=== PATIENT | female | born 1965 | race Caucasian/White ===

== ENCOUNTER 2018-11-10 15:33 | Observation (INO) ==
[2018-11-10] MEDS ORDERED: SODIUM CHLORIDE 0.9% 1000ML 2,000 ML IV SCH (16:15)
--- NOTE | 2018-11-10 16:34 | XRay Report ---
XR chest 1V portable CLINICAL HISTORY: dizziness COMPARISON STUDY: Chest radiograph April 23, 2015. FINDINGS: Lung volumes are normal. There is no pneumothorax or pleural effusion. No consolidation or evidence for pulmonary edema. Cardiac size is normal. Mediastinal contours are stable. Appearance of the chest is unchanged. IMPRESSION: No acute cardiopulmonary findings. Electronically signed by: Oneil Farrell M.D. 11/10/2018 4:33 PM
[2018-11-10] MEDS ORDERED: DEXAMETHASONE SOD PHOSPHATE 10 MG in SYRINGE 0 ML IV STA (16:52)
[2018-11-10] MEDS ORDERED: PROCHLORPERAZINE 5 MG/ML 2 ML VIAL IV STA (16:52)
[2018-11-10] MEDS ORDERED: DiphenhydrAMINE HCL 50 MG/ML VIAL IV STA (16:52)
[2018-11-10] MEDS ORDERED: PROCHLORPERAZINE 10 MG in SYRINGE 8 ML IV SCH (17:00)
[2018-11-10] MEDS ORDERED: DEXAMETHASONE **PF** INJ 10 MG/ML VIAL ONE (17:03)
[2018-11-10 17:04] LABS: Basophils # (auto) 0.02 K/uL (0-0.2); Basophils % (auto) 0.3 %; Eosinophils # (auto) 0.06 K/uL (0-0.5); Eosinophils % (auto) 0.8 %; Hematocrit (blood only) 43.5 % (37-47); Hemoglobin 15.4 g/dL (12.0-16.0); Immature Granulocytes # (auto) 0.02 K/uL (0.00-0.02); Immature Granulocytes % (auto) 0.3 %; Lymphocytes # (auto) 1.54 K/uL (1.2-3.4); Lymphocytes % (auto) 20.3 %; Mean Corpuscular Hgb Conc 35.4 g/dL (32-36); Mean Corpuscular Volume 94.6 fL (80-100); Mean Platelet Volume 9.1 fL (7.4-10.4); Monocytes # (auto) 0.41 K/uL (0.11-0.59); Monocytes % (auto) 5.4 %; Neutrophils # (auto) 5.54 K/uL (1.4-6.5); Neutrophils % (auto) 72.9 %; Platelet Count 315 K/uL (130-400); RDW Coefficient of Variation 12.7 % (11.5-14.5); RDW Standard Deviation 43.7 fL (36.4-46.3); White Blood Count 7.59 K/uL (4.8-10.8)
[2018-11-10 17:17] LABS: Appearance Urine Cloudy (Clear); Bacteria Urine Automated 1+ (Negative); Bilirubin Urine Negative (Negative); Color Urine Yellow; Epithelial Cell Urine Auto >30 /lpf (0-5); Glucose Urine UA Negative (Negative); Ketones Urine Negative (Negative); Leukocyte Esterase Urine 2+ (Negative); Nitrite Urine Negative (Negative); Protein Urine Negative (Negative); Specific Gravity Urine 1.016 (1.000-1.030); Urobilinogen Urine Negative (Negative)
[2018-11-10 17:19] LABS: Alanine Aminotransferase 77 U/L (12-78); Albumin Level 3.7 gm/dl (3.4-5.0); Aspartate Aminotransferase 99 U/L (15-37); BUN Creatinine Ratio 9.4 (10-20); Blood Urea Nitrogen 8 mg/dl (7-18); Calcium 10.1 mg/dl (8.5-10.1); Carbon Dioxide 27 mmol/L (21-32); Chloride 90 mmol/L (98-107); Creatinine Clr Calc Pharmacy 94.1 ml/min; Est GFR (African American) 86.4; Est GFR (Non-African American) 74.5; Glucose 156 mg/dl (70-99); Magnesium 1.2 mg/dl (1.8-2.4); Potassium 4.5 mmol/L (3.5-5.1); Sodium 127 mmol/L (136-145)
[2018-11-10 17:30] LABS: Albumin Globulin Ratio 0.8 (0.9-2); Alkaline Phosphatase 98 U/L (45-117); Bilirubin,Total 0.7 mg/dl (0.1-1); Globulin 4.5 gm/dl (2.5-4.0); Phosphorus 3.7 mg/dl (2.5-4.9); Total Protein 8.2 gm/dl (6.4-8.2); Troponin I < 0.015 ng/ml (0-0.045)
[2018-11-10 17:44] LABS: Pregnancy Test, Serum Negative (Negative)
--- NOTE | 2018-11-10 17:50 | Emergency Department Note ---
Entered by Osvaldo Mane acting as a scribe for History of Present Illness General Chief complaint: Neuro Symptoms/Deficit Stated complaint: BALANCE ISSUES, JIGGLY VISION Time Seen by Provider: 11/10/18 15:49 Source: patient Limitations: no limitations History of Present Illness Onset (ago): month(s) 3 Location: head Pain Consistency: + other (worsening) Quality: + constant Associated symptoms: + denies other symptoms (pain with extraocular movements); no headaches The patient is a 53 year old female who presents to the Emergency Room with complaints of dizziness occurring for the past 3 months. The patient states she has had dizziness for the past 8 months, however the symptoms started to worsen 3 months ago. The patient notes before August her dizziness was intermittent and usually worsened throughout the day. She states after August the dizziness is constant and has been progressively getting worse. She notes her vision has been going back and forth for the past 3 months. The patient denies headaches and pain with extraocular movements. The patient states she recently had an episode of sweating, nausea, and dizziness, but she notes she did not pass out. The patient denies any other weaknesses. She notes she does not know what tests she has undergone but has recently done an MRI. The patient states she has seen multiple doctors regarding her problem but has not found any answers. Patient has been evaluated by neurology, Dr. Raymond/Nelsy Silverman PAC and opthalmology, Dr. Gibbs, for her symptoms. Home Medications Home Medications Medication Instructions Recorded Confirmed Type albuterol sulfate [ProAir HFA] 2 puff INHALATION QID PRN 11/10/18 11/10/18 History bupropion HCl 150 mg PO BID 11/10/18 11/10/18 History cholecalciferol (vitamin D3) 0 unit PO DAILY 11/10/18 11/10/18 History [Vitamin D3] diazepam 5 mg PO Q8 PRN 11/10/18 11/10/18 History fluticasone [Flonase Allergy 1 spray INTRANASAL DAILY PRN 11/10/18 11/10/18 History Relief] lisinopril-hydrochlorothiazide 1 tab PO DAILY 11/10/18 11/10/18 History meclizine 25 mg PO TID PRN 11/10/18 11/10/18 History metoprolol tartrate 100 mg PO BID 11/10/18 11/10/18 History milk thistle seed extract 0 mg PO DAILY 11/10/18 11/10/18 History omeprazole 20 mg PO DAILY 11/10/18 11/10/18 History risperidone 1 mg PO DAILY 11/10/18 11/10/18 History turmeric 2 cap PO DAILY 11/10/18 11/10/18 History Allergies Allergy/AdvReac Type Severity Reaction Status Date / Time ampicillin Allergy Intermediate hives Verified 11/10/18 16:13 cephalexin Allergy Intermediate HIVES/ITCHI Verified 11/10/18 16:13 NG Penicillins Allergy Intermediate HIVES Verified 11/10/18 16:13 metronidazole Allergy Mild blisters Verified 11/10/18 16:13 adhesive AdvReac Mild SKIN Verified 11/10/18 16:13 TEARING AND IRRITATION Past Med/Surg History Medical History Acute anxiety (Acute) Depression (Acute) Suicidal ideation (Acute) UTI (urinary tract infection) (Acute) Family History Other No pertinent family history Social History Current Living Situation: Spouse Other Information That Helps Us Care for You: No Feels Safe at Home: Yes Safety Concerns: Feels Safe At This Time Smoking Status: Never smoker Hx Alcohol Use: Yes Alcohol type: wine and hard liquor Alcohol Intake Frequency : a few times a week Hx Substance Use: No Beliefs That Will Affect Care: None Preferred Language: Turkish Communication Ability: Effective Tubing Supervisor Required: No Review of Systems See HPI for pertinent positives & negatives. and A total of 10 systems reviewed and were otherwise negative Physical Exam Vital Signs Vital Signs - 24 hr 11/10/18 15:37 11/10/18 17:20 11/10/18 18:46 Temperature 36.8 C Temperature Source Oral Sepsis Recent Fever Within 48 Hours No Sepsis Action Taken by Nursing No Action Required Pulse Rate 82 Pulse Rate [Apical] 71 74 Respiratory Rate 20 18 18 Respiratory Effort / Characteristics Respiratory Depth Respiratory Pattern Blood Pressure 146/96 H Blood Pressure [Left Arm] 139/97 150/91 H Blood Pressure [Right Arm] Blood Pressure Mean 112 Blood Pressure Mean [Left Arm] 111 110 Blood Pressure Mean [Right Arm] Blood Pressure Position [Left Arm] Pulse Oximetry 97 97 97 Pulse Oximetry [Left Index Finger] Oxygen Delivery Method Room Air Room Air Room Air Oxygen Delivery Method [Left Index Finger] 11/10/18 19:43 11/10/18 19:48 11/10/18 23:19 Temperature 36.8 C 36.8 C 36.6 C Temperature Source Oral Oral Oral Sepsis Recent Fever Within 48 Hours Sepsis Action Taken by Nursing Pulse Rate Pulse Rate [Apical] 67 74 85 Respiratory Rate 20 20 22 Respiratory Effort / Characteristics Non-Labored Respiratory Depth Normal Respiratory Pattern Regular Blood Pressure Blood Pressure [Left Arm] 172/110 H 155/87 H Blood Pressure [Right Arm] 166/78 H Blood Pressure Mean Blood Pressure Mean [Left Arm] 130 109 Blood Pressure Mean [Right Arm] 107 Blood Pressure Position [Left Arm] Lying Pulse Oximetry 98 96 96 Pulse Oximetry [Left Index Finger] 98 Oxygen Delivery Method Room Air Room Air Room Air Oxygen Delivery Method [Left Index Finger] Room Air GENERAL: Awake, alert, uncomfortable-appearing, in no distress HENT: Normocephalic, atraumatic. Oropharynx with dry mucous membranes and otherwise unremarkable. Normal thyroid. EYES: Normal conjunctiva. Sclera non-icteric. Right pupil 4mm, left pupil 3.5mm. Pupils reactive without APD. Rotary Nystagmus bilaterally. EOMI. NECK: Supple. No nuchal rigidity. FROM. No JVD. RESPIRATORY: Clear to auscultation. CARDIAC: Regular rate, normal rhythm. Extremities warm and well perfused. Pulses equal. ABDOMEN: Soft, non-distended. No tenderness to palpation. No rebound or guarding. No masses. RECTAL: Deferred. MUSCULOSKELETAL: Chest examination reveals no tenderness. The back is symmetrical on inspection without obvious abnormality. There is no CVA tenderness to palpation. No joint edema. LOWER EXTREMITIES: Calves are equal size bilaterally and non-tender. No edema. No discoloration. NEURO: Normal sensorium. No sensory or motor deficits noted. 5/5 strenght and SILT x 4 ext. Cerebellar function intact including [id number], alternating palms, [id number]. DTRs wnl. No LE clonus. Negative Chvostek sign. SKIN: No rash or jaundice noted. Course 155: Past medical records reviewed. The patient was evaluated in room B5, and a complete history and physical examination were performed with Eugenio Marroquin MS4. 1800: I spoke with the patient regarding her admission. She agreed she should be admitted. Administered Medications Bupropion HCl (Wellbutrin-Xl) 150 mg PO BID LONNY Stop: 12/10/18 20:59 Last Admin: 11/10/18 20:31 Dose: 150 mg Heparin Sodium (Porcine) (Heparin Sodium (Porcine)) 5,000 units SQ Q8 LONNY Stop: 12/10/18 21:59 Last Admin: 11/10/18 21:49 Dose: 5,000 units Doxycycline Hyclate 100 mg/ (Dextrose) 110 mls @ 50 mls/hr IV BID LONNY Stop: 11/15/18 20:59 Last Admin: 11/10/18 22:44 Dose: 50 mls/hr Sodium Chloride (Nss) 500 mls @ 125 mls/hr IV .Q4H LONNY Stop: 11/11/18 11:46 Last Admin: 11/10/18 20:26 Dose: 125 mls/hr Metoprolol Tartrate (Lopressor) 100 mg PO BID LONNY Stop: 12/10/18 20:59 Last Admin: 11/10/18 20:31 Dose: 100 mg Risperidone (Risperdal) 1 mg PO HS LONNY Stop: 12/10/18 20:59 Last Admin: 11/10/18 21:48 Dose: 1 mg Discontinued Medications Dexamethasone Sodium Phosphate (Decadron Pf) Confirm Administered Dose 10 mg .ROUTE .STK-MED ONE Stop: 11/10/18 17:04 Last Admin: 11/10/18 17:12 Dose: Not Given Diphenhydramine HCl (Benadryl) 25 mg IV NOW STA Stop: 11/10/18 16:53 Last Admin: 11/10/18 17:12 Dose: 25 mg Sodium Chloride (Nss 1000ml) 2,000 mls @ 999 mls/hr IV .Q2H1M LONNY Stop: 11/10/18 18:15 Last Infusion: 11/10/18 18:57 Dose: 0 mls/hr Admin: 11/10/18 16:56 Dose: 999 mls/hr Dexamethasone Sodium Phosphate (10 mg/ Syringe) 2.5 mls @ 1 mls/min IV NOW STA Stop: 11/10/18 16:54 Last Admin: 11/10/18 17:12 Dose: 1 mls/min Prochlorperazine 10 mg/ (Syringe) 10 mls @ 5 mls/min IV TODAY@1700 LONNY Stop: 11/10/18 18:00 Last Admin: 11/10/18 17:12 Dose: Not Given Magnesium Sulfate/Dextrose (Magnesium Sulfate / D5w) 1 gm in 100 mls @ 100 mls/ hr IV Q1H LONNY Stop: 11/10/18 19:29 Last Infusion: 11/10/18 19:40 Dose: 100 mls/hr Admin: 11/10/18 19:06 Dose: 100 mls/hr Infusion: 11/10/18 19:03 Dose: 0 mls/hr Admin: 11/10/18 17:55 Dose: 100 mls/hr Magnesium Sulfate/Dextrose (Magnesium Sulfate / D5w) 1 gm in 100 mls @ 100 mls/ hr IV Q1H LONNY Stop: 11/10/18 21:59 Last Infusion: 11/10/18 22:44 Dose: 0 mls/hr Admin: 11/10/18 21:48 Dose: 100 mls/hr Infusion: 11/10/18 21:20 Dose: 100 mls/hr Admin: 11/10/18 20:20 Dose: 100 mls/hr Prochlorperazine (Compazine) 10 mg IV NOW [facility] Stop: 11/10/18 16:53 Last Admin: 11/10/18 17:12 Dose: 10 mg Medical Decision Making Differential Diagnosis Differential diagnosis: Etiologies such as benign positional vertigo, labrynthitis, dehydration, hypovolemia, anemia, tumor, infection, hypoglycemia, electrolyte abnormalities, cardiac sources, toxicological sources, central neurologic process, as well as others were entertained. Medical Records Attestation: I reviewed the patient's medical records. Home Medications Current Medication List: was personally reviewed by me Laboratory Data Attestation: I reviewed the patient's lab results. Result diagrams: 11/10/18 16:47 11/10/18 16:47 Lab Results 11/10/18 11/10/18 11/10/18 Range/Units 16:47 16:47 16:47 WBC 7.59 (4.8-10.8) K/uL RBC 4.60 (4.2-5.4) M/uL Hgb 15.4 (12.0-16.0) g/dL Hct 43.5 (37-47) % MCV 94.6 (80-100) fL MCH 33.5 (25-34) pg MCHC 35.4 (32-36) g/dL RDW Std Deviation 43.7 (36.4-46.3) fL RDW Coeff of Raffy 12.7 (11.5-14.5) % Plt Count 315 (130-400) K/uL MPV 9.1 (7.4-10.4) fL Immature Gran % (Auto) 0.3 % Neut % (Auto) 72.9 % Lymph % (Auto) 20.3 % [place] % (Auto) 5.4 % Eos % (Auto) 0.8 % Baso % (Auto) 0.3 % Immature Gran # (Auto) 0.02 (0.00-0.02) K/uL Neut # (Auto) 5.54 (1.4-6.5) K/uL Lymph # (Auto) 1.54 (1.2-3.4) K/uL [place] # (Auto) 0.41 (0.11-0.59) K/uL Eos # (Auto) 0.06 (0-0.5) K/uL Baso # (Auto) 0.02 (0-0.2) K/uL PT (9.0-12.0) Seconds INR (0.9-1.1) Sodium 127 L (136-145) mmol/L Potassium 4.5 (3.5-5.1) mmol/L Chloride 90 L (98-107) mmol/L Carbon Dioxide 27 (21-32) mmol/L Anion Gap 11.0 (3-11) BUN 8 (7-18) mg/dl Creatinine 0.89 (0.6-1.2) mg/dl Est Cr Clr Drug Dosing 94.1 ml/min Est GFR ( Amer) 86.4 Est GFR (Non-Af Amer) 74.5 BUN/Creatinine Ratio 9.4 L (10-20) Glucose 156 H (70-99) mg/dl Calcium 10.1 (8.5-10.1) mg/dl Phosphorus 3.7 (2.5-4.9) mg/dl Magnesium 1.2 L (1.8-2.4) mg/dl Total Bilirubin 0.7 (0.1-1) mg/dl AST 99 H (15-37) U/L ALT 77 (12-78) U/L Alkaline Phosphatase 98 (45-117) U/L Troponin I < 0.015 (0-0.045) ng/ml Total Protein 8.2 (6.4-8.2) gm/dl Albumin 3.7 (3.4-5.0) gm/dl Globulin 4.5 H (2.5-4.0) gm/dl Albumin/Globulin Ratio 0.8 L (0.9-2) Folate (>5.38) ng/ml TSH 2.630 (0.300-4.500) uIu/ml HCG, Qual Negative (Negative) Urine Color Urine Appearance (Clear) Urine pH (4.5-7.5) Ur Specific [place] (1.000-1.030) Urine Protein (Negative) Urine Glucose (UA) (Negative) Urine Ketones (Negative) Urine Blood (Negative) Urine Nitrite (Negative) Urine Bilirubin (Negative) Urine Urobilinogen (Negative) Ur Leukocyte Esterase (Negative) Urine WBC (Auto) (0-5) /hpf Urine RBC (Auto) (0-4) /hpf U Hyaline Cast (Auto) (0-5) /lpf U Epithel Cells (Auto) (0-5) /lpf Urine Bacteria (Auto) (Negative) Ethyl Alcohol mg/dL (0-3) mg/dl 11/10/18 11/10/18 11/10/18 Range/Units 16:58 18:14 19:58 WBC (4.8-10.8) K/uL RBC (4.2-5.4) M/uL Hgb (12.0-16.0) g/dL Hct (37-47) % MCV (80-100) fL MCH (25-34) pg MCHC (32-36) g/dL RDW Std Deviation (36.4-46.3) fL RDW Coeff of Raffy (11.5-14.5) % Plt Count (130-400) K/uL MPV (7.4-10.4) fL Immature Gran % (Auto) % Neut % (Auto) % Lymph % (Auto) % [place] % (Auto) % Eos % (Auto) % Baso % (Auto) % Immature Gran # (Auto) (0.00-0.02) K/uL Neut # (Auto) (1.4-6.5) K/uL Lymph # (Auto) (1.2-3.4) K/uL [place] # (Auto) (0.11-0.59) K/uL Eos # (Auto) (0-0.5) K/uL Baso # (Auto) (0-0.2) K/uL PT (9.0-12.0) Seconds INR (0.9-1.1) Sodium (136-145) mmol/L Potassium (3.5-5.1) mmol/L Chloride (98-107) mmol/L Carbon Dioxide (21-32) mmol/L Anion Gap (3-11) BUN (7-18) mg/dl Creatinine (0.6-1.2) mg/dl Est Cr Clr Drug Dosing ml/min Est GFR ( Amer) Est GFR (Non-Af Amer) BUN/Creatinine Ratio (10-20) Glucose (70-99) mg/dl Calcium (8.5-10.1) mg/dl Phosphorus (2.5-4.9) mg/dl Magnesium (1.8-2.4) mg/dl Total Bilirubin (0.1-1) mg/dl AST (15-37) U/L ALT (12-78) U/L Alkaline Phosphatase (45-117) U/L Troponin I (0-0.045) ng/ml Total Protein (6.4-8.2) gm/dl Albumin (3.4-5.0) gm/dl Globulin (2.5-4.0) gm/dl Albumin/Globulin Ratio (0.9-2) Folate 6.89 (>5.38) ng/ml TSH (0.300-4.500) uIu/ml HCG, Qual (Negative) Urine Color Yellow Urine Appearance Cloudy H (Clear) Urine pH 7.0 (4.5-7.5) Ur Specific [place] 1.016 (1.000-1.030) Urine Protein Negative (Negative) Urine Glucose (UA) Negative (Negative) Urine Ketones Negative (Negative) Urine Blood Negative (Negative) Urine Nitrite Negative (Negative) Urine Bilirubin Negative (Negative) Urine Urobilinogen Negative (Negative) Ur Leukocyte Esterase 2+ H (Negative) Urine WBC (Auto) 10-30 H (0-5) /hpf Urine RBC (Auto) 5-10 H (0-4) /hpf U Hyaline Cast (Auto) 5-10 H (0-5) /lpf U Epithel Cells (Auto) >30 H (0-5) /lpf Urine Bacteria (Auto) 1+ H (Negative) Ethyl Alcohol mg/dL < 3.0 (0-3) mg/dl 11/10/18 Range/Units 19:58 WBC (4.8-10.8) K/uL RBC (4.2-5.4) M/uL Hgb (12.0-16.0) g/dL Hct (37-47) % MCV (80-100) fL MCH (25-34) pg MCHC (32-36) g/dL RDW Std Deviation (36.4-46.3) fL RDW Coeff of Raffy (11.5-14.5) % Plt Count (130-400) K/uL MPV (7.4-10.4) fL Immature Gran % (Auto) % Neut % (Auto) % Lymph % (Auto) % [place] % (Auto) % Eos % (Auto) % Baso % (Auto) % Immature Gran # (Auto) (0.00-0.02) K/uL Neut # (Auto) (1.4-6.5) K/uL Lymph # (Auto) (1.2-3.4) K/uL [place] # (Auto) (0.11-0.59) K/uL Eos # (Auto) (0-0.5) K/uL Baso # (Auto) (0-0.2) K/uL PT 10.7 (9.0-12.0) Seconds INR 1.1 (0.9-1.1) Sodium (136-145) mmol/L Potassium (3.5-5.1) mmol/L Chloride (98-107) mmol/L Carbon Dioxide (21-32) mmol/L Anion Gap (3-11) BUN (7-18) mg/dl Creatinine (0.6-1.2) mg/dl Est Cr Clr Drug Dosing ml/min Est GFR ( Amer) Est GFR (Non-Af Amer) BUN/Creatinine Ratio (10-20) Glucose (70-99) mg/dl Calcium (8.5-10.1) mg/dl Phosphorus (2.5-4.9) mg/dl Magnesium (1.8-2.4) mg/dl Total Bilirubin (0.1-1) mg/dl AST (15-37) U/L ALT (12-78) U/L Alkaline Phosphatase (45-117) U/L Troponin I (0-0.045) ng/ml Total Protein (6.4-8.2) gm/dl Albumin (3.4-5.0) gm/dl Globulin (2.5-4.0) gm/dl Albumin/Globulin Ratio (0.9-2) Folate (>5.38) ng/ml TSH (0.300-4.500) uIu/ml HCG, Qual (Negative) Urine Color Urine Appearance (Clear) Urine pH (4.5-7.5) Ur Specific [place] (1.000-1.030) Urine Protein (Negative) Urine Glucose (UA) (Negative) Urine Ketones (Negative) Urine Blood (Negative) Urine Nitrite (Negative) Urine Bilirubin (Negative) Urine Urobilinogen (Negative) Ur Leukocyte Esterase (Negative) Urine WBC (Auto) (0-5) /hpf Urine RBC (Auto) (0-4) /hpf U Hyaline Cast (Auto) (0-5) /lpf U Epithel Cells (Auto) (0-5) /lpf Urine Bacteria (Auto) (Negative) Ethyl Alcohol mg/dL (0-3) mg/dl Imaging Data Radiologist's Impression: Radiology results as stated below per my review and the radiologist's interpretation: XR chest 1V portable CLINICAL HISTORY: dizziness COMPARISON STUDY: Chest radiograph April 23, 2015. FINDINGS: Lung volumes are normal. There is no pneumothorax or pleural effusion. No consolidation or evidence for pulmonary edema. Cardiac size is normal. Mediastinal contours are stable. Appearance of the chest is unchanged. IMPRESSION: No acute cardiopulmonary findings. Electronically signed by: Oneil Farrell M.D. 11/10/2018 4:33 PM ECG Data Attestation: I personally reviewed and interpreted this ECG as follows: Indication: nausea and weakness Rate (beats per minute): 74 Rhythm: sinus rhythm Findings: + other (normal axis); no acute ischemic change Blood Pressure Blood Pressure Findings: Elevated blood pressure Blood Pressure Disposition: elevated BP felt to be situational MDM Narrative The patient is a pleasant 53-year-old woman with a past medical history of anxiety and depression who presents emergency department with worsening of chronic rotary nystagmus, vertigo/dizziness over the past 8 months with multiple evaluations including memory negative MRI per hpi. Of note, the patient did have a positive Stefan-Abel viral panel on September 19, 2018. Otherwise she had a negative Lyme screen as well as negative antibodies for West Nile, AC HR, and HIV. On arrival the patient is fatigued and uncomfortable but no acute distress, afebrile stable vital signs. On exam the patient has overt rotary nystagmus/ocular clonus bilaterally. Additionally right pupil slightly larger than left however similar to recent ophthalmology note in [employer]. Otherwise there is no gross afferent pupillary defect. Otherwise patient is neurologically intact with intact finger to nose, alternating palms, heel to centeno. There is no lower extremity clonus. EKG without evidence of acute ischemia. Chest x-ray negative. WBC, H/H, platelets within normal limits. Sodium is 127 which is new for the patient. Additionally magnesium 1.2 without any recent values for comparison. UA with possibe infection albeit with epithelial cells>30. Patient denies urinary sx and so will defer abx at this time. Patient was treated with IV fluids, Compazine for possible migrainous component, Benadryl and dexamethasone for possible labyrinthitis however patient with no improvement in symptoms. Ordered for magnesium repletion which given her low value may be contributing to her worsening symptoms. No recent magnesium levels were found in all scripts or elsewhere, therefore unclear if patient's hypomagnesemia is the cause of her 8 months of symptoms or merely a component of her recent worsening. Additionally, unclear etiology to the patient's hyponatremia and hypomagnesemia as patient denies any recent nausea vomiting or diarrhea, Additionally the patient reports she only infrequently will drink wine and denies any daily alcohol use/abuse. Considering the patient's neurologic symptoms with her hypomagnesemia it is reasonable to admit the patient for optimization of her electrolytes. Case d/w Dr. Solis, [facility] hospitalist, who will evaluate the patient for admission. Impression & Plan Hypomagnesemia, Vertigo, Hyponatremia Discharge Plan Visit Data *Final* Discharge Date/Time: 11/10/18 19:27 Chief Complaint: Neuro Symptoms/Deficit Stated Complaint: BALANCE ISSUES, JIGGLY VISION ED Provider: Crescencio Wolf Discharge Problem: Hypomagnesemia, Vertigo, Hyponatremia Patient Disposition: Admitted As Inpatient Discharge Instructions Interventions: ED Discharge Assessment Last Done: 11/10/18 19:27 The scribe's documentation has been prepared under my direction and personally reviewed by me in its entirety. I confirm that the note above accurately reflects all work, treatment, procedures, and medical decision making performed by me.
[2018-11-10] MEDS: MAGNESIUM SULFATE / D5W 1 GM/100 ML BAG IV SCH ×4 (17:55→21:48)
--- NOTE | 2018-11-10 19:31 | History & Physical Report ---
Date of Service November 10, 2018 Assessment & Plan (1) Hypomagnesemia: 53 y/o F Hx HTN, depression, obesity, hyponatremia, GERD. The pt has had intermittent vertigo symptoms for 2 years. Her symptoms recurred in August and have been present since then. She describes an inability to ficus, dizziness, an impaired gait, nausea and occasional vomiting. She was provided with a Scopolamine patch one week ago which has had a marginal effect. She presented primarily due to an inability to keep her balance. She denies CP, SOB , headache or fevers. The pt's outpatient workup thus far has included an MRI 09/05, extensive labs. No etiology has been elucidated at present and she reports that she is due for a paraneoplastic workup going forward. Initial labs are notable for hypomagnesemia, hyponatremia and a (+) UA. She denies urinary symptoms. An EKG does not display QT prolongation despite her low mag. 1) Hypomagnesemia, hyponatremia - NS and mag provided - will repeat labs AM. 2) Nystagmus, impaired gait, nausea - progressive symptoms - extensive workup is in process. Nystagmus can be caused my hypomagnesemia so we can assess for improvement following repletion. Aside from this, it may be prudent to contact her MD AM to avoid redundancies in her workup - an MRI with geraldine would be idicated to r/o MS for example. She was wearing a Scopolamine patch which we have removed as this can cause QT prolongation. We will try to avoid antiemetics pending correction. Reglan and Ativan will be ordered PRN after mag is administered. A recent TSH was WNL - thiamine and folate levels are pending. 3) HTN - we will continue Lisinopril. Considering her hyponatremia, we will hold HCTZ and may wish to substitute this medication going forward. 4) Depression - cont Risperdone, Wellbutrin. There is no mention of nystagmus in the side effect profile. 5) (+) UA - does not describe symptoms - we will treat as she is hospitalized and we cannot be sure this isn't exacerbating her symptoms. Full code - Heparin prophylaxis Total time for this admit including review of labs, meds, imaging, records - discussion with pt and ER attending - 40 min History of Present Illness Chief Complaint: 53 y/o F Hx HTN, depression, obesity, hyponatremia, GERD. The pt has had intermittent vertigo symptoms for 2 years. Her symptoms recurred in August and have been present since then. She describes an inability to ficus, dizziness, an impaired gait, nausea and occasional vomiting. She was provided with a Scopolamine patch one week ago which has had a marginal effect. She presented primarily due to an inability to keep her balance. She denies CP, SOB , headache or fevers. The pt's outpatient workup thus far has included an MRI 09/05, extensive labs. No etiology has been elucidated at present and she reports that she is due for a paraneoplastic workup going forward. Initial labs are notable for hypomagnesemia, hyponatremia and a (+) UA. She denies urinary symptoms. An EKG does not display QT prolongation despite her low mag. PMH: 1) HTN 2) Depression 3) Obese 4) Persitent vertigo and impaired gait Surgical: 1) Sigmoid resection 2) Multiple lipoma resections Social: Does not smoke Drinks 2 x wk - when she drinks it can be 4-5 glasses of wine or liquor Family: Both parents owing to complications of COPD Primary Care Provider: LATIA Johnson Allergies Allergy/AdvReac Type Severity Reaction Status Date / Time ampicillin Allergy Intermediate hives Verified 11/10/18 16:13 cephalexin Allergy Intermediate HIVES/ITCHI Verified 11/10/18 16:13 NG Penicillins Allergy Intermediate HIVES Verified 11/10/18 16:13 metronidazole Allergy Mild blisters Verified 11/10/18 16:13 adhesive AdvReac Mild SKIN Verified 11/10/18 16:13 TEARING AND IRRITATION Home Medications Home Medications Medication Instructions Recorded Confirmed Type albuterol sulfate [ProAir HFA] 2 puff INHALATION QID PRN 11/10/18 11/10/18 History bupropion HCl 150 mg PO BID 11/10/18 11/10/18 History cholecalciferol (vitamin D3) 0 unit PO DAILY 11/10/18 11/10/18 History [Vitamin D3] diazepam 5 mg PO Q8 PRN 11/10/18 11/10/18 History fluticasone [Flonase Allergy 1 spray INTRANASAL DAILY PRN 11/10/18 11/10/18 History Relief] lisinopril-hydrochlorothiazide 1 tab PO DAILY 11/10/18 11/10/18 History meclizine 25 mg PO TID PRN 11/10/18 11/10/18 History metoprolol tartrate 100 mg PO BID 11/10/18 11/10/18 History milk thistle seed extract 0 mg PO DAILY 11/10/18 11/10/18 History omeprazole 20 mg PO DAILY 11/10/18 11/10/18 History risperidone 1 mg PO DAILY 11/10/18 11/10/18 History turmeric 2 cap PO DAILY 11/10/18 11/10/18 History Past Med/Surg History Medical History Acute anxiety (Acute) Depression (Acute) Suicidal ideation (Acute) UTI (urinary tract infection) (Acute) Family History Other No pertinent family history Social History Feels Safe at Home: Yes Smoking Status: Never smoker Review of Systems General: Denies fevers, night sweats, weight loss, weight gain ENT: Denies throat pain, nasal congestion Eyes: Denies acute visual impairment, eye pain Cardiovascular: Denies CP, palpitations, PND, orthopnea Respiratory: Denies SOB, productive cough, wheezing GI: Persistent nausea as above : Denies dysuria, hesitancy, frequency, hematuria Neuro: Impaired vision, impaired gait Endocrine: Denies polydypsia, polyuria Heme: Denies unexplained bruising Skin: Denies acute rash or ulcers Physical Exam 2 Vital Signs (Past 24 Hours): Last Vital Signs Temp 36.8 C 11/10/18 15:37 Pulse 74 11/10/18 18:46 Resp 18 11/10/18 18:46 BP 150/91 H 11/10/18 18:46 Pulse Ox 97 11/10/18 18:46 Physical Exam: General: PLeasant, overweight, middle-aged F - AAO x 3, no distress ENT: No erythema or exudates, no thrush Eyes: ROMAIN, EOMI Head and neck: Normocephalic, atraumatic, No JVD, neck is supple. Chest/heart: Nontender, S1,2, RRR, no murmurs, no gallops Lungs: CTAB, no wheezing or crackles Abdomen: Nontender, nondistended, BS+ Neuro: AAO x 3, speech is clear, no unilateral weakness or loss of sensation - rotary nystagmus is present laterally and less so downward - coordination is mildly impaired - strength/sensation are intact. There is mild twitching n the extremities which she does not appear to notice. A fine tremor is present. Musculoskeletal: No joint inflammation, muscle tenderness, FROM Skin: No acute rashes or ulcers Extremities: No clubbing, cyanosis, edema Results & Data Diagnostic Findings EKG: NSR
[2018-11-10] MEDS ORDERED: ZOLPIDEM TARTRATE 5 MG TAB PO PRN (19:43)
[2018-11-10] MEDS ORDERED: MAGNESIUM HYDROXIDE SUSP 30 ML UDC PO PRN (19:43)
[2018-11-10] MEDS ORDERED: ACETAMINOPHEN 325 MG TAB PO PRN (19:43)
[2018-11-10] MEDS ORDERED: POLYETHYLENE (MIRALAX) 17 GM PACK PO PRN (19:43)
[2018-11-10] MEDS ORDERED: diazePAM 5 MG TABLET PO PRN (19:43)
[2018-11-10] MEDS ORDERED: ONDANSETRON INJ 2 MG/ML 2 ML VIAL IV PRN (19:43)
[2018-11-10] MEDS ORDERED: ALUMINUM/MAGNESIUM SUSP 30 ML UDC PO PRN (19:43)
[2018-11-10] MEDS ORDERED: ALBUTEROL HFA 8 GM INHALER INH PRN (20:00)
[2018-11-10] MEDS: SODIUM CHLORIDE 0.9% 500 ML IV SCH (20:26)
[2018-11-10 20:28] LABS: INR 1.1 (0.9-1.1); Prothrombin Time 10.7 Seconds (9.0-12.0)
[2018-11-10] MEDS: METOPROLOL TARTRATE 100 MG TAB PO SCH (20:31)
[2018-11-10] MEDS: BuPROPion XL 150 MG TABCR PO SCH (20:31)
[2018-11-10] MEDS ORDERED: risperiDONE 1 MG TABLET PO SCH (21:00)
[2018-11-10] MEDS: HEPARIN SOD 5,000 UNIT/0.5 ML VIAL SQ SCH (21:49)
[2018-11-10] MEDS ORDERED: METOCLOPRAMIDE HCL INJ 5 MG/ML 2 ML VIAL IV PRN (22:00)
[2018-11-10] MEDS: DOXYCYCLINE HYCLATE 100 MG in DEXTROSE 5% 100 ML IV SCH (22:44)
[2018-11-11] MEDS: SODIUM CHLORIDE 0.9% 500 ML IV SCH ×3 (00:27→08:47)
[2018-11-11] MEDS: HEPARIN SOD 5,000 UNIT/0.5 ML VIAL SQ SCH (06:24)
[2018-11-11 06:33] LABS: BUN Creatinine Ratio 10.6 (10-20); Calcium 8.6 mg/dl (8.5-10.1); Creatinine Clr Calc Pharmacy 123.1 ml/min; Est GFR (Non-African American) 100.1; Magnesium 1.9 mg/dl (1.8-2.4); Potassium 4.1 mmol/L (3.5-5.1)
[2018-11-11] MEDS ORDERED: LORazepam 0.5 MG TAB PO ONE (08:18)
[2018-11-11] MEDS: METOPROLOL TARTRATE 100 MG TAB PO SCH (08:32)
[2018-11-11] MEDS: DOXYCYCLINE HYCLATE 100 MG in DEXTROSE 5% 100 ML IV SCH (08:32)
[2018-11-11] MEDS: BuPROPion XL 150 MG TABCR PO SCH (08:33)
[2018-11-11] MEDS ORDERED: PANTOprazole 40 MG TAB PO SCH (09:00)
[2018-11-11] MEDS ORDERED: risperiDONE 1 MG TABLET PO SCH (09:00)
--- NOTE | 2018-11-11 10:52 | Discharge Summary ---
Date of Service November 11, 2018 Admission HPI Per Admitting Provider Chief Complaint: 53 y/o F Hx HTN, depression, obesity, hyponatremia, GERD. The pt has had intermittent vertigo symptoms for 2 years. Her symptoms recurred in August and have been present since then. She describes an inability to ficus, dizziness, an impaired gait, nausea and occasional vomiting. She was provided with a Scopolamine patch one week ago which has had a marginal effect. She presented primarily due to an inability to keep her balance. She denies CP, SOB , headache or fevers. The pt's outpatient workup thus far has included an MRI 09/05, extensive labs. No etiology has been elucidated at present and she reports that she is due for a paraneoplastic workup going forward. Initial labs are notable for hypomagnesemia, hyponatremia and a (+) UA. She denies urinary symptoms. An EKG does not display QT prolongation despite her low mag. PMH: 1) HTN 2) Depression 3) Obese 4) Persitent vertigo and impaired gait Surgical: 1) Sigmoid resection 2) Multiple lipoma resections Social: Does not smoke Drinks 2 x wk - when she drinks it can be 4-5 glasses of wine or liquor Family: Both parents owing to complications of COPD Primary Care Provider: LATIA Johnson Principal Diagnosis Vertigo, hypoMg, hypoNa Discharge Exam Constitutional WD/WN, vitals as above Eyes normal visual de leon by confrontation and + anicteric sclerae Neck normal visual inspection and trachea midline Respiratory normal respiratory effort, lungs clear to auscultation Cardiovascular Rate/Rhythm: regular rate and regular rhythm Gastrointestinal (Abdomen) Inspection/Auscultation: abdomen not distended Percussion/Palpation: abdomen soft; abdomen nontender Musculoskeletal Head/Neck/Chest: normocephalic and head atraumatic Skin no rashes, warm and dry Neurologic awake; not confused Speech / Cognition: normal speech Psychiatric A+Ox3, euthymic affect Discharge Data Allergies Allergy/AdvReac Type Severity Reaction Status Date / Time ampicillin Allergy Intermediate hives Verified 11/10/18 16:13 cephalexin Allergy Intermediate HIVES/ITCHI Verified 11/10/18 16:13 NG Penicillins Allergy Intermediate HIVES Verified 11/10/18 16:13 metronidazole Allergy Mild blisters Verified 11/10/18 16:13 adhesive AdvReac Mild SKIN Verified 11/10/18 16:13 TEARING AND IRRITATION Consultations 11/10/18 18:12 ED Decision to Admit Stat Hospital Course (1) Hypomagnesemia: 53 y/o F Hx HTN, depression, obesity, hyponatremia, GERD. The pt has had intermittent vertigo symptoms for 2 years. Her symptoms recurred in August and have been present since then. She describes an inability to ficus, dizziness, an impaired gait, nausea and occasional vomiting. She was provided with a Scopolamine patch one week ago which has had a marginal effect. She presented primarily due to an inability to keep her balance. She denies CP, SOB , headache or fevers. The pt's outpatient workup thus far has included an MRI 09/05, extensive labs. No etiology has been elucidated at present and she reports that she is due for a paraneoplastic workup going forward. Initial labs are notable for hypomagnesemia, hyponatremia and a (+) UA. She denies urinary symptoms. An EKG does not display QT prolongation despite her low mag. 1) Hypomagnesemia, hyponatremia - NS and mag provided Most of pts sx have resolved with Mg supplementation. Her vision is still an issue, but it is better Will d/c with Mg supplement Levels to be rechecked with other labs from her neuro appt on 11/20--pt will need a script for this for correct timing 2) Nystagmus, impaired gait, nausea - progressive symptoms - extensive workup is in process. Nystagmus can be caused my hypomagnesemia so we can assess for improvement following repletion. Aside from this, it may be prudent to contact her MD AM to avoid redundancies in her workup - an MRI with geraldine would be indicated to r/o MS for example. She was wearing a Scopolamine patch which we have removed as this can cause QT prolongation. We will try to avoid antiemetics pending correction. Reglan and Ativan will be ordered PRN after mag is administered. TSH was WNL - thiamine levels are pending Folate is WNL 3) HTN - we will continue Lisinopril. Considering her hyponatremia, we will hold HCTZ and may wish to substitute this medication going forward. 4) Depression - cont Risperdone, Wellbutrin. There is no mention of nystagmus in the side effect profile. 5) (+) UA - asx with this + leuk est, neg nitrite Cx is pending Possibly adding to pt's sx?? Will d/c with doxy course (bactrim would be ideal given shorter course of tx however has interaction issues with other meds) If cx is neg, will call pt to d/c abx use Pt has many sx c/w GI dysfunction. She has had several abd surgeries including a resection. She had several major infections associated with her surgeries, including cdiff and sepsis. All of this happened after a fall lead to surgical intervention with hardware to her ankle. 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 There was some sort of payroll issue that caused her social security disability to become void and she and her lost their house. It was shortly after this that pt had to have multiple abd surgeries as noted above. Advised her to start a multi-strain probiotic such as Jarrow EPS. While full work-up should be pursued to rule out other issues as the cause of pt's current health status, if neg, pt should continue to work with her PCP on her gut health. She may also benefit from acupuncture. She [place] [facility] to do so as her insurance does not cover. Total Time Total Time Spent Total Time Spent (In Minutes): >30 Total Time Includes: Examination of the Patient, Discharge Planning and Medication Reconciliation Discharge Plan Discharge Items Patient Disposition: Home - Self-Care Reason For Visit: HYPOMAGNESEMIA, HYPONATREMIA, NYSTAGMUS Discharge Diagnosis: Hypomagnesemia, hyponatremia, vertigo Condition: Good Discharge Goals: Decrease discomfort, Improve disease control and Improve function Activity: Resume your previous activity Non-emergency contact: Primary Care Provider and Neurologist Call non-emergency contact if: you have any medication questions and your symptoms worsen Diet: Regular Addtl Provider Instructions: You should keep your appointment with Dr. Lockhart on 11/20 Please have Magnesium levels checked with the labs she orders at that visit. Your urine culture is pending. I will call you tomorrow if it is negative and give further instructions at that time. Prescriptions: New magnesium 200 mg tablet 200 mg PO BID Qty: 60 RF: 0 doxycycline hyclate 100 mg capsule 100 mg PO BID 7 Days Qty: 14 RF: 0 Continue lisinopril-hydrochlorothiazide 20-12.5 mg Tablet 1 tab PO DAILY RF: 0 metoprolol tartrate 100 mg Tablet 100 mg PO BID RF: 0 meclizine 25 mg Tablet 25 mg PO TID PRN (Reason: Dizziness Or Vertigo) RF: 0 albuterol sulfate [ProAir HFA] 90 mcg/actuation Hfa Aerosol Inhaler 2 puff INHALATION QID PRN (Reason: Shortness Of Breath Or Wheezing) RF: 0 fluticasone [Flonase Allergy Relief] 50 mcg/actuation Atkinson,Suspension 1 spray INTRANASAL DAILY PRN (Reason: Congestion) RF: 0 risperidone 1 mg Tablet 1 mg PO DAILY RF: 0 diazepam 5 mg Tablet 5 mg PO Q8 PRN (Reason: Vertigo) RF: 0 cholecalciferol (vitamin D3) [Vitamin D3] 1,000 unit Capsule PO DAILY RF: 0 bupropion HCl 150 mg Tablet Extended Release 24 Hr 150 mg PO BID RF: 0 omeprazole 20 mg Tablet,Delayed Release (Dr/Ec) 20 mg PO DAILY RF: 0 milk thistle seed extract 175 mg Capsule PO DAILY RF: 0 turmeric 400 mg Capsule 2 cap PO DAILY RF: 0 Stand-Alone Forms: [facility] Discharge Orders: Discharge Order (Routine); Ordered 11/11/18 Ordered By: Jacqueline Joseph Admission Data Admit Date/Time: 11/10/18 18:56 Attending Provider: Jacqueline Joseph Admit Provider: Jose Carlos Solis Primary Care Provider: Emily Casanova Other Providers: Jose Carlos Solis Service: Telemetry Other Interventions: Discharge Summary Assessment (RN) Last Done: 11/11/18 11:31 Pending Studies at Discharge: Yes Studies:: B1 level Urine culture DC Date/Time DO NOT enter until pt leaves facility: 11/11/18 12:18 Supervising Physician Co-Signing Physician Notes Pt is feeling much better. She has been OOB and feels stable on her feet. 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 She states her n/v have fully resolved. She was able to eat breakfast today without issue, which is substantial in that prior to this morning she has not been able to eat much. She has lost 23 lbs in the last 6 months due to these issues. She still feels that her vision is not quite right, but does think it is better. Pt was taking a probiotic prior (several strains, all lactobacillus), however she stopped that in the last 6 months due to using kombucha. Pt states that her diet has not been as healthy in the last 3 months due to inability to prepare food as she was prior. 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 This was just prior to her surgical issues started. Pt states she has not felt confident in her ability to use a knife due to her vision issues (she is highly trained in knife use as part of her industrial designer training). Her works and does not feel like making major preparations upon return to home after working all day. Pt has been very exhausted as well and given her n/v, she has not had much motivation to cook as healthy as she had been prior. Pt denies fever, SOB, chest pain, abd pain, n/v/c/d, LE pain or swelling. Pertinent positives and negatives reviewed in HPI--all others negative
== END 2018-11-11 12:18 | disposition home or self-care (01) ==
LOC: ED 15:33 → 2S 15:33 → SUATTDRO 18:56 → 2S 19:27

== ENCOUNTER 2019-10-01 16:32 | Inpatient (IN) ==
[2019-10-01] MEDS ORDERED: SODIUM CHLORIDE 0.9% 1000ML 1,000 ML IV SCH (17:00)
--- NOTE | 2019-10-01 17:08 | XRay Report ---
XR chest 1V portable CLINICAL HISTORY: 53 years-old Female presenting with generalized pain. TECHNIQUE: Portable upright AP view of the chest was obtained. COMPARISON: 11/10/2018. FINDINGS: Cardiac silhouette remains borderline enlarged. No focal opacity. No large effusion or pneumothorax. Osseous structures normal. Upper abdomen normal. IMPRESSION: 1. Borderline cardiomegaly. No other convincing evidence of acute cardiopulmonary disease. Electronically signed by: Bacilio Fu M.D. 10/01/2019 5:07 PM
[2019-10-01 17:12] LABS: Basophils # (auto) 0.02 K/uL (0-0.2); Basophils % (auto) 0.3 %; Eosinophils # (auto) 0.05 K/uL (0-0.5); Eosinophils % (auto) 0.7 %; Hematocrit (blood only) 45.1 % (37-47); Hemoglobin 16.3 g/dL (12.0-16.0); Immature Granulocytes # (auto) 0.01 K/uL (0.00-0.02); Immature Granulocytes % (auto) 0.1 %; Lymphocytes # (auto) 1.05 K/uL (1.2-3.4); Lymphocytes % (auto) 14.9 %; Mean Corpuscular Hemoglobin 35.1 pg (25-34); Mean Corpuscular Hgb Conc 36.1 g/dL (32-36); Mean Corpuscular Volume 97.2 fL (80-100); Mean Platelet Volume 8.7 fL (7.4-10.4); Monocytes # (auto) 0.32 K/uL (0.11-0.59); Monocytes % (auto) 4.5 %; Neutrophils # (auto) 5.62 K/uL (1.4-6.5); Neutrophils % (auto) 79.5 %; Platelet Count 258 K/uL (130-400); RDW Coefficient of Variation 13.3 % (11.5-14.5); RDW Standard Deviation 46.8 fL (36.4-46.3); Red Blood Count 4.64 M/uL (4.2-5.4); White Blood Count 7.07 K/uL (4.8-10.8)
[2019-10-01 17:18] LABS: iSTAT Creatinine 1.1 mg/dl (0.6-1.3); iSTAT Ionized Calcium 1.1 mmol/l (1.12-1.32); iSTAT Potassium 4.3 mEq/L (3.3-5.0)
[2019-10-01 17:26] LABS: Partial Thromboplastin Ratio 0.9; Prothrombin Time 10.3 Seconds (9.0-12.0)
[2019-10-01 17:28] LABS: Alanine Aminotransferase 104 U/L (12-78); Albumin Level 3.7 gm/dl (3.4-5.0); Aspartate Aminotransferase 96 U/L (15-37); BUN Creatinine Ratio 8.7 (10-20); Blood Urea Nitrogen 8 mg/dl (7-18); Calcium 9.9 mg/dl (8.5-10.1); Carbon Dioxide 25 mmol/L (21-32); Chloride 89 mmol/L (98-107); Creatinine Clr Calc Pharmacy 85.9 ml/min; Est GFR (African American) 79.8; Est GFR (Non-African American) 68.9; Glucose 132 mg/dl (70-99); Potassium 4.2 mmol/L (3.5-5.1); Sodium 128 mmol/L (136-145)
[2019-10-01 17:33] LABS: Alkaline Phosphatase 78 U/L (45-117); Bilirubin,Total 0.8 mg/dl (0.2-1); Globulin 3.9 gm/dl (2.5-4.0); Lipase 13469 U/L (73-393); Total Protein 7.6 gm/dl (6.4-8.2); Troponin I < 0.015 ng/ml (0-0.045)
[2019-10-01] MEDS ORDERED: ONDANSETRON INJ 2 MG/ML 2 ML VIAL IV STA (17:33)
[2019-10-01] MEDS ORDERED: MoRPHine SULFATE 4 MG/ML 1 ML CARP\\VIAL IV PRN (17:33)
--- NOTE | 2019-10-01 17:34 | Emergency Department Note ---
Entered by Brittani Guerrero acting as a scribe for Chinmay Magana DO History of Present Illness General Chief complaint: Abdominal Pain Stated complaint: SEVERE STOMACH PAIN Time Seen by Provider: 10/01/19 16:41 Source: patient History of Present Illness Onset (ago): hour(s) (this morning) Location: abdomen (upper epigastric ) Radiation: non-radiation Severity: severe (as per patient) and similar to prior episodes (2 episodes in the past with most recent a few months ago) Pain Consistency: + constant Maximum Pain Intensity: 8 Associated symptoms: + denies other symptoms (back pain, vomiting) and + other (nausea) The patient is a 53 year old female with a PMHx pertinent for hernia, abdominal abscess, 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 The pa soledad explains that she began to experience "severe" upper epigastric abdominal pain this morning which has worsened throughout the afternoon. She states that she has experienced 2 similar episodes of these symptoms in the past but has not been seen by a doctor for this pain. Her most recent episode occurred a few months ago. She also complains of nausea. The patient reports that she did not take any pain medication [employer] and did not try PO intake today. She denies vomiting, radiation of pain, back pain, and use of blood thinners. Additionally she notes that she does not have any history of bowel obstruction and states that she is allergic to many common antibiotics including Flagyl. The patient offers no additional concerns at this time. Home Medications Home Medications Medication Instructions Recorded Confirmed Type albuterol sulfate [ProAir HFA] 2 puff INHALATION QID PRN 11/10/18 10/01/19 History bupropion HCl 150 mg PO BID 11/10/18 10/01/19 History cholecalciferol (vitamin D3) 1,000 unit PO DAILY 11/10/18 10/01/19 History [Vitamin D3] fluticasone propionate [Flonase 1 spray INTRANASAL DAILY PRN 11/10/18 10/01/19 History Allergy Relief] lisinopril-hydrochlorothiazide 1 tab PO DAILY 11/10/18 10/01/19 History meclizine 25 mg PO TID PRN 11/10/18 10/01/19 History metoprolol tartrate 100 mg PO BID 11/10/18 10/01/19 History milk thistle seed extract 175 mg PO DAILY 11/10/18 10/01/19 History omeprazole 20 mg PO DAILY PRN 11/10/18 10/01/19 History risperidone 1 mg PO QPM 11/10/18 10/01/19 History turmeric 800 mg PO DAILY 11/10/18 10/01/19 History magnesium 200 mg PO BID #60 tab 11/11/18 10/01/19 Rx clonazepam [Klonopin] 1 mg PO BID PRN 11/18/18 10/01/19 History memantine [Namenda] 10 mg PO BID 10/01/19 10/01/19 History propranolol [Inderal LA] 120 mg PO DAILY 10/01/19 10/01/19 History Allergies Allergy/AdvReac Type Severity Reaction Status Date / Time ampicillin Allergy Intermediate hives Verified 10/01/19 17:35 cephalexin Allergy Intermediate HIVES/ITCHI Verified 10/01/19 17:35 NG Penicillins Allergy Intermediate HIVES Verified 10/01/19 17:35 metronidazole Allergy Mild blisters Verified 10/01/19 17:35 adhesive AdvReac Mild SKIN Verified 10/01/19 17:35 TEARING AND IRRITATION Past Med/Surg History Medical History Acute anxiety (Acute) Ankle fracture (Acute) right Depression (Acute) Fracture of left tibia and fibula (Acute) plate, screws Nystagmus (Acute) Suicidal ideation (Acute) UTI (urinary tract infection) (Acute) Surgical History H/O meniscectomy of right knee (Acute) H/O oophorectomy (Acute) left History of appendectomy (Acute) History of colon resection (Acute) Hx of tonsillectomy (Acute) Family History Other No pertinent family history Social History Preferred Language: German Communication Ability: Effective [employer] Required: No Beliefs That Will Affect Care: None Current Living Situation: Spouse Feels Safe at Home: Yes Smoking Status: Never smoker Do You Dip or Chew Tobacco: No ; Hx Alcohol Use: Yes Alcohol type: hard liquor Hx Substance Use: No Review of Systems See HPI for pertinent positives & negatives. and A total of 10 systems reviewed and were otherwise negative Physical Exam Vital Signs Vital Signs - 24 hr 10/01/19 17:43 10/01/19 19:43 Pulse Rate [Apical] 73 71 Pulse Rhythm [Apical] Regular Regular Pulse Strength [Apical] Normal Normal Respiratory Rate 18 18 Respiratory Effort / Characteristics Non-Labored Spontaneous Non-Labored Spontaneous Respiratory Depth Normal Normal Respiratory Pattern Regular Regular Blood Pressure [Left Arm] 132/85 135/88 Blood Pressure Mean [Left Arm] 100 103 Blood Pressure Position [Left Arm] Lying Lying Pulse Oximetry 96 95 Oxygen Delivery Method Room Air Room Air GENERAL: Patient is awake alert in no acute distress patient is resting comfort ably and showing no signs of anxiety EYES: The conjunctivae are clear. The pupils are round and reactive. EARS, NOSE, MOUTH AND THROAT: The nose is without any evidence of any deformity. Mucous membranes are moist tongue is midline NECK: The neck is nontender and supple. RESPIRATORY: Normal respiratory effort is noted there is no evidence of wheezing rhonchi or rales CARDIOVASCULAR: Regular rate and rhythm noted there no murmurs rubs or gallops normal S1 normal S2 GASTROINTESTINAL: The abdomen is mildly distended but soft. There is epigastric tenderness to palpation but no guarding or rigidity. MUSCULOSKELETAL/EXTREMITIES: There is no evidence of gross deformity full range of motion is noted in the hips and shoulders SKIN: There is no obvious evidence of any rash. There are no petechiae, pallor or cyanosis noted. NEUROLOGIC: Patient is awake alert and oriented x3. Course Course 1645: Past medical records reviewed. The patient was evaluated in room B04B. A complete history and physical exam was performed. 2018: [facility]. The patient verbally expressed understanding and agreement of the treatment plan. The patient will be evaluated for further treatment. Administered Medications Bupropion HCl (Wellbutrin-Xl) 150 mg PO BID LONNY Stop: 10/31/19 21:45 Last Admin: 10/02/19 07:31 Dose: 150 mg Documented by: [id number] Admin: 10/01/19 22:51 Dose: 150 mg Documented by: [id number] Clonazepam (Klonopin) 1 mg PO BID PRN PRN Reason: Anxiety Stop: 10/31/19 21:45 Last Admin: 10/01/19 22:48 Dose: 1 mg Documented by: [id number] Lisinopril/HCTZ (Prinzide 20/12.5mg) 1 tab PO DAILY LONNY Stop: 11/01/19 08:59 Last Admin: 10/02/19 07:30 Dose: 1 tab Documented by: [id number] Hydromorphone HCl (Dilaudid) 0.5 mg IV Q3H PRN PRN Reason: Pain Stop: 10/15/19 21:45 Last Admin: 10/02/19 13:44 Dose: 0.5 mg Documented by: [id number] Admin: 10/02/19 10:03 Dose: 0.5 mg Documented by: [id number] Admin: 10/02/19 04:59 Dose: 0.5 mg Documented by: [id number] Admin: 10/02/19 01:00 Dose: 0.5 mg Documented by: [id number] Lactated Ringer's (Lr) 1,000 mls @ 200 mls/hr IV .Q5H LONNY Stop: 10/31/19 21:59 Last Infusion: 10/02/19 16:42 Dose: 200 mls/hr Documented by: [id number] Admin: 10/02/19 13:44 Dose: 250 mls/hr Documented by: [id number] Infusion: 10/02/19 13:44 Dose: 250 mls/hr Documented by: [id number] Admin: 10/02/19 10:03 Dose: 250 mls/hr Documented by: [id number] Infusion: 10/02/19 09:30 Dose: 250 mls/hr Documented by: [id number] Admin: 10/02/19 05:30 Dose: 250 mls/hr Documented by: [id number] Infusion: 10/02/19 05:30 Dose: 250 mls/hr Documented by: [id number] Admin: 10/02/19 02:29 Dose: 250 mls/hr Documented by: [id number] Infusion: 10/02/19 02:29 Dose: 250 mls/hr Documented by: [id number] Infusion: 10/02/19 01:09 Dose: 250 mls/hr Documented by: [id number] Infusion: 10/02/19 00:54 Dose: 0 mls/hr Documented by: [id number] Admin: 10/01/19 22:13 Dose: 250 mls/hr Documented by: [id number] Promethazine HCl 6.25 mg/ (Sodium Chloride) 50.25 mls @ 201 mls/hr IV Q6H PRN PRN Reason: Nausea And Vomiting Stop: 11/01/19 00:32 Last Infusion: 10/02/19 01:09 Dose: 0 mls/hr Documented by: [id number] Admin: 10/02/19 00:54 Dose: 201 mls/hr Documented by: [id number] Ioversol (Optiray 320 100ml) 92 ml IV ONCE PRN PRN Reason: Interaction Checking Stop: 10/05/19 19:29 Last Admin: 10/01/19 19:30 Dose: 92 ml Documented by: [id number] Ketorolac Tromethamine (Toradol) 15 mg IV Q6H PRN PRN Reason: Pain Stop: 10/06/19 21:45 Last Admin: 10/02/19 07:42 Dose: 15 mg Documented by: [id number] Admin: 10/01/19 22:34 Dose: 15 mg Documented by: [id number] Magnesium Hydroxide (Milk Of Magnesia) 30 ml PO Q6H PRN PRN Reason: Constipation Stop: 10/31/19 21:45 Last Admin: 10/02/19 00:27 Dose: 30 ml Documented by: [id number] Magnesium Oxide (Mag-Ox) 400 mg PO BID ON LICENSE OF [facility] Stop: 11/01/19 08:59 Last Admin: 10/02/19 07:29 Dose: 400 mg Documented by: [id number] Memantine (Namenda) 10 mg PO BID ON LICENSE OF [facility] Stop: 10/31/19 21:45 Last Admin: 10/02/19 07:31 Dose: 10 mg Documented by: [id number] Admin: 10/01/19 22:50 Dose: 10 mg Documented by: [id number] Ondansetron HCl (Zofran) 4 mg IV Q6H PRN PRN Reason: Nausea Stop: 10/31/19 21:45 Last Admin: 10/02/19 07:42 Dose: 4 mg Documented by: [id number] Admin: 10/01/19 22:39 Dose: 4 mg Documented by: [id number] Pantoprazole Sodium (Protonix) 40 mg PO QAM ON LICENSE OF [facility] Stop: 11/01/19 08:59 Last Admin: 10/02/19 07:30 Dose: 40 mg Documented by: [id number] Propranolol HCl (Inderal La) 120 mg PO HS LONNY Stop: 10/31/19 22:29 Last Admin: 10/01/19 22:49 Dose: 120 mg Documented by: [id number] Risperidone (Risperdal) 1 mg PO QPM LONNY Stop: 10/31/19 21:45 Last Admin: 10/01/19 22:51 Dose: 1 mg Documented by: [id number] Vitamin D (Vitamin D3) 1,000 units PO DAILY LONNY Stop: 11/01/19 08:59 Last Admin: 10/02/19 07:31 Dose: 1,000 units Documented by: [id number] Discontinued Medications Sodium Chloride (Nss 1000ml) 1,000 mls @ 999 mls/hr IV .Q1H1M LONNY Stop: 10/01/19 18:00 Last Infusion: 10/01/19 18:18 Dose: 0 mls/hr Documented by: [id number] Admin: 10/01/19 17:18 Dose: 999 mls/hr Documented by: [id number] Famotidine (Pepcid 20mg Iv Push) 20 mg in 5 mls @ 2.5 mls/min IV NOW STA Stop: 10/01/19 18:18 Last Admin: 10/01/19 18:34 Dose: 2.5 mls/min Documented by: [id number] Promethazine HCl (Phenergan) 6.25 mg in 50.25 mls @ 201 mls/hr IV NOW STA Stop: 10/01/19 20:12 Last Infusion: 10/01/19 20:23 Dose: 0 mls/hr Documented by: [id number] Admin: 10/01/19 20:08 Dose: 201 mls/hr Documented by: [id number] Morphine Sulfate (Morphine Sulfate) 4 mg IV Q15M PRN PRN Reason: Pain Stop: 10/15/19 17:32 Last Admin: 10/01/19 17:43 Dose: 4 mg Documented by: [id number] Morphine Sulfate (Morphine Sulfate) 4 mg IV Q15M PRN PRN Reason: Pain Stop: 10/15/19 19:57 Last Admin: 10/01/19 21:35 Dose: 4 mg Documented by: [id number] Admin: 10/01/19 20:08 Dose: 4 mg Documented by: [id number] Ondansetron HCl (Zofran) 4 mg IV NOW STA Stop: 10/01/19 17:34 Last Admin: 10/01/19 17:43 Dose: 4 mg Documented by: [id number] Impression & Plan Epigastric abdominal pain, Pancreatitis Discharge Plan Visit Data *Final* Discharge Date/Time: 10/01/19 21:35 Chief Complaint: Abdominal Pain Stated Complaint: SEVERE STOMACH PAIN ED Provider: Chinmay Magana Discharge Problem: Epigastric abdominal pain, Pancreatitis Patient Disposition: Admitted As Inpatient Discharge Instructions Interventions: ED Discharge Assessment Last Done: 10/01/19 21:35 Medical Decision Making Differential Diagnosis Differential diagnosis includes but is not limited to etiologies such as appendicitis, diverticulitis, PUD, biliary pathology, UTI, pancreatitis, obstruction, mesenteric ischemia, aortic pathology, infections, inflammatory bowel disease, renal colic, as well as others were entertained. Medical Records Attestation: I reviewed the patient's medical records. Home Medications Current Medication List: was personally reviewed by me Laboratory Data Attestation: I reviewed the patient's lab results. Result diagrams: 10/01/19 16:55 10/02/19 06:05 Lab Results 10/01/19 10/01/19 10/01/19 Range/Units 16:55 16:55 16:55 WBC 7.07 (4.8-10.8) K/uL RBC 4.64 (4.2-5.4) M/uL Hgb 16.3 H (12.0-16.0) g/dL POC Hgb (12.0-16.0) g/dl Hct 45.1 (37-47) % POC Hct (37-47) % MCV 97.2 (80-100) fL MCH 35.1 H (25-34) pg MCHC 36.1 H (32-36) g/dL RDW Std Deviation 46.8 H (36.4-46.3) fL RDW Coeff of Raffy 13.3 (11.5-14.5) % Plt Count 258 (130-400) K/uL MPV 8.7 (7.4-10.4) fL Immature Gran % (Auto) 0.1 % Neut % (Auto) 79.5 % Lymph % (Auto) 14.9 % Holt % (Auto) 4.5 % Eos % (Auto) 0.7 % Baso % (Auto) 0.3 % Immature Gran # (Auto) 0.01 (0.00-0.02) K/uL Neut # (Auto) 5.62 (1.4-6.5) K/uL Lymph # (Auto) 1.05 L (1.2-3.4) K/uL Holt # (Auto) 0.32 (0.11-0.59) K/uL Eos # (Auto) 0.05 (0-0.5) K/uL Baso # (Auto) 0.02 (0-0.2) K/uL PT 10.3 (9.0-12.0) Seconds INR 1.0 (0.9-1.1) APTT 25.0 (21.0-31.0) Seconds PTT Ratio 0.9 POC Sodium (135-144) mEq/L Sodium 128 L (136-145) mmol/L POC Potassium (3.3-5.0) mEq/L Potassium 4.2 (3.5-5.1) mmol/L POC Chloride (101-112) mEq/L Chloride 89 L (98-107) mmol/L Carbon Dioxide 25 (21-32) mmol/L POC Total CO2 (24-31) mEq/l Anion Gap 14.0 H (3-11) POC Anion Gap (16-25) mmol/L POC BUN (7-18) mg/dl BUN 8 (7-18) mg/dl Creatinine 0.95 (0.6-1.2) mg/dl POC Creatinine (0.6-1.3) mg/dl Est Cr Clr Drug Dosing 85.9 ml/min Est GFR ( Amer) 79.8 Est GFR (Non-Af Amer) 68.9 BUN/Creatinine Ratio 8.7 L (10-20) Glucose 132 H (70-99) mg/dl POC Glucose (other) (70-99) mg/dl Osmolality (280-300) mOsm/kg Calcium 9.9 (8.5-10.1) mg/dl POC Ioniz Calcium George (1.12-1.32) mmol/l Total Bilirubin 0.8 (0.2-1) mg/dl AST 96 H (15-37) U/L ALT 104 H (12-78) U/L Alkaline Phosphatase 78 (45-117) U/L Troponin I < 0.015 (0-0.045) ng/ml Total Protein 7.6 (6.4-8.2) gm/dl Albumin 3.7 (3.4-5.0) gm/dl Globulin 3.9 (2.5-4.0) gm/dl Albumin/Globulin Ratio 1.0 (0.9-2) Lipase 38170 H (73-393) U/L 10/01/19 10/01/19 Range/Units 16:55 17:02 WBC (4.8-10.8) K/uL RBC (4.2-5.4) M/uL Hgb (12.0-16.0) g/dL POC Hgb 17.0 H (12.0-16.0) g/dl Hct (37-47) % POC Hct 50 H (37-47) % MCV (80-100) fL MCH (25-34) pg MCHC (32-36) g/dL RDW Std Deviation (36.4-46.3) fL RDW Coeff of Raffy (11.5-14.5) % Plt Count (130-400) K/uL MPV (7.4-10.4) fL Immature Gran % (Auto) % Neut % (Auto) % Lymph % (Auto) % Holt % (Auto) % Eos % (Auto) % Baso % (Auto) % Immature Gran # (Auto) (0.00-0.02) K/uL Neut # (Auto) (1.4-6.5) K/uL Lymph # (Auto) (1.2-3.4) K/uL Holt # (Auto) (0.11-0.59) K/uL Eos # (Auto) (0-0.5) K/uL Baso # (Auto) (0-0.2) K/uL PT (9.0-12.0) Seconds INR (0.9-1.1) APTT (21.0-31.0) Seconds PTT Ratio POC Sodium 129 L (135-144) mEq/L Sodium (136-145) mmol/L POC Potassium 4.3 (3.3-5.0) mEq/L Potassium (3.5-5.1) mmol/L POC Chloride 89 L (101-112) mEq/L Chloride (98-107) mmol/L Carbon Dioxide (21-32) mmol/L POC Total CO2 26 (24-31) mEq/l Anion Gap (3-11) POC Anion Gap 19.0 (16-25) mmol/L POC BUN 7 (7-18) mg/dl BUN (7-18) mg/dl Creatinine (0.6-1.2) mg/dl POC Creatinine 1.1 (0.6-1.3) mg/dl Est Cr Clr Drug Dosing ml/min Est GFR ( Amer) Est GFR (Non-Af Amer) BUN/Creatinine Ratio (10-20) Glucose (70-99) mg/dl POC Glucose (other) 133 H (70-99) mg/dl Osmolality 287 (280-300) mOsm/kg Calcium (8.5-10.1) mg/dl POC Ioniz Calcium George 1.10 L (1.12-1.32) mmol/l Total Bilirubin (0.2-1) mg/dl AST (15-37) U/L ALT (12-78) U/L Alkaline Phosphatase (45-117) U/L Troponin I (0-0.045) ng/ml Total Protein (6.4-8.2) gm/dl Albumin (3.4-5.0) gm/dl Globulin (2.5-4.0) gm/dl Albumin/Globulin Ratio (0.9-2) Lipase (73-393) U/L Imaging Data Radiologist's Impression: Radiology results as stated below per my review and the radiologist's interpretation: ABDOMEN AND PELVIS CT WITH IV AND ORAL CONTRAST CT DOSE: 1895.82 mGy.cm HISTORY: Acute generalized abdominal pain pain TECHNIQUE: Multiaxial CT images of the abdomen and pelvis were performed following the IV administration of 92 cc of Optiray 320 and oral contrast. A dose lowering technique was utilized adhering to the principles of ALARA. COMPARISON STUDY: CT abdomen and pelvis 03/06/2016 FINDINGS: 5 mm solid pulmonary nodule right lower lobe, image 10 series 3. This previously appear to be more groundglass in attenuation of the 2016 study. No pneumatosis or pneumoperitoneum. Imaged inferior cardiac chambers are unremarkable. Hepatomegaly with hepatic steatosis. No focal hepatic mass lesion. Patency of the hepatic and portal veins. Unremarkable gallbladder, and spleen. Mild thickening of the bilateral adrenal glands. Moderate interstitial and peripancreatic inflammation with edema and free fluid tracking into the mesentery, perisplenic distribution and lower abdomen compatible with acute pancreatitis. No pancreatic mass lesion, focal fluid collection or pancreatic ductal dilation. No biliary ductal dilation or choledocholithiasis identified. Calcified lymph nodes are seen about the dionte hepatis and periportal distribution. Indeterminate 1.1 cm hypodense lesion of the inferior pole left kidney. There is no renal or ureteral calculi or obstructive uropathy. Ureters and urinary bl adder appear unremarkable. Uterus and adnexa are also within normal limits. Aorta and IVC are unremarkable. There is no adenopathy. No bowel obstruction or bowel wall thickening identified. Postoperative changes from prior partial sigmoid colon resection. Terminal ileum is unremarkable. The appendix is not visualized and is reportedly surgically absent. There are several periumbilical and infraumbilical ventral abdominal wall hernias noted, largest of which demonstrates diastases of 7.9 cm and is filled with fat and transverse colon. Degenerative changes of the spine, pelvis and hips. Posterior disc osteophyte complex at L5-S1. IMPRESSION: 1. Moderate acute uncomplicated pancreatitis. No pancreatic ductal dilation, choledocholithiasis or biliary ductal dilation. 2. No bowel obstruction or bowel wall thickening. 3. Hepatomegaly with hepatic steatosis. 4. Appendectomy. 5. Multiple ventral abdominal wall hernias as above. Electronically signed by: Gagandeep Negro M.D. 10/01/2019 7:55 PM XR chest 1V portable CLINICAL HISTORY: 53 years-old Female presenting with generalized pain. TECHNIQUE: Portable upright AP view of the chest was obtained. COMPARISON: 11/10/2018. FINDINGS: Cardiac silhouette remains borderline enlarged. No focal opacity. No large effusion or pneumothorax. Osseous structures normal. Upper abdomen normal. IMPRESSION: 1. Borderline cardiomegaly. No other convincing evidence of acute cardiopulmonary disease. Electronically signed by: Bacilio Fu M.D. 10/01/2019 5:07 PM ECG Data Attestation: I personally reviewed and interpreted this ECG as follows: Indication: + abdominal pain Rate (beats per minute): 78 Rhythm: + normal sinus ECG Findings: + Other (inferior Q waves noted, anterior T wave inversions noted); no PACs and no PVCs Comparison ECG Date: from (04/08/19) Change: no significant change Blood Pressure Blood Pressure Findings: Elevated blood pressure Blood Pressure Disposition: further management by hospitalist HUANG Sorensen The patient is a 53-year-old female who presented to the emergency department for an evaluation of epigastric abdominal pain. The patient has had intermittent episodes of epigastric abdominal pain over the last few months. The patient does have a history of alcohol use. She was treated with IV fluids IV pain medication and IV antiemetics. She was also treated with H2 blockers. She was reevaluated multiple times. I discussed the patient's laboratory and radiographic studies with her. Given her findings on laboratory studies further radiographic studies were obtained. This appears to be consistent with panc reatitis. For this reason I discussed her case with the on-call [facility] hospitalist group. They have agreed to evaluate the patient in the emergency department for further management disposition. Discharge Problem: Pancreatitis Qualifiers: Chronicity: acute Pancreatitis type: unspecified pancreatitis type Acute pancreatitis complication: unspecified Qualified Code(s): K85.90 - Acute pancreatitis without necrosis or infection, unspecified The allenibe's documentation has been prepared under my direction and personally reviewed by me in its entirety. I confirm that the note above accurately reflects all work, treatment, procedures, and medical decision making performed by me.
[2019-10-01] MEDS ORDERED: FAMOTIDINE 20MG IV PUSH 20 MG/5 ML SYR IV STA (18:17)
[2019-10-01] MEDS ORDERED: IOVERSOL 100ml IV PRN (19:30)
--- NOTE | 2019-10-01 19:56 | CT Scan Report ---
ABDOMEN AND PELVIS CT WITH IV AND ORAL CONTRAST CT DOSE: 1895.82 mGy.cm HISTORY: Acute generalized abdominal pain pain TECHNIQUE: Multiaxial CT images of the abdomen and pelvis were performed following the IV administrat ion of 92 cc of Optiray 320 and oral contrast. A dose lowering technique was utilized adhering to th e principles of ALARA. COMPARISON STUDY: CT abdomen and pelvis 03/06/2016 FINDINGS: 5 mm solid pulmonary nodule right lower lobe, image 10 series 3. This previously appear to be more gr oundglass in attenuation of the 2016 study. No pneumatosis or pneumoperitoneum. Imaged inferior cardi ac chambers are unremarkable. Hepatomegaly with hepatic steatosis. No focal hepatic mass lesion. [place] ncy of the hepatic and portal veins. Unremarkable gallbladder, and spleen. Mild thickening of the roxanna ateral adrenal glands. Moderate interstitial and peripancreatic inflammation with edema and free flui d tracking into the mesentery, perisplenic distribution and lower abdomen compatible with acute pancr eatitis. No pancreatic mass lesion, focal fluid collection or pancreatic ductal dilation. No biliary ductal dilation or choledocholithiasis identified. Calcified lymph nodes are seen about the dionte hep atis and periportal distribution. Indeterminate 1.1 cm hypodense lesion of the inferior pole left kidney. There is no renal or ureteral calculi or obstructive uropathy. Ureters and urinary bladder appear unremarkable. Uterus and adnexa are also within normal limits. Aorta and IVC are unremarkable. There is no adenopathy. No bowel obstr uction or bowel wall thickening identified. Postoperative changes from prior partial sigmoid colon re section. Terminal ileum is unremarkable. The appendix is not visualized and is reportedly surgically absent. There are several periumbilical and infraumbilical ventral abdominal wall hernias noted, larg est of which demonstrates diastases of 7.9 cm and is filled with fat and transverse colon. Degenerati ve changes of the spine, pelvis and hips. Posterior disc osteophyte complex at L5-S1. IMPRESSION: 1. Moderate acute uncomplicated pancreatitis. No pancreatic ductal dilation, choledocholithiasis or b iliary ductal dilation. 2. No bowel obstruction or bowel wall thickening. 3. Hepatomegaly with hepatic steatosis. 4. Appendectomy. 5. Multiple ventral abdominal wall hernias as above. Electronically signed by: Gagandeep Negro M.D. 10/01/2019 7:55 PM
[2019-10-01] MEDS ORDERED: PROMETHAZINE 6.25 MG/50.25 ML BAG IV STA (19:58)
[2019-10-01] MEDS: MoRPHine SULFATE 4 MG/ML 1 ML CARP\\VIAL IV PRN ×2 (20:08→21:35)
--- NOTE | 2019-10-01 21:05 | History & Physical Report ---
Date of Service October 01, 2019 Assessment & Plan (1) Acute pancreatitis: Ms. Bryant is a 53-year-old female with a past medical history of vertigo and nystagmus, resulting in balance issues, depression, anxiety, hypertension, and hyponatremia who presents to the emergency department due to abdominal pain. ED course: 4 mg morphine sulfate x2, 1 L normal saline bolus, 4 mg IV Zofran, 6.25 mg IV Phenergan, 20 mg IV famotidine Acute Pancreatitis -Admit to med/surg -CT abdomen and pelvis shows moderate acute uncomplicated pancreatitis. No evidence of choledocholithiasis or biliary ductal dilation -Lipase elevated at 13,469 -Suspect this is related to alcohol abuse, given patient has been drinking half of fifth of bourbon on a daily basis for the past year -Will order triglyceride level in the a.m. to rule out other causes of pancreatitis -Patient made n.p.o. - can advance diet as patient's pain improves -LR at 250 mls/hr ordered -Acetaminophen, Toradol and Dilaudid 0.5 mg every 3 hours ordered as needed for for pain relief Hyponatremia -Patient has a long-standing history of the same, sodium level is typically around 131 -Sodium 128 on admission -Unsure of cause of longstanding hyponatremia, will order urine and serum osm olality, as well as urine sodium -Trend BMP Vertigo/nystagmus/ambulatory dysfunction -Long-standing, now following with a specialist in [place] -Patient now needing to ambulate with a cane -Trial of propranolol per specialist, will start this tomorrow morning, D/C metoprolol -Reportedly worsens if patient's magnesium is low. Continue home magnesium supplementation, magnesium level ordered with a.m. labs Hypertension -Continue home lisinopril/hydrochlorothiazide Alcohol abuse -No prior history of withdrawals -Continue to monitor, consider placing on CIWA scale if she starts to exhibit signs or symptoms of withdrawals -patient using alcohol to improve her symptoms related to vertigo/nystagmus -if trial of propranolol is successful, pt will hopefully be more willing to cut back Anxiety/Depression/mood disorder -Continue home bupropion, clonazepam, memantine, and risperidone GERD -Change home omeprazole to pantoprazole Incidentals on Imaging for outpatient f/u -1.1 cm hypodense lesion of inferior pole of left kidney -5 mm pulmonary nodule in right lower lobe -Thickening of bilateral adrenal glands CODE STATUS: Full DVT prophylaxis: Low risk per calculator, SCDs Disposition: Admit to med/surg (2) Hyponatremia: (3) Vertigo: (4) Hypomagnesemia: (5) Depression: (6) Acute anxiety: (7) Hypertension: (8) Alcohol abuse: History of Present Illness Chief Complaint: Abdominal pain Primary Care Provider: LATIA Johnson Ms. Bryant is a 53-year-old female with a past medical history of vertigo and nystagmus, resulting in balance issues, depression, anxiety, hypertension, and hyponatremia who presents to the emergency department due to abdominal pain. She stated that over the past 2 months, she has had several episodes of sudden onset abdominal pain, lasting one day, and resolving by itself. She states that this morning, her pain began suddenly, and was more severe than before, prompting her to come to the ER. She notes that it is located in the epigastric region, and was 9/10 at its worst. She reports associated nausea. She denies any radiation of the pain to her back. She denies chest pain, or shortness of breath. She states that her bowels been moving normally, and she has had no difficulty urinating. She states that she does not have a past history of pancreatitis. She has not started any new medications recently. She does not have a history of gallstones. She does endorse drinking approximately half of fifth of bourbon daily, and has done so for the past 1 year. She has no prior history of alcohol withdrawals. She states that the reason she has increased her alcohol intake, is because it improves her unrelenting nystagmus and vertigo. She states that she has had this looked at by several neurologists, and is now currently seeing a balance specialist in [place]. She states that she was told it is coming from her brainstem. She is meant to switch from her home metoprolol to propranolol, to see if this will improve her symptoms. She was planning on doing this today. She has not taken her morning metoprolol, but has not yet started the propranolol. Of note, she is a non-smoker. Allergies Allergy/AdvReac Type Severity Reaction Status Date / Time ampicillin Allergy Intermediate hives Verified 10/01/19 17:35 cephalexin Allergy Intermediate HIVES/ITCHI Verified 10/01/19 17:35 NG Penicillins Allergy Intermediate HIVES Verified 10/01/19 17:35 metronidazole Allergy Mild blisters Verified 10/01/19 17:35 adhesive AdvReac Mild SKIN Verified 10/01/19 17:35 TEARING AND IRRITATION Home Medications Home Medications Medication Instructions Recorded Confirmed Type albuterol sulfate [ProAir HFA] 2 puff INHALATION QID PRN 11/10/18 10/01/19 History bupropion HCl 150 mg PO BID 11/10/18 10/01/19 History cholecalciferol (vitamin D3) 1,000 unit PO DAILY 11/10/18 10/01/19 History [Vitamin D3] fluticasone propionate [Flonase 1 spray INTRANASAL DAILY PRN 11/10/18 10/01/19 History Allergy Relief] lisinopril-hydrochlorothiazide 1 tab PO DAILY 11/10/18 10/01/19 History meclizine 25 mg PO TID PRN 11/10/18 10/01/19 History metoprolol tartrate 100 mg PO BID 11/10/18 10/01/19 History milk thistle seed extract 175 mg PO DAILY 11/10/18 10/01/19 History omeprazole 20 mg PO DAILY PRN 11/10/18 10/01/19 History risperidone 1 mg PO QPM 11/10/18 10/01/19 History turmeric 800 mg PO DAILY 11/10/18 10/01/19 History magnesium 200 mg PO BID #60 tab 11/11/18 10/01/19 Rx clonazepam [Klonopin] 1 mg PO BID PRN 11/18/18 10/01/19 History memantine [Namenda] 10 mg PO BID 10/01/19 10/01/19 History propranolol [Inderal LA] 120 mg PO DAILY 10/01/19 10/01/19 History Past Med/Surg History Medical History Acute anxiety (Acute) Ankle fracture (Acute) right Depression (Acute) Fracture of left tibia and fibula (Acute) plate, screws Nystagmus (Acute) Suicidal ideation (Acute) UTI (urinary tract infection) (Acute) Surgical History H/O meniscectomy of right knee (Acute) H/O oophorectomy (Acute) left History of appendectomy (Acute) History of colon resection (Acute) Hx of tonsillectomy (Acute) Family History Other No pertinent family history Social History Preferred Language: Mongolian Communication Ability: Effective Dog Track 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 Required: No Beliefs That Will Affect Care: None Current Living Situation: Spouse Feels Safe at Home: Yes Smoking Status: Never smoker Do You Dip or Chew Tobacco: No ; Hx Alcohol Use: Yes Alcohol type: hard liquor Hx Substance Use: No Review of Systems Constitutional: + anorexia; no fever, no chills and no fatigue Respiratory: no cough, no dyspnea and no wheezing Cardiovascular: no chest pain, no syncope, no edema and no calf pain Gastrointestinal: + abdominal pain and + nausea; no vomiting and no change in bowel habits Genitourinary: no dysuria, no difficulty urinating, no urinary frequency and no urinary urgency Musculoskeletal: no back pain Integumentary: no rash Neurologic: + gait abnormality Physical Exam Constitutional: WD/WN, vitals as above + morbidly obese; no acute distress ENMT: external ear and nose normal, oropharynx normal (Dry mucous membranes) Respiratory: normal respiratory effort, lungs clear to auscultation Cardiovascular: RRR, no murmur, no edema Gastrointestinal (Abdomen): Percussion/Palpation: + abdomen tender (Tender over epigastric and umbilical area) and abdomen soft; no guarding and abdomen not rigid Musculoskeletal: no cyanosis or clubbing, extremities motor strength 5/5 Skin: no rashes, warm and dry Neurologic: moves all extremities and awake; no focal motor deficits Results & Data Vital Signs (Past 12 Hours) Vital Signs Temp Pulse Pulse Resp BP BP Pulse Ox 10/01/19 19:43 71 18 135/88 95 10/01/19 17:43 73 18 132/85 96 10/01/19 16:56 98 10/01/19 16:36 36.4 C L 75 18 102/76 98 Code Status & VTE Plan VTE Prophylaxis Plan VTE Prophylaxis will be ordered: Yes Supervising Physician Co-Signing Physician Notes Attending addendum: I have physically seen this patient, have supervised the medical residents activities, and agree with the H&P unless as otherwise noted. Assessment and Plan: Acute pancreatitis- Admit to med surgery floor. CT abdomen/pelvis shows moderate acute uncomplicated pancreatitis. Lipase elevated 13,469, will follow serially. Placed on alcohol withdrawal scale protocol. Order fasting lipid panel. LR 250 mils per hour. Pain medications as noted. Remainder of orders and notations as noted. Resident Activity Tracking Resident Involvement: Resident Care Provided Care Provided: [facility]
[2019-10-01] MEDS ORDERED: MECLIZINE HCL 25 MG TAB PO PRN (21:46)
[2019-10-01] MEDS ORDERED: POLYETHYLENE (MIRALAX) 17 GM PACK PO PRN (21:46)
[2019-10-01] MEDS ORDERED: ACETAMINOPHEN 325 MG TAB PO PRN (21:46)
[2019-10-01] MEDS ORDERED: ALUMINUM/MAGNESIUM SUSP 30 ML UDC PO PRN (21:46)
[2019-10-01] MEDS ORDERED: FLUTICASONE PROPIONATE NA SPR 16 GM BTL PRN (21:46)
[2019-10-01] MEDS ORDERED: ALBUTEROL HFA 8 GM INHALER INH PRN (21:52)
[2019-10-01] MEDS: LACTATED RINGER'S 1,000 ML IV SCH (22:13)
[2019-10-01] MEDS ORDERED: Nursing to Pharmacy Communication ONE (22:22)
[2019-10-01] MEDS: KETOROLAC TROMETHAMINE 15 MG/ML VIAL IV PRN (22:34)
[2019-10-01] MEDS: ONDANSETRON INJ 2 MG/ML 2 ML VIAL IV PRN (22:39)
[2019-10-01] MEDS: clonazePAM 1 MG TAB PO PRN (22:48)
[2019-10-01] MEDS: PROPRANOLOL HCL 60 MG LA CAP PO SCH (22:49)
[2019-10-01] MEDS: MEMANTINE HCL 10 MG TAB PO SCH (22:50)
[2019-10-01] MEDS: risperiDONE 1 MG TABLET PO SCH (22:51)
[2019-10-01] MEDS: BuPROPion XL 150 MG TABCR PO SCH (22:51)
[2019-10-02] MEDS: MAGNESIUM HYDROXIDE SUSP 30 ML UDC PO PRN (00:27)
[2019-10-02] MEDS ORDERED: INFLUENZA VIRUS QUAD VACCINE 0.5 ML SYR IM ONE (00:30)
[2019-10-02] MEDS ORDERED: INFLUENZA ADMINISTRATION CHARGE ONE (00:30)
[2019-10-02] MEDS ORDERED: PROMETHAZINE HCL 6.25 MG in SODIUM CHLORIDE 0.9% 50 ML IV PRN (00:33)
[2019-10-02] MEDS: HYDROmorphone INJ 0.5 MG/0.5 ML SYR IV PRN ×6 (01:00→22:23)
[2019-10-02 01:38] LABS: Appearance Urine Clear (Clear); Bacteria Urine Automated Negative (Negative); Blood Urine Negative (Negative); Color Urine Dark Yellow; Epithelial Cell Urine Auto >30 /lpf (0-5); Glucose Urine UA Negative (Negative); Ketones Urine Negative (Negative); Leukocyte Esterase Urine Negative (Negative); Nitrite Urine Negative (Negative); Specific Gravity Urine > 1.045 (1.000-1.030); Urobilinogen Urine Negative (Negative); pH Urine 7.5 (4.5-7.5)
[2019-10-02 01:39] LABS: Bilirubin Urine 1+ (Negative)
[2019-10-02 01:40] LABS: Ictotest Urine Positive (Negative); Protein Urine Negative (Negative); Sulfosalicylic Acid Urine Negative (Negative)
[2019-10-02] MEDS: LACTATED RINGER'S 1,000 ML IV SCH ×6 (02:29→22:18)
[2019-10-02 07:08] LABS: Albumin Globulin Ratio 0.9 (0.9-2); Albumin Level 3.1 gm/dl (3.4-5.0); BUN Creatinine Ratio 11.3 (10-20); Bilirubin,Total 1.1 mg/dl (0.2-1); Calcium 9.3 mg/dl (8.5-10.1); Creatinine Clr Calc Pharmacy 70.8 ml/min; Est GFR (African American) 62.7; Est GFR (Non-African American) 54.1; Globulin 3.3 gm/dl (2.5-4.0); Magnesium 2.1 mg/dl (1.8-2.4); Potassium 4.9 mmol/L (3.5-5.1); Total Protein 6.4 gm/dl (6.4-8.2)
[2019-10-02] MEDS: MAGNESIUM OXIDE 400 MG TAB PO SCH ×2 (07:29→20:54)
[2019-10-02] MEDS: PANTOprazole 40 MG TAB PO SCH (07:30)
[2019-10-02] MEDS: BuPROPion XL 150 MG TABCR PO SCH ×2 (07:31→20:55)
[2019-10-02] MEDS: CHOLECALCIFEROL 1,000 UNITS TAB PO SCH (07:31)
[2019-10-02] MEDS: MEMANTINE HCL 10 MG TAB PO SCH ×2 (07:31→20:55)
[2019-10-02] MEDS: ONDANSETRON INJ 2 MG/ML 2 ML VIAL IV PRN (07:42)
[2019-10-02] MEDS: KETOROLAC TROMETHAMINE 15 MG/ML VIAL IV PRN ×2 (07:42→23:33)
[2019-10-02] MEDS ORDERED: MAGNESIUM OXIDE 400 MG TAB PO SCH (09:00)
[2019-10-02] MEDS ORDERED: PROPRANOLOL HCL 60 MG LA CAP PO SCH (09:00)
[2019-10-02] MEDS ORDERED: LISINOPRIL/HCTZ 20/12.5MG 1 TAB TAB PO SCH (09:00)
[2019-10-02] MEDS ORDERED: MILK THISTLE SEED EXTRACT 175 MG PO SCH (09:00)
--- NOTE | 2019-10-02 16:08 | Hospitalist Progress Note ---
Date of Service October 02, 2019 Assessment & Plan (1) Acute pancreatitis: acute alcohol pancreatitis, patient drinks 1/2 a fifth of whiskey every night lipase down to 9k from 13k WBC resolved, BUN/Cr stable still not making much urine will allow clear liquid diet this evening if she is hungry decrease LR to 200cc/hr repeat labs in the AM likely in hospital for a few more days discussed importance of alcohol abstinence on discharge stop HCTZ as this can contribute/cause pancreatitis (2) Hyponatremia: stable at 127, was 128, has h/o chronic hyponatremia could be in part due to alcohol abuse with poor protein intake repeat sodium in the morning (3) Vertigo: vertigo and nystagmus -Long-standing, now following with a specialist in [place] (neuro- ophthomologist) -Patient now needing to ambulate with a cane -continue trial of propranolol (4) Hypomagnesemia: replace as needed, stable today (5) Depression: (6) Acute anxiety: improved today (7) Hypertension: BP slightly elevated (8) Alcohol abuse: no signs of alcohol withdrawal AWSS ordered discussed options for quitting she refuses any information on AA or other counseling or support groups says she does not have an "addictive personality" and she only drinks to help the nystagmus will bring this up again tomorrow Incidentals on Imaging for outpatient f/u -1.1 cm hypodense lesion of inferior pole of left kidney -5 mm pulmonary nodule in right lower lobe -Thickening of bilateral adrenal glands Subjective patient feeling better this morning, less pain still no appetite, denies nausea, no bowel movements discussed alcohol intake, she says she drinks because it is the only remedy for her nystagmus she suffers from debilitating nystagmus, follows with a neuro-ophthomologist at [place] has tried several medications and none of them helped she found that alcohol would help and she has progressively drank more and more, but only at night she says she is committed to quitting labs show lipase down to 9k from 13k LFT normal, BUN and Cr normal, electrolytes stable Review of Systems Review of Systems: All systems reviewed & are unremarkable except as noted in HPI & below Constitutional: + fatigue and + weakness; no fever Respiratory: no cough and no dyspnea Cardiovascular: no chest pain and no edema Gastrointestinal: + abdominal pain; no nausea, no vomiting, no constipation and no diarrhea/loose stools Physical Exam Constitutional: WD/WN, vitals as above + overweight Eyes: PERRL, conjunctivae normal, anicteric sclerae ENMT: external ear and nose normal, oropharynx normal Neck: trachea midline, no thyromegaly Respiratory: normal respiratory effort, lungs clear to auscultation Cardiovascular: RRR, no murmur, no edema Gastrointestinal (Abdomen): Inspection/Auscultation: abdomen normal to inspection and normal bowel sounds; abdomen not distended Percussion/Palpation: + abdomen tender (epigastric), abdomen soft and normal to percussion; no guarding and abdomen not rigid Musculoskeletal: no cyanosis or clubbing, extremities motor strength 5/5 Skin: no rashes, warm and dry Neurologic: patellar DTR's 2+ bilat, sensation intact and PERRL, EOMI, accommodation nl, no face palsy, no dysarthria Psychiatric: A+Ox3, euthymic affect Lymphatic: no cervical or axillary lymphadenopathy Results & Data Vital Signs (Past 12 Hours) Vital Signs Temp Pulse Resp BP Pulse Ox 10/02/19 15:40 36.8 C 73 16 157/104 H 95 10/02/19 10:07 150/90 H 10/02/19 07:24 37 C 76 18 97/61 L 93 Laboratory Results Laboratory Results - last 24 hr 10/01/19 10/01/19 10/01/19 16:55 16:55 16:55 WBC 7.07 RBC 4.64 Hgb 16.3 H POC Hgb Hct 45.1 POC Hct MCV 97.2 MCH 35.1 H MCHC 36.1 H RDW Std Deviation 46.8 H RDW Coeff of Raffy 13.3 Plt Count 258 MPV 8.7 Immature Gran % (Auto) 0.1 Neut % (Auto) 79.5 Lymph % (Auto) 14.9 [place] % (Auto) 4.5 Eos % (Auto) 0.7 Baso % (Auto) 0.3 Immature Gran # (Auto) 0.01 Neut # (Auto) 5.62 Lymph # (Auto) 1.05 L [place] # (Auto) 0.32 Eos # (Auto) 0.05 Baso # (Auto) 0.02 PT 10.3 INR 1.0 APTT 25.0 PTT Ratio 0.9 POC Sodium Sodium 128 L POC Potassium Potassium 4.2 POC Chloride Chloride 89 L Carbon Dioxide 25 POC Total CO2 Anion Gap 14.0 H POC Anion Gap POC BUN BUN 8 Creatinine 0.95 POC Creatinine Est Cr Clr Drug Dosing 85.9 Est GFR ( Amer) 79.8 Est GFR (Non-Af Amer) 68.9 BUN/Creatinine Ratio 8.7 L Glucose 132 H POC Glucose (other) Osmolality Calcium 9.9 POC Ioniz Calcium George Magnesium Total Bilirubin 0.8 AST 96 H ALT 104 H Alkaline Phosphatase 78 Troponin I < 0.015 Total Protein 7.6 Albumin 3.7 Globulin 3.9 Albumin/Globulin Ratio 1.0 Triglycerides Lipase 44315 H Specimen Hemolysis Urine Color Urine Appearance Urine pH Ur Specific [place] Urine Protein Urine Glucose (UA) Urine Ketones Urine Blood Urine Nitrite Urine Bilirubin Urine Urobilinogen Ur Leukocyte Esterase Urine WBC (Auto) Urine RBC (Auto) U Hyaline Cast (Auto) U Epithel Cells (Auto) Urine Bacteria (Auto) Urine Osmolality Ur Random Sodium 10/01/19 10/01/19 10/02/19 16:55 17:02 01:18 WBC RBC Hgb POC Hgb 17.0 H Hct POC Hct 50 H MCV MCH MCHC RDW Std Deviation RDW Coeff of Raffy Plt Count MPV Immature Gran % (Auto) Neut % (Auto) Lymph % (Auto) [place] % (Auto) Eos % (Auto) Baso % (Auto) Immature Gran # (Auto) Neut # (Auto) Lymph # (Auto) [place] # (Auto) Eos # (Auto) Baso # (Auto) PT INR APTT PTT Ratio POC Sodium 129 L Sodium POC Potassium 4.3 Potassium POC Chloride 89 L Chloride Carbon Dioxide POC Total CO2 26 Anion Gap POC Anion Gap 19.0 POC BUN 7 BUN Creatinine POC Creatinine 1.1 Est Cr Clr Drug Dosing Est GFR ( Amer) Est GFR (Non-Af Amer) BUN/Creatinine Ratio Glucose POC Glucose (other) 133 H Osmolality 287 Calcium POC Ioniz Calcium George 1.10 L Magnesium Total Bilirubin AST ALT Alkaline Phosphatase Troponin I Total Protein Albumin Globulin Albumin/Globulin Ratio Triglycerides Lipase Specimen Hemolysis Urine Color Dark Yellow Urine Appearance Clear Urine pH 7.5 Ur Specific [place] > 1.045 H Urine Protein Negative Urine Glucose (UA) Negative Urine Ketones Negative Urine Blood Negative Urine Nitrite Negative Urine Bilirubin 1+ H Urine Urobilinogen Negative Ur Leukocyte Esterase Negative Urine WBC (Auto) 1-5 Urine RBC (Auto) 5-10 H U Hyaline Cast (Auto) 5-10 H U Epithel Cells (Auto) >30 H Urine Bacteria (Auto) Negative Urine Osmolality Ur Random Sodium 10/02/19 10/02/19 10/02/19 01:18 01:18 06:05 WBC RBC Hgb POC Hgb Hct POC Hct MCV MCH MCHC RDW Std Deviation RDW Coeff of Raffy Plt Count MPV Immature Gran % (Auto) Neut % (Auto) Lymph % (Auto) [place] % (Auto) Eos % (Auto) Baso % (Auto) Immature Gran # (Auto) Neut # (Auto) Lymph # (Auto) [place] # (Auto) Eos # (Auto) Baso # (Auto) PT INR APTT PTT Ratio POC Sodium Sodium 127 L POC Potassium Potassium 4.9 D POC Chloride Chloride 91 L Carbon Dioxide 27 POC Total CO2 Anion Gap 9.0 POC Anion Gap POC BUN BUN 13 D Creatinine 1.16 POC Creatinine Est Cr Clr Drug Dosing 70.8 Est GFR ( Amer) 62.7 Est GFR (Non-Af Amer) 54.1 BUN/Creatinine Ratio 11.3 Glucose 94 POC Glucose (other) Osmolality Calcium 9.3 POC Ioniz Calcium George Magnesium 2.1 Total Bilirubin 1.1 H AST 67 H ALT 76 Alkaline Phosphatase 65 Troponin I Total Protein 6.4 Albumin 3.1 L Globulin 3.3 Albumin/Globulin Ratio 0.9 Triglycerides 79 Lipase 9096 H Specimen Hemolysis Urine Color Urine Appearance Urine pH Ur Specific [place] Urine Protein Urine Glucose (UA) Urine Ketones Urine Blood Urine Nitrite Urine Bilirubin Urine Urobilinogen Ur Leukocyte Esterase Urine WBC (Auto) Urine RBC (Auto) U Hyaline Cast (Auto) U Epithel Cells (Auto) Urine Bacteria (Auto) Urine Osmolality 543 Ur Random Sodium 52 Medications Administered Current Inpatient Medications Acetaminophen (Tylenol) 650 mg PO Q4H PRN PRN Reason: pain/fever Stop: 10/31/19 21:45 Al Hydrox/Mg Hydrox/Simethicone (Maalox) 30 ml PO Q6H PRN PRN Reason: Dyspepsia Stop: 10/31/19 21:45 Albuterol (Ventolin Hfa) 2 puffs INH QID PRN PRN Reason: SHORTNESS OF BREATH/WHEEZING Stop: 10/31/19 21:51 Bupropion HCl (Wellbutrin-Xl) 150 mg PO BID LONNY Stop: 12/13/19 21:45 Last Admin: 10/02/19 07:31 Dose: 150 mg Documented by: Clonazepam (Klonopin) 1 mg PO BID PRN PRN Reason: Anxiety Stop: 10/31/19 21:45 Last Admin: 10/01/19 22:48 Dose: 1 mg Documented by: Fluticasone Propionate (Flonase) 1 sprays NA DAILY PRN PRN Reason: Congestion Stop: 10/31/19 21:45 Lisinopril/HCTZ (Prinzide 20/12.5mg) 1 tab PO DAILY LONNY Stop: 11/01/19 08:59 Last Admin: 10/02/19 07:30 Dose: 1 tab Documented by: Hydromorphone HCl (Dilaudid) 0.5 mg IV Q3H PRN PRN Reason: Pain Stop: 10/15/19 21:45 Last Admin: 10/02/19 13:44 Dose: 0.5 mg Documented by: Lactated Ringer's (Lr) 1,000 mls @ 250 mls/hr IV .Q4H LONNY Stop: 10/31/19 21:59 Last Admin: 10/02/19 13:44 Dose: 250 mls/hr Documented by: Promethazine HCl 6.25 mg/ (Sodium Chloride) 50.25 mls @ 201 mls/hr IV Q6H PRN PRN Reason: Nausea And Vomiting Stop: 11/01/19 00:32 Last Infusion: 10/02/19 01:09 Dose: Infused Documented by: Ioversol (Optiray 320 100ml) 92 ml IV ONCE PRN PRN Reason: Interaction Checking Stop: 10/05/19 19:29 Last Admin: 10/01/19 19:30 Dose: 92 ml Documented by: Ketorolac Tromethamine (Toradol) 15 mg IV Q6H PRN PRN Reason: Pain Stop: 10/06/19 21:45 Last Admin: 10/02/19 07:42 Dose: 15 mg Documented by: Magnesium Hydroxide (Milk Of Magnesia) 30 ml PO Q6H PRN PRN Reason: Constipation Stop: 10/31/19 21:45 Last Admin: 10/02/19 00:27 Dose: 30 ml Documented by: Magnesium Oxide (Mag-Ox) 400 mg PO BID LONNY Stop: 11/01/19 08:59 Last Admin: 10/02/19 07:29 Dose: 400 mg Documented by: Meclizine HCl (Antivert) 25 mg PO TID PRN PRN Reason: Dizziness Or Vertigo Stop: 10/31/19 21:45 Memantine (Namenda) 10 mg PO BID LONNY Stop: 10/31/19 21:45 Last Admin: 10/02/19 07:31 Dose: 10 mg Documented by: Ondansetron HCl (Zofran) 4 mg IV Q6H PRN PRN Reason: Nausea Stop: 10/31/19 21:45 Last Admin: 10/02/19 07:42 Dose: 4 mg Documented by: Pantoprazole Sodium (Protonix) 40 mg PO QAM [facility] Stop: 11/01/19 08:59 Last Admin: 10/02/19 07:30 Dose: 40 mg Documented by: Polyethylene Glycol (Miralax Powder Packet) 17 gm PO DAILY PRN PRN Reason: Constipation Stop: 10/31/19 21:45 Propranolol HCl (Inderal La) 120 mg PO HS [facility] Stop: 10/31/19 22:29 Last Admin: 10/01/19 22:49 Dose: 120 mg Documented by: Risperidone (Risperdal) 1 mg PO QPM LONNY Stop: 10/31/19 21:45 Last Admin: 10/01/19 22:51 Dose: 1 mg Documented by: Vitamin D (Vitamin D3) 1,000 units PO DAILY LONNY Stop: 11/01/19 08:59 Last Admin: 10/02/19 07:31 Dose: 1,000 units Documented by: PG Care Time/CCT Total # of Minutes Spent Total Time Spent with Patient: Total time spent is greater than 50% in coordination of care (as documented) at patient's floor/unit and/or counseling patient:
[2019-10-02] MEDS: risperiDONE 1 MG TABLET PO SCH (20:54)
[2019-10-02] MEDS: PROPRANOLOL HCL 60 MG LA CAP PO SCH (20:55)
--- NOTE | 2019-10-03 00:55 | Billing Data ---
Coding Level of Care Code 96258 Initial Inpt Care Lvl 3
[2019-10-03] MEDS: clonazePAM 1 MG TAB PO PRN ×2 (01:53→07:50)
[2019-10-03] MEDS: HYDROmorphone INJ 0.5 MG/0.5 ML SYR IV PRN ×5 (01:53→18:27)
[2019-10-03] MEDS: LACTATED RINGER'S 1,000 ML IV SCH ×3 (02:18→13:50)
[2019-10-03 05:55] LABS: Albumin Globulin Ratio 0.9 (0.9-2); Albumin Level 2.8 gm/dl (3.4-5.0); BUN Creatinine Ratio 12.7 (10-20); Bilirubin,Total 1.7 mg/dl (0.2-1); Calcium 8.6 mg/dl (8.5-10.1); Creatinine Clr Calc Pharmacy 88.3 ml/min; Est GFR (African American) 81.9; Est GFR (Non-African American) 70.7; Globulin 3.2 gm/dl (2.5-4.0); Potassium 4.1 mmol/L (3.5-5.1)
[2019-10-03 06:18] LABS: Hematocrit (blood only) 35.7 % (37-47); Hemoglobin 12.6 g/dL (12.0-16.0); Mean Corpuscular Hemoglobin 35.3 pg (25-34); Mean Corpuscular Hgb Conc 35.3 g/dL (32-36); Mean Platelet Volume 8.9 fL (7.4-10.4); Platelet Count 143 K/uL (130-400); RDW Coefficient of Variation 13.4 % (11.5-14.5); Red Blood Count 3.57 M/uL (4.2-5.4); White Blood Count 7.08 K/uL (4.8-10.8)
[2019-10-03] MEDS: MAGNESIUM OXIDE 400 MG TAB PO SCH ×2 (07:44→20:14)
[2019-10-03] MEDS: PANTOprazole 40 MG TAB PO SCH (07:45)
[2019-10-03] MEDS: CHOLECALCIFEROL 1,000 UNITS TAB PO SCH (07:45)
[2019-10-03] MEDS: MEMANTINE HCL 10 MG TAB PO SCH ×2 (07:45→20:14)
[2019-10-03] MEDS: LISINOPRIL 20 MG TAB PO SCH (07:45)
[2019-10-03] MEDS: BuPROPion XL 150 MG TABCR PO SCH ×2 (07:45→20:14)
--- NOTE | 2019-10-03 15:55 | Hospitalist Progress Note ---
Date of Service October 03, 2019 Assessment & Plan (1) Acute pancreatitis: acute alcohol pancreatitis, patient drinks 1/2 a fifth of whiskey every night lipase down to 1800 from 9k WBC normal however, BUN trending up slightly, Hct going down, fluid sequestration > 6 patient feels more short of breath on exertion and has some edema will cut fluids to 80cc/hr repeat labs in the AM will be in the hospital a few more days, severe case of pancreatitis low threshold to repeat CT if she gets worse stop HCTZ as this can contribute/cause pancreatitis (2) Ileus: distended, hypoactive bowel sounds had a loose stool yesterday but nothing since will monitor closely, keep on clears, encourage activity due to severe pancreatitis (3) Dyspnea: due to excessive volume, fluid sequestration > 6 lungs are clear likely abdominal edema and distension pushing up on diaphragm if she develops rales or hypoxia at rest then would benefit from Lasix IV (4) Hyponatremia: stable at 126, was 128 on admission, has h/o chronic hyponatremia could be in part due to alcohol abuse with poor protein intake repeat sodium in the morning (5) Vertigo: vertigo and nystagmus -Long-standing, now following with a specialist in [place] (neuro- ophthomologist) -Patient now needing to ambulate with a cane -continue trial of propranolol (6) Hypomagnesemia: replace as needed, stable today (7) Depression: (8) Acute anxiety: improved today (9) Hypertension: BP slightly elevated (10) Alcohol abuse: no signs of alcohol withdrawal AWSS ordered discussed options for quitting she refuses any information on AA or other counseling or support groups says she does not have an "addictive personality" and she only drinks to help the nystagmus will bring this up again tomorrow Incidentals on Imaging for outpatient f/u -1.1 cm hypodense lesion of inferior pole of left kidney -5 mm pulmonary nodule in right lower lobe -Thickening of bilateral adrenal glands Subjective patient with less abdominal pain today but feeling more distended had a loose stool last night, nothing today no nausea, no appetite, tolerating some clear liquids, not causing her increased pain reviewed labs and I/O at 48 hours BUN up a little at 14, fluid sequestration of > 6 liters but starting to make more urine, Ca normal at 8.6 patient says that she feels "puffy" with fluid in hands/feet she says she was really short of breath just getting cleaned up in the bathroom lipase down to 1800, WBC 7k, Hct dropped by almost 10 discussed with patient that it will probably take days for her to recover she denies any symptoms of alcohol withdrawal Review of Systems Review of Systems: All systems reviewed & are unremarkable except as noted in HPI & below Respiratory: + dyspnea on exertion; no cough, no dyspnea and no wheezing Cardiovascular: + dyspnea on exertion and + edema; no chest pain, no dyspnea and no orthopnea Gastrointestinal: + abdominal pain, + bloating, + early satiety and + diarrhea/loose stools; no nausea, no vomiting, no constipation and no blood in stools Physical Exam Constitutional: WD/WN, vitals as above + overweight Eyes: PERRL, conjunctivae normal, anicteric sclerae ENMT: external ear and nose normal, oropharynx normal Neck: trachea midline, no thyromegaly Respiratory: normal respiratory effort, lungs clear to auscultation Cardiovascular: RRR, no murmur, no edema Gastrointestinal (Abdomen): Inspection/Auscultation: + abdomen distended and + hypoactive bowel sounds Percussion/Palpation: + abdomen tender (epigastric), abdomen soft and normal to percussion; no guarding and abdomen not rigid Musculoskeletal: no cyanosis or clubbing, extremities motor strength 5/5 Skin: no rashes, warm and dry Neurologic: patellar DTR's 2+ bilat, sensation intact and PERRL, EOMI, accommodation nl, no face palsy, no dysarthria Psychiatric: A+Ox3, euthymic affect Lymphatic: no cervical or axillary lymphadenopathy Results & Data Vital Signs (Past 12 Hours) Vital Signs Temp Pulse Pulse Resp BP Pulse Ox 10/03/19 14:57 36.7 C 73 16 162/85 H 97 10/03/19 12:20 36.9 C 74 17 122/78 96 10/03/19 07:51 36.8 C 76 16 132/86 96 Laboratory Results Laboratory Results - last 24 hr 10/03/19 10/03/19 04:45 04:45 WBC 7.08 RBC 3.57 L Hgb 12.6 D Hct 35.7 L MCV 100.0 MCH 35.3 H MCHC 35.3 RDW Std Deviation 49.0 H RDW Coeff of Raffy 13.4 Plt Count 143 MPV 8.9 Sodium 126 L Potassium 4.1 D Chloride 91 L Carbon Dioxide 28 Anion Gap 7.0 BUN 12 Creatinine 0.93 Est Cr Clr Drug Dosing 88.3 Est GFR ( Amer) 81.9 Est GFR (Non-Af Amer) 70.7 BUN/Creatinine Ratio 12.7 Glucose 65 L Calcium 8.6 Total Bilirubin 1.7 H D AST 42 H ALT 54 Alkaline Phosphatase 65 Total Protein 6.0 L Albumin 2.8 L Globulin 3.2 Albumin/Globulin Ratio 0.9 Lipase 1812 H Medications Administered Current Inpatient Medications Acetaminophen (Tylenol) 650 mg PO Q4H PRN PRN Reason: pain/fever Stop: 10/31/19 21:45 Al Hydrox/Mg Hydrox/Simethicone (Maalox) 30 ml PO Q6H PRN PRN Reason: Dyspepsia Stop: 10/31/19 21:45 Albuterol (Ventolin Hfa) 2 puffs INH QID PRN PRN Reason: SHORTNESS OF BREATH/WHEEZING Stop: 10/31/19 21:51 Bupropion HCl (Wellbutrin-Xl) 150 mg PO BID COUNTS INCLUDE 234 BEDS AT THE [facility] Stop: 10/31/19 21:45 Last Admin: 10/03/19 07:45 Dose: 150 mg Documented by: Clonazepam (Klonopin) 1 mg PO BID PRN PRN Reason: Anxiety Stop: 10/31/19 21:45 Last Admin: 10/03/19 07:50 Dose: 1 mg Documented by: Fluticasone Propionate (Flonase) 1 sprays NA DAILY PRN PRN Reason: Congestion Stop: 10/31/19 21:45 Hydromorphone HCl (Dilaudid) 0.5 mg IV Q3H PRN PRN Reason: Pain Stop: 10/15/19 21:45 Last Admin: 10/03/19 13:50 Dose: 0.5 mg Documented by: Lactated Ringer's (Lr) 1,000 mls @ 80 mls/hr IV .[id number] COUNTS INCLUDE 234 BEDS AT THE [facility] Stop: 10/31/19 21:59 Last Admin: 10/03/19 13:50 Dose: 80 mls/hr Documented by: Promethazine HCl 6.25 mg/ (Sodium Chloride) 50.25 mls @ 201 mls/hr IV Q6H PRN PRN Reason: Nausea And Vomiting Stop: 11/01/19 00:32 Last Infusion: 10/02/19 01:09 Dose: Infused Documented by: Ioversol (Optiray 320 100ml) 92 ml IV ONCE PRN PRN Reason: Interaction Checking Stop: 10/05/19 19:29 Last Admin: 10/01/19 19:30 Dose: 92 ml Documented by: Ketorolac Tromethamine (Toradol) 15 mg IV Q6H PRN PRN Reason: Pain Stop: 10/06/19 21:45 Last Admin: 10/02/19 23:33 Dose: 15 mg Documented by: Lisinopril (Zestril) 20 mg PO QAM COUNTS INCLUDE 234 BEDS AT THE [facility] Stop: 11/02/19 08:59 Last Admin: 10/03/19 07:45 Dose: 20 mg Documented by: Magnesium Hydroxide (Milk Of Magnesia) 30 ml PO Q6H PRN PRN Reason: Constipation Stop: 10/31/19 21:45 Last Admin: 10/02/19 00:27 Dose: 30 ml Documented by: Magnesium Oxide (Mag-Ox) 400 mg PO BID COUNTS INCLUDE 234 BEDS AT THE [facility] Stop: 11/01/19 08:59 Last Admin: 10/03/19 07:44 Dose: 400 mg Documented by: Meclizine HCl (Antivert) 25 mg PO TID PRN PRN Reason: Dizziness Or Vertigo Stop: 10/31/19 21:45 Memantine (Namenda) 10 mg PO BID COUNTS INCLUDE 234 BEDS AT THE [facility] Stop: 10/31/19 21:45 Last Admin: 10/03/19 07:45 Dose: 10 mg Documented by: Ondansetron HCl (Zofran) 4 mg IV Q6H PRN PRN Reason: Nausea Stop: 10/31/19 21:45 Last Admin: 10/02/19 07:42 Dose: 4 mg Documented by: Pantoprazole Sodium (Protonix) 40 mg PO QAM COUNTS INCLUDE 234 BEDS AT THE [facility] Stop: 11/01/19 08:59 Last Admin: 10/03/19 07:45 Dose: 40 mg Documented by: Polyethylene Glycol (Miralax Powder Packet) 17 gm PO DAILY PRN PRN Reason: Constipation Stop: 10/31/19 21:45 Propranolol HCl (Inderal La) 120 mg PO HS COUNTS INCLUDE 234 BEDS AT THE [facility] Stop: 10/31/19 22:29 Last Admin: 10/02/19 20:55 Dose: 120 mg Documented by: Risperidone (Risperdal) 1 mg PO QPM [facility] Stop: 10/31/19 21:45 Last Admin: 10/02/19 20:54 Dose: 1 mg Documented by: Vitamin D (Vitamin D3) 1,000 units PO DAILY COUNTS INCLUDE 234 BEDS AT THE [facility] Stop: 11/01/19 08:59 Last Admin: 10/03/19 07:45 Dose: 1,000 units Documented by: PG Care Time/CCT Total # of Minutes Spent Total Time Spent with Patient: Total time spent is greater than 50% in coordination of care (as documented) at patient's floor/unit and/or counseling patient:
[2019-10-03] MEDS: risperiDONE 1 MG TABLET PO SCH (20:13)
[2019-10-03] MEDS: PROPRANOLOL HCL 60 MG LA CAP PO SCH (20:13)
[2019-10-04] MEDS: LACTATED RINGER'S 1,000 ML IV SCH ×2 (01:22→14:16)
[2019-10-04] MEDS: clonazePAM 1 MG TAB PO PRN ×2 (01:22→08:57)
[2019-10-04] MEDS: HYDROmorphone INJ 0.5 MG/0.5 ML SYR IV PRN ×4 (01:22→20:29)
[2019-10-04 06:01] LABS: Basophils # (auto) 0.01 K/uL (0-0.2); Basophils % (auto) 0.2 %; Eosinophils # (auto) 0.12 K/uL (0-0.5); Eosinophils % (auto) 2.1 %; Hematocrit (blood only) 34.2 % (37-47); Hemoglobin 11.7 g/dL (12.0-16.0); Immature Granulocytes # (auto) 0.02 K/uL (0.00-0.02); Immature Granulocytes % (auto) 0.4 %; Lymphocytes # (auto) 0.96 K/uL (1.2-3.4); Lymphocytes % (auto) 17.1 %; Mean Corpuscular Hemoglobin 34.1 pg (25-34); Mean Corpuscular Hgb Conc 34.2 g/dL (32-36); Mean Corpuscular Volume 99.7 fL (80-100); Mean Platelet Volume 9.1 fL (7.4-10.4); Monocytes # (auto) 0.73 K/uL (0.11-0.59); Neutrophils # (auto) 3.77 K/uL (1.4-6.5); Neutrophils % (auto) 67.2 %; Platelet Count 143 K/uL (130-400); RDW Coefficient of Variation 13.4 % (11.5-14.5); RDW Standard Deviation 48.7 fL (36.4-46.3); Red Blood Count 3.43 M/uL (4.2-5.4); White Blood Count 5.61 K/uL (4.8-10.8)
[2019-10-04 06:51] LABS: Albumin Globulin Ratio 0.8 (0.9-2); Albumin Level 2.6 gm/dl (3.4-5.0); BUN Creatinine Ratio 7.2 (10-20); Bilirubin,Total 1.6 mg/dl (0.2-1); Calcium 8.9 mg/dl (8.5-10.1); Creatinine Clr Calc Pharmacy 124.4 ml/min; Est GFR (African American) 117.7; Est GFR (Non-African American) 101.6; Globulin 3.3 gm/dl (2.5-4.0); Potassium 3.8 mmol/L (3.5-5.1); Total Protein 5.9 gm/dl (6.4-8.2)
[2019-10-04] MEDS: PANTOprazole 40 MG TAB PO SCH (08:49)
[2019-10-04] MEDS: BuPROPion XL 150 MG TABCR PO SCH ×2 (08:49→20:24)
[2019-10-04] MEDS: LISINOPRIL 20 MG TAB PO SCH (08:49)
[2019-10-04] MEDS: MAGNESIUM OXIDE 400 MG TAB PO SCH ×2 (08:49→20:26)
[2019-10-04] MEDS: CHOLECALCIFEROL 1,000 UNITS TAB PO SCH (08:49)
[2019-10-04] MEDS: MEMANTINE HCL 10 MG TAB PO SCH ×2 (08:50→20:25)
[2019-10-04] MEDS: KETOROLAC TROMETHAMINE 15 MG/ML VIAL IV PRN ×2 (08:56→18:11)
--- NOTE | 2019-10-04 11:07 | Hospitalist Progress Note ---
Date of Service October 04, 2019 Assessment & Plan (1) Acute pancreatitis: acute alcohol pancreatitis, patient drinks 1/2 a fifth of whiskey every night lipase down to 600 from 1800 WBC normal BUN trending down to 5 from 14 which is good sign making more urine today, less fluid sequestration breathing much better today, not on oxygen repeat labs again in the AM less pain overall today advance to low fiber, low fat diet stop HCTZ as this can contribute/cause pancreatitis (2) Ileus: distended, hypoactive bowel sounds on 10/03 much better today, less distension, more active bowel sounds, loose stools due to severe pancreatitis (3) Dyspnea: due to excessive volume, fluid sequestration > 6 yesterday lungs are clear likely abdominal edema and distension pushing up on diaphragm breathing much easier today, making more urine which is a good sign if she develops rales or hypoxia at rest then would benefit from Lasix IV (4) Hyponatremia: up to 131 today, was 128 on admission, has h/o chronic hyponatremia could be in part due to alcohol abuse with poor protein intake repeat sodium in the morning (5) Vertigo: vertigo and nystagmus -Long-standing, now following with a specialist in [place] (neuro- ophthomologist) -Patient now needing to ambulate with a cane -continue trial of propranolol (6) Hypomagnesemia: replace as needed, did not check today, repeat tomorrow (7) Depression: (8) Acute anxiety: improved today (9) Hypertension: BP slightly elevated (10) Alcohol abuse: no signs of alcohol withdrawal AWSS ordered discussed options for quitting she refuses any information on AA or other counseling or support groups says she does not have an "addictive personality" and she only drinks to help the nystagmus will bring this up again tomorrow Incidentals on Imaging for outpatient f/u -1.1 cm hypodense lesion of inferior pole of left kidney -5 mm pulmonary nodule in right lower lobe -Thickening of bilateral adrenal glands Subjective patient feeling and looking a lot better today no dyspnea today, no oxygen required more of an appetite today, says the food on commercials not making her sick some abdominal pain this morning when she layed on her side, resolved labs show lipase down to 600's, BUN trending down to 5 from 14 which is marked improvement WBC is normal vitals stable, no fever she would like to try some food today Review of Systems Review of Systems: All systems reviewed & are unremarkable except as noted in HPI & below Constitutional: no fever, no fatigue and no weakness Respiratory: no cough, no dyspnea and no dyspnea on exertion Gastrointestinal: + abdominal pain (epigastric) and + diarrhea/loose stools; no nausea, no vomiting and no constipation Physical Exam Constitutional: WD/WN, vitals as above + overweight Eyes: PERRL, conjunctivae normal, anicteric sclerae ENMT: external ear and nose normal, oropharynx normal Neck: trachea midline, no thyromegaly Respiratory: normal respiratory effort, lungs clear to auscultation Cardiovascular: RRR, no murmur, no edema Gastrointestinal (Abdomen): Inspection/Auscultation: abdomen normal to inspection and normal bowel sounds; abdomen not distended Percussion/Palpation: + abdomen tender (epigastric), abdomen soft and normal to percussion; no guarding and abdomen not rigid Musculoskeletal: no cyanosis or clubbing, extremities motor strength 5/5 Skin: no rashes, warm and dry Neurologic: patellar DTR's 2+ bilat, sensation intact and PERRL, EOMI, accommodation nl, no face palsy, no dysarthria Psychiatric: A+Ox3, euthymic affect Lymphatic: no cervical or axillary lymphadenopathy Results & Data Vital Signs (Past 12 Hours) Vital Signs Temp Pulse Resp BP Pulse Ox 10/04/19 09:29 97 10/04/19 07:18 37.2 C 73 20 159/95 H 96 10/04/19 03:00 37 C 86 16 158/98 H 94 10/03/19 23:20 36.7 C 79 18 115/77 98 Laboratory Results Laboratory Results - last 24 hr 10/04/19 10/04/19 05:46 05:46 WBC 5.61 RBC 3.43 L Hgb 11.7 L Hct 34.2 L MCV 99.7 MCH 34.1 H MCHC 34.2 RDW Std Deviation 48.7 H RDW Coeff of Raffy 13.4 Plt Count 143 MPV 9.1 Immature Gran % (Auto) 0.4 Neut % (Auto) 67.2 Lymph % (Auto) 17.1 Todd % (Auto) 13.0 Eos % (Auto) 2.1 Baso % (Auto) 0.2 Immature Gran # (Auto) 0.02 Neut # (Auto) 3.77 Lymph # (Auto) 0.96 L Todd # (Auto) 0.73 H Eos # (Auto) 0.12 Baso # (Auto) 0.01 Sodium 131 L Potassium 3.8 Chloride 96 L Carbon Dioxide 27 Anion Gap 8.0 BUN 5 L D Creatinine 0.66 Est Cr Clr Drug Dosing 124.4 Est GFR ( Amer) 117.7 Est GFR (Non-Af Amer) 101.6 BUN/Creatinine Ratio 7.2 L Glucose 66 L Calcium 8.9 Total Bilirubin 1.6 H AST 37 ALT 46 Alkaline Phosphatase 67 Total Protein 5.9 L Albumin 2.6 L Globulin 3.3 Albumin/Globulin Ratio 0.8 L Lipase 661 H Medications Administered Current Inpatient Medications Acetaminophen (Tylenol) 650 mg PO Q4H PRN PRN Reason: pain/fever Stop: 10/31/19 21:45 Al Hydrox/Mg Hydrox/Simethicone (Maalox) 30 ml PO Q6H PRN PRN Reason: Dyspepsia Stop: 10/31/19 21:45 Albuterol (Ventolin Hfa) 2 puffs INH QID PRN PRN Reason: SHORTNESS OF BREATH/WHEEZING Stop: 10/31/19 21:51 Bupropion HCl (Wellbutrin-Xl) 150 mg PO BID [facility] Stop: 10/31/19 21:45 Last Admin: 10/04/19 08:49 Dose: 150 mg Documented by: Clonazepam (Klonopin) 1 mg PO BID PRN PRN Reason: Anxiety Stop: 10/31/19 21:45 Last Admin: 10/04/19 08:57 Dose: 1 mg Documented by: Fluticasone Propionate (Flonase) 1 sprays NA DAILY PRN PRN Reason: Congestion Stop: 10/31/19 21:45 Hydromorphone HCl (Dilaudid) 0.5 mg IV Q3H PRN PRN Reason: Pain Stop: 10/15/19 21:45 Last Admin: 10/04/19 06:14 Dose: 0.5 mg Documented by: Lactated Ringer's (Lr) 1,000 mls @ 80 mls/hr IV .[id number] [facility] Stop: 10/31/19 21:59 Last Admin: 10/04/19 01:22 Dose: 80 mls/hr Documented by: Promethazine HCl 6.25 mg/ (Sodium Chloride) 50.25 mls @ 201 mls/hr IV Q6H PRN PRN Reason: Nausea And Vomiting Stop: 11/01/19 00:32 Last Infusion: 10/02/19 01:09 Dose: Infused Documented by: Ioversol (Optiray 320 100ml) 92 ml IV ONCE PRN PRN Reason: Interaction Checking Stop: 10/05/19 19:29 Last Admin: 10/01/19 19:30 Dose: 92 ml Documented by: Ketorolac Tromethamine (Toradol) 15 mg IV Q6H PRN PRN Reason: Pain Stop: 10/06/19 21:45 Last Admin: 10/04/19 08:56 Dose: 15 mg Documented by: Lisinopril (Zestril) 20 mg PO QAM [facility] Stop: 11/02/19 08:59 Last Admin: 10/04/19 08:49 Dose: 20 mg Documented by: Magnesium Hydroxide (Milk Of Magnesia) 30 ml PO Q6H PRN PRN Reason: Constipation Stop: 10/31/19 21:45 Last Admin: 10/02/19 00:27 Dose: 30 ml Documented by: Magnesium Oxide (Mag-Ox) 400 mg PO BID [facility] Stop: 11/01/19 08:59 Last Admin: 10/04/19 08:49 Dose: 400 mg Documented by: Meclizine HCl (Antivert) 25 mg PO TID PRN PRN Reason: Dizziness Or Vertigo Stop: 10/31/19 21:45 Memantine (Namenda) 10 mg PO BID [facility] Stop: 10/31/19 21:45 Last Admin: 10/04/19 08:50 Dose: 10 mg Documented by: Ondansetron HCl (Zofran) 4 mg IV Q6H PRN PRN Reason: Nausea Stop: 10/31/19 21:45 Last Admin: 10/02/19 07:42 Dose: 4 mg Documented by: Pantoprazole Sodium (Protonix) 40 mg PO QAM [facility] Stop: 11/01/19 08:59 Last Admin: 10/04/19 08:49 Dose: 40 mg Documented by: Polyethylene Glycol (Miralax Powder Packet) 17 gm PO DAILY PRN PRN Reason: Constipation Stop: 10/31/19 21:45 Propranolol HCl (Inderal La) 120 mg PO HS [facility] Stop: 10/31/19 22:29 Last Admin: 10/03/19 20:13 Dose: 120 mg Documented by: Risperidone (Risperdal) 1 mg PO QPM [facility] Stop: 10/31/19 21:45 Last Admin: 10/03/19 20:13 Dose: 1 mg Documented by: Vitamin D (Vitamin D3) 1,000 units PO DAILY [facility] Stop: 11/01/19 08:59 Last Admin: 10/04/19 08:49 Dose: 1,000 units Documented by: PG Care Time/CCT Total # of Minutes Spent Total Time Spent with Patient: Total time spent is greater than 50% in coordination of care (as documented) at patient's floor/unit and/or counseling patient:
[2019-10-04] MEDS: risperiDONE 1 MG TABLET PO SCH (20:24)
[2019-10-04] MEDS: PROPRANOLOL HCL 60 MG LA CAP PO SCH (20:26)
[2019-10-05] MEDS: HYDROmorphone INJ 0.5 MG/0.5 ML SYR IV PRN ×4 (01:17→23:54)
[2019-10-05] MEDS: LACTATED RINGER'S 1,000 ML IV SCH (01:17)
[2019-10-05] MEDS: KETOROLAC TROMETHAMINE 15 MG/ML VIAL IV PRN ×2 (06:28→19:59)
[2019-10-05 06:30] LABS: Basophils # (auto) 0.02 K/uL (0-0.2); Basophils % (auto) 0.4 %; Eosinophils # (auto) 0.14 K/uL (0-0.5); Eosinophils % (auto) 2.8 %; Hematocrit (blood only) 31.7 % (37-47); Immature Granulocytes # (auto) 0.01 K/uL (0.00-0.02); Immature Granulocytes % (auto) 0.2 %; Lymphocytes # (auto) 1.49 K/uL (1.2-3.4); Lymphocytes % (auto) 29.3 %; Mean Corpuscular Hemoglobin 34.7 pg (25-34); Mean Corpuscular Hgb Conc 34.7 g/dL (32-36); Mean Platelet Volume 8.9 fL (7.4-10.4); Monocytes # (auto) 0.86 K/uL (0.11-0.59); Monocytes % (auto) 16.9 %; Neutrophils # (auto) 2.57 K/uL (1.4-6.5); Neutrophils % (auto) 50.4 %; Platelet Count 170 K/uL (130-400); RDW Coefficient of Variation 13.4 % (11.5-14.5); RDW Standard Deviation 48.8 fL (36.4-46.3); Red Blood Count 3.17 M/uL (4.2-5.4); White Blood Count 5.09 K/uL (4.8-10.8)
[2019-10-05 07:08] LABS: Albumin Level 2.4 gm/dl (3.4-5.0); BUN Creatinine Ratio 9.6 (10-20); Calcium 8.5 mg/dl (8.5-10.1); Est GFR (African American) 104.5; Est GFR (Non-African American) 90.2; Potassium 3.6 mmol/L (3.5-5.1)
[2019-10-05 07:09] LABS: Albumin Globulin Ratio 0.8 (0.9-2); Bilirubin,Total 1.3 mg/dl (0.2-1); Globulin 3.1 gm/dl (2.5-4.0); Total Protein 5.5 gm/dl (6.4-8.2)
[2019-10-05] MEDS ORDERED: FUROSEMIDE 20 MG TAB PO ONE (08:09)
[2019-10-05] MEDS: clonazePAM 1 MG TAB PO PRN ×2 (08:54→20:02)
[2019-10-05] MEDS: MAGNESIUM OXIDE 400 MG TAB PO SCH ×2 (08:54→20:00)
[2019-10-05] MEDS: PANTOprazole 40 MG TAB PO SCH (08:55)
[2019-10-05] MEDS: BuPROPion XL 150 MG TABCR PO SCH ×2 (08:55→19:59)
[2019-10-05] MEDS: CHOLECALCIFEROL 1,000 UNITS TAB PO SCH (08:55)
[2019-10-05] MEDS: LISINOPRIL 20 MG TAB PO SCH (08:55)
[2019-10-05] MEDS: MEMANTINE HCL 10 MG TAB PO SCH ×2 (08:55→19:59)
--- NOTE | 2019-10-05 14:39 | Hospitalist Progress Note ---
Date of Service October 05, 2019 Assessment & Plan (1) Acute pancreatitis: acute alcohol pancreatitis, patient drinks 1/2 a fifth of whiskey every night lipase up very slightly in 700's from 600's day prior, still below pancreatitis threshold WBC normal at 5k BUN trending down which good prognostic sign Hct is down though making more urine today, clearly volume overloaded on exam breathing much better today, not on oxygen Lasix 20mg qAM to help remove volume repeat labs again in the AM less pain overall today advance to low fiber, low fat diet -- tolerating well stop HCTZ as this can contribute/cause pancreatitis would continue to hold this on discharge (2) Ileus: distended, hypoactive bowel sounds on 10/03 much better today, less distension, more active bowel sounds, loose stools ileus resolved (3) Dyspnea: due to excessive volume, fluid sequestration > 7 liters lungs are clear likely abdominal edema and distension pushing up on diaphragm breathing much easier the past two days, making more urine which is a good sign will give Lasix 20mg PO qAM to help offload volume (4) Hyponatremia: stable at 129, has h/o chronic hyponatremia could be in part due to alcohol abuse with poor protein intake repeat sodium in the morning (5) Vertigo: vertigo and nystagmus -Long-standing, now following with a specialist in [place] (neuro- ophthomologist) -Patient now needing to ambulate with a cane -continue trial of propranolol (6) Hypomagnesemia: replace as needed, did not check today, repeat tomorrow (7) Depression: (8) Acute anxiety: improved today (9) Hypertension: BP slightly elevated (10) Alcohol abuse: no signs of alcohol withdrawal AWSS ordered discussed options for quitting she refuses any information on AA or other counseling or support groups says she does not have an "addictive personality" and she only drinks to help the nystagmus Plan: continue diet, try for gentle diuresis with Lasix feel like she is 24-48 hours away from discharge repeat labs in the morning stress on discharge the importance of alcohol abstinence Incidentals on Imaging for outpatient f/u -1.1 cm hypodense lesion of inferior pole of left kidney -5 mm pulmonary nodule in right lower lobe -Thickening of bilateral adrenal glands should make PCP aware of these results on follow up Subjective patient feeling better, tolerating diet less pain today, but still with pain if she lays on her side, comfortable on her back no dyspnea, no fever/chills c/o feet feeling swollen which is new today discussed that she is volume overloaded gave her some Lasix this morning, mild response labs with lipase in 700's, BUN/Cr stable, WBC normal 5k, Hct low at 31 discussed with her that she is likely 1-2 days away from discharge, she is okay with this Review of Systems Review of Systems: All systems reviewed & are unremarkable except as noted in HPI & below Physical Exam Constitutional: WD/WN, vitals as above + overweight Eyes: PERRL, conjunctivae normal, anicteric sclerae ENMT: external ear and nose normal, oropharynx normal Neck: trachea midline, no thyromegaly Respiratory: normal respiratory effort, lungs clear to auscultation Cardiovascular: Rate/Rhythm: regular rate and regular rhythm Heart Sounds: normal S1 and normal S2; no murmur Extremities: + pedal edema (bilaterally) Gastrointestinal (Abdomen): Inspection/Auscultation: abdomen normal to inspection and normal bowel sounds; abdomen not distended Percussion/Palpation: + abdomen tender (epigastric, minimal), abdomen soft and normal to percussion; no guarding and abdomen not rigid Musculoskeletal: no cyanosis or clubbing, extremities motor strength 5/5 Skin: no rashes, warm and dry Neurologic: patellar DTR's 2+ bilat, sensation intact and PERRL, EOMI, accommodation nl, no face palsy, no dysarthria Psychiatric: A+Ox3, euthymic affect Lymphatic: no cervical or axillary lymphadenopathy Results & Data Vital Signs (Past 12 Hours) Vital Signs Temp Pulse Resp BP Pulse Ox 10/05/19 07:20 36.9 C 63 18 164/86 H 99 10/05/19 03:36 174/96 H Laboratory Results Laboratory Results - last 24 hr 10/05/19 10/05/19 05:25 05:25 WBC 5.09 RBC 3.17 L Hgb 11.0 L Hct 31.7 L MCV 100.0 MCH 34.7 H MCHC 34.7 RDW Std Deviation 48.8 H RDW Coeff of Raffy 13.4 Plt Count 170 MPV 8.9 Immature Gran % (Auto) 0.2 Neut % (Auto) 50.4 Lymph % (Auto) 29.3 [place] % (Auto) 16.9 Eos % (Auto) 2.8 Baso % (Auto) 0.4 Immature Gran # (Auto) 0.01 Neut # (Auto) 2.57 Lymph # (Auto) 1.49 [place] # (Auto) 0.86 H Eos # (Auto) 0.14 Baso # (Auto) 0.02 Sodium 129 L Potassium 3.6 Chloride 93 L Carbon Dioxide 27 Anion Gap 9.0 BUN 7 Creatinine 0.76 Est Cr Clr Drug Dosing 108.0 Est GFR ( Amer) 104.5 Est GFR (Non-Af Amer) 90.2 BUN/Creatinine Ratio 9.6 L Glucose 66 L Calcium 8.5 Total Bilirubin 1.3 H AST 44 H ALT 48 Alkaline Phosphatase 86 Total Protein 5.5 L Albumin 2.4 L Globulin 3.1 Albumin/Globulin Ratio 0.8 L Lipase 722 H Medications Administered Current Inpatient Medications Acetaminophen (Tylenol) 650 mg PO Q4H PRN PRN Reason: pain/fever Stop: 10/31/19 21:45 Al Hydrox/Mg Hydrox/Simethicone (Maalox) 30 ml PO Q6H PRN PRN Reason: Dyspepsia Stop: 10/31/19 21:45 Albuterol (Ventolin Hfa) 2 puffs INH QID PRN PRN Reason: SHORTNESS OF BREATH/WHEEZING Stop: 10/31/19 21:51 Bupropion HCl (Wellbutrin-Xl) 150 mg PO BID LONNY Stop: 10/31/19 21:45 Last Admin: 10/05/19 08:55 Dose: 150 mg Documented by: Clonazepam (Klonopin) 1 mg PO BID PRN PRN Reason: Anxiety Stop: 10/31/19 21:45 Last Admin: 10/05/19 08:54 Dose: 1 mg Documented by: Fluticasone Propionate (Flonase) 1 sprays NA DAILY PRN PRN Reason: Congestion Stop: 10/31/19 21:45 Hydromorphone HCl (Dilaudid) 0.5 mg IV Q3H PRN PRN Reason: Pain Stop: 10/15/19 21:45 Last Admin: 10/05/19 13:32 Dose: 0.5 mg Documented by: Promethazine HCl 6.25 mg/ (Sodium Chloride) 50.25 mls @ 201 mls/hr IV Q6H PRN PRN Reason: Nausea And Vomiting Stop: 11/01/19 00:32 Last Infusion: 10/02/19 01:09 Dose: Infused Documented by: Ioversol (Optiray 320 100ml) 92 ml IV ONCE PRN PRN Reason: Interaction Checking Stop: 10/05/19 19:29 Last Admin: 10/01/19 19:30 Dose: 92 ml Documented by: Ketorolac Tromethamine (Toradol) 15 mg IV Q6H PRN PRN Reason: Pain Stop: 10/06/19 21:45 Last Admin: 10/05/19 06:28 Dose: 15 mg Documented by: Lisinopril (Zestril) 20 mg PO QAM [facility] Stop: 11/02/19 08:59 Last Admin: 10/05/19 08:55 Dose: 20 mg Documented by: Magnesium Hydroxide (Milk Of Magnesia) 30 ml PO Q6H PRN PRN Reason: Constipation Stop: 10/31/19 21:45 Last Admin: 10/02/19 00:27 Dose: 30 ml Documented by: Magnesium Oxide (Mag-Ox) 400 mg PO BID [facility] Stop: 11/01/19 08:59 Last Admin: 10/05/19 08:54 Dose: 400 mg Documented by: Meclizine HCl (Antivert) 25 mg PO TID PRN PRN Reason: Dizziness Or Vertigo Stop: 10/31/19 21:45 Memantine (Namenda) 10 mg PO BID [facility] Stop: 10/31/19 21:45 Last Admin: 10/05/19 08:55 Dose: 10 mg Documented by: Ondansetron HCl (Zofran) 4 mg IV Q6H PRN PRN Reason: Nausea Stop: 10/31/19 21:45 Last Admin: 10/02/19 07:42 Dose: 4 mg Documented by: Pantoprazole Sodium (Protonix) 40 mg PO QAM [facility] Stop: 11/01/19 08:59 Last Admin: 10/05/19 08:55 Dose: 40 mg Documented by: Polyethylene Glycol (Miralax Powder Packet) 17 gm PO DAILY PRN PRN Reason: Constipation Stop: 10/31/19 21:45 Propranolol HCl (Inderal La) 120 mg PO HS [facility] Stop: 10/31/19 22:29 Last Admin: 10/04/19 20:26 Dose: 120 mg Documented by: Risperidone (Risperdal) 1 mg PO QPM LONNY Stop: 10/31/19 21:45 Last Admin: 10/04/19 20:24 Dose: 1 mg Documented by: Vitamin D (Vitamin D3) 1,000 units PO DAILY LONNY Stop: 11/01/19 08:59 Last Admin: 10/05/19 08:55 Dose: 1,000 units Documented by: PG Care Time/CCT Total # of Minutes Spent Total Time Spent with Patient: Total time spent is greater than 50% in coordination of care (as documented) at patient's floor/unit and/or counseling patient:
[2019-10-05] MEDS ORDERED: FUROSEMIDE 20 MG in SYRINGE 0 ML IV ONE (16:45)
[2019-10-05] MEDS ORDERED: LISINOPRIL 20 MG TAB PO ONE (16:45)
[2019-10-05] MEDS: risperiDONE 1 MG TABLET PO SCH (19:59)
[2019-10-05] MEDS: PROPRANOLOL HCL 60 MG LA CAP PO SCH (20:00)
[2019-10-06 05:38] LABS: Basophils # (auto) 0.04 K/uL (0-0.2); Basophils % (auto) 0.8 %; Eosinophils # (auto) 0.15 K/uL (0-0.5); Eosinophils % (auto) 2.9 %; Hematocrit (blood only) 31.8 % (37-47); Hemoglobin 11.4 g/dL (12.0-16.0); Immature Granulocytes # (auto) 0.01 K/uL (0.00-0.02); Immature Granulocytes % (auto) 0.2 %; Lymphocytes # (auto) 1.59 K/uL (1.2-3.4); Mean Corpuscular Hemoglobin 34.8 pg (25-34); Mean Corpuscular Hgb Conc 35.8 g/dL (32-36); Mean Platelet Volume 8.7 fL (7.4-10.4); Monocytes # (auto) 0.94 K/uL (0.11-0.59); Monocytes % (auto) 18.3 %; Neutrophils % (auto) 46.8 %; Platelet Count 194 K/uL (130-400); RDW Coefficient of Variation 13.1 % (11.5-14.5); RDW Standard Deviation 46.1 fL (36.4-46.3); Red Blood Count 3.28 M/uL (4.2-5.4); White Blood Count 5.13 K/uL (4.8-10.8)
[2019-10-06 05:58] LABS: Albumin Level 2.3 gm/dl (3.4-5.0); Calcium 8.7 mg/dl (8.5-10.1); Creatinine Clr Calc Pharmacy 102.6 ml/min; Est GFR (African American) 98.2; Est GFR (Non-African American) 84.8; Potassium 3.5 mmol/L (3.5-5.1)
[2019-10-06 06:00] LABS: Albumin Globulin Ratio 0.7 (0.9-2); Bilirubin,Total 1.1 mg/dl (0.2-1); Globulin 3.2 gm/dl (2.5-4.0); Total Protein 5.5 gm/dl (6.4-8.2)
[2019-10-06] MEDS: MAGNESIUM HYDROXIDE SUSP 30 ML UDC PO PRN (08:54)
[2019-10-06] MEDS: MEMANTINE HCL 10 MG TAB PO SCH (08:54)
[2019-10-06] MEDS: BuPROPion XL 150 MG TABCR PO SCH (08:55)
[2019-10-06] MEDS: CHOLECALCIFEROL 1,000 UNITS TAB PO SCH (08:55)
[2019-10-06] MEDS: PANTOprazole 40 MG TAB PO SCH (08:55)
[2019-10-06] MEDS: MAGNESIUM OXIDE 400 MG TAB PO SCH (08:55)
[2019-10-06] MEDS: KETOROLAC TROMETHAMINE 15 MG/ML VIAL IV PRN ×2 (08:55→15:30)
[2019-10-06] MEDS ORDERED: LISINOPRIL 40 MG TAB PO SCH (09:00)
[2019-10-06] MEDS ORDERED: FUROSEMIDE 20 MG TAB PO SCH (09:00)
[2019-10-06] MEDS ORDERED: THIAMINE HCL 200 MG in SODIUM CHLORIDE 0.9% 50 ML IV SCH (09:45)
[2019-10-06] MEDS ORDERED: FOLIC ACID 1 MG TAB PO SCH (10:00)
[2019-10-06] MEDS: clonazePAM 1 MG TAB PO PRN (10:38)
--- NOTE | 2019-10-06 12:56 | Discharge Summary ---
Date of Service October 06, 2019 Admission HPI Per Admitting Provider Ms. Bryant is a 53-year-old female with a past medical history of vertigo and nystagmus, resulting in balance issues, depression, anxiety, hypertension, and hyponatremia who presents to the emergency department due to abdominal pain. She stated that over the past 2 months, she has had several episodes of sudden onset abdominal pain, lasting one day, and resolving by itself. She states that this morning, her pain began suddenly, and was more severe than before, prompting her to come to the ER. She notes that it is located in the epigastric region, and was 9/10 at its worst. She reports associated nausea. She denies any radiation of the pain to her back. She denies chest pain, or shortness of breath. She states that her bowels been moving normally, and she has had no difficulty urinating. She states that she does not have a past history of pancreatitis. She has not started any new medications recently. She does not have a history of gallstones. She does endorse drinking approximately half of f ifth of bourbon daily, and has done so for the past 1 year. She has no prior history of alcohol withdrawals. She states that the reason she has increased her alcohol intake, is because it improves her unrelenting nystagmus and vertigo. She states that she has had this looked at by several neurologists, and is now currently seeing a balance specialist in [place]. She states that she was told it is coming from her brainstem. She is meant to switch from her home metoprolol to propranolol, to see if this will improve her symptoms. She was planning on doing this today. She has not taken her morning metoprolol, but has not yet started the propranolol. Of note, she is a non-smoker. Principal Diagnosis Acute pancreatitis Discharge Exam Constitutional WD/WN, vitals as above Eyes + anicteric sclerae ENMT external ear and nose normal, oropharynx normal Neck trachea midline, no thyromegaly Respiratory normal respiratory effort, lungs clear to auscultation Cardiovascular RRR, no murmur, no edema Gastrointestinal (Abdomen) Inspection/Auscultation: normal bowel sounds; + abdomen abnormal to inspection (multiple surgical scars present) and abdomen not distended Percussion/Palpation: + abdomen tender (mild in LUQ but no guarding or rebound tenderness), abdomen soft and + hernia (ventral hernia suprapumbilical reducible) Musculoskeletal Extremities: extremities normal to inspection; no cyanosis and no clubbing Skin no rashes, warm and dry Neurologic moves all extremities and awake; no focal motor deficits Psychiatric Orientation: alert and oriented x 3 Affect: mood congruent with affect Mood: + depressed mood Suicidal Thoughts: denies suicidal thoughts Homicidal Thoughts: denies homicidal thoughts Insight: good insight Judgement: good judgement Discharge Data Allergies Allergy/AdvReac Type Severity Reaction Status Date / Time ampicillin Allergy Intermediate hives Verified 10/01/19 17:35 cephalexin Allergy Intermediate HIVES/ITCHI Verified 10/01/19 17:35 NG Penicillins Allergy Intermediate HIVES Verified 10/01/19 17:35 metronidazole Allergy Mild blisters Verified 10/01/19 17:35 adhesive AdvReac Mild SKIN Verified 10/01/19 17:35 TEARING AND IRRITATION Consultations None Ordered Studies 10/01/19 16:47 CT abd pelvis oral and IV con Stat CXR Hospital Course (1) Acute pancreatitis: acute alcohol pancreatitis, patient drinks 1/2 a fifth of whiskey every night lipase up very slightly in the 8-00s from 700's and 600's days prior, but clinically is MUCH improved Has some mild post-prandial pain WBC normal BUN trending down which good prognostic sign Making urine, no BM yet, is tolerating low fat diet Lasix 20mg qAM to help remove volume-helping stopped HCTZ as this can contribute/cause pancreatitis -Advised f/u with PCP and will need repeat LFTs, lipase in 3-5 days to ensure return to normal Counseled on EtOH cessation and she is committed to not drinking anymore--> she will further discuss other ways to treat her depression an dnystagmus with her PCP and specialists (2) Ileus: distended, hypoactive bowel sounds on 10/03 Now resolved (3) Dyspnea: due to excessive volume, fluid sequestration > 7 liters lungs are clear likely abdominal edema and distension pushing up on diaphragm Now resolved with starting lasix -continue lasix 20mg daily on discharge (4) Hyponatremia: stable at 129, has h/o chronic hyponatremia which may be due to HCTZ use and also from EtOH abuse -follow BMP in 3-5 days with PCP (5) Vertigo: vertigo and nystagmus -Long-standing, now following with a specialist in [place] (neuro- ophthomologist) -Patient now needing to ambulate with a cane -continue trial of propranolol (6) Hypomagnesemia: replaced (7) Depression: Mood is depressed currently, but denies SI/HI Continues on Wellbutrin, Risperdal, and clonazepam -advised to f/u with PCP and Psychiatry for improved management of depression -counseled on cessation of EtOH as self-medication as only worsens depression (8) Acute anxiety: improved today (9) Hypertension: BP slightly elevated and now improved -increased lisinopril to 40mg daily, added lasix 20mg daily -dc HCTZ as above for hyponatremia and pancreatitis (10) Thiamine deficiency: B1 level undetectable last year--> she has been taking thiamine at home despite it not being on her home med rec -continue thiamine 100mg po daily and added folic acid too given h/o EtOH abuse (11) Alcohol abuse: no signs of alcohol withdrawal here, no EtOH x 5 days -continued cessation advised as above and she is committed Incidentals on Imaging for outpatient f/u -1.1 cm hypodense lesion of inferior pole of left kidney -5 mm pulmonary nodule in right lower lobe -Thickening of bilateral adrenal glands should make PCP aware of these results on follow up -stable for dc to home on low fat, bland diet Total Time Total Time Spent Total Time Spent (In Minutes): >30 min Total Time Includes: Examination of the Patient, Discharge Planning and Medication Reconciliation Discharge Plan Discharge Items Patient Disposition: Home - Self-Care Reason For Visit: ACUTE PANCREATITIS Discharge Diagnosis: Acute pancreatitis Condition on Discharge: Good Goals: You have been hospitalized for an acute medical problem. During your stay at [facility], we have made an effort to correct the problem that brought you to the hospital while keeping you as comfortable as possible. Medications were used to bring your condition under control and your discharge instructions will include directions for any medications you should take after leaving the hospital. Please make sure you see your Primary Care Provider as part of your follow up plan. Activity: Resume your previous activity Bathing: No limitations Non-emergency contact: Primary Care Provider Call non-emergency contact if: you have any medication questions, your symptoms worsen, your pain is not controlled, your pain is worsening, your pain is unusual for you, your pain is concerning for you, you have a fever and your temperature is above 101 Follow-up/Referrals: Emily Casanova CRNP [Primary Care Provider] - 10/09/19 10:30 am (follow up appointment with your primary care provider) Diet: Heart Healthy and Low Fat Addtl Attending Provider Instructions: You were admitted with pancreatitis secondary to alcohol use. Please continue to NOT DRINK alcohol as you are committed to doing at this point. Please follow up with your PCP as scheduled for you and discuss ways to improve your mood moving forward. You were started on a new water pill called furosemide and should STOP your HCTZ. Pending Studies at Discharge: No Stand-Alone Forms: Call Back Authorization, My [facility] Medications and DC Order Prescriptions: New lisinopril [Zestril] 40 mg Tablet 40 mg PO QAM Qty: 30 RF: 0 furosemide 20 mg Tablet 20 mg PO QAM Qty: 30 RF: 0 folic acid 1 mg Tablet 1 mg PO QAM Qty: 30 RF: 0 thiamine HCl (vitamin B1) 100 mg tablet 100 mg PO DAILY Qty: 30 RF: 0 Continued meclizine 25 mg Tablet 25 mg PO TID PRN (Reason: Dizziness Or Vertigo) RF: 0 albuterol sulfate [ProAir HFA] 90 mcg/actuation Hfa Aerosol Inhaler 2 puff INHALATION QID PRN (Reason: Shortness Of Breath Or Wheezing) RF: 0 fluticasone propionate [Flonase Allergy Relief] 50 mcg/actuation [place],Suspension 1 spray INTRANASAL DAILY PRN (Reason: Congestion) RF: 0 risperidone 1 mg Tablet 1 mg PO QPM RF: 0 cholecalciferol (vitamin D3) [Vitamin D3] 1,000 unit Capsule 1,000 unit PO DAILY RF: 0 bupropion HCl 150 mg Tablet Extended Release 24 Hr 150 mg PO BID RF: 0 omeprazole 20 mg Tablet,Delayed Release (Dr/Ec) 20 mg PO DAILY PRN (Reason: reflux) RF: 0 milk thistle seed extract 175 mg Capsule 175 mg PO DAILY RF: 0 turmeric 400 mg Capsule 800 mg PO DAILY RF: 0 magnesium 200 mg tablet 200 mg PO BID Qty: 60 RF: 0 clonazepam [Klonopin] 1 mg tablet 1 mg PO BID PRN (Reason: Anxiety) RF: 0 propranolol [Inderal LA] 120 mg capsule,extended release 24 hr 120 mg PO DAILY RF: 0 memantine [Namenda] 10 mg tablet 10 mg PO BID RF: 0 Discontinued lisinopril-hydrochlorothiazide 20-12.5 mg Tablet 1 tab PO DAILY RF: 0 metoprolol tartrate 100 mg Tablet 100 mg PO BID RF: 0 Discharge Orders: Discharge Order (Routine); Ordered 10/06/19 Ordered By: Rea Ward Admission Data Admit Date/Time: 10/01/19 21:00 Attending Provider: Rea Ward Admit Provider: Virginia Mckeon Primary Care Provider: Emily Casanova Other Providers: Ben Summers Other Interventions: Discharge Summary Assessment (RN) Last Done: 10/06/19 13:02
== END 2019-10-06 16:30 | disposition home or self-care (01) | DRG 439 ==
LOC: ED 16:32 → SUATTDRO 21:00 → 3N 21:00

== ENCOUNTER 2020-03-21 14:01 | Inpatient (IN) ==
[2020-03-21] MEDS ORDERED: ONDANSETRON INJ 2 MG/ML 2 ML VIAL IV STA (14:37)
[2020-03-21] MEDS ORDERED: SODIUM CHLORIDE 0.9% 1000ML 1,000 ML IV ONE (14:37)
[2020-03-21] MEDS ORDERED: MoRPHine SULFATE 4 MG/ML 1 ML CARP\\VIAL IV STA (14:37)
--- NOTE | 2020-03-21 14:42 | Emergency Department Note ---
Impression & Plan Pancreatitis, Alcohol abuse, Abdominal pain, Acute hyponatremia ED Provider Note NAME: CARY SANDERS AGE: 54 SEX: F : 1965 ARRIVES VIA: Walk-In INFORMANT: Patient, ED PROVIDER(S): Khoa Parra DO CHIEF COMPLAINT: Abdominal pain HPI: Patient is a 54-year-old female with a past medical history of pancreatitis that presents the ER for epigastric abdominal pain. She notes it started Sunday morning after drinking 2 bottles of wine Sunday. She notes that she drinks about 1 bottle wine 3 times a week on average. She has nausea. She did vomit once. She has the abdominal pain is in the epigastric region and sharp and stabbing in nature. Is worse with eating and drinking. She is been trying to just taking clears but still has pain with it. No diarrhea. Last bowel movement was in the past 24 hours. Previous bilateral ovary resections as well as a colectomy and appendectomy. ROS: See above HPI for pertinent positives & negatives. A total of 10 systems reviewed and were otherwise negative. PAST MEDICAL HISTORY:See Below PAST SURGICAL HISTORY:See Below FAMILY HISTORY:See Below SOCIAL HISTORY:See Below HOME MEDICATIONS:See Below ALLERGIES:See Below VITALS:See Below PHYSICAL EXAMINATION: GENERAL: Sitting up in bed, alert, well appearing, well nourished, no distress, non-toxic EYE EXAM: normal conjunctiva. OROPHARYNX: no exudate, no erythema, lips, buccal mucosa, and tongue normal and mucous membranes are moist NECK: supple, no nuchal rigidity, no adenopathy, non-tender LUNGS: Clear to auscultation. Normal chest wall mechanics HEART: no murmurs, S1 normal and S2 normal ABDOMEN: abdomen soft, tender palpation epigastric region, normo-active bowel sounds, no masses, no rebound or guarding. BACK: Back is symmetrical on inspection and there is no deformity, no midline tenderness, no CVA tenderness. SKIN: no rashes and no bruising UPPER EXTREMITIES: upper extremities are grossly normal. LOWER EXTREMITIES: No pitting edema. NEURO EXAM: Normal sensorium, cranial nerves II-XII grossly intact, normal speech, no gross weakness of arms, no gross weakness of legs. MEDICAL DECISION MAKING: Patient is a 54-year-old female who presents the ER for abdominal pain. She notes it started Sunday after drinking 2 bottles of wine Heidi night. She notes she drinks about 3 times a week and drinks anywhere between 1- 2 bottles of wine at a time. She notes that she has cut back on her drinking significantly as she used to drink 1/5 night splint in between herself and her . Patient notes that she is been trying to decrease eating and only taking liquids but is still having a fair amount of pain. IV was established blood work was obtained. Labs show no significant leukocytosis or anemia. BMP with mild hyponatremia. Glucose slightly elevated at 188. Lipase elevated at 5800. Bilirubin and LFTs were unremarkable. Abdominal exam did show mild normal tenderness. Patient was given IV fluids IV Zofran and 2 dose of IV morphine. CT abdomen pelvis shows acute appendicitis with no other significant pathology. Patient was updated at bedside and discussed with hospitalist for observation. Triage Nursing notes reviewed. Prior medical records reviewed Vital Signs: reviewed and remarkable for no significant abnormalities Differential diagnosis: Differential diagnoses includes but is not limited to gastritis, peptic ulcer disease, GERD, gallbladder disease, pancreatitis, small bowel obstruction, acute coronary syndrome, pericarditis, ischemic bowel, irritable bowel disease, irritable bowel syndrome, appendicitis, diverticulitis, malignancy, hernia, urinary tract infection, torsion, /ectopic (if female), perforation, trauma, infectious. ER treatment provided: See below Diagnostics interpreted by me: ECG: none Cardiac Monitoring: An order was placed for continuous cardiac monitoring. The monitor shows a rate of 70 with sinus rhythm. Laboratory studies: As stated above and show below. Imaging studies: CT abdomen pelvis shows acute pancreatitis. Consultation(s): Cussed with Dr. Nino Peacock. 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 Required: No Beliefs That Will Affect Care: None Current Living Situation: Spouse Other Information That Helps Us Care for You: No Feels Safe at Home: Yes Smoking Status: Never smoker Hx Alcohol Use: Yes Alcohol type: wine Hx Substance Use: No Allergies Allergies Allergy/AdvReac Type Severity Reaction Status Date / Time ampicillin Allergy Intermediate hives Verified 03/21/20 15:15 cephalexin Allergy Intermediate HIVES/ITCHI Verified 03/21/20 15:15 NG Penicillins Allergy Intermediate HIVES Verified 03/21/20 15:15 metronidazole Allergy Mild blisters Verified 03/21/20 15:15 adhesive AdvReac Mild SKIN Verified 03/21/20 15:15 TEARING AND IRRITATION Home Meds Home Medications Medication Instructions Recorded Confirmed albuterol sulfate [ProAir HFA] 2 puff INHALATION QID PRN 11/10/18 03/21/20 bupropion HCl 150 mg PO BID 11/10/18 03/21/20 cholecalciferol (vitamin D3) 1,000 unit PO DAILY 11/10/18 03/21/20 [Vitamin D3] fluticasone propionate [Flonase 1 spray INTRANASAL DAILY PRN 11/10/18 03/21/20 Allergy Relief] milk thistle seed extract 175 mg PO DAILY 11/10/18 03/21/20 omeprazole 20 mg PO DAILY PRN 11/10/18 03/21/20 risperidone 1 mg PO QPM 11/10/18 03/21/20 turmeric 800 mg PO DAILY 11/10/18 03/21/20 clonazepam [Klonopin] 1 mg PO BID PRN 11/18/18 03/21/20 amlodipine 5 mg PO QAM 03/21/20 03/21/20 furosemide 20 mg PO QAM 03/21/20 03/21/20 glimepiride 1 mg PO DAILY 03/21/20 03/21/20 metoprolol tartrate 100 mg PO BID 03/21/20 03/21/20 Previous Rx's Medication Instructions Recorded magnesium 200 mg PO BID #60 tab 11/11/18 folic acid 1 mg PO QAM #30 tab 10/06/19 lisinopril [Zestril] 40 mg PO QAM #30 tab 10/06/19 thiamine HCl (vitamin B1) 100 mg PO DAILY #30 tab 10/06/19 Results & Data (ED) Vital Signs Vital Signs - 24 hr 03/21/20 14:18 03/21/20 15:59 03/21/20 16:11 Temperature 37.0 C Temperature Source Oral Pulse Rate 75 Pulse Rate [Right Finger] 73 Respiratory Rate 18 19 Respiratory Effort / Characteristics Non-Labored Respiratory Depth Normal Blood Pressure 110/76 Blood Pressure [Right Arm] 129/89 Blood Pressure Mean 87 Blood Pressure Mean [Right Arm] 102 Blood Pressure Position Sitting Pulse Oximetry 95 95 Oxygen Delivery Method Room Air Room Air Sepsis Recent Fever Within 48 Hours No Sepsis New/Unexplained Change in Mental Status No Sepsis Action Taken by Nursing No Action Required Laboratory Data Result diagrams: 03/21/20 14:35 03/22/20 06:15 Lab Results 03/21/20 03/21/20 03/21/20 Range/Units 14:35 14:35 14:35 WBC 8.48 (4.8-10.8) K/uL RBC 4.30 (4.2-5.4) M/uL Hgb 14.1 (12.0-16.0) g/dL Hct 40.0 (37-47) % MCV 93.0 (80-100) fL MCH 32.8 (25-34) pg MCHC 35.3 (32-36) g/dL RDW Std Deviation 43.0 (36.4-46.3) fL RDW Coeff of Raffy 12.8 (11.5-14.5) % Plt Count 241 (130-400) K/uL MPV 9.0 (7.4-10.4) fL Immature Gran % (Auto) 0.1 % Neut % (Auto) 80.1 % Lymph % (Auto) 13.9 % [place] % (Auto) 3.9 % Eos % (Auto) 1.8 % Baso % (Auto) 0.2 % Immature Gran # (Auto) 0.01 (0.00-0.02) K/uL Neut # (Auto) 6.79 H (1.4-6.5) K/uL Lymph # (Auto) 1.18 L (1.2-3.4) K/uL [place] # (Auto) 0.33 (0.11-0.59) K/uL Eos # (Auto) 0.15 (0-0.5) K/uL Baso # (Auto) 0.02 (0-0.2) K/uL Sodium 135 L (136-145) mmol/L Potassium 4.0 (3.5-5.1) mmol/L Chloride 102 (98-107) mmol/L Carbon Dioxide 23 (21-32) mmol/L Anion Gap 10.0 (3-11) BUN 6 L (7-18) mg/dl Creatinine 0.73 (0.6-1.2) mg/dl Est Cr Clr Drug Dosing 109.8 ml/min Est GFR ( Amer) 109.0 Est GFR (Non-Af Amer) 94.0 BUN/Creatinine Ratio 8.2 L (10-20) Glucose 188 H (70-99) mg/dl Calcium 8.9 (8.5-10.1) mg/dl Magnesium 1.9 Cancelled (1.8-2.4) mg/dl Total Bilirubin 0.9 (0.2-1) mg/dl AST 19 (15-37) U/L ALT 24 (12-78) U/L Alkaline Phosphatase 74 (45-117) U/L Total Protein 7.5 (6.4-8.2) gm/dl Albumin 3.2 L (3.4-5.0) gm/dl Globulin 4.3 H (2.5-4.0) gm/dl Albumin/Globulin Ratio 0.7 L (0.9-2) Lipase 5799 H (73-393) U/L Urine Color Urine Appearance (Clear) Urine pH (4.5-7.5) Ur Specific [place] (1.000-1.030) Urine Protein (Negative) Urine Glucose (UA) (Negative) Urine Ketones (Negative) Urine Blood (Negative) Urine Nitrite (Negative) Urine Bilirubin (Negative) Urine Urobilinogen (Negative) Ur Leukocyte Esterase (Negative) 03/21/20 Range/Units 16:30 WBC (4.8-10.8) K/uL RBC (4.2-5.4) M/uL Hgb (12.0-16.0) g/dL Hct (37-47) % MCV (80-100) fL MCH (25-34) pg MCHC (32-36) g/dL RDW Std Deviation (36.4-46.3) fL RDW Coeff of Raffy (11.5-14.5) % Plt Count (130-400) K/uL MPV (7.4-10.4) fL Immature Gran % (Auto) % Neut % (Auto) % Lymph % (Auto) % [place] % (Auto) % Eos % (Auto) % Baso % (Auto) % Immature Gran # (Auto) (0.00-0.02) K/uL Neut # (Auto) (1.4-6.5) K/uL Lymph # (Auto) (1.2-3.4) K/uL [place] # (Auto) (0.11-0.59) K/uL Eos # (Auto) (0-0.5) K/uL Baso # (Auto) (0-0.2) K/uL Sodium (136-145) mmol/L Potassium (3.5-5.1) mmol/L Chloride (98-107) mmol/L Carbon Dioxide (21-32) mmol/L Anion Gap (3-11) BUN (7-18) mg/dl Creatinine (0.6-1.2) mg/dl Est Cr Clr Drug Dosing ml/min Est GFR ( Amer) Est GFR (Non-Af Amer) BUN/Creatinine Ratio (10-20) Glucose (70-99) mg/dl Calcium (8.5-10.1) mg/dl Magnesium (1.8-2.4) mg/dl Total Bilirubin (0.2-1) mg/dl AST (15-37) U/L ALT (12-78) U/L Alkaline Phosphatase (45-117) U/L Total Protein (6.4-8.2) gm/dl Albumin (3.4-5.0) gm/dl Globulin (2.5-4.0) gm/dl Albumin/Globulin Ratio (0.9-2) Lipase (73-393) U/L Urine Color Yellow Urine Appearance Clear (Clear) Urine pH 6.5 (4.5-7.5) Ur Specific [place] 1.011 (1.000-1.030) Urine Protein Negative (Negative) Urine Glucose (UA) Negative (Negative) Urine Ketones Negative (Negative) Urine Blood Negative (Negative) Urine Nitrite Negative (Negative) Urine Bilirubin Negative (Negative) Urine Urobilinogen Negative (Negative) Ur Leukocyte Esterase Negative (Negative) Administered Medications Amlodipine Besylate (Norvasc) 5 mg PO QAM [facility] Stop: 04/21/20 08:59 Last Admin: 03/22/20 08:26 Dose: 5 mg Documented by: [id number] Bupropion HCl (Wellbutrin-Xl) 150 mg PO BID [facility]ONNY Stop: 04/20/20 20:59 Last Admin: 03/22/20 08:26 Dose: 150 mg Documented by: [id number] Admin: 03/21/20 21:09 Dose: 150 mg Documented by: [id number] Enoxaparin Sodium (Lovenox) 40 mg SQ QAM [facility] Stop: 04/21/20 08:59 Last Admin: 03/22/20 08:25 Dose: 40 mg Documented by: [id number] Lisinopril (Zestril) 40 mg PO QAM [facility] Stop: 04/21/20 08:59 Last Admin: 03/22/20 08:26 Dose: 40 mg Documented by: [id number] Magnesium Chloride (Slow-Mag) 256 mg PO BID [facility] Stop: 04/21/20 08:59 Last Admin: 03/22/20 08:26 Dose: 256 mg Documented by: [id number] Metoprolol Tartrate (Lopressor) 100 mg PO BID [facility] Stop: 04/20/20 20:59 Last Admin: 03/22/20 08:25 Dose: 100 mg Documented by: [id number] Admin: 03/21/20 21:10 Dose: 100 mg Documented by: [id number] Morphine Sulfate (Morphine Sulfate) 4 mg IV Q4H PRN PRN Reason: Severe Pain Stop: 04/04/20 19:44 Last Admin: 03/22/20 08:14 Dose: 4 mg Documented by: [id number] Admin: 03/22/20 03:04 Dose: 4 mg Documented by: [id number] Admin: 03/21/20 21:10 Dose: 4 mg Documented by: [id number] Ondansetron HCl (Zofran) 4 mg IV Q6H PRN PRN Reason: Nausea Stop: 04/20/20 19:44 Last Admin: 03/22/20 08:16 Dose: 4 mg Documented by: [id number] Admin: 03/21/20 21:10 Dose: 4 mg Documented by: [id number] Thiamine HCl (Vitamin B-1) 500 mg PO DAILY [facility] Stop: 04/21/20 08:59 Last Admin: 03/22/20 08:26 Dose: 500 mg Documented by: [id number] Discontinued Medications Sodium Chloride (Nss 1000ml) 1,000 mls @ 999 mls/hr IV .Q1H1M ONE Stop: 03/21/20 15:37 Last Infusion: 03/21/20 15:59 Dose: 0 mls/hr Documented by: [id number] Admin: 03/21/20 14:45 Dose: 999 mls/hr Documented by: [id number] Lactated Ringer's (Lr) 1,000 mls @ 150 mls/hr IV .Q6H40M LONNY Stop: 03/22/20 09:24 Last Admin: 03/22/20 03:27 Dose: 150 mls/hr Documented by: [id number] Infusion: 03/22/20 03:27 Dose: 150 mls/hr Documented by: [id number] Admin: 03/21/20 21:09 Dose: 150 mls/hr Documented by: [id number] Ioversol (Optiray 320 100ml) 94 ml IV ONCE PRN PRN Reason: Interaction Checking Stop: 03/25/20 16:15 Last Admin: 03/21/20 16:17 Dose: 94 ml Documented by: [id number] Morphine Sulfate (Morphine Sulfate) 4 mg IV NOW STA Stop: 03/21/20 14:38 Last Admin: 03/21/20 14:45 Dose: 4 mg Documented by: [id number] Morphine Sulfate (Morphine Sulfate) 6 mg IV NOW STA Stop: 03/21/20 15:54 Last Admin: 03/21/20 15:58 Dose: 6 mg Documented by: [id number] Ondansetron HCl (Zofran) 4 mg IV NOW STA Stop: 03/21/20 14:38 Last Admin: 03/21/20 14:45 Dose: 4 mg Documented by: [id number] Discharge Plan Visit Data *Final* Discharge Date/Time: 03/21/20 18:59 Chief Complaint: Abdominal Pain Stated Complaint: ABD PAIN ED Provider: Khoa Parra Discharge Problem: Pancreatitis, Alcohol abuse, Abdominal pain, Acute hyponatremia Patient Disposition: Admitted As Inpatient Discharge Instructions Interventions: ED Discharge Assessment Last Done: 03/21/20 18:59 Discharge Problem: Pancreatitis Qualifiers: Chronicity: acute Pancreatitis type: unspecified pancreatitis type Acute pancreatitis complication: unspecified Qualified Code(s): K85.90 - Acute pancreatitis without necrosis or infection, unspecified Abdominal pain Qualifiers: Abdominal location: unspecified location Qualified Code(s): R10.9 - Unspecified abdominal pain
[2020-03-21 14:52] LABS: Basophils # (auto) 0.02 K/uL (0-0.2); Basophils % (auto) 0.2 %; Eosinophils # (auto) 0.15 K/uL (0-0.5); Eosinophils % (auto) 1.8 %; Hemoglobin 14.1 g/dL (12.0-16.0); Immature Granulocytes # (auto) 0.01 K/uL (0.00-0.02); Immature Granulocytes % (auto) 0.1 %; Lymphocytes # (auto) 1.18 K/uL (1.2-3.4); Lymphocytes % (auto) 13.9 %; Mean Corpuscular Hemoglobin 32.8 pg (25-34); Mean Corpuscular Hgb Conc 35.3 g/dL (32-36); Monocytes # (auto) 0.33 K/uL (0.11-0.59); Monocytes % (auto) 3.9 %; Neutrophils # (auto) 6.79 K/uL (1.4-6.5); Neutrophils % (auto) 80.1 %; Platelet Count 241 K/uL (130-400); RDW Coefficient of Variation 12.8 % (11.5-14.5); White Blood Count 8.48 K/uL (4.8-10.8)
[2020-03-21 15:08] LABS: Albumin Level 3.2 gm/dl (3.4-5.0); BUN Creatinine Ratio 8.2 (10-20); Calcium 8.9 mg/dl (8.5-10.1); Creatinine Clr Calc Pharmacy 109.8 ml/min
[2020-03-21 15:11] LABS: Albumin Globulin Ratio 0.7 (0.9-2); Bilirubin,Total 0.9 mg/dl (0.2-1); Globulin 4.3 gm/dl (2.5-4.0); Total Protein 7.5 gm/dl (6.4-8.2)
[2020-03-21] MEDS ORDERED: MoRPHine SULFATE 10 MG/ML CARP/VIAL IV STA (15:53)
[2020-03-21] MEDS ORDERED: IOVERSOL 100ml IV PRN (16:16)
[2020-03-21 16:47] LABS: Appearance Urine Clear (Clear); Bilirubin Urine Negative (Negative); Blood Urine Negative (Negative); Color Urine Yellow; Glucose Urine UA Negative (Negative); Ketones Urine Negative (Negative); Leukocyte Esterase Urine Negative (Negative); Nitrite Urine Negative (Negative); Protein Urine Negative (Negative); Specific Gravity Urine 1.011 (1.000-1.030); Urobilinogen Urine Negative (Negative); pH Urine 6.5 (4.5-7.5)
--- NOTE | 2020-03-21 17:05 | History & Physical Report ---
Date of Service March 21, 2020 Assessment & Plan (1) Acute alcoholic pancreatitis: Possible pancreas divisum contributing but alcohol much more likely cause given history [place]'s criteria 0 (severe pancreatitis unlikely). LR 150 ml/hr (prior fluid retention on last pancreatitis episode noted). NPO except ice chips and sips + meds - can likely advance later tonight or early tomorrow morning if patient is without pain. Ondansetron for nausea, acetaminophen and morphine for pain Advised to completely abstain from further alcohol (2) Hypertension: Continue on metoprolol 100mg tartrate PO BID Holding lisinopril while NPO (3) Torsional nystagmus: Given history of B1 deficiency (level < 6 in 2018), ongoing alcohol use and ataxia I am concerned this is a manifestation of Wernicke's encephalopathy. As per prior H&P she is under specialist at [facility] and told it was coming from her brainstem and I would be surprised if her thiamine level was not assessed again outside of our EHR. Thiamine supplementation listed but unknown if she is truly taking this and may not be sufficient dose. As per PCP note and patient she plans on following up with [facility] for further evaluation of this. Given non-acute symptom will defer IV thiamine for treatment at this time but get a B1 level in AM. Since this will take some time to come back recommend increasing her oral dose on discharge. (4) Thiamine deficiency: see above. Increase does to 500mg PO daily on discharge. Follow up with PCP for results of lab test. (5) Ambulatory dysfunction: as above concerning for Wernicke's encephalopathy however given under neuroophthalmologist @ [facility] I would assume this would have been tested for. (6) Hypomagnesemia: She reports multiple issues when this is low. Mg 1.9. Continue supplementation once off NPO status (7) Depression: Continue bupropion 150mg BID Switch clonazepam to IV ativan while NPO for anxiety (8) DVT prophylaxis: Lovenox 40mg SQ daily Admission and Anticipated Discharge Date Admission Date: 03/21/2020 History of Present Illness Chief Complaint: Abdominal pain, nausea and vomiting Primary Care Provider: LATIA Johnson Brianna Bryant is a 54 year old female with PMHx nystagmus and alcoholic acute pancreatitis who presents to the ER with 5 days of nausea, vomiting and abdominal pain. Abdominal pain epigastric, severity 8-9/10 at worse, currently 1/10, no radiation. Started after drinking 2 bottles of wine the afternoon/evening before. Last alcoholic drink on Sunday. She tried to treat herself but drinking plenty of fluids and the pain/nausea waxed and waned but became acutely worse today and she felt exhausted so decided to come to the ER. She denies any melena or blood in her stool. She reports doing better with her alcohol consumption. No longer on whiskey but she not drinks usually 1-3 glasses of wine on random occasions. She has been drinking more recently due to the lockdown she is more depressed. She also drinks alcohol out of boredom and it helps her constant nystagmus (causing vertigo sensation). 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 Allergies Allergy/AdvReac Type Severity Reaction Status Date / Time ampicillin Allergy Intermediate hives Verified 03/21/20 15:15 cephalexin Allergy Intermediate HIVES/ITCHI Verified 03/21/20 15:15 NG Penicillins Allergy Intermediate HIVES Verified 03/21/20 15:15 metronidazole Allergy Mild blisters Verified 03/21/20 15:15 adhesive AdvReac Mild SKIN Verified 03/21/20 15:15 TEARING AND IRRITATION Home Medications Home Medications Medication Instructions Recorded Confirmed Type albuterol sulfate [ProAir HFA] 2 puff INHALATION QID PRN 11/10/18 03/21/20 History bupropion HCl 150 mg PO BID 11/10/18 03/21/20 History cholecalciferol (vitamin D3) 1,000 unit PO DAILY 11/10/18 03/21/20 History [Vitamin D3] fluticasone propionate [Flonase 1 spray INTRANASAL DAILY PRN 11/10/18 03/21/20 History Allergy Relief] milk thistle seed extract 175 mg PO DAILY 11/10/18 03/21/20 History omeprazole 20 mg PO DAILY PRN 11/10/18 03/21/20 History risperidone 1 mg PO QPM 11/10/18 03/21/20 History turmeric 800 mg PO DAILY 11/10/18 03/21/20 History magnesium 200 mg PO BID #60 tab 11/11/18 03/21/20 Rx clonazepam [Klonopin] 1 mg PO BID PRN 11/18/18 03/21/20 History folic acid 1 mg PO QAM #30 tab 10/06/19 03/21/20 Rx lisinopril [Zestril] 40 mg PO QAM #30 tab 10/06/19 03/21/20 Rx thiamine HCl (vitamin B1) 100 mg PO DAILY #30 tab 10/06/19 03/21/20 Rx amlodipine 5 mg PO QAM 03/21/20 03/21/20 History furosemide 20 mg PO QAM 03/21/20 03/21/20 History glimepiride 1 mg PO DAILY 03/21/20 03/21/20 History metoprolol tartrate 100 mg PO BID 03/21/20 03/21/20 History Past Med/Surg History Medical History (Updated 03/21/20 @ 23:23 by Nino Peacock MD) Acute anxiety (Acute) Ankle fracture (Acute) right Depression (Acute) Fracture of left tibia and fibula (Acute) plate, screws Nystagmus (Acute) Suicidal ideation Thiamine deficiency Surgical History H/O meniscectomy of right knee (Acute) H/O oophorectomy (Acute) left History of appendectomy (Acute) History of colon resection (Acute) Hx of tonsillectomy (Acute) Family History (Updated 01/12/20 @ 16:23 by LATIA Beckham) Father Hypertension Sister Colonic polyp Other No pertinent family history Denies family history of Ovarian cancer Breast cancer Colorectal cancer Social History (Updated 01/12/20 @ 16:04 by Estephania Wyman LPN) Preferred Language: Faroese Communication Ability: Effective 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 [employer] Required: No Beliefs That Will Affect Care: None Current Living Situation: Spouse Feels Safe at Home: Yes Smoking Status: Never smoker Hx Alcohol Use: Yes Alcohol type: hard liquor Hx Substance Use: No Review of Systems Review of Systems: All systems reviewed & are unremarkable except as noted in HPI & below Physical Exam Constitutional: well developed, + morbidly obese, cooperative and comfortable; + not well nourished and no acute distress Eyes: + anicteric sclerae and + nystagmus (gaze-evoked torsional nystagmus); normal pupil size ENMT: external ear and nose normal, oropharynx normal Neck: trachea midline, no thyromegaly Respiratory: normal respiratory effort, lungs clear to auscultation Cardiovascular: RRR, no murmur, no edema Gastrointestinal (Abdomen): Inspection/Auscultation: normal bowel sounds and + visible herniation (central abdominal with well healed scars); abdomen not distended Percussion/Palpation: + abdomen tender (mainly over hernia site, mild epigastric even on deep palpation) and abdomen soft; no guarding and abdomen not rigid Musculoskeletal: no cyanosis or clubbing, extremities motor strength 5/5 Skin: no rashes, warm and dry Neurologic: moves all extremities and awake; no focal motor deficits and not confused Motor/Sensory: no tremor and no pronator drift Psychiatric: A+Ox3, euthymic affect Results & Data Results & Data ([facility]) Vital Signs (Past 12 Hours) Vital Signs Temp Pulse Pulse Resp BP BP Pulse Ox 03/21/20 15:59 73 19 129/89 95 03/21/20 14:18 37.0 C 75 18 110/76 95 Diagnostic Findings ABDOMEN AND PELVIS CT WITH IV CONTRAST IMPRESSION: 1. Acute pancreatitis. 2. Possible pancreas divisum. 3. Moderate sized ventral hernia containing fat and a short segment of the mid transverse colon. No evidence for bowel obstruction. 4. Hepatic steatosis. 5. Additional findings as described above. Code Status & VTE Plan Code Status Full as discussed with the patient VTE Prophylaxis Plan VTE Prophylaxis will be ordered: Yes PG Care Time/CCT Total # of Minutes Spent Total Time Spent with Patient: Total time spent is greater than 50% in coordination of care (as documented) at patient's floor/unit and/or counseling patient: Coding Level of Care Code 35608 Initial Inpt Care Lvl 3 Diagnoses Acute alcoholic pancreatitis K85.20 Acute pancreatitis complication: no infection or necrosis Hypertension I10 Hypertension type: essential hypertension Torsional nystagmus H55.09 Thiamine deficiency E51.9 Ambulatory dysfunction R26.2 Hypomagnesemia E83.42 Depression F33.0 Depression Type: major depressive disorder Major depression recurrence: recurrent Active/Remission status: currently active Major depression episode severity: mild DVT prophylaxis Z29.9 (1) Acute alcoholic pancreatitis Acute pancreatitis complication: no infection or necrosis Qualified Code(s): K85.20 - Alcohol induced acute pancreatitis without necrosis or infection (2) Hypertension Hypertension type: essential hypertension Qualified Code(s): I10 - Essential (primary) hypertension (3) Depression Depression Type: major depressive disorder Major depression recurrence: recurrent Active/Remission status: currently active Major depression episode severity: mild Qualified Code(s): F33.0 - Major depressive disorder, recurrent, mild
--- NOTE | 2020-03-21 17:18 | CT Scan Report ---
ABDOMEN AND PELVIS CT WITH IV CONTRAST CT DOSE: 1466.14 mGy.cm HISTORY: epigastric abd pain TECHNIQUE: Multiaxial CT images of the abdomen and pelvis were performed following the use of intrave nous contrast. A dose lowering technique was utilized adhering to the principles of ALARA. COMPARISON STUDY: Abdomen and pelvis CT 10/01/2019. FINDINGS: Left basilar linear densities favor scarring or atelectasis. The lung bases are otherwise c lear. No pneumoperitoneum. No pneumatosis. No suspicious lytic are blastic osseous lesions. Mild hepa tic steatosis. No hepatic or splenic masses. The portal, splenic, and superior mesenteric veins are p atent. Partially calcified periportal lymph nodes are again noted. These remain unchanged. Normal nguyen iber abdominal aorta. The kidneys enhance normally. No hydronephrosis. The adrenal glands are unremar kable. Mildly dilated main pancreatic duct measuring up to 5 mm. The pancreas enhances normally. Ther e is peripancreatic inflammatory change consistent with acute appendicitis. No loculated fluid collec tions to suggest an abscess. Possible pancreas divisum. Mild thickening of the adjacent duodenum is l ikely reactive. The gallbladder is mildly distended. However, no gallbladder wall thickening. Moderat e size midline ventral hernia containing fat and a short segment of the mid transverse colon. The marcell dder, uterus, bilateral adnexa are unremarkable. Prior rectosigmoid anastomosis. There is also eviden ce for a prior appendectomy. Mild inflammatory change near the aortic bifurcation is likely result of the acute pancreatitis. No significant pelvic free fluid. No evidence for bowel obstruction. A few c olonic diverticula. IMPRESSION: 1. Acute pancreatitis. 2. Possible pancreas divisum. 3. Moderate sized ventral hernia containing fat and a short segment of the mid transverse colon. No e vidence for bowel obstruction. 4. Hepatic steatosis. 5. Additional findings as described above. ACT 112: Negative or not required by law. Electronically signed by: Roman Mars M.D. 03/21/2020 5:16 PM
[2020-03-21 17:44] LABS: Magnesium 1.9 mg/dl (1.8-2.4)
[2020-03-21] MEDS ORDERED: LORazepam 1 MG/2 ML VIAL IV PRN (19:45)
[2020-03-21] MEDS ORDERED: ACETAMINOPHEN 325 MG TAB PO PRN (19:59)
[2020-03-21] MEDS: LACTATED RINGER'S 1,000 ML IV SCH (21:09)
[2020-03-21] MEDS: BuPROPion XL 150 MG TABCR PO SCH (21:09)
[2020-03-21] MEDS: MoRPHine SULFATE 4 MG/ML 1 ML CARP\\VIAL IV PRN (21:10)
[2020-03-21] MEDS: ONDANSETRON INJ 2 MG/ML 2 ML VIAL IV PRN (21:10)
[2020-03-21] MEDS: METOPROLOL TARTRATE 100 MG TAB PO SCH (21:10)
[2020-03-22] MEDS: MoRPHine SULFATE 4 MG/ML 1 ML CARP\\VIAL IV PRN ×2 (03:04→08:14)
[2020-03-22] MEDS: LACTATED RINGER'S 1,000 ML IV SCH (03:27)
[2020-03-22 06:59] LABS: INR 1.1 (0.9-1.1); Prothrombin Time 11.1 Seconds (9.0-12.0)
[2020-03-22 07:19] LABS: Albumin Level 2.8 gm/dl (3.4-5.0); BUN Creatinine Ratio 8.6 (10-20); Calcium 8.5 mg/dl (8.5-10.1); Creatinine Clr Calc Pharmacy 133.6 ml/min; Est GFR (African American) 120.6; Est GFR (Non-African American) 104.1; Potassium 3.9 mmol/L (3.5-5.1)
[2020-03-22 07:22] LABS: Albumin Globulin Ratio 0.8 (0.9-2); Bilirubin,Total 0.8 mg/dl (0.2-1); Globulin 3.7 gm/dl (2.5-4.0); Total Protein 6.5 gm/dl (6.4-8.2)
--- NOTE | 2020-03-22 07:58 | Hospitalist Progress Note ---
Date of Service March 22, 2020 Assessment & Plan (1) Acute alcoholic pancreatitis: Possible pancreas divisum contributing but alcohol much more likely cause given history Carroll's criteria 0 (severe pancreatitis unlikely). Continues IV fluid and symptom control Significant counseling regarding alcohol cessation especially in the face of the fact that her is an alcoholic and has been hospitalized for alcohol withdrawal in the past (2) Hypertension: Continue on metoprolol 100mg tartrate PO BID Lisinopril has been restarted (3) Torsional nystagmus: Given history of B1 deficiency (level < 6 in 2018), ongoing alcohol use and ataxia I am concerned this is a manifestation of Wernicke's encephalopathy. As per prior H&P she is under specialist at [facility] and told it was coming from her brainstem and I would be surprised if her thiamine level was not assessed again outside of our EHR. Thiamine supplementation listed As per PCP note and patient she plans on following up with [facility] for further evaluation of this. B12 level drawn on admission is within therapeutic range to the high end of therapeutic range while vitamin B1 is pending (4) Thiamine deficiency: Vitamin B1 level is pending (5) Ambulatory dysfunction: as above concerning for Wernicke's encephalopathy however given under neuroophthalmologist @ [facility] I would assume this would have been tested for. Patient may benefit from PT OT evaluation prior to discharge (6) Hypomagnesemia: Replete Continue supplementation (7) Depression: Continue bupropion 150mg BID Switch clonazepam to IV ativan while NPO for anxiety Much counseling was given to her alcohol use she seems resistant to organized structured support feeling she can do it on her own (8) DVT prophylaxis: Lovenox 40mg SQ daily Admission and Anticipated Discharge Date Admission Date: March 21, 2020 Subjective Patient still has intermittent postprandial abdominal pain otherwise no persistent complaints or problems that are new Review of Systems Review of Systems: Mild distress and fatigue no headache, blurry or double vision no speech or swallowing issues no chest pain, pressure or palpitations no shortness of breath, cough or wheezes Diffuse and generalized abdominal pain, with mild nausea but no vomiting, persistent loose bowel movements no dysuria, hematuria or frequency no focal joint pain or swelling no back pain, CVA tenderness or radicular pain Has some bruising about her face no focal signs of weakness or numbness or altered sensation no complaints or anxiety or depression Physical Exam Physical Exam: The patient appeared well nourished and normally developed. Vital signs as documented. Head exam is unremarkable. No scleral icterus Neck is without JVD, thyromegaly, or carotid bruits. Lungs are clear to auscultation, no focal loss of breath sounds Cardiac exam, Rhythm is regular.. No murmurs, rubs or gallops. Abdominal exam reveals normal bowel sounds, soft diffusely tender but no guarding no rebound Extremities are nonedematous and both pedal pulses are normal. Neurologic exam is alert and oriented, no focal loss of strength or sensation Skin is with bruises on the bridge of her nose and forehead Psychologically is without concerns for anxiety or depression Results & Data Results & Data ([facility]) Vital Signs (Past 12 Hours) Vital Signs Temp Pulse Resp BP Pulse Ox 03/22/20 07:21 98.4 F 74 18 120/73 94 03/22/20 03:24 97.7 F 72 18 136/88 95 03/21/20 23:31 98.2 F 68 18 134/86 96 PG Care Time/CCT Total # of Minutes Spent Total Time Spent with Patient: Total time spent is greater than 50% in coordination of care (as documented) at patient's floor/unit and/or counseling patient: Coding Level of Care Code 44472 Subseq Hosp Care Lvl 2 Diagnoses Acute alcoholic pancreatitis K85.20 Acute pancreatitis complication: no infection or necrosis Hypertension I10 Hypertension type: essential hypertension Torsional nystagmus H55.09 Thiamine deficiency E51.9 Ambulatory dysfunction R26.2 Hypomagnesemia E83.42 Depression F33.0 Active/Remission status: currently active Depression Type: major depressive disorder Major depression episode severity: mild Major depression recurrence: recurrent DVT prophylaxis Z29.9 (1) Depression Active/Remission status: currently active Depression Type: major depressive disorder Major depression episode severity: mild Major depression recurrence: recurrent Qualified Code(s): F33.0 - Major depressive disorder, recurrent, mild (2) Acute alcoholic pancreatitis Acute pancreatitis complication: no infection or necrosis Qualified Code(s): K85.20 - Alcohol induced acute pancreatitis without necrosis or infection (3) Hypertension Hypertension type: essential hypertension Qualified Code(s): I10 - Essential (primary) hypertension
[2020-03-22] MEDS: ONDANSETRON INJ 2 MG/ML 2 ML VIAL IV PRN ×3 (08:16→22:18)
[2020-03-22] MEDS: METOPROLOL TARTRATE 100 MG TAB PO SCH ×2 (08:25→20:36)
[2020-03-22] MEDS: ENOXAPARIN INJ 40 MG/0.4 ML SYR SQ SCH (08:25)
[2020-03-22] MEDS: lisinopriL 40 MG TAB PO SCH (08:26)
[2020-03-22] MEDS: AMLODIPINE BESYLATE 5 MG TAB PO SCH (08:26)
[2020-03-22] MEDS: MAGNESIUM CHLORIDE 64MG DELAYED REL TAB PO SCH ×2 (08:26→20:36)
[2020-03-22] MEDS: BuPROPion XL 150 MG TABCR PO SCH ×2 (08:26→20:35)
[2020-03-22] MEDS: THIAMINE HCL 100 MG TAB PO SCH (08:26)
[2020-03-22] MEDS: MoRPHine SULFATE 2 MG/ML CARP IV PRN ×2 (13:43→17:49)
[2020-03-22] MEDS: clonazePAM 1 MG TAB PO PRN (20:35)
[2020-03-22] MEDS ORDERED: risperiDONE 1 MG TABLET PO SCH (21:00)
[2020-03-22] MEDS ORDERED: ALUM HYDROX/MAG TRISILICATE CHEW PO PRN (21:28)
[2020-03-23] MEDS: MoRPHine SULFATE 2 MG/ML CARP IV PRN (06:02)
[2020-03-23 07:12] VITALS: TEMP 98.1; O2SAT 97
[2020-03-23] MEDS: clonazePAM 1 MG TAB PO PRN (09:13)
[2020-03-23] MEDS: AMLODIPINE BESYLATE 5 MG TAB PO SCH (09:13)
[2020-03-23] MEDS: MAGNESIUM CHLORIDE 64MG DELAYED REL TAB PO SCH (09:13)
[2020-03-23] MEDS: BuPROPion XL 150 MG TABCR PO SCH (09:14)
[2020-03-23] MEDS: lisinopriL 40 MG TAB PO SCH (09:14)
[2020-03-23] MEDS: METOPROLOL TARTRATE 100 MG TAB PO SCH (09:14)
[2020-03-23] MEDS: THIAMINE HCL 100 MG TAB PO SCH (09:14)
[2020-03-23] MEDS ORDERED: FUROSEMIDE 20 MG TAB PO SCH (09:15)
[2020-03-23] MEDS: ENOXAPARIN INJ 40 MG/0.4 ML SYR SQ SCH (09:15)
[2020-03-23] MEDS ORDERED: GABAPENTIN 600 MG TAB PO SCH (09:15)
[2020-03-23 09:36] LABS: BUN Creatinine Ratio 7.1 (10-20); Creatinine Clr Calc Pharmacy 118.5 ml/min; Est GFR (African American) 115.7; Est GFR (Non-African American) 99.9; Potassium 3.8 mmol/L (3.5-5.1)
[2020-03-23 09:39] LABS: Albumin Globulin Ratio 0.8 (0.9-2); Globulin 3.6 gm/dl (2.5-4.0); Total Protein 6.6 gm/dl (6.4-8.2)
[2020-03-23 11:12] VITALS: BP 149/91; PULSE 66
--- NOTE | 2020-03-23 15:33 | Discharge Summary ---
Date of Service March 23, 2020 Admission HPI Per Admitting Provider Brianna Bryant is a 54 year old female with PMHx nystagmus and alcoholic acute pancreatitis who presents to the ER with 5 days of nausea, vomiting and abdominal pain. Abdominal pain epigastric, severity 8-9/10 at worse, currently 1/10, no radiation. Started after drinking 2 bottles of wine the afternoon/evening before. Last alcoholic drink on Sunday. She tried to treat herself but drinking plenty of fluids and the pain/nausea waxed and waned but became acutely worse today and she felt exhausted so decided to come to the ER. She denies any melena or blood in her stool. She reports doing better with her alcohol consumption. No longer on whiskey but she not drinks usually 1-3 glasses of wine on random occasions. She has been drinking more recently due to the lockdown she is more depressed. She also drinks alcohol out of boredom and it helps her constant nystagmus (causing vertigo sensation). 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 Principal Diagnosis pancreatitis alcohol abuse disability from chronic pain Discharge Exam The patient appeared well Vital signs as documented. Lungs are clear to auscultation and percussion. Cardiac exam, Rhythm is regular.. No murmurs, rubs or gallops. Abdominal exam reveals normal bowel sounds, soft mildly tender, no masses Extremities are nonedematous and both pedal pulses are normal. Neurologic exam is alert and oriented, no focal loss of strength or sensation Skin is without bruises or rashes Psychologically is without concerns for anxiety or depression Discharge Data Allergies Allergy/AdvReac Type Severity Reaction Status Date / Time ampicillin Allergy Intermediate hives Verified 03/21/20 15:15 cephalexin Allergy Intermediate HIVES/ITCHI Verified 03/21/20 15:15 NG Penicillins Allergy Intermediate HIVES Verified 03/21/20 15:15 metronidazole Allergy Mild blisters Verified 03/21/20 15:15 adhesive AdvReac Mild SKIN Verified 03/21/20 15:15 TEARING AND IRRITATION Consultations 03/21/20 15:48 ED Decision to Admit Stat 03/21/20 23:40 Consult Health Information Management Routine Ordered Studies 03/21/20 14:37 CT abd pelvis IV con only Stat Hospital Course (1) Acute alcoholic pancreatitis: Possible pancreas divisum contributing but alcohol much more likely cause given history [place]'s criteria 0 (severe pancreatitis unlikely). CT abdomen and pelvis 03/21/20 IMPRESSION: 1. Acute pancreatitis. 2. Possible pancreas divisum. 3. Moderate sized ventral hernia containing fat and a short segment of the mid transverse colon. No evidence for bowel obstruction. 4. Hepatic steatosis. Significant counseling regarding alcohol cessation especially in the face of the fact that her is an alcoholic and has been hospitalized for alcohol withdrawal in the past (2) Hypertension: Continue on metoprolol 100mg tartrate PO BID Lisinopril (3) Torsional nystagmus: Given history of B1 deficiency (level < 6 in 2018), ongoing alcohol use and ataxia I am concerned this is a manifestation of Wernicke's encephalopathy. As per prior H&P she is under specialist at [place] and told it was coming from her brainstem and I would be surprised if her thiamine level was not assessed again outside of our EHR. Thiamine supplementation listed As per PCP note and patient she plans on following up with [facility] for further evaluation of this. B12 level drawn on admission is within therapeutic range to the high end of therapeutic range while vitamin B1 is pending (4) Thiamine deficiency: Vitamin B1 level is pending (5) Ambulatory dysfunction: as above concerning for Wernicke's encephalopathy however given under neuroophthalmologist @ [place] (6) Hypomagnesemia: Replete Continue supplementation (7) Depression: Continue bupropion 150mg BID clonazepam Much counseling was given to her alcohol use she seems resistant to organized structured support feeling she can do it on her own Total Time Total Time Spent Total Time Spent (In Minutes): It required greater than 30 minutes to prepare this patient for discharge Discharge Plan Discharge Items Patient Disposition: Home - Self-Care Reason For Visit: ALCOHOLISM PANCREATITIS Discharge Diagnosis: pancreatitis Activity: Resume your previous activity Non-emergency contact: Primary Care Provider and Slip Maker Call non-emergency contact if: you have any medication questions Follow-up/Referrals: Emily Casanova CRNP [Primary Care Provider] - 03/30/20 (follow up one week, will need referral to GI medicine to consider eus for pancreatic divisum evaluation) Diet: Regular Addtl Attending Provider Instructions: please refrain from any alcohol use use a bland diet, and gradually increase your diet Pending Studies at Discharge: Yes Stand-Alone Forms: [employer], Smoking Cessation Medications and DC Order Prescriptions: New oxycodone 5 mg capsule 5 mg PO Q8H PRN (Reason: pain) Qty: 20 RF: 0 ondansetron HCl [Zofran] 4 mg tablet 4 mg PO Q8H PRN (Reason: nausea and vomiting) 3 Days Qty: 20 RF: 0 Continued albuterol sulfate [ProAir HFA] 90 mcg/actuation Hfa Aerosol Inhaler 2 puff INHALATION QID PRN (Reason: Shortness Of Breath Or Wheezing) RF: 0 fluticasone propionate [Flonase Allergy Relief] 50 mcg/actuation Baskin,Suspension 1 spray INTRANASAL DAILY PRN (Reason: Congestion) RF: 0 risperidone 1 mg Tablet 1 mg PO QPM RF: 0 cholecalciferol (vitamin D3) [Vitamin D3] 1,000 unit Capsule 1,000 unit PO DAILY RF: 0 bupropion HCl 150 mg Tablet Extended Release 24 Hr 150 mg PO BID RF: 0 omeprazole 20 mg Tablet,Delayed Release (Dr/Ec) 20 mg PO DAILY PRN (Reason: reflux) RF: 0 milk thistle seed extract 175 mg Capsule 175 mg PO DAILY RF: 0 turmeric 400 mg Capsule 800 mg PO DAILY RF: 0 magnesium 200 mg tablet 200 mg PO BID Qty: 60 RF: 0 clonazepam [Klonopin] 1 mg tablet 1 mg PO BID PRN (Reason: Anxiety) RF: 0 lisinopril [Zestril] 40 mg Tablet 40 mg PO QAM Qty: 30 RF: 0 folic acid 1 mg Tablet 1 mg PO QAM Qty: 30 RF: 0 thiamine HCl (vitamin B1) 100 mg tablet 100 mg PO DAILY Qty: 30 RF: 0 metoprolol tartrate 100 mg tablet 100 mg PO BID RF: 0 amlodipine 5 mg tablet 5 mg PO QAM RF: 0 glimepiride 1 mg tablet 1 mg PO DAILY RF: 0 furosemide 20 mg tablet 20 mg PO QAM RF: 0 Changed gabapentin 300 mg capsule 300 mg PO UD Qty: 90 RF: 0 Discharge Orders: Discharge Order (Routine); Ordered 03/23/20 Ordered By: Zacarias Taylor Admission Data Admit Date/Time: 03/21/20 17:02 Attending Provider: Zacarias Taylor Admit Provider: Nino Peacock Primary Care Provider: Emily Casanova Other Providers: Nino ePacock Other Interventions: Discharge Summary Assessment (RN) Last Done: 03/23/20 13:40 DC Date/Time DO NOT enter until pt leaves facility: 03/23/20 14:00 Coding Level of Care Code D/C Day Management >30 mins Diagnoses Acute alcoholic pancreatitis K85.20 Acute pancreatitis complication: no infection or necrosis Hypertension I10 Hypertension type: essential hypertension Torsional nystagmus H55.09 Thiamine deficiency E51.9 Ambulatory dysfunction R26.2 Hypomagnesemia E83.42 Depression F33.0 Depression Type: major depressive disorder Major depression recurrence: recurrent Active/Remission status: currently active Major depression episode severity: mild
[2020-03-23] MEDS ORDERED: GABAPENTIN 300 MG CAP PO SCH (21:00)
== END 2020-03-23 14:00 | disposition home or self-care (01) | DRG 439 ==
LOC: ED 14:01 → 2N 17:02 → SUATTDRO 17:02 → 2N 18:59

== ENCOUNTER 2020-07-15 11:41 | Inpatient (IN) ==
[2020-07-15] MEDS ORDERED: DiphenhydrAMINE HCL 50 MG/ML VIAL IV STA (12:33)
[2020-07-15] MEDS ORDERED: MULTI-VITAMIN INFUSION 10 ML, THIAMINE HCL 100 MG, FOLIC ACID 1 MG in SODIUM CHLORIDE 0... IV ONE ×2 (12:33→17:00)
[2020-07-15] MEDS ORDERED: FAMOTIDINE 20MG/5ML IV PUSH IV STA (12:33)
[2020-07-15] MEDS ORDERED: PROCHLORPERAZINE 2 ML IV ONE (12:33)
[2020-07-15 13:01] LABS: Basophils # (auto) 0.01 K/uL (0-0.2); Basophils % (auto) 0.2 %; Eosinophils # (auto) 0.16 K/uL (0-0.5); Eosinophils % (auto) 2.6 %; Hematocrit (blood only) 42.3 % (37-47); Hemoglobin 14.8 g/dL (12.0-16.0); Lymphocytes % (auto) 16.2 %; Mean Corpuscular Hemoglobin 32.2 pg (25-34); Monocytes # (auto) 0.35 K/uL (0.11-0.59); Monocytes % (auto) 5.7 %; Neutrophils # (auto) 4.67 K/uL (1.4-6.5); Neutrophils % (auto) 75.3 %; Platelet Count 187 K/uL (130-400); RDW Coefficient of Variation 12.7 % (11.5-14.5); RDW Standard Deviation 42.6 fL (36.4-46.3); White Blood Count 6.19 K/uL (4.8-10.8)
[2020-07-15 13:14] LABS: Albumin Level 3.3 gm/dl (3.4-5.0); BUN Creatinine Ratio 17.5 (10-20); Calcium 9.1 mg/dl (8.5-10.1); Creatinine Clr Calc Pharmacy 115.4 ml/min; Est GFR (African American) 116.3; Est GFR (Non-African American) 100.4; Magnesium 2.2 mg/dl (1.8-2.4); Potassium 3.9 mmol/L (3.5-5.1)
[2020-07-15 13:17] LABS: Albumin Globulin Ratio 0.8 (0.9-2); Bilirubin Direct 0.3 mg/dl (0-0.2); Bilirubin,Total 0.9 mg/dl (0.2-1); Phosphorus 2.9 mg/dl (2.5-4.9); Total Protein 7.3 gm/dl (6.4-8.2)
[2020-07-15] MEDS ORDERED: METOCLOPRAMIDE HCL INJ 5 MG/ML 2 ML VIAL IV STA (14:18)
[2020-07-15] MEDS ORDERED: LORazepam 1 MG/2 ML VIAL IV STA (14:20)
[2020-07-15] MEDS ORDERED: MoRPHine SULFATE 4 MG/ML 1 ML CARP\\VIAL IV STA ×2 (14:21→19:53)
[2020-07-15] MEDS ORDERED: IOVERSOL 100ml IV ONE (14:45)
--- NOTE | 2020-07-15 14:51 | Emergency Department Note ---
Impression & Plan Acute alcoholic pancreatitis, Alcohol abuse, Hyponatremia ED Provider Note NAME: CARY SANDERS AGE: 54 SEX: F ARRIVES VIA: Walk-In INFORMANT: Patient, ED PROVIDER(S): Crescencio Wolf MD CHIEF COMPLAINT: Abdominal pain PLAN: Disposition: Admit MEDICAL DECISION MAKING: The patient is a 54-year-old woman with a past medical history of alcohol ab use/dependence with a history of alcoholic pancreatitis who presents emergency department with upper abdominal pain and nausea over the past 24 hours in the setting of report of having stopped her alcohol consumption for 2 weeks but resumed for a couple of days with subsequent development of her symptoms. She denies any fevers, chills, cough, congestion, shortness of breath. On arrival patient is uncomfortable but no acute distress, afebrile stable vital signs. On exam patient has mild epigastric discomfort without discrete tenderness. WBC, H/H and platelets within normal limits. Sodium is 132 and electrolytes otherwise unremarkable. Chemistry without acidosis. LFTs unremarkable. Lipase is elevated at 4K consistent with pancreatitis. Blood alcohol is undetectable. CT of the abdomen pelvis was ordered and pending. However given the patient's discomfort with continued symptoms reasonable to proceed with admission. The patient is agreeable with this. Case was discussed with Dr. Taylor, [facility] hospitalist, who will evaluate the patient for admission. CT is consistent with acute pancreatitis. Triage Nursing notes reviewed and agree them. Prior medical records reviewed Vital Signs: reviewed and remarkable for no significant abnormalities Differential diagnosis: Appendicitis, ovarian cyst, ovarian torsion, ectopic , TOA, PID, infections, diverticulitis, UTI, obstruction, mesenteric ischemia, aortic pathology, inflammatory bowel disease, renal colic, PUD, pancreatitis, biliary pathology, hernia, volvulus, constipation, as well as other pathologies. ER treatment provided: See below. Diagnostics interpreted by me: Cardiac Monitoring: An order for continuous cardiac monitoring was placed and demonstrated NSR, 88 bpm, no ectopy. Laboratory studies: See below Imaging studies: ABDOMEN AND PELVIS CT WITH IV CONTRAST CT DOSE: 1424.22 mGy.cm HISTORY: Mid abdominal pain. TECHNIQUE: Multiaxial CT images of the abdomen and pelvis were performed following the use of intravenous contrast. A dose lowering technique was utilized adhering to the principles of ALARA. COMPARISON STUDY: Abdomen and pelvis CT 03/21/2020. FINDINGS: The lung bases are clear. No pneumoperitoneum. No pneumatosis. A few prominent right pericardial lymph nodes remain stable. Hepatic steatosis. The main portal vein is patent. The gallbladder, spleen, and adrenal glands are unre markable. Mild inflammatory change surrounding the pancreas consistent with acute pancreatitis. This is similar to the prior study. Borderline enlarged peripancreatic lymph nodes which may be reactive. Partially calcified periportal lymph nodes are again noted. Mild thickening of the adjacent duodenum is likely reactive. Questionable 1.4 cm lesion within the interpolar region of the left kidney posteriorly on image 170. No hydronephrosis. A 5 mm hypodense lesion within the right kidney which is too small to characterize. Normal caliber abdominal aorta. Mild inflammatory change adjacent to the aortic bifurcation this remains unchanged and could also be secondary to the acute pancreatitis. Moderate size midline ventral hernias containing fat and a short segment of the transverse colon. The bladder, uterus, bilateral adnexa are unremarkable. Prior rectosigmoid anastomosis. No evidence for bowel obstruction. Evidence for prior appendectomy. IMPRESSION: 1. Acute pancreatitis. This is similar to the prior study. 2. Hepatic steatosis. 3. Moderate sized ventral hernia containing fat and a short segment of mid transverse colon. No evidence for bowel obstruction. This remains unchanged. 4. Possible 1.4 cm lesion within the left kidney as described above. Follow-up nonemergent renal MRI recommended to exclude the possibility of a renal mass. 5. Additional findings as described above. ACT 112: Positive. There are findings on this exam that require communication between the performing entity and the patient following Patient Test Result Information Act ([place] Act 112) guidelines. Electronically signed by: Roman Mars M.D. 07/15/2020 3:07 PM Consultation(s): Case was discussed with Dr. Taylor, [facility] [place] hospitalist, who will evaluate the patient for admission. HPI: The patient is a 54-year-old woman with a past medical history of alcohol abuse/dependence with a history of alcoholic pancreatitis who presents emergency department with upper abdominal pain and nausea over the past 24 hours in the setting of report of having stopped her alcohol consumption for 2 weeks but resumed for a couple of days with subsequent development of her symptoms. She denies any fevers, chills, cough, congestion, shortness of breath. ROS: See above HPI for pertinent positives & negatives. A total of 10 systems reviewed and were otherwise negative. PAST MEDICAL HISTORY:See Below PAST SURGICAL HISTORY:See Below FAMILY HISTORY:See Below SOCIAL HISTORY:See Below HOME MEDICATIONS:See Below ALLERGIES:See Below VITALS:See Below PHYSICAL EXAMINATION: GENERAL: Awake, alert, uncomfortable-appearing, in no distress, BMI 40.2 kg/M HENT: Normocephalic, atraumatic. Oropharynx with dry mucous membranes and otherwise unremarkable. EYES: Normal conjunctiva. Sclera non-icteric. NECK: Supple. No nuchal rigidity. FROM. No JVD. RESPIRATORY: Clear to auscultation. CARDIAC: Regular rate, normal rhythm. Extremities warm and well perfused. Pulses equal. ABDOMEN: Soft, non-distended. Mild epigastric discomfort without discrete tenderness to palpation. No rebound or guarding. No masses. RECTAL: Deferred. MUSCULOSKELETAL: Chest examination reveals no tenderness. The back is symmetrical on inspection without obvious abnormality. There is no CVA tenderness to palpation. No joint edema. LOWER EXTREMITIES: Calves are equal size bilaterally and non-tender. No edema. No discoloration. NEURO: Normal sensorium. No sensory or motor deficits noted. SKIN: No rash or jaundice noted. Crescencio Wolf MD Past Med/Surg History Medical History Acute anxiety Ankle fracture right Depression Fracture of left tibia and fibula plate, screws Nystagmus Suicidal ideation Thiamine deficiency Surgical History H/O meniscectomy of right knee H/O oophorectomy left History of appendectomy History of colon resection Hx of tonsillectomy Family History Father Hypertension Sister Colonic polyp Other No pertinent family history Denies family history of Ovarian cancer Breast cancer Colorectal cancer Social History Smoking Status: Never smoker Hx Alcohol Use: Yes Alcohol type: wine Hx Substance Use: No Preferred Language: Lithuanian Communication Ability: Effective 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 Beliefs That Will Affect Care: None Current Living Situation: Spouse Feels Safe at Home: Yes Allergies Allergies Allergy/AdvReac Type Severity Reaction Status Date / Time ampicillin Allergy Intermediate hives Verified 07/15/20 12:52 cephalexin Allergy Intermediate HIVES/ITCHI Verified 07/15/20 12:52 NG Penicillins Allergy Intermediate HIVES Verified 07/15/20 12:52 metronidazole Allergy Mild blisters Verified 07/15/20 12:52 adhesive AdvReac Mild SKIN Verified 07/15/20 12:52 TEARING AND IRRITATION Home Meds Home Medications Medication Instructions Recorded Confirmed bupropion HCl 150 mg PO BID 11/10/18 07/15/20 cholecalciferol (vitamin D3) 1,000 unit PO DAILY 11/10/18 07/15/20 [Vitamin D3] milk thistle seed extract 175 mg PO DAILY 11/10/18 07/15/20 omeprazole 20 mg PO DAILY PRN 11/10/18 07/15/20 risperidone 1 mg PO QPM 11/10/18 07/15/20 clonazepam [Klonopin] 1 mg PO BID 11/18/18 07/15/20 amlodipine 5 mg PO QAM 03/21/20 07/15/20 furosemide 20 mg PO QAM 03/21/20 07/15/20 glimepiride 1 mg PO DAILY 03/21/20 07/15/20 metoprolol tartrate 100 mg PO BID 03/21/20 07/15/20 gabapentin 300 mg PO QPM 07/15/20 07/15/20 gabapentin 600 mg PO QAM 07/15/20 07/15/20 Previous Rx's Medication Instructions Recorded magnesium 200 mg PO BID #60 tab 11/11/18 folic acid 1 mg PO QAM #30 tab 10/06/19 lisinopril [Zestril] 40 mg PO QAM #30 tab 10/06/19 thiamine HCl (vitamin B1) 100 mg PO DAILY #30 tab 10/06/19 Results & Data (ED) Vital Signs Vital Signs - 24 hr 07/15/20 11:48 07/15/20 12:25 07/15/20 13:06 Temperature 36.9 C Temperature Source Oral Oral Pulse Rate 90 76 Pulse Rate from SpO2 Sensor Respiratory Rate 18 15 Respiratory Depth Normal Blood Pressure 139/97 139/100 Blood Pressure Mean 111 117 Pulse Oximetry 99 Oxygen Delivery Method Room Air Sepsis Recent Fever Within 48 Hours No Sepsis New/Unexplained Change in Mental Status No Sepsis Action Taken by Nursing No Action Required 07/15/20 13:08 07/15/20 13:12 07/15/20 13:30 Temperature Temperature Source Pulse Rate 76 77 Pulse Rate from SpO2 Sensor Respiratory Rate 18 19 Respiratory Depth Blood Pressure 160/96 H Blood Pressure Mean 112 Pulse Oximetry Oxygen Delivery Method Room Air Sepsis Recent Fever Within 48 Hours Sepsis New/Unexplained Change in Mental Status Sepsis Action Taken by Nursing 07/15/20 14:35 07/15/20 15:23 07/15/20 15:30 Temperature Temperature Source Pulse Rate 86 87 Pulse Rate from SpO2 Sensor 87 87 Respiratory Rate 16 20 Respiratory Depth Blood Pressure 165/95 H 120/77 140/78 Blood Pressure Mean 111 90 97 Pulse Oximetry 96 90 Oxygen Delivery Method Sepsis Recent Fever Within 48 Hours Sepsis New/Unexplained Change in Mental Status Sepsis Action Taken by Nursing 07/15/20 16:00 07/15/20 16:01 Temperature Temperature Source Pulse Rate Pulse Rate from SpO2 Sensor 90 90 Respiratory Rate Respiratory Depth Blood Pressure 116/79 Blood Pressure Mean 99 Pulse Oximetry 94 95 Oxygen Delivery Method Sepsis Recent Fever Within 48 Hours Sepsis New/Unexplained Change in Mental Status Sepsis Action Taken by Nursing Laboratory Data Attestation: I reviewed the patient's lab results. Result diagrams: 07/15/20 12:43 07/15/20 12:43 Lab Results 07/15/20 07/15/20 07/15/20 Range/Units 12:43 12:43 12:43 WBC 6.19 (4.8-10.8) K/uL RBC 4.60 (4.2-5.4) M/uL Hgb 14.8 (12.0-16.0) g/dL Hct 42.3 (37-47) % MCV 92.0 (80-100) fL MCH 32.2 (25-34) pg MCHC 35.0 (32-36) g/dL RDW Std Deviation 42.6 (36.4-46.3) fL RDW Coeff of Raffy 12.7 (11.5-14.5) % Plt Count 187 (130-400) K/uL MPV 9.0 (7.4-10.4) fL Immature Gran % (Auto) 0.0 % Neut % (Auto) 75.3 % Lymph % (Auto) 16.2 % [place] % (Auto) 5.7 % Eos % (Auto) 2.6 % Baso % (Auto) 0.2 % Neut # (Auto) 4.67 (1.4-6.5) K/uL Lymph # (Auto) 1.00 L (1.2-3.4) K/uL [place] # (Auto) 0.35 (0.11-0.59) K/uL Eos # (Auto) 0.16 (0-0.5) K/uL Baso # (Auto) 0.01 (0-0.2) K/uL Immature Gran # (Auto) 0.00 (0.00-0.02) K/uL Sodium 132 L (136-145) mmol/L Potassium 3.9 (3.5-5.1) mmol/L Chloride 97 L (98-107) mmol/L Carbon Dioxide 26 (21-32) mmol/L Anion Gap 9.0 (3-11) BUN 12 (7-18) mg/dl Creatinine 0.67 (0.6-1.2) mg/dl Est Cr Clr Drug Dosing 115.4 ml/min Est GFR ( Amer) 116.3 Est GFR (Non-Af Amer) 100.4 BUN/Creatinine Ratio 17.5 (10-20) Glucose 129 H (70-99) mg/dl Calcium 9.1 (8.5-10.1) mg/dl Phosphorus 2.9 (2.5-4.9) mg/dl Magnesium 2.2 (1.8-2.4) mg/dl Total Bilirubin 0.9 (0.2-1) mg/dl Direct Bilirubin 0.3 H (0-0.2) mg/dl AST 25 (15-37) U/L ALT 25 (12-78) U/L Alkaline Phosphatase 71 (45-117) U/L Total Protein 7.3 (6.4-8.2) gm/dl Albumin 3.3 L (3.4-5.0) gm/dl Globulin 4.0 (2.5-4.0) gm/dl Albumin/Globulin Ratio 0.8 L (0.9-2) Lipase 4151 H (73-393) U/L Urine Color Urine Appearance (Clear) Urine pH (4.5-7.5) Ur Specific [place] (1.000-1.030) Urine Protein (Negative) Urine Glucose (UA) (Negative) Urine Ketones (Negative) Urine Blood (Negative) Urine Nitrite (Negative) Urine Bilirubin (Negative) Urine Urobilinogen (Negative) Ur Leukocyte Esterase (Negative) Ethyl Alcohol mg/dL < 3.0 (0-3) mg/dl 07/15/20 Range/Units 15:58 WBC (4.8-10.8) K/uL RBC (4.2-5.4) M/uL Hgb (12.0-16.0) g/dL Hct (37-47) % MCV (80-100) fL MCH (25-34) pg MCHC (32-36) g/dL RDW Std Deviation (36.4-46.3) fL RDW Coeff of Raffy (11.5-14.5) % Plt Count (130-400) K/uL MPV (7.4-10.4) fL Immature Gran % (Auto) % Neut % (Auto) % Lymph % (Auto) % [place] % (Auto) % Eos % (Auto) % Baso % (Auto) % Neut # (Auto) (1.4-6.5) K/uL Lymph # (Auto) (1.2-3.4) K/uL [place] # (Auto) (0.11-0.59) K/uL Eos # (Auto) (0-0.5) K/uL Baso # (Auto) (0-0.2) K/uL Immature Gran # (Auto) (0.00-0.02) K/uL Sodium (136-145) mmol/L Potassium (3.5-5.1) mmol/L Chloride (98-107) mmol/L Carbon Dioxide (21-32) mmol/L Anion Gap (3-11) BUN (7-18) mg/dl Creatinine (0.6-1.2) mg/dl Est Cr Clr Drug Dosing ml/min Est GFR ( Amer) Est GFR (Non-Af Amer) BUN/Creatinine Ratio (10-20) Glucose (70-99) mg/dl Calcium (8.5-10.1) mg/dl Phosphorus (2.5-4.9) mg/dl Magnesium (1.8-2.4) mg/dl Total Bilirubin (0.2-1) mg/dl Direct Bilirubin (0-0.2) mg/dl AST (15-37) U/L ALT (12-78) U/L Alkaline Phosphatase (45-117) U/L Total Protein (6.4-8.2) gm/dl Albumin (3.4-5.0) gm/dl Globulin (2.5-4.0) gm/dl Albumin/Globulin Ratio (0.9-2) Lipase (73-393) U/L Urine Color Yellow Urine Appearance Clear (Clear) Urine pH 7.5 (4.5-7.5) Ur Specific [place] 1.020 (1.000-1.030) Urine Protein Negative (Negative) Urine Glucose (UA) Negative (Negative) Urine Ketones 1+ H (Negative) Urine Blood Negative (Negative) Urine Nitrite Negative (Negative) Urine Bilirubin Negative (Negative) Urine Urobilinogen Negative (Negative) Ur Leukocyte Esterase Negative (Negative) Ethyl Alcohol mg/dL (0-3) mg/dl Administered Medications Discontinued Medications Diphenhydramine HCl (Diphenhydramine Hcl 50 Mg/Ml Vial) 25 mg IV NOW STA Stop: 07/15/20 12:34 Last Admin: 07/15/20 12:59 Dose: 25 mg Documented by: [id number] Famotidine (Famotidine 20mg/5ml Iv Push) 20 mg IV ONE STA Stop: 07/15/20 12:34 Last Admin: 07/15/20 12:59 Dose: 20 mg Documented by: [id number] Multivitamins 10 ml/ Thiamine HCl 100 mg/ Folic Acid 1 mg/Sodium Chloride 1,011.2 mls @ 1,011.2 mls/hr IV .Q1H ONE Stop: 07/15/20 13:32 Last Infusion: 07/15/20 14:00 Dose: 0 mls/hr Documented by: [id number] Admin: 07/15/20 12:59 Dose: 1,011.2 mls/hr Documented by: [id number] Prochlorperazine (Compazine) 2 mls @ 1 mls/min IV ONE ONE Stop: 07/15/20 12:34 Last Admin: 07/15/20 12:59 Dose: 1 mls/min Documented by: [id number] Lorazepam (Ativan) 1 mg in 2 mls @ 2 mls/min IV NOW STA Stop: 07/15/20 14:21 Last Admin: 07/15/20 14:37 Dose: 2 mls/min Documented by: [id number] Ioversol (Ioversol 100ml) 92 ml IV ONCE ONE Stop: 07/15/20 14:46 Last Admin: 07/15/20 14:45 Dose: 92 ml Documented by: [id number] Metoclopramide HCl (Metoclopramide Hcl Inj 5 Mg/Ml 2 Ml Vial) 10 mg IV NOW STA Stop: 07/15/20 14:19 Last Admin: 07/15/20 14:37 Dose: 10 mg Documented by: [id number] Morphine Sulfate (Morphine Sulfate 4 Mg/Ml 1 Ml Carp\Vial) 4 mg IV NOW STA Stop: 07/15/20 14:22 Last Admin: 07/15/20 14:37 Dose: 4 mg Documented by: [id number] Blood Pressure Blood Pressure Findings: Normal blood pressure Blood Pressure Disposition: further management by hospitalist Discharge Plan Visit Data Chief Complaint: Abdominal Pain Stated Complaint: SEVERE ABD PAIN,NAUSEA ED Provider: Crescencio Wolf Discharge Problem: Acute alcoholic pancreatitis, Alcohol abuse, Hyponatremia Patient Disposition: Admitted As Inpatient Discharge Instructions Interventions: ED Discharge Assessment Last Done: 07/15/20 16:26
--- NOTE | 2020-07-15 15:09 | CT Scan Report ---
ABDOMEN AND PELVIS CT WITH IV CONTRAST CT DOSE: 1424.22 mGy.cm HISTORY: Mid abdominal pain. TECHNIQUE: Multiaxial CT images of the abdomen and pelvis were performed following the use of intrave nous contrast. A dose lowering technique was utilized adhering to the principles of ALARA. COMPARISON STUDY: Abdomen and pelvis CT 03/21/2020. FINDINGS: The lung bases are clear. No pneumoperitoneum. No pneumatosis. A few prominent right perica rdial lymph nodes remain stable. Hepatic steatosis. The main portal vein is patent. The gallbladder, spleen, and adrenal glands are unremarkable. Mild inflammatory change surrounding the pancreas consis tent with acute pancreatitis. This is similar to the prior study. Borderline enlarged peripancreatic lymph nodes which may be reactive. Partially calcified periportal lymph nodes are again noted. Mild t hickening of the adjacent duodenum is likely reactive. Questionable 1.4 cm lesion within the interpol ar region of the left kidney posteriorly on image 170. No hydronephrosis. A 5 mm hypodense lesion wit hin the right kidney which is too small to characterize. Normal caliber abdominal aorta. Mild inflamm atory change adjacent to the aortic bifurcation this remains unchanged and could also be secondary to the acute pancreatitis. Moderate size midline ventral hernias containing fat and a short segment of the transverse colon. The bladder, uterus, bilateral adnexa are unremarkable. Prior rectosigmoid anas tomosis. No evidence for bowel obstruction. Evidence for prior appendectomy. IMPRESSION: 1. Acute pancreatitis. This is similar to the prior study. 2. Hepatic steatosis. 3. Moderate sized ventral hernia containing fat and a short segment of mid transverse colon. No evide nce for bowel obstruction. This remains unchanged. 4. Possible 1.4 cm lesion within the left kidney as described above. Follow-up nonemergent renal MRI recommended to exclude the possibility of a renal mass. 5. Additional findings as described above. ACT 112: Positive. There are findings on this exam that require communication between the performing entity and the patient following Patient Test Result Information Act ([place] Act 112) guidelines. Electronically signed by: Roman Mars M.D. 07/15/2020 3:07 PM
--- NOTE | 2020-07-15 15:56 | History & Physical Report ---
Date of Service July 15, 2020 Assessment & Plan (1) Acute alcoholic pancreatitis: Patient admits to resumption of alcohol ingestion subsequently she will kept n.p.o. except for ice chips given parenteral pain and antiemetic control we will trend serial lipase. Once again she was counseled at the bedside about complete abstinence being the only way to avoid persistent recurrence of this issue Patient did not appear to be in acute alcohol withdrawal at this time nor does she have issues with that in the past. Given the fact that she claims only of drink for 2 days we will not start the alcohol withdrawal severity scale but offer PRN Ativan at this time. She typically does take gabapentin however this is being placed on hold given the fact that she is n.p.o. we will try to reduce medications to reduce stimulation of her pancreas. However we could reinstitute her gabapentin if she does appear to have withdrawal PRN Ativan IV will be offered (2) Torsional nystagmus: Patient states this is been worked up many times in the past typically medications do not help her it is exacerbated by stress and improved with relief of stressors In the past it was discussed whether this could be part of her Wernicke's encephalopathy type picture however her vitamin B level with returned as normal to high (3) Depression: Patient typically takes gabapentin clonazepam Wellbutrin, and Risperdal at bedtime. We will give clonazepam with small sips in hopes to avoid benzodiazepine withdrawal (4) Renal mass: This is incidentally noted on her CT scan we will order MRI of her renal system as per recommendations of radiology (5) Diabetes: There is some contention whether or not the patient actually takes his medication. It is listed in her med reconciliation she is very soft on descriptions whether she takes it or not subsequently with this medicine will be on hold and should be on an insulin sliding scale as glucose intolerance can be part of pancreatitis. We will check an A1c of A1c does not support the need for continued diabetic treatment we can perhaps loosen her limited to sliding scale (6) Hypertension: Patient typically takes some little furosemide and lisinopril plus Norvasc. PRN hydralazine and metoprolol will be employed and if she requires further medications perhaps a small sip with an oral medication can be utilized (7) DVT prophylaxis: Lovenox to be used for DVT prevention his dosage is higher given her morbid obesity History of Present Illness Primary Care Provider: LATIA Johnson 54-year-old woman with a past medical history of alcohol abuse/dependence with a history of alcoholic pancreatitis, recently treated for pancreatitis in [facility], who presents emergency department with upper abdominal pain and nausea over the past 24 hours after resumption of alcholol intake. She admits to only drinking alcohol over the last 2 days prior to admission, and says she drank due to stress. She denies any fevers, chills, cough, congestion, shortness of breath. She is now comfortable after having 4 mg morphine and antiemetics. LFTs unremarkable. Lipase is elevated at 4K consistent with pancreatitis. Blood alcohol is undetectable. CT of the abdomen pelvis Allergies Allergy/AdvReac Type Severity Reaction Status Date / Time ampicillin Allergy Intermediate hives Verified 07/15/20 12:52 cephalexin Allergy Intermediate HIVES/ITCHI Verified 07/15/20 12:52 NG Penicillins Allergy Intermediate HIVES Verified 07/15/20 12:52 metronidazole Allergy Mild blisters Verified 07/15/20 12:52 adhesive AdvReac Mild SKIN Verified 07/15/20 12:52 TEARING AND IRRITATION Home Medications Home Medications Medication Instructions Recorded Confirmed Type bupropion HCl 150 mg PO BID 11/10/18 07/15/20 History cholecalciferol (vitamin D3) 1,000 unit PO DAILY 11/10/18 07/15/20 History [Vitamin D3] milk thistle seed extract 175 mg PO DAILY 11/10/18 07/15/20 History omeprazole 20 mg PO DAILY PRN 11/10/18 07/15/20 History risperidone 1 mg PO QPM 11/10/18 07/15/20 History magnesium 200 mg PO BID #60 tab 11/11/18 07/15/20 Rx clonazepam [Klonopin] 1 mg PO BID 11/18/18 07/15/20 History folic acid 1 mg PO QAM #30 tab 10/06/19 07/15/20 Rx lisinopril [Zestril] 40 mg PO QAM #30 tab 10/06/19 07/15/20 Rx thiamine HCl (vitamin B1) 100 mg PO DAILY #30 tab 10/06/19 07/15/20 Rx amlodipine 5 mg PO QAM 03/21/20 07/15/20 History furosemide 20 mg PO QAM 03/21/20 07/15/20 History glimepiride 1 mg PO DAILY 03/21/20 07/15/20 History metoprolol tartrate 100 mg PO BID 03/21/20 07/15/20 History gabapentin 300 mg PO QPM 07/15/20 07/15/20 History gabapentin 600 mg PO QAM 07/15/20 07/15/20 History Past Med/Surg History Medical History (Updated 07/15/20 @ 15:54 by Zacarias Taylor MD) Acute anxiety Ankle fracture right Depression Fracture of left tibia and fibula plate, screws Nystagmus Suicidal ideation Thiamine deficiency Surgical History H/O meniscectomy of right knee H/O oophorectomy left History of appendectomy History of colon resection Hx of tonsillectomy Family History Father Hypertension Sister Colonic polyp Other No pertinent family history Denies family history of Ovarian cancer Breast cancer Colorectal cancer Social History (Updated 01/12/20 @ 16:04 by Estephania Wyman LPN) Smoking Status: Never smoker Hx Alcohol Use: Yes Alcohol type: wine Hx Substance Use: No Preferred Language: Bengali Communication Ability: Effective 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 Beliefs That Will Affect Care: None Current Living Situation: Spouse Feels Safe at Home: Yes Review of Systems Review of Systems: Mild distress and fatigue but she is previously been medicated no headache, blurry patient's chronic double vision with her torsional nystagmus no speech or swallowing issues no chest pain, pressure or palpitations no shortness of breath, cough or wheezes Diffuse dull abdominal pain, mostly focused in the left upper quadrant, mild nausea resolution of vomiting with medications no dysuria, hematuria or frequency no focal joint pain or swelling no back pain, CVA tenderness or radicular pain no bruising, bleeding or rashes no focal signs of weakness or numbness or altered sensation Complaints of anxiety due to her recent change in living status Physical Exam Physical Exam: The patient appeared well nourished and normally developed. Vital signs as documented. Head exam is normocephalic atraumatic no scleral icterus does have lateral nystagmus Neck is without JVD, thyromegaly, or carotid bruits. Lungs are clear to auscultation, no focal loss of breath sounds Cardiac exam, Rhythm is regular.. No murmurs, rubs or gallops. Abdominal exam reveals hypoactive bowel sounds, soft minor tenderness to deep palpation in the upper quadrants left greater than right Extremities are nonedematous and both pedal pulses are normal. Neurologic exam is alert and oriented, no focal loss of strength or sensation Skin is without bruises or rashes no signs of jaundice Psychologically is with a very flat affect Results & Data Results & Data ([facility]) Vital Signs (Past 12 Hours) Vital Signs Temp Pulse Resp BP Pulse Ox 07/15/20 15:23 86 16 120/77 96 07/15/20 14:35 165/95 H 07/15/20 13:30 77 19 160/96 H 07/15/20 13:12 76 18 07/15/20 13:06 76 15 139/100 07/15/20 11:48 98.4 F 90 18 139/[address] scan abdomen pelvis 07/15/2020 acute pancreatitis similar to previous, hepatic steatosis moderate sized ventral hernia containing fat a short segment of mid transverse colon no evidence of obstruction this remains unchanged. 1.4 cm lesion within the left kidney as described above follow-up nonemergent renal MRI to exclude the possibility of renal mass PG Care Time/CCT Total # of Minutes Spent Total Time Spent with Patient: Total time spent is greater than 50% in coordination of care (as documented) at patient's floor/unit and/or counseling patient: Coding Level of Care Code 79131 Initial Inpt Care Lvl 3 Diagnoses Acute alcoholic pancreatitis K85.20 Acute pancreatitis complication: no infection or necrosis Torsional nystagmus H55.09 Depression F33.0 Active/Remission status: currently active Depression Type: major depressive disorder Major depression episode severity: mild Major depression recurrence: recurrent Renal mass N28.89 Diabetes E11.9 Hypertension I10 DVT prophylaxis Z29.9 (1) Depression Active/Remission status: currently active Depression Type: major depressive disorder Major depression episode severity: mild Major depression recurrence: recurrent Qualified Code(s): F33.0 - Major depressive disorder, recurrent, mild (2) Acute alcoholic pancreatitis Acute pancreatitis complication: no infection or necrosis Qualified Code(s): K85.20 - Alcohol induced acute pancreatitis without necrosis or infection
[2020-07-15 16:12] LABS: Appearance Urine Clear (Clear); Bilirubin Urine Negative (Negative); Blood Urine Negative (Negative); Color Urine Yellow; Glucose Urine UA Negative (Negative); Ketones Urine 1+ (Negative); Leukocyte Esterase Urine Negative (Negative); Nitrite Urine Negative (Negative); Protein Urine Negative (Negative); Urobilinogen Urine Negative (Negative); pH Urine 7.5 (4.5-7.5)
[2020-07-15] MEDS ORDERED: LORazepam 0.5 MG/1 ML VIAL IV PRN (16:45)
[2020-07-15] MEDS ORDERED: MoRPHine SULFATE 2 MG/ML CARP IV PRN (16:50)
[2020-07-15] MEDS ORDERED: METOPROLOL TARTRATE 1 MG/ML VIAL IV PRN (16:50)
[2020-07-15] MEDS ORDERED: GLUCOSE 10 TABS/TUBE PO PRN (16:50)
[2020-07-15] MEDS ORDERED: DEXTROSE 50% 50 ML SYRINGE IV PRN (16:50)
[2020-07-15] MEDS ORDERED: CARBOHYDRATES FOR HYPOGLYCEMIA PO PRN (16:50)
[2020-07-15] MEDS ORDERED: GLUCAGON FOR INJ 1 MG VIAL SQ PRN (16:50)
[2020-07-15] MEDS ORDERED: HydrALAZINE HCL 20 MG/ML VIAL IV PRN (16:50)
[2020-07-15] MEDS ORDERED: GLUCOSE 40% GEL 15 GM TUBE PO PRN (16:50)
[2020-07-15] MEDS ORDERED: MoRPHine SULFATE 4 MG/ML 1 ML CARP\\VIAL IV PRN (16:50)
[2020-07-15] MEDS ORDERED: INSULIN ASPART 100 UNITS/ML 3 ML PEN SC SCH (17:00)
[2020-07-15] MEDS: INSULIN ASPART 100 UNITS/ML 3 ML PEN SC SCH (18:29)
[2020-07-15] MEDS: LACTATED RINGER'S 1,000 ML IV SCH (19:13)
[2020-07-15] MEDS ORDERED: GADOBUTROL 65ML VIAL IV ONE (21:10)
[2020-07-15] MEDS: ENOXAPARIN INJ 40 MG/0.4 ML SYR SQ SCH (21:32)
[2020-07-15] MEDS: BuPROPion SR 100 MG TABCR PO SCH (21:32)
[2020-07-15] MEDS: clonazePAM 1 MG TAB PO SCH (21:32)
[2020-07-15] MEDS: METOPROLOL TARTRATE 100 MG TAB PO SCH (21:32)
[2020-07-15] MEDS: MoRPHine SULFATE 4 MG/ML 1 ML CARP\\VIAL IV PRN (23:24)
[2020-07-16] MEDS: INSULIN ASPART 100 UNITS/ML 3 ML PEN SC SCH ×5 (00:07→21:44)
[2020-07-16] MEDS: MoRPHine SULFATE 2 MG/ML CARP IV PRN (03:38)
[2020-07-16] MEDS: LACTATED RINGER'S 1,000 ML IV SCH ×4 (04:00→21:19)
[2020-07-16 06:44] LABS: Estimated Average Glucose 117 mg/dl; Hemoglobin A1C 5.7 % (4.5-5.6)
[2020-07-16] MEDS: ENOXAPARIN INJ 40 MG/0.4 ML SYR SQ SCH ×2 (07:28→20:19)
[2020-07-16] MEDS: clonazePAM 1 MG TAB PO SCH ×2 (07:28→20:20)
[2020-07-16] MEDS: THIAMINE HCL 100 MG in SYRINGE 9 ML IV SCH (07:29)
[2020-07-16] MEDS: BuPROPion SR 100 MG TABCR PO SCH ×2 (07:29→20:20)
[2020-07-16] MEDS: METOPROLOL TARTRATE 100 MG TAB PO SCH ×2 (07:29→20:19)
[2020-07-16] MEDS: ONDANSETRON INJ 2 MG/ML 2 ML VIAL IV PRN ×2 (07:39→17:56)
[2020-07-16] MEDS: MoRPHine SULFATE 4 MG/ML 1 ML CARP\\VIAL IV PRN ×5 (07:39→21:19)
[2020-07-16 07:46] LABS: BUN Creatinine Ratio 11.4 (10-20); Calcium 8.9 mg/dl (8.5-10.1); Creatinine Clr Calc Pharmacy 143.2 ml/min; Est GFR (African American) 124.9; Est GFR (Non-African American) 107.7
--- NOTE | 2020-07-16 08:35 | Magnetic Resonance Report ---
MRI OF THE ABDOMEN WITH AND WITHOUT CONTRAST RENAL PROTOCOL CLINICAL HISTORY: Abnormal CT. Possible left renal lesion. COMPARISON STUDY: CT of the abdomen and pelvis July 15, 2020. TECHNIQUE: Utilizing a 1.5 Lynnette magnet and dedicated coil, multiplanar, multiecho imaging of the abd omen was performed pre and postcontrast administration. Intravenous injection of 10 cc of Gadavist wa s uneventful. Post contrast imaging was performed utilizing dynamic enhancement. FINDINGS: Note is made of an enhancing 1.4 cm lesion within the posterior cortex of the midpole of th e left kidney which corresponds to the finding on CT of July 15, 2020. This lesion does not definit ively contain fat. No additional enhancing renal lesions are present. A 5 mm right renal cyst is note d. No additional renal lesions are noted. There is no hydronephrosis. There is no abdominal lymphaden opathy. No hepatic lesions are present. The spleen and adrenal glands are unremarkable. Mild peripanc reatic infiltration and fluid is similar to CT. This represents acute pancreatitis. Caliber of small large bowel are normal. Ventral hernia is partially imaged on this exam. IMPRESSION: Enhancing 1.4 cm lesion within the posterior cortex of the midpole of the left kidney wh ich corresponds to the finding on CT of July 15, 2020. This represents a solid renal lesion. Noneme rgent urology consultation is recommended. ACT 112: Negative or not required by law. Electronically signed by: Oneil Farrell M.D. 07/16/2020 8:33 AM
[2020-07-16] MEDS: PROMETHAZINE HCL 12.5 MG in SODIUM CHLORIDE 0.9% 50 ML IV PRN (08:53)
--- NOTE | 2020-07-16 10:32 | Hospitalist Progress Note ---
Date of Service July 16, 2020 Assessment & Plan (1) Pancreatitis: 54-year-old woman with a past medical history of alcohol abuse/dependence with a history of alcoholic pancreatitis, recently treated for pancreatitis in [facility], who presents emergency department with upper abdominal pain and nausea over the past 24 hours after resumption of alcohol intake. She admits to only drinking alcohol over the last 2 days prior to admission, and says she drank due to stress. Acute alcoholic pancreatitis - Patient feeling better this morning, some continued abdominal discomfort and occasional nausea - Lipase down today from 4151 to 1822 - Zofran 4mg IV q6h prn for nausea - Promethazine 12.5 mg IV q6h PRN - Morphine sulfate 4mg IV q3h PRN - Morphine sulfate 2mg IV q3h PRN - Advanced diet from NPO to clear liquids--patient tolerated well - F/U Alcohol use disorder - No sign/symptoms of acute withdrawal currently - Hold home gabapentin 300mg PO qPM to reduce pancreas stimulation by meds - Thiamine 100 mg IV qAM - Ativan 0.5 mg IV q4h prn for withdrawal symptoms - Restart gabapentin if withdrawal symptoms - Consider starting naltrexone 50 mg PO upon d/c HTN - Hold home furosemide 20mg PO qAM - Hold home lisinopril 40mg PO qAM - Hold home amlodipine 5mg PO qAM - Hydralazine 10mg IV q8h PRN - Metoprolol tartrate 5mg IV q4h PRN DM - HbA1c 5.7 - Blood sugars currently well controlled - Patient's compliance to home glimepiride 1mg PO daily is questionable --hold med - Insulin sliding scale Depression/Anxiety - Hold home clonazepam 1mg PO BID - c/w home bupropion 200mg PO BID FENGI: Clear liquid DVT prophylaxis: Lovenox 40mg SQ q12h Dispo: Med/surg Code: Full Code (2) Abdominal pain: (3) Hypertension: (4) DVT prophylaxis: (5) Hypertension: (6) Renal mass: (7) Alcohol abuse: Admission and Anticipated Discharge Date Admission Date: July 15, 2020 Supervising Physician Co-Signing Physician Notes Resident Physician Supervision Note: I independently interviewed and examined the patient and verified the bowser history and physical, reviewed labs and image studies, discussed the case with the resident Dr. Grande and agree with the findings and care plan. Subjective Patient says she feels well overall today. Still has slight abdominal discomfort and slight nausea managed with medications. She reported not really hungry but feeling she should eat and felt she could tolerate. Asked patient about alcohol use--she reports that was doing well but has been more stressed latey and started drinking again. She is very much wanting help with this and open to visiting with PCP post discharge to discuss. Told patient about naltrexone option upon dc--hadn't heard of it but is interested. Started on clear liquid diet for lunch, asked the patient afterwards and said she was able to tolerated. No other complaints. Denies fever, chills, vomiting, CP, palpitations, SOB, cough, diarrhea, dysuria. Review of Systems Constitutional: no fever, no chills, no sweats and no fatigue Respiratory: no cough, no chest congestion, no dyspnea and no wheezing Cardiovascular: no chest pain, no palpitations and no edema Gastrointestinal: + abdominal pain and + nausea; no vomiting and no diarrhea/loose stools Physical Exam Constitutional: WD/WN, vitals as above + obese Respiratory: normal respiratory effort, lungs clear to auscultation Auscultation: no crackles, no rales, no rhonchi and no wheezes Cardiovascular: RRR, no murmur, no edema Heart Sounds: normal S1 and normal S2 Gastrointestinal (Abdomen): Inspection/Auscultation: normal bowel sounds; abdomen not distended Percussion/Palpation: abdomen soft; abdomen nontender Psychiatric: A+Ox3, euthymic affect Eye Contact: good eye contact Speech: normal rate/rhythm/volume of speech Affect: + tearful affect Thought Content: no delusions Hallucinations: no auditory hallucinations and no visual hallucinations Insight: good insight Results & Data Results & Data ([facility]) Vital Signs (Past 12 Hours) Vital Signs Temp Pulse Pulse Resp BP Pulse Ox 07/16/20 10:16 69 07/16/20 07:18 37.2 C 77 18 147/81 H 94 07/16/20 03:25 37.1 C 77 19 149/86 H 96 07/15/20 23:30 77 07/15/20 23:10 36.7 C 83 18 146/104 H 93 Resident Activity Tracking Resident Involvement: Resident Care Provided Care Provided: Adult Hospital Medicine (1) Pancreatitis Acute pancreatitis complication: unspecified Chronicity: acute Pancreatitis type: unspecified pancreatitis type Qualified Code(s): K85.90 - Acute pancreatitis without necrosis or infection, unspecified (2) Abdominal pain Abdominal location: unspecified location Qualified Code(s): R10.9 - Unspecified abdominal pain (3) Hypertension Hypertension type: essential hypertension Qualified Code(s): I10 - Essential (primary) hypertension
[2020-07-16] MEDS ORDERED: LORazepam 1 MG/2 ML VIAL IV PRN (18:19)
[2020-07-16] MEDS ORDERED: Nursing to Pharmacy Communication SCH (20:30)
[2020-07-17] MEDS: MoRPHine SULFATE 4 MG/ML 1 ML CARP\\VIAL IV PRN ×3 (00:13→08:13)
[2020-07-17] MEDS: LACTATED RINGER'S 1,000 ML IV SCH (03:43)
[2020-07-17 06:33] LABS: Hematocrit (blood only) 37.6 % (37-47); Hemoglobin 12.7 g/dL (12.0-16.0); Mean Corpuscular Hemoglobin 32.4 pg (25-34); Mean Corpuscular Hgb Conc 33.8 g/dL (32-36); Mean Corpuscular Volume 95.9 fL (80-100); Mean Platelet Volume 9.3 fL (7.4-10.4); Platelet Count 185 K/uL (130-400); RDW Coefficient of Variation 12.9 % (11.5-14.5); Red Blood Count 3.92 M/uL (4.2-5.4); White Blood Count 4.69 K/uL (4.8-10.8)
[2020-07-17 07:01] LABS: Calcium 8.8 mg/dl (8.5-10.1); Creatinine Clr Calc Pharmacy 133.2 ml/min; Est GFR (Non-African American) 105.2; Potassium 3.9 mmol/L (3.5-5.1)
[2020-07-17] MEDS: INSULIN ASPART 100 UNITS/ML 3 ML PEN SC SCH ×4 (07:37→21:31)
[2020-07-17] MEDS: METOPROLOL TARTRATE 100 MG TAB PO SCH ×2 (08:12→20:14)
[2020-07-17] MEDS: THIAMINE HCL 100 MG in SYRINGE 9 ML IV SCH (08:12)
[2020-07-17] MEDS: ENOXAPARIN INJ 40 MG/0.4 ML SYR SQ SCH ×2 (08:12→20:13)
[2020-07-17] MEDS: clonazePAM 1 MG TAB PO SCH ×2 (08:12→20:13)
[2020-07-17] MEDS: BuPROPion SR 100 MG TABCR PO SCH ×2 (08:13→20:14)
[2020-07-17] MEDS: PROMETHAZINE HCL 12.5 MG in SODIUM CHLORIDE 0.9% 50 ML IV PRN (09:27)
--- NOTE | 2020-07-17 11:16 | Hospitalist Progress Note ---
Date of Service July 17, 2020 Assessment & Plan (1) Pancreatitis: 54-year-old woman with a past medical history of alcohol abuse/dependence with a history of alcoholic pancreatitis, recently treated for pancreatitis in [facility], who presents to the emergency department with upper abdominal pain and nausea over the past 24 hours after resumption of alcohol intake. She admits to only drinking alcohol over the last 2 days prior to admission, and says she drank due to stress. Acute alcoholic pancreatitis - Patient feeling better this morning, some continued abdominal discomfort and occasional nausea - Lipase continues to trend downward. Initially 4151, then 1822 yesterday, and 638 today. - Zofran 4mg IV q6h prn for nausea, Promethazine 12.5 mg IV q6h PRN. - Wean IV Morphine sulfate dose. 2mg IV q3h PRN - Advanced diet from NPO to clear liquids to soft foods yesterday --> she tolerated the clear liquids at lunch but did not tolerate further advancement of diet -- Will continue clear liquid diet x24 hours and try to advance diet again tomorrow. Pt agrees with plan. - Will continue to f/u and monitor patient's symptoms Alcohol use disorder - No sign/symptoms of acute withdrawal currently; most recent AWSS score of 1 (due to reported anxiety). - Resume home gabapentin - Thiamine 100 mg IV qAM - Ativan 0.5 mg IV q4h prn for withdrawal symptoms - Consider starting naltrexone 50 mg PO upon d/c HTN - resume home meds since taking PO - furosemide 20mg PO qAM, lisinopril 40mg PO qAM, amlodipine 5mg PO qAM DM - HbA1c 5.7 - Blood sugars currently well controlled - Patient's compliance to home glimepiride 1mg PO daily is questionable --hold med - Insulin sliding scale Depression/Anxiety - c/w home clonazepam 1mg PO BID - c/w home bupropion 200mg PO BID - Pt explained more about hx of anxiety and depression today - Recommend re-establishing care with therapist, Krysten Reed, upon d/c from hospital - Discussed starting SSRI, sertraline, for further management of anxiety and depression. Pt agrees with this plan. - Will obtain EKG for baseline QT interval prior to initiation of SSRI. - Pt also with nystagmus reportedly associated to anxiety - Discussed possible EMDR treatment after d/c from hospital. Advised patient to discuss/consider this with her PCP and therapist. - Can also plan for speech therapy consult for cognition therapy after d/c. - Pt agrees with plan of care - Will continue to monitor patient's mental health concerns JEAN CARLOSI: Clear liquid DVT prophylaxis: Lovenox 40mg SQ q12h Dispo: Med/surg Code: Full Code (2) Abdominal pain: (3) Hypertension: (4) DVT prophylaxis: (5) Renal mass: (6) Alcohol abuse: Admission and Anticipated Discharge Date Admission Date: July 15, 2020 Supervising Physician Co-Signing Physician Notes Resident Physician Supervision Note: I independently interviewed and examined the patient and verified the bowser history and physical, reviewed labs and image studies, discussed the case with the resident Dr. Tubbs and agree with the findings and care plan. Subjective Brianna states that she overall feels "okay" this morning. She does endorse persistent abdominal discomfort and nausea. Patient rates the abdominal pain at a 6/10 diffusely and reports that the pain is completely resolved to a 0/10 with analgesics; she has been ordered morphine 4mg q3h prn for pain and according to MAR she has been receiving it regularly every ~3 hours for a total of 8 doses within the past 24.5 hours. It is noted that patient's diet was advanced yesterday. She tolerated lunch well without difficulty (clear liquids) and then tried to advance farther to soft foods at dinner. However, she was unable to eat the food due to worsening nausea. The nausea was not controlled with Zofran but it was controlled with Pphenergan. Patient reports that she is hungry and would like to try to continue to advance her diet; however she is cautiously optimistic and does agree that the advancement may need to occur slowly due to symptomatic control. Patient was teary during interview and exam this morning. She does note that she has been struggling with depression and anxiety, specifically feelings of hopelessness and helplessness. 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 The last therapist that she saw was Krysten Reed; pt reports good rapport with her and states that she would be willing to restart therapy after discharge from the hospital. Additionally, patient notes a slight headache that occurred last night but the headache resolved and has not recurred. Reports nystagmus with associated lightheadedness/dizziness that has previously been diagnosed in [place] as "pendulum nystagmus." She attributes the headache and nystagmus to the current stress of being in the hospital and anxiety. Patient states that she does have anxiety at baseline and it's increased with stressors such as thinking about her alcohol use, admission in the hospital, and thinking about the prior traumas (as noted above). She also reports some constipation and asks if she can get metamucil while in the hospital; pt reports taking Clearlax qam at home for a hx of constipation s/p bowel resection. She does have +flatus at this time despite not having a BM since admission. She has no other specific concerns or complaints today. Patient specifically denies vomiting, CP, SOB, cough, difficulty urinating (including dysuria or hematuria), leg pain, or leg swelling. Review of Systems Constitutional: no fatigue Eyes: + problem reported (+ nystagmus) Respiratory: no cough and no dyspnea Cardiovascular: no chest pain, no dyspnea and no dyspnea at rest Gastrointestinal: as per Subjective / HPI, + abdominal pain, + nausea and + constipation; no vomiting Genitourinary: no dysuria and no hematuria Musculoskeletal: no swelling Neurologic: + dizziness and + headache(s) Psychiatric: + depression, + hopelessness, + anxiety, + difficulty concentrating, + confusion and + substance abuse Physical Exam Physical Exam: GENERAL: No acute distress. Well developed and well nourished. Vital signs reviewed as above. A/O x3. EYES: + horizontal nystagmus on exam bilaterally but with R>L. HENT: Moist mucous membranes. RESPIRATORY: Clear to auscultation bilaterally. No wheezing, rales, or rhonchi. CARDIOVASCULAR: Regular rate and rhythm. No murmurs. ABDOMEN: Soft. Normal bowel sounds. Non-distended. Diffuse tenderness to palpation. There is a ventral hernia on left that is tender to palpation but is reducible. EXTREMITIES: No edema. Non-tender. No calf tenderness to palpation. Negative Tanner's sign bilaterally. NEUROLOGIC: No focal neurological deficits. CN II-XII grossly intact, but not individually tested. PSYCHIATRIC: Cooperative. Patient is teary but with normal affect. Good eye contact. Speech is of normal rate, rhythm, and volume. Results & Data Results & Data ([facility]) Vital Signs (Past 12 Hours) Vital Signs Temp Pulse Pulse Resp BP BP Pulse Ox 07/17/20 07:53 74 07/17/20 07:00 36.9 C 69 19 145/89 H 97 07/17/20 04:40 37.0 C 73 18 130/85 96 07/17/20 00:16 37.0 C 64 18 137/84 98 (1) Pancreatitis Acute pancreatitis complication: unspecified Chronicity: acute Pancreatitis type: unspecified pancreatitis type Qualified Code(s): K85.90 - Acute pancreatitis without necrosis or infection, unspecified (2) Abdominal pain Abdominal location: unspecified location Qualified Code(s): R10.9 - Unspecified abdominal pain (3) Hypertension Hypertension type: essential hypertension Qualified Code(s): I10 - Essential (primary) hypertension
[2020-07-17] MEDS: MoRPHine SULFATE 2 MG/ML CARP IV PRN ×4 (12:38→20:47)
[2020-07-18] MEDS: MoRPHine SULFATE 2 MG/ML CARP IV PRN ×2 (00:17→03:14)
[2020-07-18 06:09] LABS: BUN Creatinine Ratio 7.9 (10-20); Calcium 9.7 mg/dl (8.5-10.1); Creatinine Clr Calc Pharmacy 117.1 ml/min; Est GFR (African American) 116.9; Est GFR (Non-African American) 100.9; Potassium 3.9 mmol/L (3.5-5.1)
[2020-07-18] MEDS: METOPROLOL TARTRATE 100 MG TAB PO SCH (08:26)
[2020-07-18] MEDS: ENOXAPARIN INJ 40 MG/0.4 ML SYR SQ SCH (08:26)
[2020-07-18] MEDS: clonazePAM 1 MG TAB PO SCH (08:26)
[2020-07-18] MEDS: BuPROPion SR 100 MG TABCR PO SCH (08:27)
[2020-07-18] MEDS: THIAMINE HCL 100 MG in SYRINGE 9 ML IV SCH (08:27)
[2020-07-18] MEDS: INSULIN ASPART 100 UNITS/ML 3 ML PEN SC SCH ×2 (08:34→12:27)
[2020-07-18] MEDS ORDERED: lisinopriL 40 MG TAB PO SCH (09:00)
[2020-07-18] MEDS ORDERED: GABAPENTIN 300 MG CAP PO SCH ×2 (09:00→21:00)
[2020-07-18] MEDS ORDERED: AMLODIPINE BESYLATE 5 MG TAB PO SCH (09:00)
[2020-07-18] MEDS ORDERED: SERTRALINE HCL 50 MG TABLET PO SCH (09:00)
--- NOTE | 2020-07-18 10:03 | Electrocardiogram Report ---
Test Reason : Blood Pressure : / mmHG Vent. Rate : 066 BPM Atrial Rate : 066 BPM P-R Int : 154 ms QRS Dur : 094 ms QT Int : 414 ms P-R-T Axes : 040 081 058 degrees QTc Int : 434 ms Normal sinus rhythm Normal ECG When compared with ECG of 01-OCT-2019 16:56, Minimal criteria for Anterior infarct are no longer Present Nonspecific T wave abnormality no longer evident in Inferior leads Confirmed by Jaime Cummins ([id number]) on 07/18/2020 10:02:54 AM Referred By: REFERRED SELF Confirmed By:Jaime Cummins
--- NOTE | 2020-07-18 14:24 | Discharge Summary ---
Date of Service July 18, 2020 Admission HPI Per Admitting Provider 54-year-old woman with a past medical history of alcohol abuse/dependence with a history of alcoholic pancreatitis, recently treated for pancreatitis in [facility], who presents emergency department with upper abdominal pain and nausea over the past 24 hours after resumption of alcholol intake. She admits to only drinking alcohol over the last 2 days prior to admission, and says she drank due to stress. She denies any fevers, chills, cough, congestion, shortness of breath. She is now comfortable after having 4 mg morphine and antiemetics. LFTs unremarkable. Lipase is elevated at 4K consistent with pancreatitis. Blood alcohol is undetectable. CT of the abdomen pelvis Principal Diagnosis alcohol induced acute pancreatitis Discharge Exam GENERAL: No acute distress. Well developed and well nourished. Vital signs reviewed as above. A/O x3. EYES: EOMI but with horizontal nystagmus. Anicteric sclerae. HENT: Moist mucous membranes. RESPIRATORY: Clear to auscultation bilaterally. No wheezing, rales, or rhonchi. CARDIOVASCULAR: Regular rate and rhythm. No murmurs. ABDOMEN: Soft. Minimal diffuse tenderness to palpation that has subjectively improved since yesterday. Non-distended. Normal bowel sounds. EXTREMITIES: No edema. Non-tender. No calf tenderness to palpation b/l. Negative Tanner's sign b/l. NEUROLOGIC: No focal neurological deficits. CN II-XII grossly intact, but not individually tested. PSYCHIATRIC: Cooperative. Teary but appropriate mood and affect. Discharge Data Allergies Allergy/AdvReac Type Severity Reaction Status Date / Time ampicillin Allergy Intermediate hives Verified 07/15/20 12:52 cephalexin Allergy Intermediate HIVES/ITCHI Verified 07/15/20 12:52 NG Penicillins Allergy Intermediate HIVES Verified 07/15/20 12:52 metronidazole Allergy Mild blisters Verified 07/15/20 12:52 adhesive AdvReac Mild SKIN Verified 07/15/20 12:52 TEARING AND IRRITATION Consultations 07/15/20 14:51 ED Decision to Admit Stat Ordered Studies 07/15/20 12:33 CT abd pelvis IV con only Stat 07/15/20 16:38 MR abdomen wo/w con Routine Hospital Course (1) Pancreatitis: 54-year-old woman with a past medical history of alcohol abuse/dependence with a history of alcoholic pancreatitis, recently treated for pancreatitis in [facility], who presents to the emergency department with upper abdominal pain and nausea over the past 24 hours after resumption of alcohol intake. She admits to only drinking alcohol over the last 2 days prior to admission, and says she drank due to stress. Upon evaluation with patient at bedside this morning, she states that she feels much better and she would like to continue to advance her diet. She denies any pain at this time and specifically rates the current pain at a 0/10. Patient is requesting d/c home today. She denies persistent nausea. Patient denies fever, chills, CP, SOB, leg pain, or leg swelling. Acute alcoholic pancreatitis - Patient feeling better this morning, minimal continued abdominal discomfort and complaint of nausea has resolved - Lipase trended down - 4151, then 1822, 638 yesterday, and 372 on day of discharge. - She received Zofran 4mg IV q6h prn and Promethazine 12.5 mg IV q6h PRN for nausea. - Received IV Morphine sulfate for pain and dose was weaned from 4mg IV q3h prm to 2mg IV q3h PRN yesterday - Advanced diet from NPO to clear liquids to soft foods to normal (diabetic /heart healthy) diet. - Recommended that patient abstain from alcohol use Alcohol use disorder - During hospital stay, patient did not exhibit sign/symptoms of acute withdra wal. She did have AWSS protocol in place. - Consider starting naltrexone 50 mg PO in outpatient follow up HTN - Continue home meds - furosemide 20mg PO qAM, lisinopril 40mg PO qAM, amlodipine 5mg PO qAM DM - HbA1c 5.7 - Blood sugars currently well controlled - Patient's compliance to home glimepiride 1mg PO daily is questionable Depression/Anxiety - uncontrolled symptoms. - c/w home clonazepam 1mg PO BID - c/w home bupropion 200mg PO BID - risperdone and neurontin were held while in hospital - resumed on discharge. - Pt explained more about hx of anxiety and depression during her stay - It was recommend that she re-establish care with therapist, Krysten Reed, upon d/c from hospital - Pt also with nystagmus reportedly associated to anxiety- Advised patient to discuss/consider this with her PCP and therapist, Can also plan for speech therapy consult for cognition therapy after d/c. - Pt agrees with plan of care Recommend outpatient follow up this week. FENGI: Recommend diabetic/heart healthy diet at discharge DVT prophylaxis: patient received Lovenox 40mg SQ q12h while admitted Dispo: Discharge to home from Med/surg Code: Full Code (2) Abdominal pain: (3) Hypertension: (4) DVT prophylaxis: (5) Renal mass: (6) Alcohol abuse: Total Time Total Time Spent Total Time Spent (In Minutes): See attending attestation Discharge Plan Discharge Items Patient Disposition: Home - Self-Care Reason For Visit: RECURRENT PANCREATITIS Discharge Diagnosis: Acute alcoholic pancreatitis Condition on Discharge: Fair Activity: Resume your previous activity Non-emergency contact: Primary Care Provider Call non-emergency contact if: you have any medication questions and your symptoms worsen Follow-up/Referrals: Emily Casanova CRNP [Primary Care Provider] - Diet: Carb Consistent or DM2 and Heart Healthy Addtl Attending Provider Instructions: You came to [facility] with complaints of abdominal pain and nausea after resuming alcohol intake. You were found to have pancreatitis due to alcohol consumption. You were treated with intravenous fluids, pain medication, and nausea medications. You progressed well during your stay and were able to resume a more normal diet. You were counseled about your alcohol use and expressed you would like help in managing it. You were informed that there are medications available that may help--in your case, naltrexone. It was advised that you discuss the naltrexone at your follow up appointment. You also expressed concern about your anxiety, depression, and current life stressors. Please continue to talk to us about these concerns in the office. You should also reach out to your therapist, Krysten Reed, to try and re-establish care. Please resume your home medications as prescribed. Pending Studies at Discharge: No Stand-Alone Forms: My [employer], Smoking Cessation Medications and DC Order Prescriptions: Continued risperidone 1 mg Tablet 1 mg PO QPM RF: 0 cholecalciferol (vitamin D3) [Vitamin D3] 1,000 unit Capsule 1,000 unit PO DAILY RF: 0 omeprazole 20 mg Tablet,Delayed Release (Dr/Ec) 20 mg PO DAILY PRN (Reason: reflux) RF: 0 milk thistle seed extract 175 mg Capsule 175 mg PO DAILY RF: 0 magnesium 200 mg tablet 200 mg PO BID Qty: 60 RF: 0 clonazepam [Klonopin] 1 mg tablet 1 mg PO BID RF: 0 lisinopril [Zestril] 40 mg Tablet 40 mg PO QAM Qty: 30 RF: 0 folic acid 1 mg Tablet 1 mg PO QAM Qty: 30 RF: 0 thiamine HCl (vitamin B1) 100 mg tablet 100 mg PO DAILY Qty: 30 RF: 0 metoprolol tartrate 100 mg tablet 100 mg PO BID RF: 0 amlodipine 5 mg tablet 5 mg PO QAM RF: 0 glimepiride 1 mg tablet 1 mg PO DAILY RF: 0 furosemide 20 mg tablet 20 mg PO QAM RF: 0 gabapentin 300 mg Capsule 600 mg PO QAM RF: 0 gabapentin 300 mg capsule 300 mg PO QPM RF: 0 bupropion HCl 200 mg tablet sustained-release 12 hr 200 mg PO BID RF: 0 Discharge Orders: Discharge Order (Routine); Ordered 07/18/20 Ordered By: Emilee Tubbs Admission Data Admit Date/Time: 07/15/20 16:04 Attending Provider: Ramona Tomlin Admit Provider: Zacarias Taylor Primary Care Provider: Emily Casanova Other Providers: Zacarias Taylor Other Interventions: Discharge Summary Assessment (RN) Last Done: 07/18/20 10:39 Supervising Physician Co-Signing Physician Notes Resident Physician Supervision Note: I independently interviewed and examined the patient and verified the bowser history and physical, reviewed labs and image studies, discussed the case with the resident Dr. Tubbs and agree with the findings and care plan.
[2020-07-18] MEDS ORDERED: risperiDONE 1 MG TABLET PO SCH (21:00)
== END 2020-07-18 16:07 | disposition home or self-care (01) | DRG 439 ==
LOC: ED 11:41 → SUATTDRO 16:04 → 2N 16:04

== ENCOUNTER 2021-04-24 08:58 | Inpatient (IN) ==
[2021-04-24] MEDS ORDERED: KETOROLAC TROMETHAMINE 15 MG/ML VIAL IV STA (09:09)
[2021-04-24] MEDS ORDERED: SODIUM CHLORIDE 0.9% 1000ML 1,000 ML IV ONE (09:09)
[2021-04-24] MEDS ORDERED: ONDANSETRON INJ 2 MG/ML 2 ML VIAL IV STA (09:09)
--- NOTE | 2021-04-24 09:25 | Emergency Department Note ---
History of Present Illness General Chief Complaint: GI Assessment Stated Complaint: PANCREATITIS Time Seen by Provider: 04/24/21 09:09 History of Present Illness Provider Complaint: abdominal pain Onset (ago): 3 day(s) Pain Consistency: constant Location: epigastric Radiation: none Severity: moderate Maximum Pain Intensity: 7 Current Pain Intensity: 7 Quality: + stabbing, + aching, + sharp and + dull Relieved By: + nothing Exacerbated By: + nothing Context: + history of similar episodes (Multiple episodes of pancreatitis secondary to alcohol abuse. Patient drank alcohol again starting 3 days ago. She states for the last 3 days she has been drinking a sixpack and a half a pint.) Associated Symptoms: + nausea and + vomiting (1 episode yesterday); no diarrhea, no fever, no chills, no constipation, no dysuria, no hematemesis, no hematochezia, no melena, no hematuria, no anorexia, no headache, no neck pain, no back pain, no chest pain, no weakness and no breathing difficulty Related Data Patient Confirmed : No Home Medications Medication Instructions Recorded Confirmed Type cholecalciferol (vitamin D3) 1,000 unit PO DAILY 11/10/18 07/15/20 History [Vitamin D3] milk thistle seed extract 175 mg PO DAILY 11/10/18 07/15/20 History omeprazole 20 mg PO DAILY PRN 11/10/18 07/15/20 History risperidone 1 mg PO QPM 11/10/18 07/15/20 History magnesium 200 mg PO BID #60 tab 11/11/18 07/15/20 Rx clonazepam [Klonopin] 1 mg PO BID 11/18/18 07/15/20 History folic acid 1 mg PO QAM #30 tab 10/06/19 07/15/20 Rx lisinopril [Zestril] 40 mg PO QAM #30 tab 10/06/19 07/15/20 Rx thiamine HCl (vitamin B1) 100 mg PO DAILY #30 tab 10/06/19 07/15/20 Rx amlodipine 5 mg PO QAM 03/21/20 07/15/20 History furosemide 20 mg PO QAM 03/21/20 07/15/20 History metoprolol tartrate 100 mg PO BID 03/21/20 07/15/20 History bupropion HCl 200 mg PO BID 07/15/20 07/15/20 History gabapentin 300 mg PO QPM 07/15/20 07/15/20 History gabapentin 600 mg PO QAM 07/15/20 07/15/20 History Allergies Allergy/AdvReac Type Severity Reaction Status Date / Time ampicillin Allergy Intermediate hives Verified 07/15/20 12:52 cephalexin Allergy Intermediate HIVES/ITCHI Verified 07/15/20 12:52 NG Penicillins Allergy Intermediate HIVES Verified 07/15/20 12:52 metronidazole Allergy Mild blisters Verified 07/15/20 12:52 adhesive AdvReac Mild SKIN Verified 07/15/20 12:52 TEARING AND IRRITATION Past Med/Surg History Medical History (Updated 04/24/21 @ 10:50 by James Garnett) Acute anxiety Ankle fracture right Depression Fracture of left tibia and fibula plate, screws Nystagmus Suicidal ideation Thiamine deficiency Surgical History H/O meniscectomy of right knee H/O oophorectomy left History of appendectomy History of colon resection Hx of tonsillectomy Family History Father Hypertension Sister Colonic polyp Other No pertinent family history Denies family history of Ovarian cancer Breast cancer Colorectal cancer Social History Smoking Status: Never smoker Second Hand Exposure: No; Hx Alcohol Use: Yes Alcohol type: wine Hx Substance Use: No Preferred Language: Tamazight Communication Ability: Effective Electrolysist Required: No Beliefs That Will Affect Care: None Current Living Situation: Spouse Feels Safe at Home: Yes Assistive Devices: Cane Review of Systems A total of 10 systems reviewed and were otherwise negative Physical Exam Vital Signs: Vital Signs - 24 hr 04/24/21 09:03 04/24/21 10:07 Temperature 36.6 C 36.7 C Temperature Source Temporal Artery Sc an Oral Pulse Rate 79 63 Pulse Rate [Right Finger] 65 Respiratory Rate 20 14 Respiratory Effort / Characteristics Non-Labored Sponta neous Respiratory Depth Normal Respiratory Patter n Regular Blood Pressure 116/87 Blood Pressure [Le ft Arm] 139/98 Blood Pressure Verito n 96 Blood Pressure Verito n [Left Arm] 111 Blood Pressure Pos ition Sitting Blood Pressure Pos ition [Left Arm] Lying Pulse Oximetry 96 96 Oxygen Delivery Me thod Room Air Room Air Sepsis Recent Feve r Within 48 Hours No Sepsis New/Unexpla ined Change in Men bne Status N/A Sepsis Action Take n by Nursing No Action Required Physical Exam: Physical Exam GENERAL: She is oriented to person, place, and time. She appears well-developed and well-nourished. She does not appear distressed. HENT: Exam performed. -Head: Normocephalic and atraumatic. -Right Ear: External ear normal. No mastoid tenderness. -Left Ear: External ear normal. No mastoid tenderness. -Mouth/Throat: The oropharynx is clear and moist. No trismus in the jaw. No dental abscesses or uvula swelling. No oropharyngeal exudate or tonsillar abscesses. EYES: Conjunctivae and EOM are normal. Pupils are equal, round, and reactive to light. Right eye exhibits no discharge. Left eye exhibits no discharge. No scleral icterus. NECK: Normal range of motion. Neck supple. No JVD present. No spinous process tenderness present. No carotid bruit present. No rigidity. No tracheal deviation and normal range of motion present. No Brudzinski's sign and no Kernig's sign noted. CV: Normal rate, regular rhythm, normal heart sounds and intact distal pulses. There is no peripheral edema. Palpable radial pulses bue. PULM/CHEST: Effort normal and breath sounds normal. No respiratory distress. No stridor. She has no wheezes. She has no rales. -Chest Wall: She exhibits no tenderness. ABD: The abdomen is soft. Bowel sounds are normal. She has no distension. No mass is present. There is tenderness to palpation of the epigastric area. There is no rebound, no guarding, no Mejia's sign and no tenderness at McBurney's point. Rovsig negative MUSC/SKEL: Normal range of motion. There is no peripheral edema, tenderness or deformity. LYMPH: No cervical adenopathy. NEURO: She is alert and oriented to person, place, and time. She has normal strength. No cranial nerve deficit or sensory deficit. Coordination and gait normal. GCS eye subscore is 4. GCS verbal subscore is 5. GCS motor subscore is 6. Cerebellar tests wnl. SKIN: Skin is warm and dry. She is not diaphoretic. PSYCH: She has a normal mood and affect. Behavior is normal. Judgment and thought content normal. Course Course 908: The patient was evaluated in room B5. A complete history and physical exam was performed Cardiac monitoring: An order was placed for continuous cardiac monitoring. The monitor shows a rate of 80 with sinus rhythm 1048: Vital signs stable. Labs show an elevated lipase level. Patient will be admitted to the [facility] team for pancreatitis. Administered Medications Discontinued Medications Sodium Chloride (Nss 1000ml) 1,000 mls @ 999 mls/hr IV .Q1H1M ONE Stop: 04/24/21 10:09 Last Admin: 04/24/21 09:45 Dose: 999 mls/hr Documented by: [id number] Ketorolac Tromethamine (Ketorolac Tromethamine 15 Mg/Ml Vial) 15 mg IV NOW STA Stop: 04/24/21 09:10 Last Admin: 04/24/21 09:44 Dose: 15 mg Documented by: [id number] Ondansetron HCl (Ondansetron Inj 2 Mg/Ml 2 Ml Vial) 4 mg IV NOW STA Stop: 04/24/21 09:10 Last Admin: 04/24/21 09:44 Dose: 4 mg Documented by: [id number] Medical Decision Making Laboratory Data Result diagrams: 04/24/21 09:22 04/24/21 09:22 Lab Results 04/24/21 04/24/21 04/24/21 Range/Units 09:22 09:22 09:22 WBC 6.99 (4.8-10.8) K/uL RBC 4.47 (4.2-5.4) M/uL Hgb 14.8 (12.0-16.0) g/dL Hct 42.0 (37-47) % MCV 94.0 (80-100) fL MCH 33.1 (25-34) pg MCHC 35.2 (32-36) g/dL RDW Std Deviation 44.2 (36.4-46.3) fL RDW Coeff of Raffy 12.9 (11.5-14.5) % Plt Count 247 (130-400) K/uL MPV 8.7 (7.4-10.4) fL Immature Gran % (Auto) 0.1 % Neut % (Auto) 67.5 % Lymph % (Auto) 21.6 % Finney % (Auto) 7.4 % Eos % (Auto) 3.1 % Baso % (Auto) 0.3 % Neut # (Auto) 4.71 (1.4-6.5) K/uL Lymph # (Auto) 1.51 (1.2-3.4) K/uL Finney # (Auto) 0.52 (0.11-0.59) K/uL Eos # (Auto) 0.22 (0-0.5) K/uL Baso # (Auto) 0.02 (0-0.2) K/uL Immature Gran # (Auto) 0.01 (0.00-0.02) K/uL Sodium 130 L (136-145) mmol/L Potassium 3.9 (3.5-5.1) mmol/L Chloride 95 L (98-107) mmol/L Carbon Dioxide 26 (21-32) mmol/L Anion Gap 9.0 (3-11) BUN 9 (7-18) mg/dl Creatinine 0.93 (0.6-1.2) mg/dl Est Cr Clr Drug Dosing 88.3 ml/min Est GFR ( Amer) 80.8 ml/min Est GFR (Non-Af Amer) 69.7 ml/min BUN/Creatinine Ratio 10.1 (10-20) Glucose 153 H (70-99) mg/dl Calcium 9.6 (8.5-10.1) mg/dl Total Bilirubin 1.1 H (0.2-1) mg/dl Direct Bilirubin 0.3 H (0-0.2) mg/dl AST 34 (15-37) U/L ALT 28 (12-78) U/L Alkaline Phosphatase 76 (45-117) U/L Total Protein 7.8 (6.4-8.2) gm/dl Albumin 3.7 (3.4-5.0) gm/dl Lipase 2761 H (73-393) U/L Urine Color Urine Appearance (Clear) Urine pH (4.5-7.5) Ur Specific [place] (1.000-1.030) Urine Protein (Negative) Urine Glucose (UA) (Negative) Urine Ketones (Negative) Urine Blood (Negative) Urine Nitrite (Negative) Urine Bilirubin (Negative) Urine Urobilinogen (Negative) Ur Leukocyte Esterase (Negative) Urine WBC (Auto) (0-5) /hpf Urine RBC (Auto) (0-4) /hpf U Hyaline Cast (Auto) (0-5) /lpf U Epithel Cells (Auto) (0-5) /lpf Urine Bacteria (Auto) (Negative) POC Ur Test (NEG) 04/24/21 04/24/21 Range/Units 09:37 10:07 WBC (4.8-10.8) K/uL RBC (4.2-5.4) M/uL Hgb (12.0-16.0) g/dL Hct (37-47) % MCV (80-100) fL MCH (25-34) pg MCHC (32-36) g/dL RDW Std Deviation (36.4-46.3) fL RDW Coeff of Raffy (11.5-14.5) % Plt Count (130-400) K/uL MPV (7.4-10.4) fL Immature Gran % (Auto) % Neut % (Auto) % Lymph % (Auto) % Finney % (Auto) % Eos % (Auto) % Baso % (Auto) % Neut # (Auto) (1.4-6.5) K/uL Lymph # (Auto) (1.2-3.4) K/uL Finney # (Auto) (0.11-0.59) K/uL Eos # (Auto) (0-0.5) K/uL Baso # (Auto) (0-0.2) K/uL Immature Gran # (Auto) (0.00-0.02) K/uL Sodium (136-145) mmol/L Potassium (3.5-5.1) mmol/L Chloride (98-107) mmol/L Carbon Dioxide (21-32) mmol/L Anion Gap (3-11) BUN (7-18) mg/dl Creatinine (0.6-1.2) mg/dl Est Cr Clr Drug Dosing ml/min Est GFR ( Amer) ml/min Est GFR (Non-Af Amer) ml/min BUN/Creatinine Ratio (10-20) Glucose (70-99) mg/dl Calcium (8.5-10.1) mg/dl Total Bilirubin (0.2-1) mg/dl Direct Bilirubin (0-0.2) mg/dl AST (15-37) U/L ALT (12-78) U/L Alkaline Phosphatase (45-117) U/L Total Protein (6.4-8.2) gm/dl Albumin (3.4-5.0) gm/dl Lipase (73-393) U/L Urine Color Dark Yellow Urine Appearance Cloudy A (Clear) Urine pH 6.0 (4.5-7.5) Ur Specific [place] 1.013 (1.000-1.030) Urine Protein Negative (Negative) Urine Glucose (UA) Negative (Negative) Urine Ketones Negative (Negative) Urine Blood Negative (Negative) Urine Nitrite Negative (Negative) Urine Bilirubin Negative (Negative) Urine Urobilinogen Negative (Negative) Ur Leukocyte Esterase Negative (Negative) Urine WBC (Auto) 1-5 (0-5) /hpf Urine RBC (Auto) 0-4 (0-4) /hpf U Hyaline Cast (Auto) 5-10 H (0-5) /lpf U Epithel Cells (Auto) >30 H (0-5) /lpf Urine Bacteria (Auto) Negative (Negative) POC Ur Test NEG (NEG) MDM Narrative Vital signs stable. Labs show an elevated lipase level. Patient will be admitted to the [facility] team for pancreatitis. Impression & Plan Acute pancreatitis Discharge Plan Visit Data Chief Complaint: GI Assessment Stated Complaint: PANCREATITIS ED Provider: James Garnett Discharge Problem: Acute pancreatitis Patient Disposition: Admitted As Inpatient Forms Stand Alone Forms: My [facility] Prescriptions Prescriptions: No Action risperidone 1 mg Tablet 1 mg PO QPM RF: 0 cholecalciferol (vitamin D3) [Vitamin D3] 1,000 unit Capsule 1,000 unit PO DAILY RF: 0 omeprazole 20 mg Tablet,Delayed Release (Dr/Ec) 20 mg PO DAILY PRN (Reason: reflux) RF: 0 milk thistle seed extract 175 mg Capsule 175 mg PO DAILY RF: 0 magnesium 200 mg tablet 200 mg PO BID Qty: 60 RF: 0 clonazepam [Klonopin] 1 mg tablet 1 mg PO BID RF: 0 lisinopril [Zestril] 40 mg Tablet 40 mg PO QAM Qty: 30 RF: 0 folic acid 1 mg Tablet 1 mg PO QAM Qty: 30 RF: 0 thiamine HCl (vitamin B1) 100 mg tablet 100 mg PO DAILY Qty: 30 RF: 0 metoprolol tartrate 100 mg tablet 100 mg PO BID RF: 0 amlodipine 5 mg tablet 5 mg PO QAM RF: 0 furosemide 20 mg tablet 20 mg PO QAM RF: 0 gabapentin 300 mg Capsule 600 mg PO QAM RF: 0 gabapentin 300 mg capsule 300 mg PO QPM RF: 0 bupropion HCl 200 mg tablet sustained-release 12 hr 200 mg PO BID RF: 0 Referrals Referrals: Emily Casanova CRNP [Primary Care Provider] - Discharge Problem: Acute pancreatitis Qualifiers: Pancreatitis type: alcohol induced Acute pancreatitis complication: unspecified Qualified Code(s): K85.20 - Alcohol induced acute pancreatitis without necrosis or infection
[2021-04-24 09:46] LABS: Basophils # (auto) 0.02 K/uL (0-0.2); Basophils % (auto) 0.3 %; Eosinophils # (auto) 0.22 K/uL (0-0.5); Eosinophils % (auto) 3.1 %; Hemoglobin 14.8 g/dL (12.0-16.0); Immature Granulocytes # (auto) 0.01 K/uL (0.00-0.02); Immature Granulocytes % (auto) 0.1 %; Lymphocytes # (auto) 1.51 K/uL (1.2-3.4); Lymphocytes % (auto) 21.6 %; Mean Corpuscular Hemoglobin 33.1 pg (25-34); Mean Corpuscular Hgb Conc 35.2 g/dL (32-36); Mean Platelet Volume 8.7 fL (7.4-10.4); Monocytes # (auto) 0.52 K/uL (0.11-0.59); Monocytes % (auto) 7.4 %; Neutrophils # (auto) 4.71 K/uL (1.4-6.5); Neutrophils % (auto) 67.5 %; Platelet Count 247 K/uL (130-400); RDW Coefficient of Variation 12.9 % (11.5-14.5); RDW Standard Deviation 44.2 fL (36.4-46.3); Red Blood Count 4.47 M/uL (4.2-5.4); White Blood Count 6.99 K/uL (4.8-10.8)
[2021-04-24 10:03] LABS: Albumin Level 3.7 gm/dl (3.4-5.0); BUN Creatinine Ratio 10.1 (10-20); Bilirubin Direct 0.3 mg/dl (0-0.2); Calcium 9.6 mg/dl (8.5-10.1); Creatinine Clr Calc Pharmacy 88.3 ml/min; Est GFR (African American) 80.8 ml/min; Est GFR (Non-African American) 69.7 ml/min; Potassium 3.9 mmol/L (3.5-5.1)
[2021-04-24 10:06] LABS: Appearance Urine Cloudy (Clear); Bacteria Urine Automated Negative (Negative); Bilirubin Urine Negative (Negative); Blood Urine Negative (Negative); Color Urine Dark Yellow; Epithelial Cell Urine Auto >30 /lpf (0-5); Glucose Urine UA Negative (Negative); Ketones Urine Negative (Negative); Leukocyte Esterase Urine Negative (Negative); Nitrite Urine Negative (Negative); Protein Urine Negative (Negative); RBC Urine Automated 0-4 /hpf (0-4); Specific Gravity Urine 1.013 (1.000-1.030); Urobilinogen Urine Negative (Negative)
[2021-04-24 10:06] LABS: Bilirubin,Total 1.1 mg/dl (0.2-1); Total Protein 7.8 gm/dl (6.4-8.2)
--- NOTE | 2021-04-24 12:26 | History & Physical Report ---
Date of Service April 24, 2021 Assessment & Plan (1) Acute alcoholic pancreatitis: Admit to a monitored bed Will make n.p.o. for now Hydrate with normal saline Monitor lipase, LFTs If patient continues to improve over the next 24 hours, consider advancement to clear liquids Check right upper quadrant ultrasound for completeness (2) Alcohol abuse: Currently showing no signs of acute alcohol withdrawal, last drink was over 72 hours ago Oral thiamine and folate repletion Will order WAAS scale for as needed Ativan dosing if needed. Continue Klonopin twice daily Patient may require outpatient alcohol rehab at some point, describes feelings of loneliness and isolation as causes for her drinking (3) Hyponatremia: Suspect this may be due to the patient's clear liquid diet over the past few days in combination with diuretics We will hold diuretics Hydration with normal saline as above Monitor renal function and sodium level Check magnesium (4) Hypertension: Continue outpatient medications with exception of furosemide Monitor blood pressure (5) Renal mass: Patient has recent diagnosis of a renal mass, unclear etiology. Patient is scheduled further outpatient work-up and should be encouraged to follow-up with us History of Present Illness Chief Complaint: abd pain Primary Care Provider: LATIA Johnson This is a 55-year-old female with past medical history of pancreatitis, acute alcoholism who presents today complaining of abdominal pain. Patient is pleasant good historian. Patient tells me that she has had issues with alcoholism in the past but was not drinking. Or recently she did start to drink again and has been consuming a sixpack along with a pint of hard liquor. Approximately 3 days ago she started with abdominal pain. This is consistent with her previous pancreatitis symptoms. She tells me her last alcoholic drink was 6/3. She has had no signs of withdrawal. Her abdominal pain has eased slightly and she debated coming to the hospital but eventually came out for further management. Patient denies fever or chills but is having some nausea. She denies any constipation but has had some diarrhea. She has tried to continue a clear liquid diet over the past few days. At the time my evaluation she was awake and alert and was in no obvious distress. Allergies Allergy/AdvReac Type Severity Reaction Status Date / Time ampicillin Allergy Intermediate hives Verified 04/24/21 11:12 cephalexin Allergy Intermediate HIVES/ITCHI Verified 04/24/21 11:12 NG Penicillins Allergy Intermediate HIVES Verified 04/24/21 11:12 metronidazole Allergy Mild blisters Verified 04/24/21 11:12 adhesive AdvReac Mild SKIN Verified 04/24/21 11:12 TEARING AND IRRITATION Home Medications Medication Instructions Recorded Confirmed Type cholecalciferol (vitamin D3) 1,000 unit PO QAM 11/10/18 04/24/21 History [Vitamin D3] milk thistle seed extract 175 mg PO PM 11/10/18 04/24/21 History omeprazole 20 mg PO DAILY PRN 11/10/18 04/24/21 History risperidone 1 mg PO QPM 11/10/18 04/24/21 History magnesium 200 mg PO BID #60 tab 11/11/18 04/24/21 Rx clonazepam [Klonopin] 1 mg PO BID 11/18/18 04/24/21 History folic acid 1 mg PO QAM #30 tab 10/06/19 04/24/21 Rx lisinopril [Zestril] 40 mg PO QAM #30 tab 10/06/19 04/24/21 Rx amlodipine 5 mg PO QAM 03/21/20 04/24/21 History furosemide 20 mg PO QAM 03/21/20 04/24/21 History metoprolol tartrate 100 mg PO BID 03/21/20 04/24/21 History bupropion HCl 200 mg PO BID 07/15/20 04/24/21 History gabapentin 300 mg PO QPM 07/15/20 04/24/21 History gabapentin 600 mg PO QAM 07/15/20 04/24/21 History sertraline 25 mg PO QAM 04/24/21 04/24/21 History thiamine HCl (vitamin B1) 100 mg PO PM 04/24/21 04/24/21 History Past Med/Surg History Medical History Acute anxiety Ankle fracture right Depression Fracture of left tibia and fibula plate, screws Nystagmus Suicidal ideation Thiamine deficiency Surgical History H/O meniscectomy of right knee H/O oophorectomy left History of appendectomy History of colon resection Hx of tonsillectomy Family History Father Hypertension Sister Colonic polyp Other No pertinent family history Denies family history of Ovarian cancer Breast cancer Colorectal cancer Social History Smoking Status: Never smoker Second Hand Exposure: No; Hx Alcohol Use: Yes Alcohol type: wine Hx Substance Use: No Preferred Language: Chinese Communication Ability: Effective Nurse Practitioner Manager Required: No Beliefs That Will Affect Care: None Current Living Situation: Spouse Feels Safe at Home: Yes Assistive Devices: Cane Review of Systems Constitutional: no fever, no chills, no weakness, no weight loss and no weight gain Eyes: as per Subjective / HPI Respiratory: no cough, no chest congestion, no dyspnea and no dyspnea on exertion Cardiovascular: no chest pain, no orthopnea, no palpitations, no lightheadedness and no edema Gastrointestinal: + abdominal pain, + nausea and + diarrhea/loose stools; no vomiting and no constipation Genitourinary: no dysuria, no difficulty urinating, no urinary frequency, no urinary hesitancy, no urinary urgency and no flank pain Musculoskeletal: no back pain, no neck pain, no joint pain, no stiffness and no myalgia Integumentary: no rash Neurologic: no gait abnormality, no unsteadiness, no falls and no generalized weakness Physical Exam Constitutional: cooperative; no acute distress Eyes: + anicteric sclerae Neck: trachea midline, no thyromegaly Respiratory: normal respiratory effort Auscultation: lungs clear to auscultation bilaterally; no crackles, no rales, no rhonchi and no wheezes Cardiovascular: Rate/Rhythm: regular rate and regular rhythm Heart Sounds: normal S1 and normal S2; no murmur Gastrointestinal (Abdomen): Inspection/Auscultation: abdomen normal to inspection and + hyperactive bowel sounds Percussion/Palpation: + abdomen tender and abdomen soft; no guarding, abdomen not rigid and no hepatosplenomegaly Skin: no rashes, warm and dry no jaundice Neurologic: PERRL, EOMI, accommodation nl, no face palsy, no dysarthria Results & Data Results & Data ([facility]) Vital Signs (Past 12 Hours) Vital Signs Temp Pulse Pulse Resp BP BP Pulse Ox 04/24/21 11:30 61 14 159/91 H 97 04/24/21 11:02 66 18 128/84 97 04/24/21 11:00 66 18 04/24/21 10:31 63 14 195/118 H 04/24/21 10:07 36.7 C 63 65 14 139/98 96 04/24/21 10:00 65 20 139/98 96 04/24/21 09:50 67 11 L 169/110 H 04/24/21 09:03 36.6 C 79 20 116/87 96 PG Care Time/CCT Total # of Minutes Spent Total Time Spent with Patient: Total time spent is greater than 50% in coordination of care (as documented) at patient's floor/unit and/or counseling patient: Coding Level of Care Code 63633 Initial Inpt Care Lvl 3 Diagnoses Acute alcoholic pancreatitis K85.20 Alcohol abuse F10.10 Hyponatremia E87.1 Hypertension I10 Hypertension type: essential hypertension Renal mass N28.89 (1) Hypertension Hypertension type: essential hypertension Qualified Code(s): I10 - Essential (primary) hypertension
[2021-04-24] MEDS ORDERED: LORazepam 1 MG/2 ML VIAL IV PRN (14:24)
[2021-04-24] MEDS ORDERED: LORazepam 1 MG TAB PO PRN (14:24)
[2021-04-24] MEDS ORDERED: PANTOprazole 40 MG TAB PO PRN (14:36)
[2021-04-24] MEDS: SODIUM CHLORIDE 0.9% 1000ML 1,000 ML IV SCH ×2 (14:56→22:45)
[2021-04-24] MEDS: HYDROmorphone INJ 0.5 MG/0.5 ML SYR IV PRN ×2 (15:02→21:10)
[2021-04-24] MEDS: ONDANSETRON INJ 2 MG/ML 2 ML VIAL IV PRN ×2 (15:47→21:10)
[2021-04-24] MEDS: ENOXAPARIN INJ 40 MG/0.4 ML SYR SQ SCH (16:11)
[2021-04-24] MEDS: MAGNESIUM OXIDE 400 MG TAB PO SCH (20:08)
[2021-04-24] MEDS: THIAMINE HCL 100 MG TAB PO SCH (20:08)
[2021-04-24] MEDS: risperiDONE 1 MG TABLET PO SCH (20:08)
[2021-04-24] MEDS: METOPROLOL TARTRATE 100 MG TAB PO SCH (20:08)
[2021-04-24] MEDS: GABAPENTIN 300 MG CAP PO SCH (20:09)
[2021-04-24] MEDS: buPROPion SR 100 MG TABCR PO SCH (20:09)
[2021-04-24] MEDS: clonazePAM 1 MG TAB PO SCH (20:57)
[2021-04-25] MEDS: HYDROmorphone INJ 0.5 MG/0.5 ML SYR IV PRN ×4 (03:11→22:03)
[2021-04-25 05:38] LABS: Basophils # (auto) 0.01 K/uL (0-0.2); Basophils % (auto) 0.2 %; Eosinophils # (auto) 0.26 K/uL (0-0.5); Eosinophils % (auto) 5.7 %; Hematocrit (blood only) 37.1 % (37-47); Hemoglobin 12.6 g/dL (12.0-16.0); Immature Granulocytes # (auto) 0.01 K/uL (0.00-0.02); Immature Granulocytes % (auto) 0.2 %; Lymphocytes # (auto) 1.29 K/uL (1.2-3.4); Lymphocytes % (auto) 28.2 %; Mean Corpuscular Hemoglobin 32.3 pg (25-34); Mean Corpuscular Volume 95.1 fL (80-100); Mean Platelet Volume 8.5 fL (7.4-10.4); Monocytes # (auto) 0.47 K/uL (0.11-0.59); Monocytes % (auto) 10.3 %; Neutrophils # (auto) 2.53 K/uL (1.4-6.5); Neutrophils % (auto) 55.4 %; Platelet Count 195 K/uL (130-400); White Blood Count 4.57 K/uL (4.8-10.8)
[2021-04-25 06:09] LABS: Albumin Globulin Ratio 0.9 (0.9-2); Albumin Level 2.9 gm/dl (3.4-5.0); BUN Creatinine Ratio 14.2 (10-20); Bilirubin,Total 0.8 mg/dl (0.2-1); Calcium 8.4 mg/dl (8.5-10.1); Creatinine Clr Calc Pharmacy 157.8 ml/min; Est GFR (African American) 125.5 ml/min; Est GFR (Non-African American) 108.3 ml/min; Globulin 3.3 gm/dl (2.5-4.0); Potassium 3.9 mmol/L (3.5-5.1); Total Protein 6.2 gm/dl (6.4-8.2)
[2021-04-25] MEDS: SODIUM CHLORIDE 0.9% 1000ML 1,000 ML IV SCH ×3 (06:46→22:05)
--- NOTE | 2021-04-25 07:20 | Ultrasound Report ---
ABDOMINAL ULTRASOUND, RIGHT UPPER QUADRANT HISTORY: acute pancreatitis. COMPARISON: Abdomen and pelvis CT 07/15/2020. FINDINGS: Pancreas: Obscured by overlying bowel gas. Liver: The liver is echogenic consistent with fatty change. Gallbladder: No gallbladder wall thickening. No gallstones. CBD: 4 mm. Right kidney: No hydronephrosis. IMPRESSION: 1. The pancreas was obscured by overlying bowel gas. 2. Normal gallbladder. No gallstones. 3. Hepatic steatosis. ACT 112: Negative or not required by law. Electronically signed by: Roman Mars M.D. 04/25/2021 7:19 AM
[2021-04-25] MEDS: clonazePAM 1 MG TAB PO SCH ×2 (08:52→20:56)
[2021-04-25] MEDS: ONDANSETRON INJ 2 MG/ML 2 ML VIAL IV PRN ×2 (08:52→21:00)
[2021-04-25] MEDS: SERTRALINE HCL 50 MG TABLET PO SCH (08:52)
[2021-04-25] MEDS: GABAPENTIN 300 MG CAP PO SCH ×2 (08:57→20:47)
[2021-04-25] MEDS: lisinopril 40 MG TAB PO SCH (08:58)
[2021-04-25] MEDS: METOPROLOL TARTRATE 100 MG TAB PO SCH ×2 (08:58→20:48)
[2021-04-25] MEDS: amLODIPine BESYLATE 5 MG TAB PO SCH (08:58)
[2021-04-25] MEDS: buPROPion SR 100 MG TABCR PO SCH ×2 (08:58→20:45)
[2021-04-25] MEDS: MAGNESIUM OXIDE 400 MG TAB PO SCH ×2 (08:58→20:45)
[2021-04-25] MEDS: FOLIC ACID 1 MG TAB PO SCH (08:58)
[2021-04-25] MEDS: CHOLECALCIFEROL 1,000 UNITS 25 MCG TAB PO SCH (08:58)
[2021-04-25] MEDS: ENOXAPARIN INJ 40 MG/0.4 ML SYR SQ SCH (15:27)
--- NOTE | 2021-04-25 19:18 | Hospitalist Progress Note ---
Date of Service April 25, 2021 Assessment & Plan (1) Acute alcoholic pancreatitis: pain better, lipase down to 900's give liquid diet and monitor how she feels repeat labs continue fluids at 125cc/hr downgrade to medical floor likely home in 48 hours (2) Alcohol abuse: continues to show no signs of acute alcohol withdrawal, last drink was over 72 hours ago (at time of admission) Oral thiamine and folate repletion Patient may require outpatient alcohol rehab at some point, describes feelings of loneliness and isolation as causes for her drinking liver US with some steatosis but no other changes (3) Hyponatremia: Suspect this may be due to the patient's clear liquid diet over the past few days in combination with diuretics continue to hold diuretics Hydration with normal saline as above Na normal, Cr stable (4) Hypertension: Continue outpatient medications with exception of furosemide Monitor blood pressure, stable (5) Renal mass: Patient has recent diagnosis of a renal mass, unclear etiology. Patient is scheduled further outpatient work-up and should be encouraged to follow-up will likely get the imaging tomorrow as she does not have a car right now and lives far away Admission and Anticipated Discharge Date Admission Date: April 24, 2021 Subjective patient feeling better, less abdominal pain, has an appetite she is upset that she had a lapse and drank alcohol, has been under a lot of stress recently she thought just drinking a little would not cause her any problems with her pancreas I explained that her pancreas is very sensitive due to prior episodes, even a little alcohol could trigger pancreatitis lipase down to 900's, will give her liquid diet she asked about a previously scheduled CT abd/pelvis for her kidney, can get it tomorrow breathing well, no chest pain, no fever no alcohol withdrawal symptoms Review of Systems Review of Systems: All systems reviewed & are unremarkable except as noted in Subjective Physical Exam Constitutional: WD/WN, vitals as above + obese; no acute distress Neck: trachea midline, no thyromegaly Respiratory: normal respiratory effort, lungs clear to auscultation Cardiovascular: RRR, no murmur, no edema Gastrointestinal (Abdomen): Inspection/Auscultation: abdomen normal to inspection and normal bowel sounds; abdomen not distended Percussion/Palpation: + abdomen tender (epigastric) and abdomen soft; no guarding and abdomen not rigid Musculoskeletal: no cyanosis or clubbing, extremities motor strength 5/5 Skin: no rashes, warm and dry Neurologic: patellar DTR's 2+ bilat, sensation intact and PERRL, EOMI, accommodation nl, no face palsy, no dysarthria Psychiatric: A+Ox3, euthymic affect Lymphatic: no cervical or axillary lymphadenopathy Results & Data Results & Data ([facility]) Vital Signs (Past 12 Hours) Vital Signs Temp Pulse Pulse Pulse Resp BP Pulse Ox 04/25/21 16:49 68 04/25/21 15:23 36.4 C L 73 18 167/88 H 97 04/25/21 11:22 36.9 C 65 16 146/90 H 96 04/25/21 10:00 63 04/25/21 07:46 37.1 C 72 14 159/87 H 94 Laboratory Results Laboratory Results - last 24 hr 04/25/21 04/25/21 05:22 05:22 WBC 4.57 L RBC 3.90 L Hgb 12.6 Hct 37.1 MCV 95.1 MCH 32.3 MCHC 34.0 RDW Std Deviation 45.0 RDW Coeff of Raffy 13.0 Plt Count 195 MPV 8.5 Immature Gran % (Auto) 0.2 Neut % (Auto) 55.4 Lymph % (Auto) 28.2 [place] % (Auto) 10.3 Eos % (Auto) 5.7 Baso % (Auto) 0.2 Neut # (Auto) 2.53 Lymph # (Auto) 1.29 [place] # (Auto) 0.47 Eos # (Auto) 0.26 Baso # (Auto) 0.01 Immature Gran # (Auto) 0.01 Sodium 136 Potassium 3.9 Chloride 104 Carbon Dioxide 25 Anion Gap 7.0 BUN 7 Creatinine 0.52 L D Est Cr Clr Drug Dosing 157.8 Est GFR ( Amer) 125.5 Est GFR (Non-Af Amer) 108.3 BUN/Creatinine Ratio 14.2 Glucose 82 Calcium 8.4 L Magnesium 2.0 Total Bilirubin 0.8 AST 32 ALT 24 Alkaline Phosphatase 57 Total Protein 6.2 L D Albumin 2.9 L Globulin 3.3 Albumin/Globulin Ratio 0.9 Lipase 934 H Medications Administered Current Inpatient Medications Amlodipine Besylate (Amlodipine Besylate 5 Mg Tab) 5 mg PO QAM [facility] Stop: 05/25/21 08:59 Last Admin: 04/25/21 08:58 Dose: 5 mg Documented by: Bupropion HCl (Bupropion Sr 100 Mg Tabcr) 200 mg PO BID [facility] Stop: 05/24/21 20:59 Last Admin: 04/25/21 08:58 Dose: 200 mg Documented by: Clonazepam (Clonazepam 1 Mg Tab) 1 mg PO BID LONNY Stop: 05/24/21 20:59 Last Admin: 04/25/21 08:52 Dose: 1 mg Documented by: Enoxaparin Sodium (Enoxaparin Inj 40 Mg/0.4 Ml Syr) 40 mg SQ Q24H [facility] Stop: 05/24/21 14:59 Last Admin: 04/25/21 15:27 Dose: 40 mg Documented by: Folic Acid (Folic Acid 1 Mg Tab) 1 mg PO QAM [facility] Stop: 05/25/21 08:59 Last Admin: 04/25/21 08:58 Dose: 1 mg Documented by: Gabapentin (Gabapentin 300 Mg Cap) 600 mg PO QAM [facility] Stop: 05/25/21 08:59 Last Admin: 04/25/21 08:57 Dose: 600 mg Documented by: Gabapentin (Gabapentin 300 Mg Cap) 300 mg PO QPM [facility] Stop: 05/24/21 20:59 Last Admin: 04/24/21 20:09 Dose: 300 mg Documented by: Hydromorphone HCl (Hydromorphone Inj 0.5 Mg/0.5 Ml Syr) 0.5 mg IV Q6H PRN PRN Reason: Pain Stop: 05/08/21 14:23 Last Admin: 04/25/21 15:27 Dose: 0.5 mg Documented by: Lorazepam (Ativan) 1 mg in 2 mls @ 2 mls/min IV ONE PRN; Protocol PRN Reason: EtoH Withdrawal AWSS 6-10 Stop: 05/24/21 14:23 Sodium Chloride (Nss 1000ml) 1,000 mls @ 125 mls/hr IV .Q8H [facility] Stop: 05/24/21 14:23 Last Admin: 04/25/21 14:23 Dose: 125 mls/hr Documented by: Lisinopril (Lisinopril 40 Mg Tab) 40 mg PO QAM [facility] Stop: 05/25/21 08:59 Last Admin: 04/25/21 08:58 Dose: 40 mg Documented by: Lorazepam (Lorazepam 1 Mg Tab) 1 mg PO ONE PRN; Protocol PRN Reason: EtoH Withdrawal AWSS 6-10 Magnesium Oxide (Magnesium Oxide 400 Mg Tab) 200 mg PO BID LONNY Stop: 05/24/21 20:59 Last Admin: 04/25/21 08:58 Dose: 200 mg Documented by: Metoprolol Tartrate (Metoprolol Tartrate 100 Mg Tab) 100 mg PO BID LONNY Stop: 05/24/21 20:59 Last Admin: 04/25/21 08:58 Dose: 100 mg Documented by: Ondansetron HCl (Ondansetron Inj 2 Mg/Ml 2 Ml Vial) 4 mg IV Q6H PRN PRN Reason: Nausea Stop: 05/24/21 14:23 Last Admin: 04/25/21 08:52 Dose: 4 mg Documented by: Pantoprazole Sodium (Pantoprazole 40 Mg Tab) 40 mg PO DAILY PRN PRN Reason: reflux Stop: 05/24/21 14:35 Last Admin: 04/25/21 08:58 Dose: 40 mg Documented by: Risperidone (Risperidone 1 Mg Tablet) 1 mg PO QPM LONNY Stop: 05/24/21 20:59 Last Admin: 04/24/21 20:08 Dose: 1 mg Documented by: Sertraline HCl (Sertraline Hcl 50 Mg Tablet) 25 mg PO QAM LONNY Stop: 05/25/21 08:59 Last Admin: 04/25/21 08:52 Dose: 25 mg Documented by: Thiamine HCl (Thiamine Hcl 100 Mg Tab) 100 mg PO PM LONNY Stop: 05/24/21 20:59 Last Admin: 04/24/21 20:08 Dose: 100 mg Documented by: Vitamin D (Cholecalciferol 1,000 Units 25 Mcg Tab) 1,000 units PO QAM LONNY Stop: 05/25/21 08:59 Last Admin: 04/25/21 08:58 Dose: 1,000 units Documented by: PG Care Time/CCT Total # of Minutes Spent Total Time Spent with Patient: Total time spent is greater than 50% in coordination of care (as documented) at patient's floor/unit and/or counseling patient: Coding Level of Care Code 20302 Subseq Hosp Care Lvl 3 Diagnoses Acute alcoholic pancreatitis K85.20 Alcohol abuse F10.10 Hyponatremia E87.1 Hypertension I10 Hypertension type: essential hypertension Renal mass N28.89 (1) Hypertension Hypertension type: essential hypertension Qualified Code(s): I10 - Essential (primary) hypertension
[2021-04-25] MEDS: risperiDONE 1 MG TABLET PO SCH (20:46)
[2021-04-25] MEDS: THIAMINE HCL 100 MG TAB PO SCH (20:48)
[2021-04-26] MEDS: HYDROmorphone INJ 0.5 MG/0.5 ML SYR IV PRN ×4 (04:05→23:26)
[2021-04-26 06:28] LABS: Hemoglobin 12.1 g/dL (12.0-16.0); Mean Corpuscular Hgb Conc 33.6 g/dL (32-36); Mean Corpuscular Volume 95.2 fL (80-100); Mean Platelet Volume 8.5 fL (7.4-10.4); Platelet Count 179 K/uL (130-400); RDW Coefficient of Variation 12.8 % (11.5-14.5); RDW Standard Deviation 44.2 fL (36.4-46.3); Red Blood Count 3.78 M/uL (4.2-5.4); White Blood Count 4.03 K/uL (4.8-10.8)
[2021-04-26] MEDS: SODIUM CHLORIDE 0.9% 1000ML 1,000 ML IV SCH (06:29)
[2021-04-26 06:57] LABS: Albumin Level 2.9 gm/dl (3.4-5.0); BUN Creatinine Ratio 11.6 (10-20); Creatinine Clr Calc Pharmacy 157.3 ml/min; Est GFR (African American) 124.8 ml/min; Est GFR (Non-African American) 107.6 ml/min; Potassium 4.2 mmol/L (3.5-5.1)
[2021-04-26 07:00] LABS: Albumin Globulin Ratio 0.8 (0.9-2); Bilirubin,Total 0.9 mg/dl (0.2-1); Globulin 3.5 gm/dl (2.5-4.0); Total Protein 6.4 gm/dl (6.4-8.2)
[2021-04-26] MEDS: GABAPENTIN 300 MG CAP PO SCH ×2 (08:34→20:51)
[2021-04-26] MEDS: ONDANSETRON INJ 2 MG/ML 2 ML VIAL IV PRN ×2 (08:37→18:00)
[2021-04-26] MEDS: buPROPion SR 100 MG TABCR PO SCH ×2 (08:39→20:50)
[2021-04-26] MEDS: METOPROLOL TARTRATE 100 MG TAB PO SCH ×2 (08:39→20:51)
[2021-04-26] MEDS: CHOLECALCIFEROL 1,000 UNITS 25 MCG TAB PO SCH (08:41)
[2021-04-26] MEDS: lisinopril 40 MG TAB PO SCH (08:41)
[2021-04-26] MEDS: SERTRALINE HCL 50 MG TABLET PO SCH (08:41)
[2021-04-26] MEDS: FOLIC ACID 1 MG TAB PO SCH (08:42)
[2021-04-26] MEDS: MAGNESIUM OXIDE 400 MG TAB PO SCH ×2 (08:42→20:51)
[2021-04-26] MEDS: amLODIPine BESYLATE 5 MG TAB PO SCH (08:43)
[2021-04-26] MEDS: clonazePAM 1 MG TAB PO SCH ×2 (08:46→20:50)
[2021-04-26] MEDS ORDERED: OPTIRAY 320 100ml IV ONE (09:03)
--- NOTE | 2021-04-26 09:46 | CT Scan Report ---
ABDOMEN AND PELVIS CT WITH IV CONTRAST CT DOSE: 1638.51 mGy.cm HISTORY: Acute epigastric abdominal pain with history of pancreatitis follow up renal mass, pancreat itis TECHNIQUE: Multiaxial CT images of the abdomen and pelvis were performed following the IV administrat ion of 93 cc of Optiray, A dose lowering technique was utilized adhering to the principles of ALARA. COMPARISON STUDY: CT abdomen and pelvis 07/15/2020, MRI abdomen 07/15/2020 FINDINGS: The imaged inferior cardiac chambers are unremarkable. Clear lung bases. No pneumatosis or pneumoperi toneum. The spleen, adrenal glands and gallbladder are unremarkable. Hepatic steatosis. Patency of th e hepatic and portal veins. Mild to moderate glandular atrophy of the pancreas. No significant peripa ncreatic inflammatory stranding, pancreatic ductal dilation or peripancreatic fluid collection. Unremarkable appearance of the right kidney. Ill-defined 1.4 cm lesion of the posterior interpolar le ft kidney on image 192 is better characterized on comparison MRI and appears unchanged in size. There is no hydronephrosis. Urinary bladder wall thickening with partial distention. Unremarkable appearan ce of the uterus. No abdominal aortic aneurysm. There is no adenopathy. No bowel obstruction or bowel wall thickening. Postoperative changes of prior partial sigmoid colon r esection with colocolonic anastomosis. Colonic diverticulosis. Appendectomy. Moderate sized ventral a bdominal wall hernia redemonstrated with diastases of 9.5 cm containing mesenteric fat and a portion of the nonobstructed transverse colon, similar to comparison. Soft tissues are otherwise unremarkable . No acute fracture. Degenerative changes of the spine, pelvis and hips. IMPRESSION: 1. No acute intra-abdominal or intrapelvic abnormality. No CT evidence of acute pancreatitis. 2. 1.4 cm solid lesion of the posterior interpolar left kidney is redemonstrated and appears unchange d in size, better characterized on comparison MRI study from 07/15/2020. 3. Moderate sized ventral abdominal hernia containing mesenteric fat and a portion of the nonobstruct ed transverse colon is unchanged. 4. Colonic diverticulosis. 5. Prior partial sigmoid colon resection and appendectomy. 6. Additional findings as above. ACT 112: Negative or not required by law. The above report was generated using voice recognition software. It may contain grammatical, syntax o r spelling errors. Electronically signed by: Jean Negro M.D. 04/26/2021 9:44 AM
--- NOTE | 2021-04-26 10:18 | Hospitalist Progress Note ---
Date of Service April 26, 2021 Assessment & Plan (1) Acute alcoholic pancreatitis: pain better, lipase down to 600's advance to low fat diet repeat labs in AM continue fluids at 125cc/hr for a few more hours, stop when this bag is done downgrade to medical floor likely home tomorrow AM of note, CT this morning showed no evidence of ongoing pancreatitis, no pseudocyst (2) Alcohol abuse: continues to show no signs of acute alcohol withdrawal, last drink was over 72 hours ago (at time of admission) Oral thiamine and folate repletion Patient may require outpatient alcohol rehab at some point, describes feelings of loneliness and isolation as causes for her drinking liver US with some steatosis but no other changes (3) Hyponatremia: Suspect this may be due to the patient's clear liquid diet over the past few days in combination with diuretics continue to hold diuretics Hydration with normal saline as above Na normal today, Cr stable (4) Hypertension: Continue outpatient medications with exception of furosemide stop fluids today resume lasix in the AM (5) Renal mass: Patient has recent diagnosis of a renal mass, unclear etiology. Patient is scheduled further outpatient work-up and should be encouraged to follow-up ordered CT a/p this morning: demonstrates stable 1.4cm solid lesion on upper pole of left kidney, will follow up with Dr. Dunaway, not urgent as this is stable Admission and Anticipated Discharge Date Admission Date: April 24, 2021 Subjective patient doing better in general, minimal pain this morning, did get a little worse with liquids has some issues with sweets, no real other options with liquid diet, will advance her to low fat diet no nausea or vomiting, no BM yet making a lot of urine CT this morning with no evidence of pancreatitis, left kidney with stable 1.4cm solid lesion, has been stable for months now lipase down to 600's, WBC normal discussed advancing diet, see how she feels tomorrow and can likely go home and rest Review of Systems Review of Systems: All systems reviewed & are unremarkable except as noted in Subjective Physical Exam Constitutional: WD/WN, vitals as above + obese; no acute distress Neck: trachea midline, no thyromegaly Respiratory: normal respiratory effort, lungs clear to auscultation Cardiovascular: RRR, no murmur, no edema Gastrointestinal (Abdomen): Inspection/Auscultation: abdomen normal to inspection and normal bowel sounds; abdomen not distended Percussion/Palpation: + abdomen tender (epigastric) and abdomen soft; no guarding and abdomen not rigid Musculoskeletal: no cyanosis or clubbing, extremities motor strength 5/5 Skin: no rashes, warm and dry Neurologic: patellar DTR's 2+ bilat, sensation intact and PERRL, EOMI, accommodation nl, no face palsy, no dysarthria Psychiatric: A+Ox3, euthymic affect Lymphatic: no cervical or axillary lymphadenopathy Results & Data Results & Data ([facility]) Vital Signs (Past 12 Hours) Vital Signs Temp Pulse Resp BP Pulse Ox 04/26/21 07:53 36.5 C 61 16 169/98 H 95 04/26/21 03:00 37.1 C 62 18 161/93 H 96 04/25/21 22:53 36.5 C 73 17 147/89 H 95 Laboratory Results Laboratory Results - last 24 hr 04/26/21 04/26/21 06:10 06:10 WBC 4.03 L RBC 3.78 L Hgb 12.1 Hct 36.0 L MCV 95.2 MCH 32.0 MCHC 33.6 RDW Std Deviation 44.2 RDW Coeff of Raffy 12.8 Plt Count 179 MPV 8.5 Sodium 136 Potassium 4.2 Chloride 105 Carbon Dioxide 24 Anion Gap 7.0 BUN 6 L Creatinine 0.53 L Est Cr Clr Drug Dosing 157.3 Est GFR ( Amer) 124.8 Est GFR (Non-Af Amer) 107.6 BUN/Creatinine Ratio 11.6 Glucose 90 Calcium 9.0 Total Bilirubin 0.9 AST 41 H ALT 31 Alkaline Phosphatase 58 Total Protein 6.4 Albumin 2.9 L Globulin 3.5 Albumin/Globulin Ratio 0.8 L Lipase 678 H Medications Administered Current Inpatient Medications Amlodipine Besylate (Amlodipine Besylate 5 Mg Tab) 5 mg PO QAM [facility] Stop: 05/25/21 08:59 Last Admin: 04/26/21 08:43 Dose: 5 mg Documented by: Bupropion HCl (Bupropion Sr 100 Mg Tabcr) 200 mg PO BID [facility] Stop: 05/24/21 20:59 Last Admin: 04/26/21 08:39 Dose: 200 mg Documented by: Clonazepam (Clonazepam 1 Mg Tab) 1 mg PO BID [facility] Stop: 05/24/21 20:59 Last Admin: 04/26/21 08:46 Dose: 1 mg Documented by: Enoxaparin Sodium (Enoxaparin Inj 40 Mg/0.4 Ml Syr) 40 mg SQ Q24H [facility] Stop: 05/24/21 14:59 Last Admin: 04/25/21 15:27 Dose: 40 mg Documented by: Folic Acid (Folic Acid 1 Mg Tab) 1 mg PO QAM [facility] Stop: 05/25/21 08:59 Last Admin: 04/26/21 08:42 Dose: 1 mg Documented by: Gabapentin (Gabapentin 300 Mg Cap) 600 mg PO QAM [facility] Stop: 05/25/21 08:59 Last Admin: 04/26/21 08:34 Dose: 600 mg Documented by: Gabapentin (Gabapentin 300 Mg Cap) 300 mg PO QPM [facility] Stop: 05/24/21 20:59 Last Admin: 04/25/21 20:47 Dose: 300 mg Documented by: Hydromorphone HCl (Hydromorphone Inj 0.5 Mg/0.5 Ml Syr) 0.5 mg IV Q6H PRN PRN Reason: Pain Stop: 05/08/21 14:23 Last Admin: 04/26/21 04:05 Dose: 0.5 mg Documented by: Lorazepam (Ativan) 1 mg in 2 mls @ 2 mls/min IV ONE PRN; Protocol PRN Reason: EtoH Withdrawal AWSS 6-10 Stop: 05/24/21 14:23 Sodium Chloride (Nss 1000ml) 1,000 mls @ 125 mls/hr IV .Q8H [facility] Stop: 05/24/21 14:23 Last Admin: 04/26/21 06:29 Dose: 125 mls/hr Documented by: Lisinopril (Lisinopril 40 Mg Tab) 40 mg PO QAM [facility] Stop: 05/25/21 08:59 Last Admin: 04/26/21 08:41 Dose: 40 mg Documented by: Lorazepam (Lorazepam 1 Mg Tab) 1 mg PO ONE PRN; Protocol PRN Reason: EtoH Withdrawal AWSS 6-10 Magnesium Oxide (Magnesium Oxide 400 Mg Tab) 200 mg PO BID [facility] Stop: 05/24/21 20:59 Last Admin: 04/26/21 08:42 Dose: 200 mg Documented by: Metoprolol Tartrate (Metoprolol Tartrate 100 Mg Tab) 100 mg PO BID [facility] Stop: 05/24/21 20:59 Last Admin: 04/26/21 08:39 Dose: 100 mg Documented by: Ondansetron HCl (Ondansetron Inj 2 Mg/Ml 2 Ml Vial) 4 mg IV Q6H PRN PRN Reason: Nausea Stop: 05/24/21 14:23 Last Admin: 04/26/21 08:37 Dose: 4 mg Documented by: Pantoprazole Sodium (Pantoprazole 40 Mg Tab) 40 mg PO DAILY PRN PRN Reason: reflux Stop: 05/24/21 14:35 Last Admin: 04/25/21 08:58 Dose: 40 mg Documented by: Risperidone (Risperidone 1 Mg Tablet) 1 mg PO QPM [facility] Stop: 05/24/21 20:59 Last Admin: 04/25/21 20:46 Dose: 1 mg Documented by: Sertraline HCl (Sertraline Hcl 50 Mg Tablet) 25 mg PO QAM [facility] Stop: 05/25/21 08:59 Last Admin: 04/26/21 08:41 Dose: 25 mg Documented by: Thiamine HCl (Thiamine Hcl 100 Mg Tab) 100 mg PO PM [facility] Stop: 05/24/21 20:59 Last Admin: 04/25/21 20:48 Dose: 100 mg Documented by: Vitamin D (Cholecalciferol 1,000 Units 25 Mcg Tab) 1,000 units PO QAM [facility] Stop: 05/25/21 08:59 Last Admin: 04/26/21 08:41 Dose: 1,000 units Documented by: PG Care Time/CCT Total # of Minutes Spent Total Time Spent with Patient: Total time spent is greater than 50% in coordination of care (as documented) at patient's floor/unit and/or counseling patient: Coding Level of Care Code 18869 Subseq Hosp Care Lvl 3 Diagnoses Acute alcoholic pancreatitis K85.20 Alcohol abuse F10.10 Hyponatremia E87.1 Hypertension I10 Hypertension type: essential hypertension Renal mass N28.89 (1) Hypertension Hypertension type: essential hypertension Qualified Code(s): I10 - Essential (primary) hypertension
[2021-04-26] MEDS: ENOXAPARIN INJ 40 MG/0.4 ML SYR SQ SCH (15:20)
[2021-04-26] MEDS: risperiDONE 1 MG TABLET PO SCH (20:51)
[2021-04-26] MEDS: THIAMINE HCL 100 MG TAB PO SCH (20:51)
[2021-04-27] MEDS ORDERED: ACETAMINOPHEN 500 MG TAB PO STA (06:37)
[2021-04-27] MEDS: MAGNESIUM OXIDE 400 MG TAB PO SCH (08:06)
[2021-04-27] MEDS: METOPROLOL TARTRATE 100 MG TAB PO SCH (08:06)
[2021-04-27] MEDS: CHOLECALCIFEROL 1,000 UNITS 25 MCG TAB PO SCH (08:06)
[2021-04-27] MEDS: GABAPENTIN 300 MG CAP PO SCH (08:06)
[2021-04-27] MEDS: buPROPion SR 100 MG TABCR PO SCH (08:06)
[2021-04-27] MEDS: amLODIPine BESYLATE 5 MG TAB PO SCH (08:07)
[2021-04-27] MEDS: lisinopril 40 MG TAB PO SCH (08:07)
[2021-04-27] MEDS: SERTRALINE HCL 50 MG TABLET PO SCH (08:07)
[2021-04-27] MEDS: FOLIC ACID 1 MG TAB PO SCH (08:08)
[2021-04-27] MEDS: clonazePAM 1 MG TAB PO SCH (08:09)
[2021-04-27] MEDS ORDERED: FUROSEMIDE 20 MG TAB PO SCH (09:00)
[2021-04-27 09:07] LABS: Hematocrit (blood only) 37.6 % (37-47); Hemoglobin 12.8 g/dL (12.0-16.0); Mean Corpuscular Hemoglobin 32.4 pg (25-34); Mean Corpuscular Volume 95.2 fL (80-100); Mean Platelet Volume 8.6 fL (7.4-10.4); Platelet Count 183 K/uL (130-400); RDW Coefficient of Variation 12.8 % (11.5-14.5); RDW Standard Deviation 44.5 fL (36.4-46.3); Red Blood Count 3.95 M/uL (4.2-5.4); White Blood Count 3.85 K/uL (4.8-10.8)
[2021-04-27 09:50] LABS: Albumin Globulin Ratio 0.8 (0.9-2); Albumin Level 3.1 gm/dl (3.4-5.0); BUN Creatinine Ratio 11.7 (10-20); Bilirubin,Total 0.8 mg/dl (0.2-1); Calcium 9.3 mg/dl (8.5-10.1); Creatinine Clr Calc Pharmacy 130.3 ml/min; Est GFR (African American) 117.3 ml/min; Est GFR (Non-African American) 101.2 ml/min; Globulin 3.7 gm/dl (2.5-4.0); Total Protein 6.8 gm/dl (6.4-8.2)
[2021-04-27 09:57] LABS: Potassium 4.2 mmol/L (3.5-5.1)
--- NOTE | 2021-04-27 13:20 | Discharge Summary ---
Date of Service April 27, 2021 Admission HPI Per Admitting Provider This is a 55-year-old female with past medical history of pancreatitis, acute alcoholism who presents today complaining of abdominal pain. Patient is pleasant good historian. Patient tells me that she has had issues with alcoholism in the past but was not drinking. Or recently she did start to drink again and has been consuming a sixpack along with a pint of hard liquor. Approximately 3 days ago she started with abdominal pain. This is consistent with her previous pancreatitis symptoms. She tells me her last alcoholic drink was 6/3. She has had no signs of withdrawal. Her abdominal pain has eased slightly and she debated coming to the hospital but eventually came out for further management. Patient denies fever or chills but is having some nausea. She denies any constipation but has had some diarrhea. She has tried to continue a clear liquid diet over the past few days. At the time my evaluation she was awake and alert and was in no obvious distress. Principal Diagnosis Acute alcohol pancreatitis Discharge Exam Constitutional WD/WN, vitals as above + obese; no acute distress Neck trachea midline, no thyromegaly Respiratory normal respiratory effort, lungs clear to auscultation Cardiovascular RRR, no murmur, no edema Gastrointestinal (Abdomen) Inspection/Auscultation: abdomen normal to inspection and normal bowel sounds; abdomen not distended Percussion/Palpation: + abdomen tender (epigastric) and abdomen soft; no guarding and abdomen not rigid Musculoskeletal no cyanosis or clubbing, extremities motor strength 5/5 Skin no rashes, warm and dry Neurologic patellar DTR's 2+ bilat, sensation intact and PERRL, EOMI, accommodation nl, no face palsy, no dysarthria Psychiatric A+Ox3, euthymic affect Lymphatic no cervical or axillary lymphadenopathy Discharge Data Allergies Allergy/AdvReac Type Severity Reaction Status Date / Time ampicillin Allergy Intermediate hives Verified 04/24/21 11:12 cephalexin Allergy Intermediate HIVES/ITCHI Verified 04/24/21 11:12 NG Penicillins Allergy Intermediate HIVES Verified 04/24/21 11:12 metronidazole Allergy Mild blisters Verified 04/24/21 11:12 adhesive AdvReac Mild SKIN Verified 04/24/21 11:12 TEARING AND IRRITATION Consultations 04/24/21 10:40 ED Decision to Admit Stat Ordered Studies 04/24/21 14:24 US liver Routine 04/26/21 09:00 CT abd pelvis IV con only Routine Hospital Course (1) Acute alcoholic pancreatitis: pain better, lipase down to 600's advance to low fat diet, tolerating, eating does not make pain worse stopped fluids the day prior to discharge of note, CT 04/26 showed no evidence of ongoing pancreatitis, no pseudocyst d/c to home, instructed to stay well nourished, well hydrated, avoid all alcohol (2) Alcohol abuse: continues to show no signs of acute alcohol withdrawal, last drink was over 72 hours ago (at time of admission) Oral thiamine and folate repletion Patient may require outpatient alcohol rehab at some point, describes feelings of loneliness and isolation as causes for her drinking liver US with some steatosis but no other changes educated her on the vital importance of avoiding all alcohol any amount could trigger pancreatitis in the future also, encouraged her that her liver does not have cirrhotic changes at this time so if she remains sober she would likely avoid permanent liver damage (3) Hyponatremia: Suspect this may be due to the patient's clear liquid diet over the past few days in combination with diuretics Hydration with normal saline as above Na normal today, Cr stable may resume diuretics on discharge (4) Hypertension: Continue outpatient medications with exception of furosemide but can resume on discharge (5) Renal mass: Patient has recent diagnosis of a renal mass, unclear etiology. Patient is scheduled further outpatient work-up and should be encouraged to follow-up ordered CT a/p this morning: demonstrates stable 1.4cm solid lesion on upper pole of left kidney, will follow up with Dr. Dunaway, not urgent as this is stable Total Time Total Time Spent Total Time Spent (In Minutes): 35 Total Time Includes: Examination of the Patient, Discharge Planning and Medication Reconciliation Discharge Plan Discharge Items Patient Disposition: Home - Self-Care Reason For Visit: PANCREATITIS Discharge Diagnosis: Acute alcohol pancreatitis Condition on Discharge: Good Goals: stay well hydrated, well nourished avoid all alcohol now and in future Activity: Resume your previous activity Non-emergency contact: Primary Care Provider Call non-emergency contact if: you have any medication questions and your symptoms worsen Follow-up/Referrals: Lee Dunaway DO [Physician] - 08/03/21 2:20 pm () Emily Casanova CRNP [Primary Care Provider] - 05/04/21 8:50 am () Diet: Low Fat Addtl Attending Provider Instructions: Medications: no changes Acute alcohol pancreatitis pain improving, lipase down to 600, tolerating diet stay well hydrated, eat what you can but don't overdue it, low fat diet for next few days as fatty foods can stimulate the pancreas more than other foods Alcohol use/abuse: as we discussed, you need to avoid all alcohol now and in the future your pancreas is very sensitive from prior episodes, even small amount of alcohol can trigger another attack and return to hospital liver has some fatty changes but no scarring as long as you remain sober you can avoid further damage to liver, can avoid cirrhosis Kidney lesion: CT shows left kidney with stable 1.4cm solid lesion this has been stable ever since it was first discovered Dr. Dunaway had mentioned in his last note that he will plan to follow up with you [address] scan Pending Studies at Discharge: No Stand-Alone Forms: My [facility] [employer], Smoking Cessation Medications and DC Order Prescriptions: Continued risperidone 1 mg Tablet 1 mg PO QPM RF: 0 cholecalciferol (vitamin D3) [Vitamin D3] 1,000 unit Capsule 1,000 unit PO QAM RF: 0 omeprazole 20 mg Tablet,Delayed Release (Dr/Ec) 20 mg PO DAILY PRN (Reason: reflux) RF: 0 milk thistle seed extract 175 mg Capsule 175 mg PO PM RF: 0 magnesium 200 mg tablet 200 mg PO BID Qty: 60 RF: 0 clonazepam [Klonopin] 1 mg tablet 1 mg PO BID RF: 0 lisinopril [Zestril] 40 mg Tablet 40 mg PO QAM Qty: 30 RF: 0 folic acid 1 mg Tablet 1 mg PO QAM Qty: 30 RF: 0 metoprolol tartrate 100 mg tablet 100 mg PO BID RF: 0 amlodipine 5 mg tablet 5 mg PO QAM RF: 0 furosemide 20 mg tablet 20 mg PO QAM RF: 0 gabapentin 300 mg Capsule 600 mg PO QAM RF: 0 gabapentin 300 mg capsule 300 mg PO QPM RF: 0 bupropion HCl 200 mg tablet sustained-release 12 hr 200 mg PO BID RF: 0 sertraline 25 mg tablet 25 mg PO QAM RF: 0 thiamine HCl (vitamin B1) 100 mg tablet 100 mg PO PM RF: 0 Discharge Orders: Discharge Order (Routine); Ordered 04/27/21 Ordered By: Bjorn Adames Admission Data Admit Date/Time: 04/24/21 12:26 Attending Provider: Bjorn Adames Admit Provider: Cipriano Dickinson Primary Care Provider: Emily Casanova Other Providers: Cipriano Dickinson Other Interventions: Discharge Summary Assessment (RN) Last Done: 04/27/21 15:00 Coding Level of Care Code D/C Day Management >30 mins Diagnoses Acute alcoholic pancreatitis K85.20 Alcohol abuse F10.10 Hyponatremia E87.1 Hypertension I10 Hypertension type: essential hypertension Renal mass N28.89
== END 2021-04-27 15:27 | disposition home or self-care (01) | DRG 439 ==
LOC: ED 08:58 → SUATTDRO 12:26 → 2N 12:26 → 2W 04-26 23:11

== ENCOUNTER 2022-03-29 16:45 | Inpatient (IN) ==
[2022-03-29] MEDS ORDERED: VANCOMYCIN CONSULT ACTIVE PRN (17:20)
[2022-03-29] MEDS ORDERED: SODIUM CHLORIDE 0.9% 500 ML IV STA (17:20)
[2022-03-29] MEDS ORDERED: VANCOMYCIN HCL 2,000 MG in SODIUM CHLORIDE 0.9% 500 ML IV STA (17:20)
--- NOTE | 2022-03-29 17:25 | Emergency Department Note ---
Impression & Plan Abdominal wall cellulitis, Acute hyponatremia ED Provider Note NAME: CARY SANDERS AGE: 56 SEX: F : 1965 ARRIVES VIA: Walk-In INFORMANT: Patient, ED PROVIDER(S): Chinmay Magana DO CHIEF COMPLAINT: Rash HPI: The patient is a 56-year-old female who presented to the emergency department from her primary care physician's office for admission. The patient states she has had ongoing rash on her abdominal wall. It started to blister and denuded. She was sent to the emergency department for evaluation and likely for admission for IV antibiotics. She has been on oral antibiotics although she does not know the name. She states she has since noticed significant pain over this area. She denies having any nausea or vomiting. She denies having any rectal bleeding. The patient states she has had no lower extremity swelling but noticed a similar dorota in the back of her left calf. ROS: See above HPI for pertinent positives & negatives. A total of 10 systems reviewed and were otherwise negative. PAST MEDICAL HISTORY: See Below PAST SURGICAL HISTORY: See Below FAMILY HISTORY: See Below SOCIAL HISTORY: See Below HOME MEDICATIONS: See Below ALLERGIES: See Below VITALS: See Below PHYSICAL EXAMINATION: GENERAL: Patient is awake alert in no acute distress patient is resting comfortably and showing no signs of anxiety EYES: The conjunctivae are clear. The pupils are round and reactive. EARS, NOSE, MOUTH AND THROAT: The nose is without any evidence of any deformity. Mucous membranes are moist. Tongue is midline. NECK: The neck is nontender and supple. RESPIRATORY: Normal respiratory effort is noted there is no evidence of wheezing rhonchi or rales CARDIOVASCULAR: Regular rate and rhythm noted there no murmurs rubs or gallops normal S1 normal S2. GASTROINTESTINAL: The abdomen is soft. Abdomen is nontender. MUSCULOSKELETAL/EXTREMITIES: There is no evidence of gross deformity full range of motion is noted in the hips and shoulders. SKIN: There is an erythematous base rash over the abdominal wall. There is previous blistering and rupturing noted with excoriated skin. There is a similar lesion about 2 cm in diameter on the back of the left calf. There is surrounding erythema. NEUROLOGIC: Patient is awake alert and oriented x3. MEDICAL DECISION MAKING: The patient is a 56-year-old female who has a history of MRSA infection on her abdominal wall. She had some skin sloughing of the original infection. She was sent to the emergency department by her primary care physician for MRSA infection which was worsening. The patient was treated with IV Vanco in the emergency department. Patient was evaluated multiple times. I discussed the patient's condition with the on-call [facility] hospitalist group. They have agreed to evaluate the patient in the emergency department for further management and disposition. Triage Nursing notes reviewed. Prior medical records reviewed Vital Signs: reviewed and remarkable for elevated blood pressure. Differential diagnosis: Cellulitis, abscess, MRSA infection, DVT, necrotizing fasciitis, dermatitis, drug eruption, allergic reaction, as well as other pathologies. ER treatment provided: See below Diagnostics interpreted by me: ECG: none Laboratory studies: As stated above and show below. Imaging studies: See below Consultation(s): none Past Med/Surg History Medical History (Updated 03/29/22 @ 22:44 by Chinmay Magana DO) Acute alcoholic pancreatitis Acute anxiety Acute pancreatitis Alcohol abuse Ankle fracture right Depression Fracture of left tibia and fibula plate, screws Hyponatremia Nystagmus Nystagmus Suicidal ideation Thiamine deficiency Surgical History H/O meniscectomy of right knee H/O oophorectomy left History of appendectomy History of colon resection Hx of tonsillectomy Family History Father Hypertension Sister Colonic polyp Other No pertinent family history Denies family history of Ovarian cancer Breast cancer Colorectal cancer Social History Smoking Status: Never smoker Second Hand Exposure: No; Do You Dip or Chew Tobacco: No; Tobacco Cessation Education Requested by Patient: No Hx Alcohol Use: Yes Alcohol type: hard liquor Hx Substance Use: No Preferred Language: Irish Communication Ability: Effective Build And Release Manager Required: No Beliefs That Will Affect Care: None Current Living Situation: Spouse Other Information That Helps Us Care for You: No Feels Safe at Home: Yes Assistive Devices: Cane, Glasses and Walker Allergies Allergies Allergy/AdvReac Type Severity Reaction Status Date / Time ampicillin Allergy Intermediate hives Verified 03/29/22 18:34 cephalexin Allergy Intermediate HIVES/ITCHI Verified 03/29/22 18:34 NG clindamycin Allergy Intermediate ALL MUCOUS Verified 03/29/22 18:34 MEMBRANES SWELLED, PAINFULLY metronidazole Allergy Intermediate blisters Verified 03/29/22 18:34 Penicillins Allergy Intermediate HIVES Verified 03/29/22 18:34 adhesive AdvReac Intermediate SKIN Verified 03/29/22 18:34 TEARING AND IRRITATION Home Meds Home Medications Medication Instructions Recorded Confirmed cholecalciferol (vitamin D3) 25 1,000 unit PO QAM 11/10/18 03/29/22 mcg (1,000 unit) capsule (Vitamin D3) milk thistle seed extract 175 mg 175 mg PO PM 11/10/18 03/29/22 capsule omeprazole 20 mg tablet,delayed 20 mg PO DAILY PRN 11/10/18 03/29/22 release risperidone 1 mg tablet 1 mg PO QPM 11/10/18 03/29/22 clonazepam 1 mg tablet (Klonopin) 1 mg PO BID 11/18/18 03/29/22 amlodipine 5 mg tablet 5 mg PO QAM 03/21/20 03/29/22 furosemide 20 mg tablet 20 mg PO QAM 03/21/20 03/29/22 metoprolol tartrate 100 mg tablet 100 mg PO BID 03/21/20 03/29/22 bupropion HCl 200 mg tablet,12 hr 200 mg PO BID 07/15/20 03/29/22 sustained-release gabapentin 300 mg capsule See Rx Instructions .ROUTE .COMPLEX 07/15/20 03/29/22 sertraline 25 mg tablet 25 mg PO QAM 04/24/21 03/29/22 thiamine HCl (vitamin B1) 100 mg 100 mg PO PM 04/24/21 03/29/22 tablet meloxicam 15 mg tablet 15 mg PO QAM 03/29/22 03/29/22 Previous Rx's Medication Instructions Recorded magnesium 200 mg tablet 200 mg PO BID #60 tab 11/11/18 folic acid 1 mg tablet 1 mg PO QAM #30 tab 10/06/19 lisinopril 40 mg tablet (Zestril) 40 mg PO QAM #30 tab 10/06/19 Results & Data (ED) Vital Signs Vital Signs - 24 hr 03/29/22 16:56 03/29/22 19:00 Temperature 36.8 C 36.9 C Temperature Source Temporal Artery Scan Oral Pulse Rate 71 Pulse Rate [Apical] 65 Pulse Rhythm Regular Pulse Rhythm [Apical] Regular Pulse Strength Normal Pulse Strength [Apical] Normal Respiratory Rate 20 18 Respiratory Effort / Characteristics Non-Labored Accessory Muscle Use Non-Labored Spontaneous Respiratory Depth Normal Normal Respiratory Pattern Regular Regular Blood Pressure 163/99 H Blood Pressure [Right Arm] 157/102 H Blood Pressure Mean 120 Blood Pressure Mean [Right Arm] 120 Blood Pressure Position Sitting Blood Pressure Position [Right Arm] Lying Pulse Oximetry 98 96 Oxygen Delivery Method Room Air Room Air Sepsis Recent Fever Within 48 Hours No Sepsis New/Unexplained Change in Mental Status No Sepsis Action Taken by Nursing No Action Required Home Medications Current Medication List: was personally reviewed by me Laboratory Data Attestation: I reviewed the patient's lab results. Result diagrams: 03/29/22 17:46 03/29/22 17:46 Lab Results 03/29/22 03/29/22 03/29/22 Range/Units 17:46 17:46 17:46 WBC 5.45 (4.8-10.8) K/uL RBC 4.50 (4.2-5.4) M/uL Hgb 14.6 (12.0-16.0) g/dL Hct 42.1 (37-47) % MCV 93.6 (80-100) fL MCH 32.4 (25-34) pg MCHC 34.7 (32-36) g/dL RDW Std Deviation 42.4 (36.4-46.3) fL RDW Coeff of Raffy 12.4 (11.5-14.5) % Plt Count 305 (130-400) K/uL MPV 9.1 (7.4-10.4) fL Immature Gran % (Auto) 0.0 % Neut % (Auto) 63.6 % Lymph % (Auto) 22.8 % Harlan % (Auto) 10.3 % Eos % (Auto) 3.1 % Baso % (Auto) 0.2 % Neut # (Auto) 3.47 (1.4-6.5) K/uL Lymph # (Auto) 1.24 (1.2-3.4) K/uL Harlan # (Auto) 0.56 (0.11-0.59) K/uL Eos # (Auto) 0.17 (0-0.5) K/uL Baso # (Auto) 0.01 (0-0.2) K/uL Immature Gran # (Auto) 0.00 (0.00-0.02) K/uL ESR (0-30) mm/hr Sodium 127 L (136-145) mmol/L Potassium 4.3 (3.5-5.1) mmol/L Chloride 91 L (98-107) mmol/L Carbon Dioxide 30 (21-32) mmol/L Anion Gap 6 (3-11) BUN 10 (6-23) mg/dl Creatinine 0.81 (0.6-1.2) mg/dl Est Cr Clr Drug Dosing 98.7 ml/min Est GFR ( Amer) 94.8 ml/min Est GFR (Non-Af Amer) 81.8 ml/min BUN/Creatinine Ratio 12.3 (10-20) Glucose 118 H (70-99(Fasting)) mg/dl Osmolality (280-300) mOsm/kg Lactate (0.4-2.0) mmol/L Calcium 9.4 (8.5-10.1) mg/dl Magnesium 1.7 (1.7-2.4) mg/dl Total Bilirubin 0.6 (0.2-1.0) mg/dl AST 24 (13-39) U/L ALT 17 (7-52) U/L Alkaline Phosphatase 56 (34-104) U/L C-Reactive Protein 4.01 H (0-0.5) mg/dl Total Protein 7.4 (6.0-8.3) gm/dl Albumin 4.0 (3.4-5.0) gm/dl Globulin 3.4 (2.5-4.0) gm/dl Albumin/Globulin Ratio 1.2 (0.9-2) Procalcitonin 0.13 (0-0.5) ng/ml Lyme Disease IgG Ab Negative (Negative) Lyme Disease IgM Ab Negative (Negative) SARS-CoV-2, RNA, NAAT (NEGATIVE) 03/29/22 03/29/22 03/29/22 Range/Units 17:46 17:46 17:46 WBC (4.8-10.8) K/uL RBC (4.2-5.4) M/uL Hgb (12.0-16.0) g/dL Hct (37-47) % MCV (80-100) fL MCH (25-34) pg MCHC (32-36) g/dL RDW Std Deviation (36.4-46.3) fL RDW Coeff of Raffy (11.5-14.5) % Plt Count (130-400) K/uL MPV (7.4-10.4) fL Immature Gran % (Auto) % Neut % (Auto) % Lymph % (Auto) % Harlan % (Auto) % Eos % (Auto) % Baso % (Auto) % Neut # (Auto) (1.4-6.5) K/uL Lymph # (Auto) (1.2-3.4) K/uL Harlan # (Auto) (0.11-0.59) K/uL Eos # (Auto) (0-0.5) K/uL Baso # (Auto) (0-0.2) K/uL Immature Gran # (Auto) (0.00-0.02) K/uL ESR 32 H (0-30) mm/hr Sodium (136-145) mmol/L Potassium (3.5-5.1) mmol/L Chloride (98-107) mmol/L Carbon Dioxide (21-32) mmol/L Anion Gap (3-11) BUN (6-23) mg/dl Creatinine (0.6-1.2) mg/dl Est Cr Clr Drug Dosing ml/min Est GFR ( Amer) ml/min Est GFR (Non-Af Amer) ml/min BUN/Creatinine Ratio (10-20) Glucose (70-99(Fasting)) mg/dl Osmolality 279 L (280-300) mOsm/kg Lactate 0.9 (0.4-2.0) mmol/L Calcium (8.5-10.1) mg/dl Magnesium (1.7-2.4) mg/dl Total Bilirubin (0.2-1.0) mg/dl AST (13-39) U/L ALT (7-52) U/L Alkaline Phosphatase (34-104) U/L C-Reactive Protein (0-0.5) mg/dl Total Protein (6.0-8.3) gm/dl Albumin (3.4-5.0) gm/dl Globulin (2.5-4.0) gm/dl Albumin/Globulin Ratio (0.9-2) Procalcitonin (0-0.5) ng/ml Lyme Disease IgG Ab (Negative) Lyme Disease IgM Ab (Negative) SARS-CoV-2, RNA, NAAT (NEGATIVE) 03/29/22 Range/Units 18:12 WBC (4.8-10.8) K/uL RBC (4.2-5.4) M/uL Hgb (12.0-16.0) g/dL Hct (37-47) % MCV (80-100) fL MCH (25-34) pg MCHC (32-36) g/dL RDW Std Deviation (36.4-46.3) fL RDW Coeff of Raffy (11.5-14.5) % Plt Count (130-400) K/uL MPV (7.4-10.4) fL Immature Gran % (Auto) % Neut % (Auto) % Lymph % (Auto) % Harlan % (Auto) % Eos % (Auto) % Baso % (Auto) % Neut # (Auto) (1.4-6.5) K/uL Lymph # (Auto) (1.2-3.4) K/uL Harlan # (Auto) (0.11-0.59) K/uL Eos # (Auto) (0-0.5) K/uL Baso # (Auto) (0-0.2) K/uL Immature Gran # (Auto) (0.00-0.02) K/uL ESR (0-30) mm/hr Sodium (136-145) mmol/L Potassium (3.5-5.1) mmol/L Chloride (98-107) mmol/L Carbon Dioxide (21-32) mmol/L Anion Gap (3-11) BUN (6-23) mg/dl Creatinine (0.6-1.2) mg/dl Est Cr Clr Drug Dosing ml/min Est GFR ( Amer) ml/min Est GFR (Non-Af Amer) ml/min BUN/Creatinine Ratio (10-20) Glucose (70-99(Fasting)) mg/dl Osmolality (280-300) mOsm/kg Lactate (0.4-2.0) mmol/L Calcium (8.5-10.1) mg/dl Magnesium (1.7-2.4) mg/dl Total Bilirubin (0.2-1.0) mg/dl AST (13-39) U/L ALT (7-52) U/L Alkaline Phosphatase (34-104) U/L C-Reactive Protein (0-0.5) mg/dl Total Protein (6.0-8.3) gm/dl Albumin (3.4-5.0) gm/dl Globulin (2.5-4.0) gm/dl Albumin/Globulin Ratio (0.9-2) Procalcitonin (0-0.5) ng/ml Lyme Disease IgG Ab (Negative) Lyme Disease IgM Ab (Negative) SARS-CoV-2, RNA, NAAT NEGATIVE (NEGATIVE) Administered Medications Acetaminophen (Acetaminophen 325 Mg Tab) 650 mg PO Q4H PRN PRN Reason: Pain or Fever Stop: 04/28/22 21:49 Last Admin: 03/29/22 22:32 Dose: 650 mg Documented by: [id number] Bupropion HCl (Bupropion Sr 100 Mg Tabcr) 200 mg PO BID LONNY Stop: 04/28/22 21:49 Last Admin: 03/29/22 22:32 Dose: 200 mg Documented by: [id number] Clonazepam (Clonazepam 1 Mg Tab) 1 mg PO BID LONNY Stop: 04/28/22 21:49 Last Admin: 03/29/22 22:31 Dose: 1 mg Documented by: [id number] Daptomycin 325 mg/ Syringe 6.5 mls @ 3.25 mls/min IV Q24H LONNY; Protocol Stop: 04/05/22 21:59 Last Admin: 03/29/22 22:35 Dose: 3.25 mls/min Documented by: [id number] Metoprolol Tartrate (Metoprolol Tartrate 100 Mg Tab) 100 mg PO BID LONNY Stop: 04/28/22 21:49 Last Admin: 03/29/22 22:33 Dose: 100 mg Documented by: [id number] Risperidone (Risperidone 1 Mg Tablet) 1 mg PO QPM LONNY Stop: 04/28/22 21:49 Last Admin: 03/29/22 22:32 Dose: Not Given Documented by: [id number] Thiamine HCl (Thiamine Hcl 100 Mg Tab) 100 mg PO PM LONNY Stop: 04/28/22 21:49 Last Admin: 03/29/22 22:33 Dose: 100 mg Documented by: [id number] Discontinued Medications Vancomycin HCl 2,000 mg/ (Sodium Chloride) 540 mls @ 200 mls/hr IV NOW STA Stop: 03/29/22 19:49 Last Admin: 03/29/22 18:43 Dose: 200 mls/hr Documented by: [id number] Sodium Chloride (Nss) 500 mls @ 999 mls/hr IV .Q31M STA Stop: 03/29/22 17:50 Last Infusion: 03/29/22 19:04 Dose: 0 mls/hr Documented by: [id number] Admin: 03/29/22 18:08 Dose: 999 mls/hr Documented by: [id number] Discharge Plan Visit Data Chief Complaint: Testing Request Stated Complaint: REQUESTING BLOOD WORK ED Provider: Chinmay Magana Discharge Problem: Abdominal wall cellulitis, Acute hyponatremia Patient Disposition: Admitted As Inpatient Discharge Instructions Interventions: ED Discharge Assessment Last Done: 03/29/22 21:14
[2022-03-29 18:04] LABS: Basophils # (auto) 0.01 K/uL (0-0.2); Basophils % (auto) 0.2 %; Eosinophils # (auto) 0.17 K/uL (0-0.5); Eosinophils % (auto) 3.1 %; Hematocrit (blood only) 42.1 % (37-47); Hemoglobin 14.6 g/dL (12.0-16.0); Lymphocytes # (auto) 1.24 K/uL (1.2-3.4); Lymphocytes % (auto) 22.8 %; Mean Corpuscular Hemoglobin 32.4 pg (25-34); Mean Corpuscular Hgb Conc 34.7 g/dL (32-36); Mean Corpuscular Volume 93.6 fL (80-100); Mean Platelet Volume 9.1 fL (7.4-10.4); Monocytes # (auto) 0.56 K/uL (0.11-0.59); Monocytes % (auto) 10.3 %; Neutrophils # (auto) 3.47 K/uL (1.4-6.5); Neutrophils % (auto) 63.6 %; Platelet Count 305 K/uL (130-400); RDW Coefficient of Variation 12.4 % (11.5-14.5); RDW Standard Deviation 42.4 fL (36.4-46.3); White Blood Count 5.45 K/uL (4.8-10.8)
[2022-03-29 18:23] LABS: Albumin Globulin Ratio 1.2 (0.9-2); BUN Creatinine Ratio 12.3 (10-20); Bilirubin,Total 0.6 mg/dl (0.2-1.0); C Reactive Protein 4.01 mg/dl (0-0.5); Calcium 9.4 mg/dl (8.5-10.1); Creatinine Clr Calc Pharmacy 98.7 ml/min; Est GFR (African American) 94.8 ml/min; Est GFR (Non-African American) 81.8 ml/min; Globulin 3.4 gm/dl (2.5-4.0); Magnesium 1.7 mg/dl (1.7-2.4); Potassium 4.3 mmol/L (3.5-5.1); Total Protein 7.4 gm/dl (6.0-8.3)
[2022-03-29 18:46] LABS: Procalcitonin 0.13 ng/ml (0-0.5)
[2022-03-29 18:52] LABS: Lyme Ab IgG w/WB Rflx Negative (Negative); Lyme Ab IgM w/WB Rflx Negative (Negative)
--- NOTE | 2022-03-29 20:07 | History & Physical Report ---
Date of Service March 29, 2022 Assessment & Plan (1) Abdominal wall cellulitis: Plan: - Failed outpatient tx of clindamycin + mupirocin ointment, also had adverse reaction to clindamycin--lip swelling and tingling, painful swallowing, but without compromised airway. Responded to Benadryl. Continued to take clindamycin, without improvement. Further outpatient abx limited by allergies to ampicillin, cephalexin, flagyl, PCNs. - Started on vancomycin in ED, will switch to daptomycin. - Blood cultures ordered. Original wound cultures in December when cellulitis first appeared grew strep. (2) Acute hyponatremia: Plan: - Sodium is 127 tonight, has a history of hyponatremia with sodium typically around 131. Currently not symptomatic, no nausea/vomiting, weakness, confusion. - Suspect this is due to beer potomania, given her frequent alcohol intake. May be Lasix contributing. We will obtain urine and serum osm, as well as urine sodium. - Hold Lasix, hold off on IVF pending further work-up. - Will start NaCl tabs 1g BID. - Follow on BMP in AM. (3) Vaginitis: Plan: - Mild erythema of the labia and external vaginal erythema, with complaints of pruritus, yellow malodorous discharge. May be developing a yeast infection due to recent course of clindamycin. - Developed blisters with Flagyl. Will order topical Nystatin. (4) Alcohol abuse: Plan: - On folate and thiamine supplementation. - Will order AWSS. (5) Hypertension: Plan: - Continue amlodipine, lisinopril, metoprolol. Hold lasix due to hyponatremia. (6) Diabetes: Plan: - Reports she is a prediabetic, not on any medications currently as she has lost 25 lbs. (7) Depression: Plan: - With anxiety. - Continue Zoloft, risperidone, bupropion, Klonopin. Plan: - Admit to MedSurg. - SCDs, Lovenox for DVT PPx. - Full code. History of Present Illness Chief Complaint: abdominal cellulitis Primary Care Provider: LATIA Johnson Patient is a 56-year-old female with past medical history of hypertension, diabetes, depression, anxiety, GERD, previous alcohol abuse who presents today from outpatient office for evaluation of abdominal wound unresponsive to oral antibiotics. Patient was initially seen in December for superficial abdominal wound, woound cultures at that time grew strep. She was treating with antibiotics, unsure which, and had full resolution until it recurred last Sunday, 03/24, with sloughing of the skin. She was evaluated Sunday and placed on clindamycin plus mupirocin. Unfortunately, she did develop numbness and tingling in her lips as well as some difficulty swallowing. Took Benadryl with some alleviation of this and continued to take the abx. Despite this, the rash continues to spread now with a lesion on her left posterior calf and left shoulder, with minimal, if any, improvement of abdominal wound despite being on clindamycin. Additionally, since this morning she has had vaginal pruritus and yellow, malodorous vaginal discharge. Denies dysuria, hematuria, increased urinary frequency, urinary retention. In ED, hypertensive 157/102, otherwise vital signs within normal limits and stable. Labs significant for elevated ESR 32, CRP 4.1. Without leukocytosis, lactate 1.5, procalcitonin 0.13. Blood cultures ordered and pending. Sodium 127. Lyme, COVID negative. Allergies Allergy/AdvReac Type Severity Reaction Status Date / Time ampicillin Allergy Intermediate hives Verified 03/29/22 18:34 cephalexin Allergy Intermediate HIVES/ITCHI Verified 03/29/22 18:34 NG clindamycin Allergy Intermediate ALL MUCOUS Verified 03/29/22 18:34 MEMBRANES SWELLED, PAINFULLY metronidazole Allergy Intermediate blisters Verified 03/29/22 18:34 Penicillins Allergy Intermediate HIVES Verified 03/29/22 18:34 adhesive AdvReac Intermediate SKIN Verified 03/29/22 18:34 TEARING AND IRRITATION Home Medications Medication Instructions Recorded Confirmed Type cholecalciferol (vitamin D3) 25 1,000 unit PO QAM 11/10/18 03/29/22 History mcg (1,000 unit) capsule (Vitamin D3) milk thistle seed extract 175 mg 175 mg PO PM 11/10/18 03/29/22 History capsule omeprazole 20 mg tablet,delayed 20 mg PO DAILY PRN 11/10/18 03/29/22 History release risperidone 1 mg tablet 1 mg PO QPM 11/10/18 03/29/22 History magnesium 200 mg tablet 200 mg PO BID #60 tab 11/11/18 03/29/22 Rx clonazepam 1 mg tablet (Klonopin) 1 mg PO BID 11/18/18 03/29/22 History folic acid 1 mg tablet 1 mg PO QAM #30 tab 10/06/19 03/29/22 Rx lisinopril 40 mg tablet (Zestril) 40 mg PO QAM #30 tab 10/06/19 03/29/22 Rx amlodipine 5 mg tablet 5 mg PO QAM 03/21/20 03/29/22 History furosemide 20 mg tablet 20 mg PO QAM 03/21/20 03/29/22 History metoprolol tartrate 100 mg tablet 100 mg PO BID 03/21/20 03/29/22 History bupropion HCl 200 mg tablet,12 hr 200 mg PO BID 07/15/20 03/29/22 History sustained-release gabapentin 300 mg capsule See Rx Instructions .ROUTE .COMPLEX 07/15/20 03/29/22 History sertraline 25 mg tablet 25 mg PO QAM 04/24/21 03/29/22 History thiamine HCl (vitamin B1) 100 mg 100 mg PO PM 04/24/21 03/29/22 History tablet meloxicam 15 mg tablet 15 mg PO QAM 03/29/22 03/29/22 History sulfamethoxazole 800 2 tab PO Q12H 10 Days #40 tab 03/30/22 Rx mg-trimethoprim 160 mg tablet Past Med/Surg History Medical History (Updated 03/29/22 @ 22:44 by Chinmay Magana DO) Acute alcoholic pancreatitis Acute anxiety Acute pancreatitis Alcohol abuse Ankle fracture right Depression Fracture of left tibia and fibula plate, screws Hyponatremia Nystagmus Nystagmus Suicidal ideation Thiamine deficiency Surgical History H/O meniscectomy of right knee H/O oophorectomy left History of appendectomy History of colon resection Hx of tonsillectomy Family History Father Hypertension Sister Colonic polyp Other No pertinent family history Denies family history of Ovarian cancer Breast cancer Colorectal cancer Social History Smoking Status: Never smoker Second Hand Exposure: No; Do You Dip or Chew Tobacco: No; Tobacco Cessation Education Requested by Patient: No Hx Alcohol Use: Yes Alcohol type: hard liquor Hx Substance Use: No Preferred Language: Thai Communication Ability: Effective Drawbridge Operator Required: No Beliefs That Will Affect Care: None Current Living Situation: Spouse Other Information That Helps Us Care for You: No Feels Safe at Home: Yes Assistive Devices: Cane and Walker Review of Systems Review of Systems: Constitutional: No fever/chills, weakness, fatigue, myalgias, anorexia, night sweats Eyes: No diplopia, no worsening or blurred vision ENT: normal hearing, no trouble swallowing Respiratory: No cough, sputum, dyspnea at rest or on exertion Cardiovascular: No chest pain, tightness or palpitations Abdomen: No pain, nausea, vomiting, diarrhea or constipation : vaginal pruritus, yellow malodorous discharge since this AM; Denies dysuria, hematuria, increased urgency/frequency, urinary retention Musculoskeletal: No joint pain, calf pain, swelling Neurologic: No weakness, numbness/tingling, or balance problems Psychiatric: No anxiety or depression Skin:abdominal rash with skin tears x 5 days; half dollar sized erythematous lesion on left posterior calf and left shoulder Physical Exam Physical Exam: General: awake, alert, no apparent distress Head: Normocephalic, atraumatic ENT: PERRL, EOMI, no pharyngeal exudate, mucous membranes moist Chest: Clear to auscultation, on room air, no adventitious breath sounds Cardiac: Regular rate and rhythm, no murmur, no JVD, normal peripheral pulses, good capillary refill Abdominal: NABS x 4 quadrants, soft, nontender to palpation, no rebound, guarding or tenderness Extremities: Normal inspection, no peripheral edema or erythema, calfs nontender to palpation Psych: Normal mood and affect : Mild erythema of labia with erythematous vaginal canal, nontender and without discharge Neuro: AAO x 3, strength intact bilaterally and rated 5/5, no motor deficits, speech is clear, no peripheral sensory deficits Skin: erythematous base rash over the abdominal wall with ruptured blisters. There is a lesion on the left posterior calf as well as left shoulder, both about the size of half dollar bill with erythema, no skin breakdown or purulence. Results & Data Results & Data ([facility]) Vital Signs (Past 12 Hours) Vital Signs Temp Pulse Pulse Resp BP BP Pulse Ox 03/29/22 19:00 36.9 C 65 18 157/102 H 96 03/29/22 16:56 36.8 C 71 20 163/99 H 98 Laboratory Results Abnormal lab results 03/29/22 03/29/22 Range/Units 17:46 17:46 ESR 32 H (0-30) mm/hr Sodium 127 L (136-145) mmol/L Chloride 91 L (98-107) mmol/L Glucose 118 H (70-99(Fasting)) mg/dl C-Reactive Protein 4.01 H (0-0.5) mg/dl Code Status & VTE Plan Code Status Full code Supervising Physician Co-Signing Physician Notes Attending addendum: I have physically seen this patient, have supervised the DENNY's activities, and agree with the H&P unless as otherwise noted. Assessment and Plan: Abdominal wall cellulitis- Failure of outpatient treatment with clindamycin and topical mupirocin ointment Noting adverse reaction to clindamycin Received vancomycin IV from the ED Daptomycin 4 mg/kg IV daily Follow blood cultures and sensitivities Wound culture from December had grown strep Hyponatremia- Sodium 127 Differential including beer potomania associated with frequent alcohol intake, with contribution possibly related to furosemide Order serum and urine osmolality Start sodium chloride 1 g p.o. twice daily Follow serial BMP and magnesium levels Alcohol abuse- 500 mg p.o. daily Folate 1 mg p.o. daily AWSS protocol Remaining orders and notations as noted PG Care Time/CCT Total # of Minutes Spent Total Time Spent with Patient: Total time spent is greater than 50% in coordination of care (as documented) at patient's floor/unit and/or counseling patient: Coding Level of Care Code 95370 Initial Inpt Care Lvl 3 Diagnoses Abdominal wall cellulitis L03.311 Hypertension I10 Diabetes E11.9 Acute hyponatremia E87.1 Depression F33.0 Active/Remission status: currently active Depression Type: major depressive disorder Major depression episode severity: mild Major depression recurrence: recurrent Vaginitis N76.0 Alcohol abuse F10.10 (1) Depression Active/Remission status: currently active Depression Type: major depressive disorder Major depression episode severity: mild Major depression recurrence: recurrent Qualified Code(s): F33.0 - Major depressive disorder, recurrent, mild
[2022-03-29] MEDS ORDERED: THIAMINE HCL 100 MG TAB PO SCH (21:50)
[2022-03-29] MEDS ORDERED: POLYETHYLENE (MIRALAX) 17 GM PACK PO PRN (21:50)
[2022-03-29] MEDS ORDERED: ONDANSETRON INJ 2 MG/ML 2 ML VIAL IV PRN (21:50)
[2022-03-29] MEDS ORDERED: ACETAMINOPHEN 325 MG TAB PO PRN (21:50)
[2022-03-29] MEDS ORDERED: risperiDONE 1 MG TABLET PO SCH (21:50)
[2022-03-29] MEDS ORDERED: LORazepam 1 MG TAB PO PRN (21:52)
[2022-03-29] MEDS ORDERED: DAPTOmycin 325 MG in SYRINGE 0 ML IV SCH (22:00)
[2022-03-29] MEDS ORDERED: PANTOprazole 40 MG TAB PO PRN (22:06)
[2022-03-29] MEDS: clonazePAM 1 MG TAB PO SCH (22:31)
[2022-03-29] MEDS: buPROPion SR 100 MG TABCR PO SCH (22:32)
[2022-03-29] MEDS: METOPROLOL TARTRATE 100 MG TAB PO SCH (22:33)
[2022-03-30 08:46] LABS: Hematocrit (blood only) 39.4 % (37-47); Hemoglobin 13.7 g/dL (12.0-16.0); Mean Corpuscular Hemoglobin 32.5 pg (25-34); Mean Corpuscular Hgb Conc 34.8 g/dL (32-36); Mean Corpuscular Volume 93.6 fL (80-100); Mean Platelet Volume 9.1 fL (7.4-10.4); Platelet Count 256 K/uL (130-400); RDW Coefficient of Variation 12.9 % (11.5-14.5); RDW Standard Deviation 43.8 fL (36.4-46.3); Red Blood Count 4.21 M/uL (4.2-5.4); White Blood Count 6.18 K/uL (4.8-10.8)
[2022-03-30] MEDS ORDERED: SODIUM CHLORIDE 1 GM TABLET PO SCH (09:00)
[2022-03-30] MEDS ORDERED: CHOLECALCIFEROL 1,000 UNITS 25 MCG TAB PO SCH (09:00)
[2022-03-30] MEDS ORDERED: amLODIPine BESYLATE 5 MG TAB PO SCH (09:00)
[2022-03-30] MEDS ORDERED: MAGNESIUM OXIDE 400 MG TAB PO SCH (09:00)
[2022-03-30] MEDS ORDERED: FOLIC ACID 1 MG TAB PO SCH (09:00)
[2022-03-30] MEDS ORDERED: MELOXICAM 7.5 MG TAB PO SCH (09:00)
[2022-03-30] MEDS ORDERED: ENOXAPARIN INJ 40 MG/0.4 ML SYR SQ SCH (09:00)
[2022-03-30] MEDS ORDERED: GABAPENTIN 300 MG CAP PO SCH ×2 (09:00→21:00)
[2022-03-30] MEDS ORDERED: SERTRALINE HCL 50 MG TABLET PO SCH (09:00)
[2022-03-30] MEDS ORDERED: lisinopril 40 MG TAB PO SCH (09:00)
[2022-03-30 09:14] LABS: BUN Creatinine Ratio 9.3 (10-20); Creatinine Clr Calc Pharmacy 70.2 ml/min; Est GFR (African American) 60.1 ml/min; Est GFR (Non-African American) 51.9 ml/min; Potassium 4.3 mmol/L (3.5-5.1)
[2022-03-30] MEDS: METOPROLOL TARTRATE 100 MG TAB PO SCH (09:14)
[2022-03-30] MEDS: buPROPion SR 100 MG TABCR PO SCH (09:15)
[2022-03-30] MEDS: clonazePAM 1 MG TAB PO SCH (09:28)
[2022-03-30] MEDS ORDERED: FIRST - Mouthwash BLM 5 ML UDP PO ONE (10:11)
--- NOTE | 2022-03-30 11:04 | Discharge Summary ---
Date of Service March 30, 2022 Admission HPI Per Admitting Provider Patient is a 56-year-old female with past medical history of hypertension, diabetes, depression, anxiety, GERD, previous alcohol abuse who presents today from outpatient office for evaluation of abdominal wound unresponsive to oral antibiotics. Patient was initially seen in December for superficial abdominal wound, woound cultures at that time grew strep. She was treating with antibiotics, unsure which, and had full resolution until it recurred last Sunday, 03/24, with sloughing of the skin. She was evaluated Sunday and placed on clindamycin plus mupirocin. Unfortunately, she did develop numbness and tingling in her lips as well as some difficulty swallowing. Took Benadryl with some alleviation of this and continued to take the abx. Despite this, the rash continues to spread now with a lesion on her left posterior calf and left shoulder, with minimal, if any, improvement of abdominal wound despite being on clindamycin. Additionally, since this morning she has had vaginal pruritus and yellow, malodorous vaginal discharge. Denies dysuria, hematuria, increased urinary frequency, urinary retention. In ED, hypertensive 157/102, otherwise vital signs within normal limits and stable. Labs significant for elevated ESR 32, CRP 4.1. Without leukocytosis, lactate 1.5, procalcitonin 0.13. Blood cultures ordered and pending. Sodium 127. Lyme, COVID negative. Discharge Exam General: awake, alert, no apparent distress Head: Normocephalic, atraumatic ENT: PERRL, EOMI, no pharyngeal exudate, mucous membranes moist Chest: Clear to auscultation, on room air, no adventitious breath sounds Cardiac: Regular rate and rhythm, no murmur, no JVD, normal peripheral pulses, good capillary refill Abdominal: NABS x 4 quadrants, soft, nontender to palpation, no rebound, guarding or tenderness Extremities: Normal inspection, no peripheral edema or erythema, calfs nontender to palpation Psych: Normal mood and affect : Mild erythema of labia with erythematous vaginal canal, nontender and without discharge Neuro: AAO x 3, strength intact bilaterally and rated 5/5, no motor deficits, speech is clear, no peripheral sensory deficits Skin: erythematous base rash over the abdominal wall with ruptured blisters. There is a lesion on the left posterior calf as well as left shoulder, both about the size of half dollar bill with erythema, no skin breakdown or purulence. Discharge Data Allergies Allergy/AdvReac Type Severity Reaction Status Date / Time ampicillin Allergy Intermediate hives Verified 03/29/22 18:34 cephalexin Allergy Intermediate HIVES/ITCHI Verified 03/29/22 18:34 NG clindamycin Allergy Intermediate ALL MUCOUS Verified 03/29/22 18:34 MEMBRANES SWELLED, PAINFULLY metronidazole Allergy Intermediate blisters Verified 03/29/22 18:34 Penicillins Allergy Intermediate HIVES Verified 03/29/22 18:34 adhesive AdvReac Intermediate SKIN Verified 03/29/22 18:34 TEARING AND IRRITATION Consultations 03/29/22 19:34 ED Decision to Admit Stat Discharge Plan Discharge Items Reason For Visit: DISSEMINATED CELLULITIS REQUIRING IV ABX Follow-up/Referrals: Emily Casanova CRNP [Primary Care Provider] - Medications and DC Order Prescriptions: No Action risperidone 1 mg Tablet 1 mg PO QPM RF: 0 cholecalciferol (vitamin D3) [Vitamin D3] 1,000 unit Capsule 1,000 unit PO QAM RF: 0 omeprazole 20 mg Tablet,Delayed Release (Dr/Ec) 20 mg PO DAILY PRN (Reason: reflux) RF: 0 milk thistle seed extract 175 mg Capsule 175 mg PO PM RF: 0 magnesium 200 mg tablet 200 mg PO BID Qty: 60 RF: 0 clonazepam [Klonopin] 1 mg tablet 1 mg PO BID RF: 0 lisinopril [Zestril] 40 mg Tablet 40 mg PO QAM Qty: 30 RF: 0 folic acid 1 mg Tablet 1 mg PO QAM Qty: 30 RF: 0 metoprolol tartrate 100 mg tablet 100 mg PO BID RF: 0 amlodipine 5 mg tablet 5 mg PO QAM RF: 0 furosemide 20 mg tablet 20 mg PO QAM RF: 0 gabapentin 300 mg capsule See Rx Instructions .ROUTE .COMPLEX RF: 0 bupropion HCl 200 mg tablet sustained-release 12 hr 200 mg PO BID RF: 0 sertraline 25 mg tablet 25 mg PO QAM RF: 0 thiamine HCl (vitamin B1) 100 mg tablet 100 mg PO PM RF: 0 meloxicam 15 mg tablet 15 mg PO QAM RF: 0 Admission Data Admit Date/Time: 03/29/22 20:11 Attending Provider: Khoa Feldman Admit Provider: Ben Summers Primary Care Provider: Emily Casanova Other Providers: Ben Summers
--- NOTE | 2022-03-30 15:21 | Med Student Discharge Summary ---
Date of Service March 30, 2022 Discharge Exam Constitutional Well-developed female lying comfortably in bed in no apparent distress Respiratory Clear to auscultation Cardiovascular Regular rate and rhythm no murmurs rubs or gallops Skin Erythematous base eruption over the abdominal wall with ruptured blisters; a similar appearing erythematous lesion is on the left posterior calf. There is an erythematous lesion on left shoulder with no skin breakdown or purulence. Genitourinary mild erythema of labia without discharge Discharge Data Consultations 03/29/22 19:34 ED Decision to Admit Stat Hospital Course (1) Abdominal wall cellulitis: - Failed outpatient tx of clindamycin + mupirocin ointment, also had adverse reaction to clindamycin--lip swelling and tingling, painful swallowing, but without compromised airway. Responded to Benadryl. Continued to take clindamycin, without improvement. Further outpatient abx limited by allergies to ampicillin, cephalexin, flagyl, PCNs. - Started on vancomycin in ED, was switched to daptomycin - Blood cultures ordered. Original wound cultures in December when cellulitis first appeared grew strep. -Discontinue daptomycin -Tomorrow start Bactrim: 2 DS tablets BID for 10 days (2) Acute hyponatremia: - Sodium is 127 tonight, has a history of hyponatremia with sodium typically around 131. Currently not symptomatic, no nausea/vomiting, weakness, confusion. - Suspect this is due to beer potomania, given her frequent alcohol intake. May be Lasix contributing. We will obtain urine and serum osm, as well as urine sodium: resolved -Restart Lasix on discharge - NaCl tabs 1g BID given during hospitalization. (3) Vaginitis: - Mild erythema of the labia and external vaginal erythema, with complaints of pruritus, yellow malodorous discharge. May be developing a yeast infection due to recent course of clindamycin. - Gave topical Nystatin during hospitalization: follow up with primary care provider (4) Alcohol abuse: - Continue folate and thiamine supplementation. (5) Hypertension: - Continue amlodipine, lisinopril, metoprolol and lasix (6) Diabetes: - Reports she is a prediabetic, not on any medications currently as she has lost 25 lbs. (7) Depression: - With anxiety. - Continue Zoloft, risperidone, bupropion, Klonopin. - Home self-care - Full code. Discharge Plan Discharge Items Patient Disposition: Home - Self-Care Reason For Visit: DISSEMINATED CELLULITIS REQUIRING IV ABX Discharge Diagnosis: Cellulitis Activity: Per Instructions section Non-emergency contact: Primary Care Provider Call non-emergency contact if: you have any medication questions and your temperature is above 101.5 Follow-up/Referrals: Emily Casanova CRNP [Primary Care Provider] - 04/05/22 11:30 am Diet: Regular Addtl Attending Provider Instructions: You were seen in the hospital for the concern of abdominal cellulitis. While you are here you were given IV antibiotics. This cellulitis is likely due to what is written as which is cellulitis but could be due to something called pemphigoid vulgaris. At this time we are going to treat it simply as cellulitis. Follow-up in 1 week with your primary care provider. If it is not improving with the antibiotics we are going to send you on, please try to get in with dermatology. We are sending you with Bactrim DS 2 tabs twice a day for 10 days. You will start this antibiotic tomorrow. Is been a pleasure to be a part of your care and we wish you the best in both your health and recovery. Pending Studies at Discharge: No Stand-Alone Forms: My [facility], Smoking Cessation Medications and DC Order Prescriptions: New sulfamethoxazole-trimethoprim 800-160 mg tablet 2 tab PO Q12H 10 Days Qty: 40 RF: 0 Continued risperidone 1 mg Tablet 1 mg PO QPM RF: 0 cholecalciferol (vitamin D3) [Vitamin D3] 1,000 unit Capsule 1,000 unit PO QAM RF: 0 omeprazole 20 mg Tablet,Delayed Release (Dr/Ec) 20 mg PO DAILY PRN (Reason: reflux) RF: 0 milk thistle seed extract 175 mg Capsule 175 mg PO PM RF: 0 magnesium 200 mg tablet 200 mg PO BID Qty: 60 RF: 0 clonazepam [Klonopin] 1 mg tablet 1 mg PO BID RF: 0 lisinopril [Zestril] 40 mg Tablet 40 mg PO QAM Qty: 30 RF: 0 folic acid 1 mg Tablet 1 mg PO QAM Qty: 30 RF: 0 metoprolol tartrate 100 mg tablet 100 mg PO BID RF: 0 amlodipine 5 mg tablet 5 mg PO QAM RF: 0 furosemide 20 mg tablet 20 mg PO QAM RF: 0 gabapentin 300 mg capsule See Rx Instructions .ROUTE .COMPLEX RF: 0 bupropion HCl 200 mg tablet sustained-release 12 hr 200 mg PO BID RF: 0 sertraline 25 mg tablet 25 mg PO QAM RF: 0 thiamine HCl (vitamin B1) 100 mg tablet 100 mg PO PM RF: 0 meloxicam 15 mg tablet 15 mg PO QAM RF: 0 Discharge Orders: Discharge Order (Routine); Ordered 03/30/22 Ordered By: Isaac Wilkes/Other Patient Handouts: Cellulitis Dc Admission Data Admit Date/Time: 03/29/22 20:11 Attending Provider: Khoa Feldman Admit Provider: Ben Summers Primary Care Provider: Emily Casanova Other Providers: Ben Summers Other Interventions: Discharge Summary Assessment (RN) Last Done: 03/30/22 14:40 Supervising Attestation I personally examined the patient and verified all bowser points of history and exam, discussed case, and agree with decision making with Bisi VENTURA feeling OK - feels up to going home. rash on belly doesn't hurt, small area on back of L leg does some. small area on L posterior shoulder vitals noted nad heent nc at mmm skin lower abdomen area shallow ulcerations nontender (but notes that she doesn't have much sensation there) minimal to no surrounding erythema no tracking erythema no fluctuance. L posterior shoulder ~1cm round patch no vesicle no ulceration nontender. L posterior calf ~1.5cm area that appears like shallow ulceration no surrounding erythema mild tender no fluctuance skin lesions - abd slow healing wound maybe had some superimposed infection - safe/stable for home on abx (due to allergies will utilize bactrim), may also be dermatologic given shallow ulcer on calf as well? discussed empiric treatment vs derm eval - we both agreed empiric abx, serial exams/f/u and then refer to derm if situation evolves rather than improves. home w close PCP f/u.
--- NOTE | 2022-03-30 18:39 | Billing Data ---
Date of Service March 30, 2022 Coding Level of Care Code D/C DAY MANAGEMENT <30 MINS
[2022-03-30] MEDS ORDERED: NYSTATIN CR 15 GM TUBE EXT SCH (21:00)
== END 2022-03-30 16:24 | disposition home or self-care (01) | DRG 603 ==
LOC: ED 16:45 → SUATTDRO 20:11 → 3W 20:11

== ENCOUNTER 2022-06-27 09:55 | Observation (INO) ==
--- NOTE | 2022-04-27 08:40 | PAT Medication Instructions ---
Medication Instructions Date of Service April 27, 2022 Home Medications Medication Instructions Recorded magnesium 200 mg tablet 200 mg PO BID #60 tab 11/11/18 folic acid 1 mg tablet 1 mg PO QAM #30 tab 10/06/19 lisinopril 40 mg tablet (Zestril) 40 mg PO QAM #30 tab 10/06/19 cholecalciferol (vitamin D3) 25 mcg (1,000 unit) capsule (Vitamin D3) 1,000 unit PO QAM milk thistle seed extract 175 mg capsule 175 mg PO PM omeprazole 20 mg tablet,delayed release 20 mg PO DAILY PRN risperidone 1 mg tablet 1 mg PO QPM magnesium 200 mg tablet 200 mg PO BID clonazepam 1 mg tablet (Klonopin) 1 mg PO BID folic acid 1 mg tablet 1 mg PO QAM lisinopril 40 mg tablet (Zestril) 40 mg PO QAM amlodipine 5 mg tablet 5 mg PO QAM furosemide 20 mg tablet 20 mg PO QAM metoprolol tartrate 100 mg tablet 100 mg PO BID bupropion HCl 200 mg tablet,12 hr sustained-release 200 mg PO BID gabapentin 300 mg capsule See Rx Instructions .ROUTE .COMPLEX sertraline 25 mg tablet 25 mg PO QAM thiamine HCl (vitamin B1) 100 mg tablet 100 mg PO PM meloxicam 15 mg tablet 15 mg PO QAM Continue as directed gabapentin 300 mg capsule See Rx Instructions .ROUTE .COMPLEX ASK your surgeon for instructions meloxicam 15 mg tablet 15 mg PO QAM ASK your prescriber and surgeon Check with prescriber risperidone 1 mg tablet 1 mg PO QPM STOP taking 2 weeks before surgery milk thistle seed extract 175 mg capsule 175 mg PO PM DO NOT take the morning of surgery cholecalciferol (vitamin D3) 25 mcg (1,000 unit) capsule (Vitamin D3) 1,000 unit PO QAM magnesium 200 mg tablet 200 mg PO BID folic acid 1 mg tablet 1 mg PO QAM lisinopril 40 mg tablet (Zestril) 40 mg PO QAM furosemide 20 mg tablet 20 mg PO QAM Take morning of surgery With a small sip of water, OTHERWISE NOTHING TO EAT OR DRINK AFTER MIDNIGHT: omeprazole 20 mg tablet,delayed release 20 mg PO DAILY PRN(if needed) clonazepam 1 mg tablet (Klonopin) 1 mg PO BID amlodipine 5 mg tablet 5 mg PO QAM metoprolol tartrate 100 mg tablet 100 mg PO BID bupropion HCl 200 mg tablet,12 hr sustained-release 200 mg PO BID sertraline 25 mg tablet 25 mg PO QAM Take evening before surgery magnesium 200 mg tablet 200 mg PO BID clonazepam 1 mg tablet (Klonopin) 1 mg PO BID metoprolol tartrate 100 mg tablet 100 mg PO BID bupropion HCl 200 mg tablet,12 hr sustained-release 200 mg PO BID thiamine HCl (vitamin B1) 100 mg tablet 100 mg PO PM Other Notes If you have any questions please call us at [phone] or [phone] or [phone] or [phone]
--- NOTE | 2022-05-29 15:40 | Anesthesiology Consultation ---
Date of Service May 29, 2022 Assessment & Plan (1) Encounter for pre-operative examination: - Chronic hyponatremia: Fluctuating levels in the high 120s to low 130s x years. Per 03/2022 [facility] discharge summary (admission for abdominal wall cellulitis), benjamin spected d/t beer potomania, given her frequent alcohol intake. May be Lasix contributing. Preop sodium level 129. Multiple co-morbidities.Will need to arrange preop PCP evaluation arranged (Emily Casanova/LAT[facility]). - COVID screening: Per assessment on 05/29: No known COVID-19 positive contacts or current COVID-19 related symptoms. Travel screen negative. Patient vaccinated. Surgeon arranging preop COVID testing. Awaiting results. Chart Review Chart Review: Patient seen in Pre Admission Testing Teaching & Discussion Pre-Anesthesia Teaching/Discussion Notes: Instructed NPO after midnight before surgery,except medications with 15 cc of water. Medication instructions provided according to the PAT guidelines. History Surgery Operation Date: 06/27/22 10:45 Proposed Procedures p Right Total Knee Arthroplasty - Zacarias Purvis DO Height/Weight Height: 5 ft 4 in Weight: 116.6 kg Allergies Allergy/AdvReac Type Severity Reaction Status Date / Time ampicillin Allergy Intermediate Hives Verified 05/29/22 14:17 cephalexin Allergy Intermediate Hives, Verified 05/29/22 14:17 itching clindamycin Allergy Intermediate Mucous Verified 05/29/22 14:17 membrane swelling, painful metronidazole Allergy Intermediate Blisters Verified 05/29/22 14:17 Penicillins Allergy Intermediate Hives Verified 05/29/22 14:17 adhesive AdvReac Intermediate Skin Verified 05/29/22 14:17 tearing/irritation Medications Home Medications Medication Instructions Recorded Confirmed Last Taken cholecalciferol (vitamin D3) 25 1,000 unit PO QAM 11/10/18 04/26/22 03/29/22 mcg (1,000 unit) capsule (Vitamin D3) milk thistle seed extract 175 mg 175 mg PO PM 11/10/18 04/26/22 03/28/22 capsule omeprazole 20 mg tablet,delayed 20 mg PO DAILY PRN 11/10/18 04/26/22 08/13/21 release risperidone 1 mg tablet 1 mg PO QPM 11/10/18 04/26/22 03/28/22 magnesium 200 mg tablet 200 mg PO BID #60 tab 11/11/18 04/26/22 03/29/22 08:00 clonazepam 1 mg tablet (Klonopin) 1 mg PO BID 11/18/18 04/26/22 03/29/22 08:00 folic acid 1 mg tablet 1 mg PO QAM #30 tab 10/06/19 04/26/22 03/29/22 lisinopril 40 mg tablet (Zestril) 40 mg PO QAM #30 tab 10/06/19 04/26/22 03/29/22 amlodipine 5 mg tablet 5 mg PO QAM 03/21/20 04/26/22 03/29/22 furosemide 20 mg tablet 20 mg PO QAM 03/21/20 04/26/22 03/29/22 metoprolol tartrate 100 mg tablet 100 mg PO BID 03/21/20 04/26/22 03/29/22 08:00 bupropion HCl 200 mg tablet,12 hr 200 mg PO BID 07/15/20 04/26/22 03/29/22 08:00 sustained-release gabapentin 300 mg capsule See Rx Instructions .ROUTE .COMPLEX 07/15/20 04/26/22 03/29/22 08:00 sertraline 25 mg tablet 25 mg PO QAM 04/24/21 04/26/22 03/29/22 thiamine HCl (vitamin B1) 100 mg 100 mg PO PM 04/24/21 04/26/22 03/28/22 tablet meloxicam 15 mg tablet 15 mg PO QAM 03/29/22 04/26/22 03/29/22 Past Medical History Medical History (Updated 05/29/22 @ 15:38 by Linda Herrera) Depression Diverticular disease GERD (gastroesophageal reflux disease) Hypertension Hyponatremia Chronic, hx ETOH abuse per records Morbid obesity Nystagmus Renal mass, left Stroke Chronic subcentimeter lacunar infarct of the left internal capsule per 08/13/[address] Suicidal ideation Hx Temporomandibular joint disorder + clicking, no locking Thiamine deficiency Exercise / Class Metabolic Activity III < 4 Walking/Shop/Light housework Past Family History Family History Father Hypertension Sister Colonic polyp Other No pertinent family history Denies family history of Ovarian cancer Breast cancer Colorectal cancer Past Surgical History Surgical History H/O meniscectomy of right knee H/O oophorectomy Left History of appendectomy History of colon resection History of colonoscopy History of open reduction and internal fixation (ORIF) procedure Right Hx of tonsillectomy Past Anesthesia History No Hx of Anesthesia Complications and No Family Hx of Anesthesia Complications History of PONV No Hx of PONV and No Hx of Motion Sickness Social History Smoking Status: Never smoker Do You Dip or Chew Tobacco: No Hx Alcohol Use: Yes (Hx ETOH abuse per records) Alcohol type: hard liquor alcohol intake frequency: a few times a week Hx Substance Use: No substance use type: marijuana Substance Use Type Other:: MEDICAL MARIJAUNA CARD-USES PRN INH Review of Systems Patient denies chest pain, shortness of breath, fever, chills, cough, wheezing, palpitations. Physical Exam Vital Signs VITALS BP 121/85 P 64 TEMP 98.7 SP02 95%RA RESP 16 PHYSICAL Full cervical extension range of motion. Full TMJ range of motion. TMD 4 finger breaths Mallampati Score 3 Dentition: missing molars Lungs: clear throughout to auscultation Cardiac: regular rate and rhythm, no murmurs noted Spine: normal Carotid arteries: negative bruit Extremities: no edema Lab Results Anesthesia Preop Results Results Anesthesia Widget: WBC 5.07 K/ul (4.8-10.8) 05/29/22 Hgb 14.4 g/dl (12.0-16.0) 05/29/22 Hct 41.1 % (34.1-44.9) 05/29/22 Plt 272 K/uL (130-400) 05/29/22 Na 129 mmol/L (136-145) L 05/29/22 K 4.5 mmol/L (3.5-5.1) 05/29/22 Cl 94 mmol/L (98-107) L 05/29/22 CO2 27 mmol/L (21-32) 05/29/22 BUN 10 mg/dl (6-23) 05/29/22 Creat 0.69 mg/dl (0.6-1.2) 05/29/22 Glucose Level 152 mg/dl (70-99(Fasting)) H 05/29/22 PT 10.7 Seconds (9.0-12.0) 05/29/22 PTT 26.8 Seconds (21.0-31.0) 05/29/22 INR 1.0 (0.9-1.1) 05/29/22 HA1c 6.1 % (4.5-5.6) H 05/29/22 Urine Color Yellow 05/29/22 Urine Appearance Clear (Clear) 05/29/22 Urine pH 6.5 (4.5-7.5) 05/29/22 Urine Specific [place] 1.011 (1.000-1.030) 05/29/22 Urine Protein Negative (Negative) 05/29/22 Urine Glucose (UA) Negative (Negative) 05/29/22 Urine Ketones Negative (Negative) 05/29/22 Urine Blood Negative (Negative) 05/29/22 Urine Nitrite Negative (Negative) 05/29/22 Urine Bilirubin Negative (Negative) 05/29/22 Urine Urobilinogen Negative (Negative) 05/29/22 Urine Leukocyte Esterase Negative (Negative) 05/29/22 Blood Type B Positive 05/29/22 Antibody Screen NEGATIVE 05/29/22 Testing Electrocardiogram Date: 05/29/22 NSR at 62bpm. NS STA. 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 Chest X-Ray Date: 08/13/21 FINDINGS: Cardiomediastinal and hilar silhouettes are unchanged. Unchanged right hemidiaphragmatic elevation. No pneumothorax, pleural effusion, airspace consolidation or overt pulmonary edema. Degenerative changes of the shoulders and spine. IMPRESSION: No acute process. Other Testing Head CT (08/13/21) No acute intracranial abnormality. Chronic subcentimeter lacunar infarct of the left internal capsule.
--- NOTE | 2022-06-05 08:55 | History & Physical Report ---
Date of Service June 05, 2022 DATE OF SURGERY: 06/27/22 PROCEDURE: Right Total Knee Arthroplasty Surgeon: Zacarias Purvis Assessment & Plan (1) Arthritis of right knee: Plan: Risk and benefits of the procedure discussed in detail with patient, she elected proceed with a right total knee replacement. Plan on discharge with home with home health physical therapy x2 weeks. We will also place on aspirin 81 mg twice a day for 1 month postop DVT prophylaxis. Patient otherwise has no other questions or concerns The risks and benefits have been discussed including, but not limited to, risk of infection, nerve injury, stiffness, loss of motion, failure to improve, etc. Reasonable outcomes and options of treatment were discussed. An explanation of appropriate alternatives to the procedure that may be advantageous were discussed and their risks and benefits, as well as the risks and benefits of not proceeding with treatment. I offered to answer any additional inquiries concerning the treatment involved. All the patient's questions were answered. The patient is agreeable, understanding of the treatment plan and alternatives, and wishes to proceed with the treatment plan. History of Present Illness Chief Complaint: Right knee pain Primary Care Provider: LATIA Johnson Brianna is a 56-year-old female who presented for preop valuation prior to right total knee replacement. She states she has been having pain in this knee for many years now which is gradually worsened, and is now affecting her daily activities including walking standing going up and on steps. She tried oral anti-inflammatories, Meloxicam, as well as Tylenol without relief. She has also had viscosupplementation injections, Durolane in the past without much relief. X-rays reveal advanced degenerative changes to bilateral knees. At this point time has failed conservative measures and like to proceed with a right total knee replacement Allergies Allergy/AdvReac Type Severity Reaction Status Date / Time ampicillin Allergy Intermediate Hives Verified 05/29/22 14:17 cephalexin Allergy Intermediate Hives, Verified 05/29/22 14:17 itching clindamycin Allergy Intermediate Mucous Verified 05/29/22 14:17 membrane swelling, painful metronidazole Allergy Intermediate Blisters Verified 05/29/22 14:17 Penicillins Allergy Intermediate Hives Verified 05/29/22 14:17 adhesive AdvReac Intermediate Skin Verified 05/29/22 14:17 tearing/irritation Home Medications Medication Instructions Recorded Confirmed Type cholecalciferol (vitamin D3) 25 1,000 unit PO QAM 11/10/18 04/26/22 History mcg (1,000 unit) capsule (Vitamin D3) milk thistle seed extract 175 mg 175 mg PO PM 11/10/18 04/26/22 History capsule omeprazole 20 mg tablet,delayed 20 mg PO DAILY PRN reflux 11/10/18 04/26/22 History release risperidone 1 mg tablet 1 mg PO QPM 11/10/18 04/26/22 History magnesium 200 mg tablet 200 mg PO BID #60 tabs 11/11/18 04/26/22 Rx clonazepam 1 mg tablet (Klonopin) 1 mg PO BID 11/18/18 04/26/22 History folic acid 1 mg tablet 1 mg PO QAM #30 tabs 10/06/19 04/26/22 Rx lisinopril 40 mg tablet (Zestril) 40 mg PO QAM #30 tabs 10/06/19 04/26/22 Rx amlodipine 5 mg tablet 5 mg PO QAM 03/21/20 04/26/22 History furosemide 20 mg tablet 20 mg PO QAM 03/21/20 04/26/22 History metoprolol tartrate 100 mg tablet 100 mg PO BID 03/21/20 04/26/22 History bupropion HCl 200 mg tablet,12 hr 200 mg PO BID 07/15/20 04/26/22 History sustained-release gabapentin 300 mg capsule See Rx Instructions .Route .COMPLEX 07/15/20 04/26/22 History sertraline 25 mg tablet 25 mg PO QAM 04/24/21 04/26/22 History thiamine HCl (vitamin B1) 100 mg 100 mg PO PM 04/24/21 04/26/22 History tablet meloxicam 15 mg tablet 15 mg PO QAM 03/29/22 04/26/22 History 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 per 08/13/[address] Suicidal ideation Hx Temporomandibular joint disorder + clicking, no locking Thiamine deficiency Surgical History H/O meniscectomy of right knee H/O oophorectomy Left History of appendectomy History of colon resection History of colonoscopy History of open reduction and internal fixation (ORIF) procedure Right Hx of tonsillectomy Family History Father Hypertension Sister Colonic polyp Other No pertinent family history Denies family history of Ovarian cancer Breast cancer Colorectal cancer Social History Smoking Status: Never smoker Second Hand Exposure: No; Hx Alcohol Use: Yes (Hx ETOH abuse per records) Alcohol type: hard liquor Hx Substance Use: No Preferred Language: Yi Communication Ability: Effective Inner Tube Inserter Required: No Beliefs That Will Affect Care: None Current Living Situation: Spouse current occupational status: disabled Feels Safe at Home: Yes Assistive Devices: Cane and Glasses Review of Systems Review of Systems: All systems reviewed & are unremarkable except as noted in HPI & below Constitutional: no fever, no chills and no sweats Respiratory: no cough and no dyspnea Cardiovascular: no chest pain, no dyspnea and no orthopnea Gastrointestinal: no abdominal pain, no nausea and no vomiting Musculoskeletal: as per Subjective / HPI Physical Exam Physical Exam: HT: 5ft 4in WT: 116.6kg Constitutional: WD/WN, vitals as above no acute distress Respiratory: normal respiratory effort, lungs clear to auscultation no respiratory distress, no labored breathing and does not use accessory muscles Cardiovascular: RRR, no murmur, no edema Gastrointestinal (Abdomen): normal bowel sounds, soft, nontender, no hepatosplenomegaly Musculoskeletal: Knee: + knee abnormal to inspection (RIGHT KNEE), + effusion (+1 effusion), + limited ROM of knee (ROM 0/3/110), + knee ROM with crepitation, + joint line tenderness (medial joint line) and + Zachary's sign positive; no deformity, no skin erythema, no ecchymosis, no valgus laxity, no varus laxity, anterior drawer test negative, Julisa's sign negative and pivot shift test negative Results & Data Results & Data ([facility]) Diagnostic Findings Right Knee X-ray: Right knee series showing advanced degenerative changes to the right knee, narrowing of the medial compartment and patello-femoral joint with patellar spurring noted, findings showing joint space narrowing of the medial compartment and patello-femoral joint, osteophyte formation and subchondral sclerosis noted. overall varus alignment. has healed proximal fibula fracture noted.
[~2022-06-27 09:55] MED LIST: BUPIVACAINE 0.5 % 5 MG/1 ML PF 10ML VIAL ONE; ROPIVACAINE 0.5% 5 MG/ML 30 ML VIAL ONE; ROPIVACAINE 0.5% HCL/PF 150 MG, BUPIVACAINE 0.75% MPF 20 ML, EPINEPHrine 30MG/30ML (OR ... INFIL SCH; VANCOMYCIN HCL 1,750 MG in SODIUM CHLORIDE 0.9% 500 ML IV SCH
--- NOTE | 2022-06-27 10:32 | History & Physical Bridge Note ---
Date of Service June 27, 2022 History & Physical Bridge Note I have examined the patient, reviewed the History & Physical and in the interval since the performance of the History & Physical I have noted the following changes of clinical significance: no changes noted
[2022-06-27] MEDS ORDERED: Nursing to Pharmacy Communication SCH (10:45)
[2022-06-27] MEDS ORDERED: TRANEXAMIC ACID / 0.7% NACL 1000MG/100ML BAG IV ONE (10:53)
[2022-06-27] MEDS ORDERED: LACTATED RINGER'S 1,000 ML IV SCH (11:00)
[2022-06-27] MEDS ORDERED: TRANEXAMIC ACID / 0.7% NACL 1,000 MG/100 ML BAG IV ONE ×2 (11:06)
[2022-06-27] MEDS ORDERED: HYDROmorphone INJ 2 MG/ML SYR/VIAL IV PRN (11:12)
[2022-06-27] MEDS ORDERED: fentaNYL citrate 100 MCG/2 ML VIAL IV PRN (11:12)
[2022-06-27] MEDS ORDERED: PROMETHAZINE HCL 12.5 MG in SODIUM CHLORIDE 0.9% 50 ML IV PRN (11:12)
[2022-06-27] MEDS ORDERED: ePHEDrine sulfate 50 MG/ML AMP IV PRN (11:12)
[2022-06-27] MEDS ORDERED: ATROPINE SULFATE 0.1 MG/ML 10ML SYR IV PRN (11:12)
[2022-06-27] MEDS ORDERED: ONDANSETRON INJ 2 MG/ML 2 ML VIAL IV PRN ×2 (11:12→16:18)
[2022-06-27] MEDS ORDERED: ORTHO JOINT ANESTHETIC ONE (11:14)
[2022-06-27] MEDS ORDERED: fentaNYL citrate 100 MCG/2 ML VIAL ONE ×2 (11:30→12:27)
[2022-06-27] MEDS ORDERED: MIDAZOLAM HCL 1 MG/ML 2ML VIAL ONE (11:30)
[2022-06-27] MEDS ORDERED: PROPOFOL IV EMULSION 10 MG/ML 20 ML VIAL IV ONE ×6 (12:00→12:52)
[2022-06-27] MEDS ORDERED: DEXAMETHASONE SOD INJ 4 MG/ML VIAL ONE ×2 (12:15→12:30)
[2022-06-27] MEDS ORDERED: ONDANSETRON INJ 2 MG/ML 2 ML VIAL ONE (12:15)
--- NOTE | 2022-06-27 13:07 | Operative Report ---
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 [employer] [facility] Estimated Blood Loss 5 Findings Consistent with Post-Op Diagnosis Patient presents with severe end-stage tricompartmental degenerative joint disease patient failed attempted conservative management patient has eburnated [id number] 5 degrees of hyperextension marked medial and lateral osteophytes with a large effusion Specimens Bone and cartilage Drains Medium bore Hemovac Anesthesia Type MAC Spinal Regional Complications none Disposition Accompanied Patient To Recovery: No Disposition: Recovery Room Indications Patient presents after failed attempted conservative management clinic physical therapy anti-inflammatories relative rest activity modification corticosteroid injection viscosupplementation above intraoperative findings were noted Description of Procedure After proper prepping and draping of the Right lower extremity anterior midline incision was made over the region of the extensor extensor mechanism after meticulous hemostasis was obtained and maintained in subcutaneous tissues a medial parapatellar incision was made The patella was subluxed lateralward the medial lateral gutter were cleaned from any hypertrophic synovitis and scar tissue of the distal femoral block was placed and the distal femoral osteotomy cut was made subsequently the chamfers anterior and posterior osteotomy cuts were made utilizing the 4-in-1 block the tibia was subsequently subluxed anteriorward medial and ateral meniscal remnants were excised in their entirety remnants of the anterior and posterior cruciate ligaments were excised in their entirety excellent exposure of the proximal tibia was obtained the tibial osteotomy guide was placed on the proximal tibial osteotomy cut was made once again the knee was irrigated with copious amounts of sterile saline solution the patella was subsequently everted lateralward thickened scar tissue around the patella was removed the patella was subsequently cut utilizing a freehand technique and was drilled prepared for final preparation and placement of patella socially flexion-extension gaps were checked and the equal and symmetric trials were placed to the appropriate femoral and tibial trials with poly-spacer being placed for equal flexion and extension gaps and full range of motion including extension to 0 and flexion to 140 the trial components after having been taken to recovery range of motion was subsequently removed meticulous hemostasis was obtained and maintained subsequently a knee block injection of joint cocktail including ropivacaine 0.5% 150 mg. Bupivacaine 0.5% epinephrine 1-200,030 mL's toradol 30 mg dexamethasone 4 mg ketamine 10 mg clonidine 100 micrograms normal saline solution 30 mg was infiltrated into the soft tissues of the posterior knee medial lateral gutters and periosteal synovium special attention was paid to protect neurovascular structures at all times subsequently trial components having been removed the knee was irrigated with sterile saline solution. debris was removed the proximal tibia was subsequently prepared and was made ready for the placement of the tibial component tibial component was also cemented and tamped into position the femoral component was subsequently placed and cemented in the position the patellar component was subsequently cemented in position because hemostasis once again obtained and maintained wound having been thoroughly irrigated with debridement and debridement lavage was performed as well as a medial parapatellar incision closed with #1 Vicryl in interrupted fashion subcutaneous was closed with #2 Vicryl skin was closed with skin clips. PA-C was necessary for prepping and drapping as well as wound closure of deep fascia Sub cutaneous tissue and skin and was necessary for the case. A sterile compressive dressing was placed patient was taken to recovery in stable condition of report dictated by Yaniv I attest to the content of the Intraoperative Record and any orders documented therein. Any exceptions are noted below.Due to the complex nature of the procedure, the entire surgery was performed with the operational assistance of Duke Argueta patient is 116.1 kg with a BMI of 44.1. The patient's habitus did contribute to significant technical difficulty requiring extra time. Additional help was necessary in order to position the patient safely. The use of specialized (longer, deeper) retractors and/or instruments were needed. Due to this, the procedure took 20 minutes longer than the standard total knee arthroplasty.". The cancer genetics assistant, under direct supervision, was involved in the actual performance of all aspects of the surgical procedure including hemostasis, tissue retraction and incision, instrument management, patient positioning, and wound closure. I attest to the content of the Intraoperative Record and any orders documented therein. Any exceptions are noted below.
--- NOTE | 2022-06-27 14:27 | Anesthesiology Progress Note ---
Date of Service June 27, 2022 Anesthesia Post Procedure Vital Signs Vital Signs: Temp Pulse Pulse Resp BP BP Pulse Ox 06/27/22 14:20 65 14 141/98 H 92 06/27/22 14:10 64 16 142/90 H 93 06/27/22 14:00 66 17 133/97 93 06/27/22 13:50 67 13 136/89 97 06/27/22 13:43 36.0 C L 80 17 128/71 96 06/27/22 10:26 36.7 C 63 16 139/75 96 O2 Del Method O2 Flow Rate 06/27/22 14:20 Room Air 06/27/22 14:10 Room Air 06/27/22 14:00 Room Air 06/27/22 13:50 Oxymask 5 06/27/22 13:43 Oxymask 5 06/27/22 10:26 Room Air Transfer of Care Handoff Completed per policy Notes Mental Status: alert / awake / arousable and participated in evaluation Nausea / Vomiting: adequately controlled Pain: adequately controlled Airway Patency, RR, SpO2: stable & adequate BP & HR: stable & adequate Hydration State: stable & adequate Neuraxial Anesthesia: was administered and sensory block is resolving Anesthetic Complications: no major complications apparent and Pt Satisfied with anesthetic care
--- NOTE | 2022-06-27 14:43 | XRay Report ---
XR knee RT 1 or 2V routine CLINICAL HISTORY: Postoperative evaluation. COMPARISON: Knee radiographs July 14, 2015. FINDINGS: Alignment of the total right knee arthroplasty is anatomic. There is no periprosthetic fra cture or unexpected radiopaque foreign body. Surgical drains are in place. Note is made of a healing fracture of the proximal diaphysis of the right fibula with extensive callus formation. IMPRESSION: 1. Expected findings following total right knee arthroplasty. 2. Healing proximal diaphyseal fracture of the right fibula. ACT 112: Negative or not required by law. Electronically signed by: Oneil Farrell M.D. 06/27/2022 2:41 PM
[2022-06-27] MEDS ORDERED: VANCOMYCIN CONSULT ACTIVE PRN (16:18)
[2022-06-27] MEDS ORDERED: MAGNESIUM HYDROXIDE SUSP 30 ML UDC PO PRN (16:18)
[2022-06-27] MEDS ORDERED: bisacodyL 10 MG SUPP PR PRN (16:18)
[2022-06-27] MEDS ORDERED: NALOXONE HCL 0.4 MG/1 ML VIAL/CARP IV PRN (16:18)
[2022-06-27] MEDS: SODIUM CHLORIDE 0.9% 1000ML 1,000 ML IV SCH (18:00)
[2022-06-27] MEDS: HYDROmorphone INJ 0.5 MG/0.5 ML SYR IV PRN (19:51)
[2022-06-27] MEDS ORDERED: risperiDONE 1 MG TABLET PO SCH (21:00)
[2022-06-27] MEDS ORDERED: SENNA 8.6 MG TAB PO SCH (21:00)
[2022-06-27] MEDS ORDERED: GABAPENTIN 300 MG CAP PO SCH (21:00)
[2022-06-27] MEDS ORDERED: THIAMINE HCL 100 MG TAB PO SCH (21:00)
[2022-06-27] MEDS: MAGNESIUM OXIDE 400 MG TAB PO SCH (21:51)
[2022-06-27] MEDS: clonazePAM 1 MG TAB PO SCH (21:51)
[2022-06-27] MEDS: METOPROLOL TARTRATE 100 MG TAB PO SCH (21:51)
[2022-06-27] MEDS: ASPIRIN 81 MG ECTAB PO SCH (21:52)
[2022-06-27] MEDS: buPROPion SR 100 MG TABCR PO SCH (21:52)
[2022-06-27] MEDS: DOCUSATE SODIUM 100 MG CAP PO SCH (21:52)
[2022-06-27] MEDS: ACETAMINOPHEN 500 MG TAB PO SCH (21:53)
[2022-06-27] MEDS: oxyCODONE HCL IR 5 MG TAB (IMMEDIATE RELEASE) PO PRN (22:29)
[2022-06-28] MEDS: HYDROmorphone INJ 0.5 MG/0.5 ML SYR IV PRN ×2 (00:06→05:23)
[2022-06-28] MEDS ORDERED: VANCOMYCIN HCL 1,750 MG in SODIUM CHLORIDE 0.9% 500 ML IV SCH (00:30)
[2022-06-28] MEDS: oxyCODONE HCL IR 5 MG TAB (IMMEDIATE RELEASE) PO PRN ×3 (02:37→13:22)
[2022-06-28] MEDS: SODIUM CHLORIDE 0.9% 1000ML 1,000 ML IV SCH (04:27)
[2022-06-28] MEDS: ACETAMINOPHEN 500 MG TAB PO SCH ×2 (05:24→13:24)
--- NOTE | 2022-06-28 07:23 | Orthopedic Progress Note ---
Date of Service June 28, 2022 Assessment & Plan (1) History of total right knee replacement: Plan: POD #1 s/p right TKA pt/ot dvt proph with DOROTEO/SCD/ASA plan for d/c home with HHPT Admission and Anticipated Discharge Date Admission Date: June 27, 2022 Subjective POD #1 s/p Right TKA Review of Systems Constitutional: no fever, no chills and no sweats Respiratory: no cough and no dyspnea Cardiovascular: no chest pain and no dyspnea Gastrointestinal: no abdominal pain, no nausea and no vomiting Physical Exam Physical Exam: Vital Signs Temp 36.5 C 06/28/22 06:33 Pulse 61 06/28/22 06:33 Resp 20 06/28/22 06:33 BP 160/89 H 06/28/22 06:33 Pulse Ox 97 06/28/22 06:33 O2 Del Method 06/28/22 06:33 O2 Flow Rate 2 06/27/22 17:15 Intake & Output 06/27/22 06/28/22 06/28/22 18:59 06:59 18:59 Intake Total 2335.000 / 4386.66 7 2051.667 / 4386.66 7 Output Total 5 2085 / 2115 Balance 2305.000 / 2271.66 7 -33.333 / 2271.667 Weight 116.6 kg Intake: IV 735.000 / 7266.011 7519.667 / 1886.66 7 Lactated Ringe r's 1,000 ml @ 15 0 / 0 mls/hr IV .Q24 H LONNY Rx#: [id number] Sodium Chlorid e 0.9% 1000ML 1, 616.667 / 616.667 000 ml @ 100 m ls/hr IV .Q10H LONNY Rx#:[id number] Tranexamic Aci d / 0.7% NaCl 1, 200 / 200 000 mg In 100 ml @ 600 mls/hr IV ONE ONE Rx# :[id number] Vancomycin HCl 1,750 mg In 535.000 / 1070.000 535 / 1070.000 Sodium Chlorid e 0.9% 500 ml @ 200 mls/hr IV Q12H LONNY Rx#: [id number] IV Perioperative 1600 / 1600 Oral 900 / 900 Output: Urine 2000 / 2000 Estimated Blood Loss 5 / 5 Drain Output 25 / 110 85 / 110 Right Knee Hem ovac 85 / 110 Other: # Unmeasured Voi ds 1 1 Weight Measureme nt Method Standing Scale Musculoskeletal: Right Leg: NVDI, calf SNT, negative yumiko sign. DP palpable, able to wiggle toes/ankle movement without difficulty. dressing clean dry and intact. Results & Data ([facility]) Vital Signs (Past 12 Hours) Vital Signs Temp Pulse Resp BP Pulse Ox O2 Del Method 06/28/22 06:33 36.5 C 61 20 160/89 H 97 Room Air 06/28/22 03:16 36.5 C 64 20 144/89 H 96 Room Air 06/27/22 20:30 Room Air 06/27/22 22:04 36 C L 71 20 154/97 H 95 Room Air 06/27/22 19:24 36.7 C 72 20 138/98 96 Room Air
[2022-06-28] MEDS: MAGNESIUM OXIDE 400 MG TAB PO SCH (07:59)
[2022-06-28] MEDS: DOCUSATE SODIUM 100 MG CAP PO SCH (07:59)
[2022-06-28] MEDS: ASPIRIN 81 MG ECTAB PO SCH (07:59)
[2022-06-28] MEDS: buPROPion SR 100 MG TABCR PO SCH (07:59)
[2022-06-28] MEDS: METOPROLOL TARTRATE 100 MG TAB PO SCH (08:00)
[2022-06-28] MEDS: clonazePAM 1 MG TAB PO SCH (08:02)
[2022-06-28] MEDS ORDERED: FOLIC ACID 1 MG TAB PO SCH (09:00)
[2022-06-28] MEDS ORDERED: SERTRALINE HCL 50 MG TABLET PO SCH (09:00)
[2022-06-28] MEDS ORDERED: MULTIVITAMIN TAB PO SCH (09:00)
[2022-06-28] MEDS ORDERED: CHOLECALCIFEROL 1,000 UNITS 25 MCG TAB PO SCH (09:00)
[2022-06-28] MEDS ORDERED: lisinopril 40 MG TAB PO SCH (09:00)
[2022-06-28] MEDS ORDERED: amLODIPine BESYLATE 5 MG TAB PO SCH (09:00)
[2022-06-28] MEDS ORDERED: FUROSEMIDE 20 MG TAB PO SCH (09:00)
[2022-06-28] MEDS ORDERED: GABAPENTIN 600 MG TAB PO SCH (09:00)
[2022-06-28 12:01] LABS: Hematocrit (blood only) 34.7 % (34.1-44.9); Mean Corpuscular Hemoglobin 32.6 pg (25.0-34.0); Mean Corpuscular Hgb Conc 34.6 g/dL (32.0-36.0); Mean Corpuscular Volume 94.3 fL (80.0-100.0); Mean Platelet Volume 8.6 fL (9.4-12.3); Platelet Count 234 K/uL (130-400); RDW Coefficient of Variation 13.3 % (11.5-14.5); Red Blood Count 3.68 M/uL (3.93-5.22); White Blood Count 8.65 K/ul (4.8-10.8)
[2022-06-28 12:33] LABS: BUN Creatinine Ratio 11.1 (10-20); Calcium 8.6 mg/dl (8.5-10.1); Creatinine Clr Calc Pharmacy 98.4 ml/min; Est GFR (African American) 94.8 ml/min; Est GFR (Non-African American) 81.8 ml/min; Potassium 4.2 mmol/L (3.5-5.1)
--- NOTE | 2022-06-29 11:29 | Discharge Summary ---
Date of Service June 29, 2022 Admission HPI Per Admitting Provider Cary is a 56-year-old female who presented for preop valuation prior to right total knee replacement. She states she has been having pain in this knee for many years now which is gradually worsened, and is now affecting her daily activities including walking standing going up and on steps. She tried oral anti-inflammatories, Meloxicam, as well as Tylenol without relief. She has also had viscosupplementation injections, Durolane in the past without much relief. X-rays reveal advanced degenerative changes to bilateral knees. At this point time has failed conservative measures and like to proceed with a right total knee replacement Admission Exam Per Admitting Provider Physical Exam: HT: 5ft 4in WT: 116.6kg Constitutional: WD/WN, vitals as above no acute distress Respiratory: normal respiratory effort, lungs clear to auscultation no respiratory distress, no labored breathing and does not use accessory muscles Cardiovascular: RRR, no murmur, no edema Gastrointestinal (Abdomen): normal bowel sounds, soft, nontender, no hepatosplenomegaly Musculoskeletal: Knee: + knee abnormal to inspection (RIGHT KNEE), + effusion (+1 effusion), + limited ROM of knee (ROM 0/3/110), + knee ROM with crepitation, + joint line tenderness (medial joint line) and + Zachary's sign positive; no deformity, no skin erythema, no ecchymosis, no valgus laxity, no varus laxity, anterior drawer test negative, Julisa's sign negative and pivot shift test negative Principal Diagnosis Right knee osteoarthritis Discharge Data Allergies Allergy/AdvReac Type Severity Reaction Status Date / Time ampicillin Allergy Intermediate Hives Verified 06/27/22 10:19 cephalexin Allergy Intermediate Hives, Verified 06/27/22 10:19 itching clindamycin Allergy Intermediate Mucous Verified 06/27/22 10:19 membrane swelling, painful metronidazole Allergy Intermediate Blisters Verified 06/27/22 10:19 Penicillins Allergy Intermediate Hives Verified 06/27/22 10:19 adhesive AdvReac Intermediate Skin Verified 06/27/22 10:19 tearing/irritation Procedures Performed Operation Date: 06/27/22 12:30 Actual Procedures p Right Total Knee Arthroplasty(Right) - Zacarias Purvis DO Ordered Studies 06/27/22 05:00 US - OR guided needle placemen Routine Hospital Course (1) History of total right knee replacement: Patient:CARY SANDERS Admit Date:06/27/22 MR#:[id number] Att Phy:Zacarias Purvis D.O. Acct ID:[id number] Maxine Phy:Emily Casanova CRNP Date:1965 Fam Phy: Age:56 Location:3N Sex:F Room/Bed:[facility] cc: ~ *NOTICE TO RECEIVING DEMOCRAT/AGENCY This information is strictly Confidential and protected under [place] law. [place] law prohibits you from making any further disclosure of this information unless further disclosure is expressly permitted by the written consent of the person to whom it pertains or is authorized by law. A general authorization for the release of medical or other information is not sufficient for this purpose. Hospital accepts no responsibility if the information is made available to any other person, INCLUDING THE PATIENT. Date of Service June 28, 2022 Assessment & Plan (1) History of total right knee replacement: Plan: POD #1 s/p right TKA pt/ot dvt proph with DOROTEO/SCD/ASA plan for d/c home with HHPT Admission and Anticipated Discharge Date Admission Date: June 27, 2022 Subjective POD #1 s/p Right TKA Review of Systems Constitutional: no fever, no chills and no sweats Respiratory: no cough and no dyspnea Cardiovascular: no chest pain and no dyspnea Gastrointestinal: no abdominal pain, no nausea and no vomiting Physical Exam Physical Exam: Vital Signs Temp 36.5 C 06/28/22 06:33 Pulse 61 06/28/22 06:33 Resp 20 06/28/22 06:33 BP 160/89 H 06/28/22 06:33 Pulse Ox 97 06/28/22 06:33 O2 Del Method 06/28/22 06:33 O2 Flow Rate 2 06/27/22 17:15 Intake & Output 06/27/22 06/28/22 06/28/22 18:59 06:59 18:59 Intake Total 2335.000 / 4386.66 7 2051.667 / 4386.66 7 Output Total 2114 / 2114 Balance 2305.000 / 2271.66 7 -33.333 / 2271.667 Weight 116.6 kg Intake: IV 735.000 / 5869.729 2825.667 / 1886.66 7 Lactated Ringe r's 1,000 ml @ 15 0 / 0 mls/hr IV .Q24 H [facility] Rx#: [id number] Sodium Chlorid e 0.9% 1000ML 1, 616.667 / 616.667 000 ml @ 100 m ls/hr IV .Q10H [facility] Rx#:[id number] Tranexamic Aci d / 0.7% NaCl 1, 200 / 200 000 mg In 100 ml @ 600 mls/hr IV ONE ONE Rx# :[id number] Vancomycin HCl 1,750 mg In 535.000 / 1070.000 535 / 1070.000 Sodium Chlorid e 0.9% 500 ml @ 200 mls/hr IV Q12H [facility] Rx#: [id number] IV Perioperative 1600 / 1600 Oral 900 / 900 Output: Urine 2000 / 2000 Estimated Blood Loss 5 / 5 Drain Output 25 / 110 85 / 110 Right Knee Hem ovac 25 / 85 / 110 Other: # Unmeasured Voi ds 1 1 Weight Measureme nt Method Standing Scale Musculoskeletal: Right Leg: NVDI, calf SNT, negative yumiko sign. DP palpable, able to wiggle toes/ankle movement without difficulty. dressing clean dry and intact. Results & Data ([facility]) Vital Signs (Past 12 Hours) Vital Signs Temp Pulse Resp BP Pulse Ox O2 Del Method 06/28/22 06:33 36.5 C 61 20 160/89 H 97C Room Air 06/28/22 03:16 36.5 C 64 20 144/89 H 96 Room Air 06/27/22 20:30 Room Air 06/27/22 22:04 36 C L 71 20 154/97 H 95 Room Air 06/27/22 19:24 36.7 C 72 20 138/98 96 Room Air Signed By: <Electronically signed by Epi Rico PA-C> 06/28/22 0723 <Electronically signed by Roberto Ramsay MD> 06/28/22 0914 Total Time Total Time Spent Total Time Spent (In Minutes): 5 Discharge Plan Discharge Items Patient Disposition: Home - Home Health Services Reason For Visit: right Knee Osteoarthritis Discharge Diagnosis: RIGHT TOTAL KNEE REPLACEMENT Activity: Per Instructions section Weightbearing Comment: WBAT with walker Non-emergency contact: Surgeon Call non-emergency contact if: you have any medication questions, your temperature is above 101, your wound has increased redness, your wound has increased drainage and your wound pain has increased Follow-up/Referrals: Emily Casanova CRNP [Primary Care Provider] - Diet: Regular Addtl Attending Provider Instructions: ACTIVITY RECOMMENDATIONS: SELF CARE INSTRUCTIONS AFTER TOTAL KNEE REPLACEMENT A. You may need to continue a physical therapy program after discharge from the hospital. There are several options available to you. Your doctor will assist you in selecting the best one for you. 1. An out-patient facility 2 to 3 times a week for therapy or home therapy. 2. Continue working on all exercises taught to you in the hospital. Your goals should be to increase bending of your knee to 90 degrees and beyond and to fully straighten your knee. B. You may progress at your own pace from walking with a walker or crutches to a cane; then to no assistive devices. C. Make walking a part of your daily routine. Be up as much as comfortable with rest periods throughout the day. Rest with leg elevation is very important. Use the ice wrap frequently for the first 3-4 weeks. D. There are no restrictions on activities. You may ride in a car, shop, participate in mobile application engineer and all social activities. E. Wear the long elastic stockings (DOROTEO hose) 20 hours a day for 2 weeks after surgery. They can be removed several times a day for laundering and for a bath. F. You may shower, no tub baths until cleared by your doctor. SPECIAL CARE INSTRUCTIONS: VERY IMPORTANT TO READ AND REVIEW A. There are a few signs you need to watch for after you are home. Call [facility] if you notice any of the followin. Increased severe knee pain. Some pain is expected especially when you exercise. 2. Increased swelling in your leg or knee; pain or swelling of the calf muscle in either lower leg. 3. Any fluid drainage from the incision. 4. Shortness of breath or chest pain. B. Please call [facility] at if you have any concerns or questions about your operation or recovery. The doctor or his nurse will return your call promptly. C. You must take antibiotics before dental work, bladder, bowel or other surgery. Your doctor will provide you with a permanent care to carry describing this precaution. IMPORTANT: * REMEMBER TO TAKE ASPIRIN, 81 MG, TWICE DAILY FOR 4 WEEKS UNLESS OTHERWISE DIRECTED. THIS IS YOUR BLOOD THINNER. * HIGH RISK PATIENTS MAY BE PRESCRIBED A STRONGER BLOOD THINNER. THIS WILL BE PROVIDED AT DISCHARGE. * CALL IF INCREASED PAIN, REDNESS, DRAINAGE OR FEVER GREATER THAT 101. * WEAR DOROTEO HOSE 20 HOURS PER DAY FOR 2 WEEKS. * MERCEDEZ Dressing- This is a large suction dressing covering your incision. This will help pull any excess drainage from the wound and allow your incision to heal properly. You may shower with this if you can keep the unit outside of the shower. If any bleeding or leakage is noted please call your doctor's office. This will remain on your incision for 7 days and then should be removed. This can be done yourself or by the home nursing staff if applicable. The entire unit is disposable once removed. Once removed, keep incision clean and dry. If redness or drainage is noted, please call your surgeon. ONCE MERCEDEZ IS REMOVED, FOLLOW THESE INSTRUCTIONS: DERMABOND Prineo- This is a mesh tape dressing that is covered with glue. It should remain in place until the incision is properly healed, usually 10-14 days. This dressing is designed to naturally slough off. You may trim the excess mesh tape as it peels off. Incision may be briefly wet in a shower. Dry immediately by blotting with a clean, dry towel. Do not bath or swim until instructed by your doctor. Do not scratch, rub, or pick at the dressing. Do not apply any topical ointments or lotions until dressing is completely removed and/or instructed by your doctor. There may be a small piece of suture material at one end of your incision. Do not pull or trim this. If it is bothersome or catching on clothing, you may cover it with a band-aid. IF INCISION IS LEAKING THROUGH DRESSING, CALL THE OFFICE . FOLLOW UP VISIT: If appointment is not already scheduled: Please call [facility] to make a follow-up appointment for 2 weeks after your surgery at . Pending Studies at Discharge: No Stand-Alone Forms: [employer], Smoking Cessation Medications and DC Order Prescriptions: New acetaminophen [Tylenol Extra Strength] 500 mg Tablet 1,000 mg PO Q8 21 Days Qty: 126 0RF aspirin 81 mg Tablet,Delayed Release (Dr/Ec) 81 mg PO BID 30 Days Qty: 60 0RF oxycodone 5 mg Tablet 5 - 10 mg PO Q6H PRN (Reason: pain) Qty: 30 0RF Rx Instructions: Ongoing therapy, supervising Dr. Marcelino Purvis. Max 6 tabs in 24 hours docusate sodium 100 mg Capsule 100 mg PO BID 10 Days Qty: 20 0RF sulfamethoxazole-trimethoprim [Bactrim DS] 800-160 mg tablet 1 tab PO Q12H 7 Days Qty: 14 0RF Continued risperidone 1 mg Tablet 1 mg PO QPM cholecalciferol (vitamin D3) [Vitamin D3] 1,000 unit Capsule 1,000 unit PO QAM omeprazole 20 mg Tablet,Delayed Release (Dr/Ec) 20 mg PO DAILY PRN (Reason: reflux) magnesium 200 mg tablet 200 mg PO BID Qty: 60 0RF clonazepam [Klonopin] 1 mg tablet 1 mg PO BID Label Comments: uaually takes bid lisinopril [Zestril] 40 mg Tablet 40 mg PO QAM Qty: 30 0RF folic acid 1 mg Tablet 1 mg PO QAM Qty: 30 0RF metoprolol tartrate 100 mg tablet 100 mg PO BID amlodipine 5 mg tablet 5 mg PO QAM furosemide 20 mg tablet 20 mg PO QAM gabapentin 300 mg capsule See Rx Instructions .ROUTE .COMPLEX Rx Instructions: 300 mg orally; TAKES 600 MG QAM, THEN 300 MG QPM. bupropion HCl 200 mg tablet sustained-release 12 hr 200 mg PO BID sertraline 25 mg tablet 25 mg PO QAM thiamine HCl (vitamin B1) 100 mg tablet 100 mg PO PM Rx Instructions: OTC Discontinued milk thistle seed extract 175 mg Capsule 175 mg PO PM meloxicam 15 mg tablet 15 mg PO QAM Discharge Orders: Discharge Order (Routine); Ordered 06/28/22 Ordered By: Epi Rico Admission Data Admit Date/Time: 06/27/22 14:24 Attending Provider: Zacarias Purvis Admit Provider: Zacarias Purvis Primary Care Provider: Emily Casanova Other Providers: [facility] Other Interventions: Discharge Summary Assessment (RN) Last Done: 06/28/22 09:38
== END 2022-06-28 17:01 | disposition home health service (06) ==
LOC: ASU 09:55 → PACUINP 09:55 → 3N 17:32
DX: Z79.899 Other long term (current) drug therapy; Z88.0 Allergy status to penicillin; E66.01 Morbid (severe) obesity due to excess calories; Z88.1 Allergy status to other antibiotic agents; M17.11 Unilateral primary osteoarthritis, right knee

== ENCOUNTER 2023-02-26 08:14 | Inpatient (IN) ==
--- NOTE | 2023-02-26 08:52 | Emergency Department Note ---
Impression & Plan Acute alcoholic pancreatitis, Nausea & vomiting ED Provider Note NAME: CARY SANDERS AGE: 57 SEX: F : 1965 ARRIVES VIA: Walk-In INFORMANT: Patient, ED PROVIDER(S): Destin Ngo MD CHIEF COMPLAINT: Abdominal pain, nausea vomit MEDICAL DECISION MAKING: Patient presents due to concern for upper abdominal pain nausea vomiting. IV was established blood work was obtained the patient was ordered IV Zofran and IV morphine. IV fluids also ordered the patient was ordered a CT of the abdomen pelvis in addition to lipase magnesium. The patient's blood work shows normal white count H&H and platelet count. The patient does have hyponatremia 128. Lipase of 475. Urinalysis shows ketones consistent with dehydration. The patient did receive additional Zofran and then Reglan and Benadryl for nausea. COVID-negative. The patient CT does show pancreatitis. I did speak the on-call hospitalist service Dr. Peacock and the patient was admitted to the medicine service. No peripancreatic fluid collections. Fatty liver noted. Patient does have a large ventral hernia. No obstruction Prior /Outside records reviewed: I did review the patient's most recent discharge summary for right total knee replacement completed by Duke Ruiz in June 2022. Differential diagnosis: Gastroenteritis, pancreatitis food borne illness, infections, diverticulitis, inflammatory bowel disease, obstruction, GI bleed, biliary pathology, volvulus, as well as other pathologies. Diagnostics, as interpreted by me: ECG: Normal sinus rhythm, rate of 63, normal intervals normal axis no ST elevations T wave version V2. Cardiac monitoring: An order was placed for continuous cardiac monitoring. The monitor shows a rate of 82 with rhythm. Patient was placed on pulse oximetry Medical decision rules: None Imaging studies: See below HPI: Patient presents due to concern for nausea vomiting and upper abdominal pain that began about 2 days prior. The patient has a prior history of alcohol abuse and states that she did drink half a pint of vodka 2 days prior. Since then the patient has had nausea and associated vomiting and upper abdominal pain. No falls or trauma. Patient did feel somewhat warm and flushed today but no reported fever. No chest pains or shortness of breath. No leg swelling or calf pain. Patient states that she has had a recent bowel movement no issues with urination or defecation. No blood in urine or stool. The patient has had a prior appendectomy and right-sided nephrectomy. Most recently the patient is just dry heaves that she has not eaten anything in the last 2 days. PAST MEDICAL HISTORY: See Below PAST SURGICAL HISTORY: See Below SOCIAL HISTORY: See Below HOME MEDICATIONS: See Below ALLERGIES: See Below VITALS: See Below PHYSICAL EXAMINATION: GENERAL: NAD, non-toxic. Wearing glasses. EYE EXAM: Normal conjunctiva. PERRL, no anisocoria and EOM's grossly intact w/o pain. NECK: Supple, no nuchal rigidity, no adenopathy, non-tender. No signs of meningismus. FROM of the neck with good chin to chest and neck extension. No stridor. LUNGS: Clear to auscultation. Normal chest wall mechanics. HEART: NSR, no MRG. ABDOMEN: Abdomen soft, epigastric discomfort but no right upper quadrant pain, no lower abdominal pain, no masses, no rebound or guarding. BACK: No CVA TTP. SKIN: No rashes and no bruising. UPPER EXTREMITIES: Upper extremities are grossly normal. LOWER EXTREMITIES: Grossly normal, no edema. NEURO EXAM: A&O x3, cranial nerves II-XII grossly intact, normal speech, moves all 4 extremities. 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 per 08/13/[address] Suicidal ideation Hx Temporomandibular joint disorder + clicking, no locking Thiamine deficiency Surgical History H/O meniscectomy of right knee H/O oophorectomy Left History of appendectomy History of colon resection History of colonoscopy History of open reduction and internal fixation (ORIF) procedure Right Hx of tonsillectomy Family History Father Hypertension Sister Colonic polyp Other No pertinent family history Denies family history of Ovarian cancer Breast cancer Colorectal cancer Social History Smoking Status: Never smoker Second Hand Exposure: No; Hx Alcohol Use: Yes (Hx ETOH abuse per records) Alcohol type: hard liquor Hx Substance Use: No Preferred Language: Swedish Communication Ability: Effective Section Hand Helper Required: No Beliefs That Will Affect Care: None Current Living Situation: Spouse current occupational status: disabled Feels Safe at Home: Yes Assistive Devices: Cane and Walker Allergies Allergies Allergy/AdvReac Type Severity Reaction Status Date / Time ampicillin Allergy Intermediate Hives Verified 06/27/22 10:19 cephalexin Allergy Intermediate Hives, Verified 06/27/22 10:19 itching clindamycin Allergy Intermediate Mucous Verified 06/27/22 10:19 membrane swelling, painful metronidazole Allergy Intermediate Blisters Verified 06/27/22 10:19 Penicillins Allergy Intermediate Hives Verified 06/27/22 10:19 adhesive AdvReac Intermediate Skin Verified 06/27/22 10:19 tearing/irritation Home Meds Home Medications Medication Instructions Recorded Confirmed cholecalciferol (vitamin D3) 25 1,000 unit PO QAM 11/10/18 02/26/23 mcg (1,000 unit) capsule (Vitamin D3) omeprazole 20 mg tablet,delayed 20 mg PO DAILY 11/10/18 02/26/23 release risperidone 1 mg tablet 1 mg PO QPM 11/10/18 02/26/23 amlodipine 5 mg tablet 5 mg PO QAM 03/21/20 02/26/23 furosemide 20 mg tablet 20 mg PO QAM 03/21/20 02/26/23 metoprolol tartrate 100 mg tablet 100 mg PO BID 03/21/20 02/26/23 bupropion HCl 200 mg tablet,12 hr 200 mg PO BID 07/15/20 02/26/23 sustained-release gabapentin 300 mg capsule See Rx Instructions .Route .COMPLEX 07/15/20 02/26/23 sertraline 25 mg tablet 25 mg PO QAM 04/24/21 02/26/23 thiamine HCl (vitamin B1) 100 mg 100 mg PO PM 04/24/21 02/26/23 tablet Previous Rx's Medication Instructions Recorded magnesium 200 mg tablet 200 mg PO BID #60 tabs 11/11/18 folic acid 1 mg tablet 1 mg PO QAM #30 tabs 10/06/19 lisinopril 40 mg tablet (Zestril) 40 mg PO QAM #30 tabs 10/06/19 Results & Data (ED) Vital Signs Vital Signs - 24 hr 02/26/23 08:28 02/26/23 09:00 Temperature 36.6 C Temperature Source Temporal Artery Scan Pulse Rate 84 Respiratory Rate 20 Respiratory Effort / Characteristics Non-Labored Respiratory Depth Normal Blood Pressure 158/100 H Blood Pressure Mean 119 Pulse Oximetry 96 Oxygen Delivery Method Room Air Room Air Sepsis Recent Fever Within 48 Hours No Sepsis New/Unexplained Change in Mental Status N/A Sepsis Action Taken by Nursing No Action Required Home Medications Current Medication List: was personally reviewed by me Laboratory Data Attestation: I reviewed the patient's lab results. 02/26/23 08:55 02/26/23 08:55 Lab Results 02/26/23 02/26/23 02/26/23 Range/Units 08:55 08:55 11:28 WBC 8.04 (4.8-10.8) K/ul RBC 4.79 (4.20-5.40) M/uL Hgb 15.4 (12.0-16.0) g/dl Hct 43.0 (37.0-47.0) % MCV 89.8 (80.0-100.0) fL MCH 32.2 (25.0-34.0) pg MCHC 35.8 (32.0-36.0) g/dL RDW Std Deviation 43.6 (36.4-46.3) fL RDW Coeff of Raffy 13.2 (11.5-14.5) % Plt Count 283 (130-400) K/uL MPV 8.9 L (9.4-12.4) fL Immature Gran % (Auto) 0.4 % Neut % (Auto) 79.1 % Lymph % (Auto) 15.0 % Noble % (Auto) 5.3 % Eos % (Auto) 0.1 % Baso % (Auto) 0.1 % Neut # (Auto) 6.35 (1.40-6.50) K/uL Lymph # (Auto) 1.21 (1.2-3.4) K/uL Noble # (Auto) 0.43 (0.11-0.59) K/uL Eos # (Auto) 0.01 (0-0.50) K/uL Baso # (Auto) 0.01 (0-0.2) K/uL Immature Gran # (Auto) 0.03 (0.01-0.20) K/uL Sodium 128 L (136-145) mmol/L Potassium 4.1 (3.5-5.1) mmol/L Chloride 88 L (98-107) mmol/L Carbon Dioxide 29 (21-32) mmol/L Anion Gap 11 (3-11) BUN 11 (6-23) mg/dl Creatinine 0.66 (0.6-1.2) mg/dl Est Cr Clr Drug Dosing 107.2 ml/min Est GFR ( Amer) 114.5 ml/min Est GFR (Non-Af Amer) 98.8 ml/min BUN/Creatinine Ratio 16.7 (10-20) Glucose 149 H (70-99(Fasting)) mg/dl Calcium 9.6 (8.6-10.3) mg/dl Magnesium 1.8 (1.7-2.4) mg/dl Total Bilirubin 1.2 H (0.2-1.0) mg/dl AST 24 (13-39) U/L ALT 20 (7-52) U/L Alkaline Phosphatase 70 (34-104) U/L Total Protein 7.1 (6.0-8.3) gm/dl Albumin 4.2 (3.4-5.0) gm/dl Globulin 2.9 (2.5-4.0) gm/dl Albumin/Globulin Ratio 1.4 (0.9-2) Triglycerides 79 (0-150) mg/dl Lipase 475 H (11-82) U/L Urine Color Urine Appearance (Clear) Urine pH (4.5-7.5) Ur Specific [place] (1.000-1.030) Urine Protein (Negative) Urine Glucose (UA) (Negative) Urine Ketones (Negative) Urine Blood (Negative) Urine Nitrite (Negative) Urine Bilirubin (Negative) Urine Urobilinogen (Negative) Ur Leukocyte Esterase (Negative) SARS-CoV-2, RNA, NAAT NEGATIVE (NEGATIVE) 02/26/23 Range/Units 13:18 WBC (4.8-10.8) K/ul RBC (4.20-5.40) M/uL Hgb (12.0-16.0) g/dl Hct (37.0-47.0) % MCV (80.0-100.0) fL MCH (25.0-34.0) pg MCHC (32.0-36.0) g/dL RDW Std Deviation (36.4-46.3) fL RDW Coeff of Raffy (11.5-14.5) % Plt Count (130-400) K/uL MPV (9.4-12.4) fL Immature Gran % (Auto) % Neut % (Auto) % Lymph % (Auto) % Noble % (Auto) % Eos % (Auto) % Baso % (Auto) % Neut # (Auto) (1.40-6.50) K/uL Lymph # (Auto) (1.2-3.4) K/uL Noble # (Auto) (0.11-0.59) K/uL Eos # (Auto) (0-0.50) K/uL Baso # (Auto) (0-0.2) K/uL Immature Gran # (Auto) (0.01-0.20) K/uL Sodium (136-145) mmol/L Potassium (3.5-5.1) mmol/L Chloride (98-107) mmol/L Carbon Dioxide (21-32) mmol/L Anion Gap (3-11) BUN (6-23) mg/dl Creatinine (0.6-1.2) mg/dl Est Cr Clr Drug Dosing ml/min Est GFR ( Amer) ml/min Est GFR (Non-Af Amer) ml/min BUN/Creatinine Ratio (10-20) Glucose (70-99(Fasting)) mg/dl Calcium (8.6-10.3) mg/dl Magnesium (1.7-2.4) mg/dl Total Bilirubin (0.2-1.0) mg/dl AST (13-39) U/L ALT (7-52) U/L Alkaline Phosphatase (34-104) U/L Total Protein (6.0-8.3) gm/dl Albumin (3.4-5.0) gm/dl Globulin (2.5-4.0) gm/dl Albumin/Globulin Ratio (0.9-2) Triglycerides (0-150) mg/dl Lipase (11-82) U/L Urine Color Yellow Urine Appearance Clear (Clear) Urine pH 7.0 (4.5-7.5) Ur Specific [place] <= 1.005 (1.000-1.030) Urine Protein Negative (Negative) Urine Glucose (UA) Negative (Negative) Urine Ketones 2+ H (Negative) Urine Blood Negative (Negative) Urine Nitrite Negative (Negative) Urine Bilirubin Negative (Negative) Urine Urobilinogen Negative (Negative) Ur Leukocyte Esterase Negative (Negative) SARS-CoV-2, RNA, NAAT (NEGATIVE) Administered Medications Discontinued Medications Diphenhydramine HCl (Diphenhydramine 50 Mg/Ml Vial) Confirm Administered Dose 50 mg .ROUTE .STK-MED ONE Stop: 02/26/23 11:20 Last Admin: 02/26/23 11:34 Dose: Not Given Documented By: RIKKI Diphenhydramine HCl (Diphenhydramine 50 Mg/Ml Vial) 12.5 mg IV NOW STA Stop: 02/26/23 11:34 Last Admin: 02/26/23 11:34 Dose: 12.5 mg Documented By: RIKKI Sodium Chloride (Nss 1000ml) 1,000 mls @ 999 mls/hr IV .Q1H1M STA Stop: 02/26/23 10:00 Last Infusion: 02/26/23 10:39 Dose: 0 mls/hr Documented By: Admin: 02/26/23 09:26 Dose: 999 mls/hr Documented By: RIKKI Lactated Ringer's (Lr) 1,000 mls @ 999 mls/hr IV .Q1H1M ONE Stop: 02/26/23 12:46 Last Infusion: 02/26/23 14:11 Dose: 0 mls/hr Documented By: Admin: 02/26/23 12:44 Dose: 999 mls/hr Documented By: RIKKI Ioversol (Optiray 350 100ml) 90 ml IV ONCE ONE Stop: 02/26/23 10:57 Last Admin: 02/26/23 10:56 Dose: 90 ml Documented By: JR Metoclopramide HCl (Metoclopramide Hcl Inj 5 Mg/Ml 2 Ml Vial) Confirm Administered Dose 10 mg .ROUTE .STK-MED ONE Stop: 02/26/23 11:20 Last Admin: 02/26/23 11:21 Dose: 10 mg Documented By: RIKKI Metoclopramide HCl (Metoclopramide Hcl Inj 5 Mg/Ml 2 Ml Vial) 10 mg IV NOW STA Stop: 02/26/23 11:34 Last Admin: 02/26/23 11:35 Dose: Not Given Documented By: RIKKI Metoprolol Tartrate (Metoprolol Tartrate 100 Mg Tab) 100 mg PO ONE STA Stop: 02/26/23 12:34 Last Admin: 02/26/23 13:16 Dose: 100 mg Documented By: RIKKI Morphine Sulfate (Morphine Sulfate 4 Mg/Ml 1 Ml Carp\Vial) 4 mg IV NOW STA Stop: 02/26/23 09:01 Last Admin: 02/26/23 09:27 Dose: 4 mg Documented By: RIKKI Ondansetron HCl (Ondansetron Inj 2 Mg/Ml 2 Ml Vial) 4 mg IV NOW STA Stop: 02/26/23 09:01 Last Admin: 02/26/23 09:27 Dose: 4 mg Documented By: RIKKI Ondansetron HCl (Ondansetron Inj 2 Mg/Ml 2 Ml Vial) 4 mg IV NOW STA Stop: 02/26/23 10:39 Last Admin: 02/26/23 10:43 Dose: 4 mg Documented By: RIKKI Imaging Data Radiologist's Impression: Abdomen/Pelvis CT 02/26/23 09:00 CT SCAN OF THE ABDOMEN AND PELVIS WITH IV CONTRAST CLINICAL HISTORY: Upper abdominal pain. Nausea and vomiting. COMPARISON STUDY: Abdominal CT dated 04/26/2021. TECHNIQUE: Following the IV administration of 90 cc of Optiray 350, CT scan of the abdomen and pelvis is performed from the lung bases to the proximal femora. Images are reviewed in the axial, sagittal, and coronal planes. IV contrast was administered without complication. A dose lowering technique was utilized adhering to the principles of ALARA. CT DOSE: 1345.16 mGy.cm FINDINGS: Lung bases: The heart is normal in size and without pericardial effusion. There are scattered coronary artery calcifications. The lung bases are clear. A tiny hiatal hernia is noted. Liver: The contrast-enhanced liver is size and contour. The liver demonstrates diffusely diminished attenuation indicating steatosis. There is no intrahepatic biliary ductal dilatation. The hepatic veins and portal veins are patent. Gallbladder: Unremarkable. Spleen: Normal in size and attenuation. Pancreas: The pancreas is moderately atrophic. There is peripancreatic infiltration and fluid indicating acute pancreatitis. The gland enhances throughout. No organized peripancreatic fluid collection is identified. The splenic vein is patent. Adrenal glands: Unremarkable. Kidneys: The contrast enhanced kidneys are normal in size and without hyd ronephrosis. The kidneys enhance symmetrically. Abdominal vasculature: The abdominal aorta is normal in course and caliber. Bowel: There is postsurgical change from sigmoid colon resection with colocolonic anastomosis. There is mild to moderate colonic fecal retention. No bowel obstruction is seen. Loops of bowel protrude into the large ventral h ernia. The appendix is not identified and reported surgically absent. Peritoneum: There is no intraperitoneal free air or abdominal ascites. There is a large comment fat-containing ventral hernia in the abdomen and pelvis. Lymphadenopathy: None. Pelvic viscera: The bladder, uterus, and adnexa are normal as visualized. Skeletal structures: The skeletal structures are osteopenic. There is moderate lumbosacral spondylosis. There is a subacute right transverse process fracture of L3. No lytic or blastic lesions are seen. IMPRESSION: 1. Findings are consistent with acute pancreatitis. Correlate with clinical and laboratory findings. 2. The gland enhances throughout and no organized peripancreatic fluid collection is identified. 3. Hepatic steatosis. 4. There is a large complex ventral hernia in the abdomen or pelvis. This contains nonobstructed bowel. 5. Subacute/healing right transverse process fracture of L3. 6. Additional findings as above. ACT 112: Negative or not required by law. Electronically signed by: Bogdan Roberts M.D. 02/26/2023 11:08 AM Discharge Plan Visit Data Chief Complaint: Vomiting Stated Complaint: VOMITING, MAGNESIUM DEFICIENCY ED Provider: Destin Ngo Discharge Problem: Acute alcoholic pancreatitis, Nausea & vomiting Forms Stand Alone Forms: My [facility] [place] [facility] Prescriptions Prescriptions: No Action risperidone 1 mg Tablet 1 mg PO QPM cholecalciferol (vitamin D3) [Vitamin D3] 1,000 unit Capsule 1,000 unit PO QAM omeprazole 20 mg Tablet,Delayed Release (Dr/Ec) 20 mg PO DAILY magnesium 200 mg tablet 200 mg PO BID Qty: 60 0RF lisinopril [Zestril] 40 mg Tablet 40 mg PO QAM Qty: 30 0RF folic acid 1 mg Tablet 1 mg PO QAM Qty: 30 0RF metoprolol tartrate 100 mg tablet 100 mg PO BID amlodipine 5 mg tablet 5 mg PO QAM furosemide 20 mg tablet 20 mg PO QAM gabapentin 300 mg capsule See Rx Instructions .ROUTE .COMPLEX Rx Instructions: 300 mg orally; TAKES 600 MG QAM, THEN 300 MG QPM. bupropion HCl 200 mg tablet sustained-release 12 hr 200 mg PO BID sertraline 25 mg tablet 25 mg PO QAM thiamine HCl (vitamin B1) 100 mg tablet 100 mg PO PM Rx Instructions: OTC Referrals Referrals: Jessica Aragon [Primary Care Provider] -
[2023-02-26] MEDS ORDERED: ONDANSETRON INJ 2 MG/ML 2 ML VIAL IV STA ×2 (09:00→10:38)
[2023-02-26] MEDS ORDERED: SODIUM CHLORIDE 0.9% 1000ML 1,000 ML IV STA (09:00)
[2023-02-26] MEDS ORDERED: MoRPHine SULFATE 4 MG/ML 1 ML CARP\\VIAL IV STA (09:00)
[2023-02-26 09:24] LABS: Basophils # (auto) 0.01 K/uL (0-0.2); Basophils % (auto) 0.1 %; Eosinophils # (auto) 0.01 K/uL (0-0.50); Eosinophils % (auto) 0.1 %; Hemoglobin 15.4 g/dl (12.0-16.0); Immature Granulocytes # (auto) 0.03 K/uL (0.01-0.20); Immature Granulocytes % (auto) 0.4 %; Lymphocytes # (auto) 1.21 K/uL (1.2-3.4); Mean Corpuscular Hemoglobin 32.2 pg (25.0-34.0); Mean Corpuscular Hgb Conc 35.8 g/dL (32.0-36.0); Mean Corpuscular Volume 89.8 fL (80.0-100.0); Mean Platelet Volume 8.9 fL (9.4-12.4); Monocytes # (auto) 0.43 K/uL (0.11-0.59); Monocytes % (auto) 5.3 %; Neutrophils # (auto) 6.35 K/uL (1.40-6.50); Neutrophils % (auto) 79.1 %; Platelet Count 283 K/uL (130-400); RDW Coefficient of Variation 13.2 % (11.5-14.5); RDW Standard Deviation 43.6 fL (36.4-46.3); Red Blood Count 4.79 M/uL (4.20-5.40); White Blood Count 8.04 K/ul (4.8-10.8)
[2023-02-26 09:42] LABS: Albumin Globulin Ratio 1.4 (0.9-2); Albumin Level 4.2 gm/dl (3.4-5.0); BUN Creatinine Ratio 16.7 (10-20); Bilirubin,Total 1.2 mg/dl (0.2-1.0); Calcium 9.6 mg/dl (8.6-10.3); Creatinine Clr Calc Pharmacy 107.2 ml/min; Est GFR (African American) 114.5 ml/min; Est GFR (Non-African American) 98.8 ml/min; Globulin 2.9 gm/dl (2.5-4.0); Magnesium 1.8 mg/dl (1.7-2.4); Potassium 4.1 mmol/L (3.5-5.1); Total Protein 7.1 gm/dl (6.0-8.3)
[2023-02-26] MEDS ORDERED: OPTIRAY 350 100ml IV ONE (10:56)
--- NOTE | 2023-02-26 11:10 | CT Scan Report ---
CT SCAN OF THE ABDOMEN AND PELVIS WITH IV CONTRAST CLINICAL HISTORY: Upper abdominal pain. Nausea and vomiting. COMPARISON STUDY: Abdominal CT dated 04/26/2021. TECHNIQUE: Following the IV administration of 90 cc of Optiray 350, CT scan of the abdomen and pelvi s is performed from the lung bases to the proximal femora. Images are reviewed in the axial, sagittal , and coronal planes. IV contrast was administered without complication. A dose lowering technique wa s utilized adhering to the principles of ALARA. CT DOSE: 1345.16 mGy.cm FINDINGS: Lung bases: The heart is normal in size and without pericardial effusion. There are scattered coronar y artery calcifications. The lung bases are clear. A tiny hiatal hernia is noted. Liver: The contrast-enhanced liver is size and contour. The liver demonstrates diffusely diminished a ttenuation indicating steatosis. There is no intrahepatic biliary ductal dilatation. The hepatic vein s and portal veins are patent. Gallbladder: Unremarkable. Spleen: Normal in size and attenuation. Pancreas: The pancreas is moderately atrophic. There is peripancreatic infiltration and fluid indicat ing acute pancreatitis. The gland enhances throughout. No organized peripancreatic fluid collection i s identified. The splenic vein is patent. Adrenal glands: Unremarkable. Kidneys: The contrast enhanced kidneys are normal in size and without hydronephrosis. The kidneys enh ance symmetrically. Abdominal vasculature: The abdominal aorta is normal in course and caliber. Bowel: There is postsurgical change from sigmoid colon resection with colocolonic anastomosis. There is mild to moderate colonic fecal retention. No bowel obstruction is seen. Loops of bowel protrude in to the large ventral hernia. The appendix is not identified and reported surgically absent. Peritoneum: There is no intraperitoneal free air or abdominal ascites. There is a large comment fat-c ontaining ventral hernia in the abdomen and pelvis. Lymphadenopathy: None. Pelvic viscera: The bladder, uterus, and adnexa are normal as visualized. Skeletal structures: The skeletal structures are osteopenic. There is moderate lumbosacral spondylosi s. There is a subacute right transverse process fracture of L3. No lytic or blastic lesions are seen. IMPRESSION: 1. Findings are consistent with acute pancreatitis. Correlate with clinical and laboratory findings. 2. The gland enhances throughout and no organized peripancreatic fluid collection is identified. 3. Hepatic steatosis. 4. There is a large complex ventral hernia in the abdomen or pelvis. This contains nonobstructed adilene l. 5. Subacute/healing right transverse process fracture of L3. 6. Additional findings as above. ACT 112: Negative or not required by law. Electronically signed by: Bogdan Roberts M.D. 02/26/2023 11:08 AM
[2023-02-26] MEDS ORDERED: METOCLOPRAMIDE HCL INJ 5 MG/ML 2 ML VIAL ONE (11:19)
[2023-02-26] MEDS: diphenhydrAMINE 50 MG/ML VIAL ONE ×2 (11:21→11:34)
[2023-02-26] MEDS ORDERED: diphenhydrAMINE 50 MG/ML VIAL IV STA (11:33)
[2023-02-26] MEDS ORDERED: METOCLOPRAMIDE HCL INJ 5 MG/ML 2 ML VIAL IV STA (11:33)
[2023-02-26] MEDS ORDERED: LACTATED RINGER'S 1,000 ML IV ONE (11:46)
--- NOTE | 2023-02-26 12:05 | History & Physical Report ---
Date of Service February 26, 2023 Assessment & Plan (1) Acute alcoholic pancreatitis: Plan: NSS 1L bolus given in ER, additional LR 1L bolus now then 150ml/hr Acetaminophen 1st line for pain, oxycodone 2nd line Ondansetron for nausea Triglycerides WNL Advance diet as tolerted (2) Hypomagnesemia: Plan: Continue her magnesium supplement (3) Hypertension: Plan: Continue metoprolol, lisinopril and amlodipine (missed morning dose today so will give on admission), hold furosemide due to hyponatremia (4) Fracture of lumbar spine: Plan: Vitamin D in AM Consider DEXA scan as outpatient (5) Chronic hyponatremia: Plan: Suspect secondary to alcohol use and tea and toast diet Will stop furosemide (6) Depression: Plan: Continue sertraline and wellbutrin Consider switching off Wellbutrin as outpatient given increased risk of seizures with chronic alcohol use Plan VTE Prophyalxis - Lovenox 40mg SQ daily Diet - NPO, advance diet as tolerated Disposition - admit to med/surg Admission and Anticipated Discharge Date Admission Date: February 26, 2023 History of Present Illness Chief Complaint: Abdominal pain Primary Care Provider: Jessica Aragon Brianna Bryant is a 57 year old female who presents to the ER with abdominal pain, nausea and vomiting. She has known history of alcoholic pancreatitis. Epigastric pain for last 2 days. Associated nausea and vomiting. Severity 7-8 when she came in. Currently 03/28. No radiation. Last alcoholic drink 4 days ago. No hematemesis, bright red blood in stool, melena or change in bowels. Eaten very little in the last 2 days. Allergies Allergy/AdvReac Type Severity Reaction Status Date / Time ampicillin Allergy Intermediate Hives Verified 06/27/22 10:19 cephalexin Allergy Intermediate Hives, Verified 06/27/22 10:19 itching clindamycin Allergy Intermediate Mucous Verified 06/27/22 10:19 membrane swelling, painful metronidazole Allergy Intermediate Blisters Verified 06/27/22 10:19 Penicillins Allergy Intermediate Hives Verified 06/27/22 10:19 adhesive AdvReac Intermediate Skin Verified 06/27/22 10:19 tearing/irritation Home Medications Medication Instructions Recorded Confirmed Type cholecalciferol (vitamin D3) 25 1,000 unit PO QAM 11/10/18 02/26/23 History mcg (1,000 unit) capsule (Vitamin D3) omeprazole 20 mg tablet,delayed 20 mg PO DAILY 11/10/18 02/26/23 History release risperidone 1 mg tablet 1 mg PO QPM 11/10/18 02/26/23 History magnesium 200 mg tablet 200 mg PO BID #60 tabs 11/11/18 02/26/23 Rx folic acid 1 mg tablet 1 mg PO QAM #30 tabs 10/06/19 02/26/23 Rx lisinopril 40 mg tablet (Zestril) 40 mg PO QAM #30 tabs 10/06/19 02/26/23 Rx amlodipine 5 mg tablet 5 mg PO QAM 03/21/20 02/26/23 History furosemide 20 mg tablet 20 mg PO QAM 03/21/20 02/26/23 History metoprolol tartrate 100 mg tablet 100 mg PO BID 03/21/20 02/26/23 History bupropion HCl 200 mg tablet,12 hr 200 mg PO BID 07/15/20 02/26/23 History sustained-release gabapentin 300 mg capsule See Rx Instructions .Route .COMPLEX 07/15/20 02/26/23 History sertraline 25 mg tablet 25 mg PO QAM 04/24/21 02/26/23 History thiamine HCl (vitamin B1) 100 mg 100 mg PO PM 04/24/21 02/26/23 History tablet 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 per 08/13/[address] Suicidal ideation Hx Temporomandibular joint disorder + clicking, no locking Thiamine deficiency Surgical History H/O meniscectomy of right knee H/O oophorectomy Left History of appendectomy History of colon resection History of colonoscopy History of open reduction and internal fixation (ORIF) procedure Right Hx of tonsillectomy Family History Father Hypertension Sister Colonic polyp Other No pertinent family history Denies family history of Ovarian cancer Breast cancer Colorectal cancer Social History Smoking Status: Never smoker Second Hand Exposure: No; Hx Alcohol Use: Yes Alcohol type: hard liquor Hx Substance Use: No Preferred Language: Mongolian Communication Ability: Effective Bezel Cutter Required: No Beliefs That Will Affect Care: None Current Living Situation: Spouse current occupational status: disabled Other Information That Helps Us Care for You: No Feels Safe at Home: Yes Safety Concerns: Feels Safe At This Time Assistive Devices: Cane and Glasses Review of Systems Review of Systems: All systems reviewed & are unremarkable except as noted in HPI & below Physical Exam Constitutional: WD/WN, vitals as above ENMT: external ear and nose normal, oropharynx normal Respiratory: normal respiratory effort, lungs clear to auscultation Cardiovascular: RRR, no murmur, no edema Gastrointestinal (Abdomen): Inspection/Auscultation: abdomen normal to inspection; abdomen not distended Percussion/Palpation: + abdomen tender (epigastric) and abdomen soft; no guarding and abdomen not rigid Musculoskeletal: no cyanosis or clubbing, extremities motor strength 5/5 Skin: no rashes, warm and dry Neurologic: moves all extremities and awake; not confused Psychiatric: A+Ox3, euthymic affect Results & Data Results & Data Vital Signs (Past 12 Hours) Vital Signs Temp Pulse Resp BP Pulse Ox O2 Del Method 02/26/23 09:00 Room Air 02/26/23 08:28 36.6 C 84 20 158/100 H 96 Room Air Laboratory Results Abnormal lab results 02/26/23 02/26/23 Range/Units 08:55 08:55 MPV 8.9 L (9.4-12.4) fL Sodium 128 L (136-145) mmol/L Chloride 88 L (98-107) mmol/L Glucose 149 H (70-99(Fasting)) mg/dl Total Bilirubin 1.2 H (0.2-1.0) mg/dl Lipase 475 H (11-82) U/L Diagnostic Findings CT SCAN OF THE ABDOMEN AND PELVIS WITH IV CONTRAST CLINICAL HISTORY: Upper abdominal pain. Nausea and vomiting. COMPARISON STUDY: Abdominal CT dated 04/26/2021. TECHNIQUE: Following the IV administration of 90 cc of Optiray 350, CT scan of the abdomen and pelvis is performed from the lung bases to the proximal femora. Images are reviewed in the axial, sagittal, and coronal planes. IV contrast was administered without complication. A dose lowering technique was utilized adhering to the principles of ALARA. CT DOSE: 1345.16 mGy.cm FINDINGS: Lung bases: The heart is normal in size and without pericardial effusion. There are scattered coronary artery calcifications. The lung bases are clear. A tiny hiatal hernia is noted. Liver: The contrast-enhanced liver is size and contour. The liver demonstrates diffusely diminished attenuation indicating steatosis. There is no intrahepatic biliary ductal dilatation. The hepatic veins and portal veins are patent. Gallbladder: Unremarkable. Spleen: Normal in size and attenuation. Pancreas: The pancreas is moderately atrophic. There is peripancreatic infiltration and fluid indicating acute pancreatitis. The gland enhances throughout. No organized peripancreatic fluid collection is identified. The splenic vein is patent. Adrenal glands: Unremarkable. Kidneys: The contrast enhanced kidneys are normal in size and without hydronephrosis. The kidneys enhance symmetrically. Abdominal vasculature: The abdominal aorta is normal in course and caliber. Bowel: There is postsurgical change from sigmoid colon resection with colocolonic anastomosis. There is mild to moderate colonic fecal retention. No bowel obstruction is seen. Loops of bowel protrude into the large ventral hernia. The appendix is not identified and reported surgically absent. Peritoneum: There is no intraperitoneal free air or abdominal ascites. There is a large comment fat-containing ventral hernia in the abdomen and pelvis. Lymphadenopathy: None. Pelvic viscera: The bladder, uterus, and adnexa are normal as visualized. Skeletal structures: The skeletal structures are osteopenic. There is moderate lumbosacral spondylosis. There is a subacute right transverse process fracture of L3. No lytic or blastic lesions are seen. IMPRESSION: 1. Findings are consistent with acute pancreatitis. Correlate with clinical and laboratory findings. 2. The gland enhances throughout and no organized peripancreatic fluid collection is identified. 3. Hepatic steatosis. 4. There is a large complex ventral hernia in the abdomen or pelvis. This contains nonobstructed bowel. 5. Subacute/healing right transverse process fracture of L3. 6. Additional findings as above. Medications Administered ER Medications Given: NSS 1L bolus Morphine 4mg IV Ondansetron 4mg IV Ondansetron 4mg IV Metoclopramide 10mg IV Diphenhydramine 12.5mg IV Code Status & VTE Plan Code Status Full VTE Prophylaxis Plan VTE Prophylaxis will be ordered: Yes PG Care Time/CCT Total # of Minutes Spent Total Time Spent with Patient: Total time spent is greater than 50% in coordination of care (as documented) at patient's floor/unit and/or counseling patient: Coding Level of Care Code 39611 INT INP/OBS CARE 2/55MIN Diagnoses Acute alcoholic pancreatitis K85.20 Hypomagnesemia E83.42 Hypertension I10 Hypertension type: essential hypertension Fracture of lumbar spine S32.009A Chronic hyponatremia E87.1 Depression F33.0 Depression Type: major depressive disorder Major depression recurrence: recurrent Active/Remission status: currently active Major depression episode severity: mild (3) Hypertension Hypertension type: essential hypertension Qualified Code(s): I10 - Essential (primary) hypertension (6) Depression Depression Type: major depressive disorder Major depression recurrence: recurrent Active/Remission status: currently active Major depression episode severity: mild Qualified Code(s): F33.0 - Major depressive disorder, recurrent, mild
[2023-02-26] MEDS ORDERED: METOPROLOL TARTRATE 100 MG TAB PO STA (12:33)
[2023-02-26 13:31] LABS: Appearance Urine Clear (Clear); Bilirubin Urine Negative (Negative); Blood Urine Negative (Negative); Color Urine Yellow; Glucose Urine UA Negative (Negative); Ketones Urine 2+ (Negative); Leukocyte Esterase Urine Negative (Negative); Nitrite Urine Negative (Negative); Protein Urine Negative (Negative); Specific Gravity Urine <= 1.005 (1.000-1.030); Urobilinogen Urine Negative (Negative)
[2023-02-26] MEDS ORDERED: PANTOprazole 40 MG in SYRINGE 0 ML IV STA (15:27)
[2023-02-26] MEDS ORDERED: FAMOTIDINE 20 MG in SYRINGE 3 ML IV STA (15:27)
[2023-02-26] MEDS: LACTATED RINGER'S 1,000 ML IV SCH (17:09)
[2023-02-26] MEDS: PANTOprazole 40 MG TAB PO SCH (17:27)
[2023-02-26] MEDS: ONDANSETRON INJ 2 MG/ML 2 ML VIAL IV PRN ×2 (17:30→22:17)
[2023-02-26] MEDS: lisinopril 40 MG TAB PO SCH (17:37)
[2023-02-26] MEDS: amLODIPine BESYLATE 5 MG TAB PO SCH (17:37)
[2023-02-26] MEDS ORDERED: ACETAMINOPHEN 325 MG TAB PO PRN (19:03)
[2023-02-26] MEDS ORDERED: PROCHLORPERAZINE 5 MG in SYRINGE 4 ML IV ONE (20:15)
[2023-02-26] MEDS ORDERED: THIAMINE HCL 100 MG TAB PO SCH (21:00)
[2023-02-26] MEDS ORDERED: ACETAMINOPHEN 1,000 MG/100 ML VIAL IV PRN (21:13)
[2023-02-26] MEDS: buPROPion SR 100 MG TABCR PO SCH (21:46)
[2023-02-26] MEDS: risperiDONE 1 MG TABLET PO SCH (21:47)
[2023-02-26] MEDS: GABAPENTIN 300 MG CAP PO SCH (21:47)
[2023-02-26] MEDS: METOPROLOL TARTRATE 100 MG TAB PO SCH (21:48)
[2023-02-26] MEDS: MAGNESIUM OXIDE 400 MG TAB PO SCH (23:12)
[2023-02-27] MEDS: LACTATED RINGER'S 1,000 ML IV SCH ×4 (01:42→16:36)
[2023-02-27] MEDS: ONDANSETRON INJ 2 MG/ML 2 ML VIAL IV PRN ×6 (02:08→23:49)
[2023-02-27] MEDS: oxyCODONE HCL IR 5 MG TAB (IMMEDIATE RELEASE) PO PRN ×5 (04:52→23:49)
[2023-02-27 07:53] LABS: Basophils # (auto) 0.02 K/uL (0-0.2); Basophils % (auto) 0.3 %; Eosinophils # (auto) 0.03 K/uL (0-0.50); Eosinophils % (auto) 0.5 %; Hemoglobin 13.5 g/dl (12.0-16.0); Immature Granulocytes # (auto) 0.02 K/uL (0.01-0.20); Immature Granulocytes % (auto) 0.3 %; Lymphocytes # (auto) 1.26 K/uL (1.2-3.4); Lymphocytes % (auto) 21.8 %; Mean Corpuscular Hemoglobin 32.5 pg (25.0-34.0); Mean Corpuscular Hgb Conc 35.5 g/dL (32.0-36.0); Mean Corpuscular Volume 91.3 fL (80.0-100.0); Mean Platelet Volume 8.9 fL (9.4-12.4); Monocytes # (auto) 0.56 K/uL (0.11-0.59); Monocytes % (auto) 9.7 %; Neutrophils # (auto) 3.88 K/uL (1.40-6.50); Neutrophils % (auto) 67.4 %; Platelet Count 237 K/uL (130-400); RDW Coefficient of Variation 13.2 % (11.5-14.5); RDW Standard Deviation 44.5 fL (36.4-46.3); Red Blood Count 4.16 M/uL (4.20-5.40); White Blood Count 5.77 K/ul (4.8-10.8)
[2023-02-27 08:06] LABS: Albumin Globulin Ratio 1.4 (0.9-2); Albumin Level 3.6 gm/dl (3.4-5.0); BUN Creatinine Ratio 11.9 (10-20); Calcium 8.7 mg/dl (8.6-10.3); Creatinine Clr Calc Pharmacy 123.6 ml/min; Est GFR (African American) 118.8 ml/min; Est GFR (Non-African American) 102.5 ml/min; Globulin 2.5 gm/dl (2.5-4.0); Potassium 3.7 mmol/L (3.5-5.1); Total Protein 6.1 gm/dl (6.0-8.3)
[2023-02-27] MEDS: SERTRALINE HCL 50 MG TABLET PO SCH (09:02)
[2023-02-27] MEDS: lisinopril 40 MG TAB PO SCH (09:03)
[2023-02-27] MEDS: MAGNESIUM OXIDE 400 MG TAB PO SCH ×2 (09:03→21:32)
[2023-02-27] MEDS: PANTOprazole 40 MG TAB PO SCH (09:04)
[2023-02-27] MEDS: amLODIPine BESYLATE 5 MG TAB PO SCH (09:04)
[2023-02-27] MEDS: buPROPion SR 100 MG TABCR PO SCH ×2 (09:05→21:31)
[2023-02-27] MEDS: ENOXAPARIN INJ 40 MG/0.4 ML SYR SQ SCH (09:05)
[2023-02-27] MEDS: GABAPENTIN 300 MG CAP PO SCH ×2 (09:05→21:31)
[2023-02-27] MEDS: METOPROLOL TARTRATE 100 MG TAB PO SCH ×2 (09:06→21:30)
[2023-02-27] MEDS: THIAMINE HCL 500 MG in SODIUM CHLORIDE 0.9% 50 ML IV SCH ×2 (11:02→17:06)
[2023-02-27] MEDS ORDERED: amLODIPine BESYLATE 5 MG TAB PO ONE (16:08)
--- NOTE | 2023-02-27 19:28 | Hospitalist Progress Note ---
Date of Service February 27, 2023 Assessment & Plan (1) Acute alcoholic pancreatitis: Plan: clinically improving but still with nausea and did have mild abd pain earlier today necessitating use of pain meds thus, keep diet at clears cont LR hydration - can lower rate to 100cc/hr repeat labs including lipase in am fortunately no CT evidence of chronic pancreatitis (2) Hypomagnesemia: Plan: Mag level yesterday wnl Continue her magnesium supplement (3) Hypertension: Plan: Uncontrolled Increase amlodipine to 10mg/day Continue metoprolol Continue lisinopril hold furosemide due to hyponatremia (4) Fracture of lumbar spine: Plan: CT a/p with incidentally detected subacute right transverse process fracture of L3 recent fall? other injury? Vitamin D level mildly low - will need replacement DEXA scan as outpatient (5) Chronic hyponatremia: Plan: Baseline Na level high 120s/low 130s Suspect secondary to alcohol use and tea and toast diet Lasix on hold BMP am (6) Depression: Plan: Continue sertraline and wellbutrin but consider sertraline increase as she is only taking 25mg/day (7) Morbid obesity with BMI of 40.0-44.9, adult: Plan: BMI 41 (8) Alcohol abuse: Plan: counseling given today offered help and support increase thiamine to 500mg TID x 2-3 days then PO thiamine thereafter Plan VTE Prophyalxis - Lovenox 40mg SQ daily Admission and Anticipated Discharge Date Admission Date: February 26, 2023 Subjective patient reports improved abd pain mild nausea with attempts at taking clears but no vomiting no diarrhea she does not feel like she is going through etoh withdrawal no shakes no sweats she has never experienced etoh withdrawal in the past she is an episodic drinker - does not drink daily drink of choice - liquor she admits to anxiety/depression in 2010 she broke her ankle and has been limited ever since further, 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 [facility] she no longer works because of the ankle and the chronic pain from such is not interested in AA, but does want to quit and knows she has to quit has had at least 2-3 other episodes of acute pancreatitis in the past Review of Systems Review of Systems: cv - no cp pulm - no dyspnea GI - no vomiting Physical Exam Physical Exam: gen - obese, NAD mouth - MMM neck - no JVD heart - RRR, s1 s2, no murmur lungs - CTA b/l abd - soft NT ND BS+; no HSM ext - no edema; pulses 2+ b/l psych - no signs of etoh withdrawal or DTs neuro - no tremors Results & Data Results & Data Vital Signs (Past 12 Hours) Vital Signs Temp Pulse Resp BP BP Pulse Ox O2 Del Method 02/27/23 14:44 37.3 C 68 16 179/103 H 95 Room Air 02/27/23 11:34 37.0 C 68 14 169/108 H 96 Room Air 02/27/23 08:10 36.9 C 65 18 173/83 H 93 Room Air Laboratory Results Laboratory Results - last 24 hr 02/27/23 02/27/23 02/27/23 07:02 07:02 07:02 WBC 5.77 RBC 4.16 L Hgb 13.5 Hct 38.0 MCV 91.3 MCH 32.5 MCHC 35.5 RDW Std Deviation 44.5 RDW Coeff of Raffy 13.2 Plt Count 237 MPV 8.9 L Immature Gran % (Auto) 0.3 Neut % (Auto) 67.4 Lymph % (Auto) 21.8 [place] % (Auto) 9.7 Eos % (Auto) 0.5 Baso % (Auto) 0.3 Neut # (Auto) 3.88 Lymph # (Auto) 1.26 [place] # (Auto) 0.56 Eos # (Auto) 0.03 Baso # (Auto) 0.02 Immature Gran # (Auto) 0.02 Sodium 131 L Potassium 3.7 Chloride 94 L Carbon Dioxide 28 Anion Gap 9 BUN 7 Creatinine 0.59 L Est Cr Clr Drug Dosing 123.6 Est GFR ( Amer) 118.8 Est GFR (Non-Af Amer) 102.5 BUN/Creatinine Ratio 11.9 Glucose 106 H Calcium 8.7 Total Bilirubin 1.0 AST 22 ALT 15 Alkaline Phosphatase 56 Total Protein 6.1 Albumin 3.6 Globulin 2.5 Albumin/Globulin Ratio 1.4 25-OH Vitamin D Total 21.2 L PG Care Time/CCT Total # of Minutes Spent Total Time Spent with Patient: Total time spent is greater than 50% in coordination of care (as documented) at patient's floor/unit and/or counseling patient: Coding Level of Care Code 14654 SUB INP/OBS CARE 2/35MIN Diagnoses Acute alcoholic pancreatitis K85.20 Hypomagnesemia E83.42 Hypertension I10 Hypertension type: essential hypertension Fracture of lumbar spine S32.009A Chronic hyponatremia E87.1 Depression F33.0 Active/Remission status: currently active Depression Type: major depressive disorder Major depression episode severity: mild Major depression recurrence: recurrent Morbid obesity with BMI of 40.0-44.9, adult E66.01; Z68.41 Alcohol abuse F10.10 (3) Hypertension Hypertension type: essential hypertension Qualified Code(s): I10 - Essential (primary) hypertension (6) Depression Active/Remission status: currently active Depression Type: major depressive disorder Major depression episode severity: mild Major depression recurrence: recurrent Qualified Code(s): F33.0 - Major depressive disorder, recurrent, mild
[2023-02-27] MEDS: risperiDONE 1 MG TABLET PO SCH (21:32)
[2023-02-28] MEDS: THIAMINE HCL 500 MG in SODIUM CHLORIDE 0.9% 50 ML IV SCH ×3 (01:30→17:46)
[2023-02-28] MEDS: ONDANSETRON INJ 2 MG/ML 2 ML VIAL IV PRN ×4 (05:08→21:45)
[2023-02-28] MEDS: oxyCODONE HCL IR 5 MG TAB (IMMEDIATE RELEASE) PO PRN ×4 (05:08→21:45)
--- NOTE | 2023-02-28 06:09 | Electrocardiogram Report ---
Test Reason : Blood Pressure : / mmHG Vent. Rate : 063 BPM Atrial Rate : 063 BPM P-R Int : 156 ms QRS Dur : 086 ms QT Int : 416 ms P-R-T Axes : 040 029 046 degrees QTc Int : 425 ms Normal sinus rhythm Nonspecific T wave abnormality Abnormal ECG When compared with ECG of 29-MAY-2022 16:21, Inverted T waves have replaced nonspecific T wave abnormality in Anterior leads Confirmed by Bud Miller ([id number]) on 02/28/2023 6:08:49 AM Referred By: REFERRED SELF Confirmed By:Bud Miller
[2023-02-28] MEDS: GABAPENTIN 300 MG CAP PO SCH ×2 (08:05→19:55)
[2023-02-28] MEDS: PANTOprazole 40 MG TAB PO SCH (08:06)
[2023-02-28] MEDS: buPROPion SR 100 MG TABCR PO SCH ×2 (08:06→19:56)
[2023-02-28] MEDS: METOPROLOL TARTRATE 100 MG TAB PO SCH ×2 (08:07→19:57)
[2023-02-28] MEDS: amLODIPine BESYLATE 5 MG TAB PO SCH (08:07)
[2023-02-28] MEDS: SERTRALINE HCL 50 MG TABLET PO SCH (08:08)
[2023-02-28] MEDS: lisinopril 40 MG TAB PO SCH (08:09)
[2023-02-28] MEDS: MAGNESIUM OXIDE 400 MG TAB PO SCH ×2 (08:09→19:54)
[2023-02-28] MEDS: ENOXAPARIN INJ 40 MG/0.4 ML SYR SQ SCH (08:13)
[2023-02-28 08:49] LABS: BUN Creatinine Ratio 7.8 (10-20); Creatinine Clr Calc Pharmacy 113.9 ml/min; Est GFR (African American) 115.6 ml/min; Est GFR (Non-African American) 99.8 ml/min; Potassium 3.4 mmol/L (3.5-5.1)
[2023-02-28] MEDS: POTASSIUM CHLORIDE 10 MEQ TABCR PO SCH ×2 (09:28→19:57)
[2023-02-28] MEDS: POTASSIUM CHLORIDE 20 MEQ in LACTATED RINGER'S 1,000 ML IV SCH ×2 (10:49→23:38)
[2023-02-28] MEDS ORDERED: FLUARIX QUADRIVALENT 0.5 ML SYR IM ONE (17:26)
[2023-02-28] MEDS: risperiDONE 1 MG TABLET PO SCH (19:56)
--- NOTE | 2023-02-28 20:04 | Hospitalist Progress Note ---
Date of Service February 28, 2023 Assessment & Plan (1) Acute alcoholic pancreatitis: Plan: clinically and biochemically improving lipase nearly normal today advance diet to full liquids, then low fat tomorrow AM can stop IV fluids later tonight fortunately no CT evidence of chronic pancreatitis alcohol abstinence moving forward will be bowser - she has had at least 3-4 episodes of alcoholic pancreatitis including this episode (2) Hypomagnesemia: Plan: Mag level yesterday wnl Continue her magnesium supplement (3) Hypertension: Plan: Uncontrolled but slowly improving Increased amlodipine to 10mg/day Continue metoprolol Continue lisinopril hold furosemide due to hyponatremia possibly resume tomorrow depending on Na level (4) Fracture of lumbar spine: Plan: CT a/p with incidentally detected subacute right transverse process fracture of L3 recent fall? other injury? Vitamin D level mildly low at 21 - will need replacement DEXA scan as outpatient (5) Chronic hyponatremia: Plan: Baseline Na level high 120s/low 130s Suspect secondary to alcohol use and tea and toast diet Lasix on hold has improved from 128-132 with isotonic fluids BMP am (6) Depression: Plan: Continue sertraline and wellbutrin but consider sertraline increase as she is only taking 25mg/day (7) Morbid obesity with BMI of 40.0-44.9, adult: Plan: BMI 41 (8) Alcohol abuse: Plan: counseling given today once again offered help and support cont thiamine high dose 500mg TID then PO thiamine thereafter Plan VTE Prophyalxis - Lovenox 40mg SQ daily anticipate d/c home tomorrow Admission and Anticipated Discharge Date Admission Date: February 26, 2023 Subjective no abd pain today had normal BM no nausea no emesis tolerating liquids diet advanced to full liquids and doing ok with this as well ambulating to BR w/o difficulty we briefly discussed her etoh abuse - still declines any specific intervention or assistance on this from the medical team she did discuss her etoh issues with her who also drinks both know they need/want to quit Review of Systems Review of Systems: gen - feeling good cv - no chest pain pulm - no dyspnea GI - no pain Physical Exam Physical Exam: gen - obese, NAD, looks good today mouth - MMM neck - no JVD heart - RRR, s1 s2, no murmur lungs - CTA b/l abd - soft NT ND BS+; no HSM ext - no edema; pulses 2+ b/l psych - no signs of etoh withdrawal or DTs neuro - no tremors Results & Data Results & Data Vital Signs (Past 12 Hours) Vital Signs Temp Pulse Resp BP BP Pulse Ox O2 Del Method 02/28/23 19:44 36.8 C 69 16 162/102 H 96 Room Air 02/28/23 19:21 36.7 C 68 17 155/95 H 96 Room Air 02/28/23 15:05 36.7 C 68 18 139/83 99 Room Air 02/28/23 10:33 142/91 H Laboratory Results Laboratory Results - last 24 hr 02/28/23 07:42 Sodium 132 L Potassium 3.4 L Chloride 95 L Carbon Dioxide 31 Anion Gap 6 BUN 5 L Creatinine 0.64 Est Cr Clr Drug Dosing 113.9 Est GFR ( Amer) 115.6 Est GFR (Non-Af Amer) 99.8 BUN/Creatinine Ratio 7.8 L Glucose 92 Calcium 9.0 Lipase 111 H PG Care Time/CCT Total # of Minutes Spent Total Time Spent with Patient: Total time spent is greater than 50% in coordination of care (as documented) at patient's floor/unit and/or counseling patient: Coding Level of Care Code 05938 SUB INP/OBS CARE 235MIN Diagnoses Acute alcoholic pancreatitis K85.20 Hypomagnesemia E83.42 Hypertension I10 Hypertension type: essential hypertension Fracture of lumbar spine S32.009A Chronic hyponatremia E87.1 Depression F33.0 Active/Remission status: currently active Depression Type: major depressive disorder Major depression episode severity: mild Major depression recurrence: recurrent Morbid obesity with BMI of 40.0-44.9, adult E66.01; Z68.41 Alcohol abuse F10.10 (3) Hypertension Hypertension type: essential hypertension Qualified Code(s): I10 - Essential (primary) hypertension (6) Depression Active/Remission status: currently active Depression Type: major depressive disorder Major depression episode severity: mild Major depression recurrence: recurrent Qualified Code(s): F33.0 - Major depressive disorder, recurrent, mild
[2023-03-01] MEDS: THIAMINE HCL 500 MG in SODIUM CHLORIDE 0.9% 50 ML IV SCH (01:36)
[2023-03-01] MEDS: ONDANSETRON INJ 2 MG/ML 2 ML VIAL IV PRN (02:46)
[2023-03-01] MEDS: oxyCODONE HCL IR 5 MG TAB (IMMEDIATE RELEASE) PO PRN (02:46)
[2023-03-01 08:11] LABS: BUN Creatinine Ratio 7.5 (10-20); Calcium 8.9 mg/dl (8.6-10.3); Creatinine Clr Calc Pharmacy 108.8 ml/min; Est GFR (African American) 113.9 ml/min; Est GFR (Non-African American) 98.3 ml/min; Magnesium 1.6 mg/dl (1.7-2.4); Potassium 3.9 mmol/L (3.5-5.1)
[2023-03-01] MEDS: POTASSIUM CHLORIDE 10 MEQ TABCR PO SCH (08:23)
[2023-03-01] MEDS: amLODIPine BESYLATE 5 MG TAB PO SCH (08:23)
[2023-03-01] MEDS: PANTOprazole 40 MG TAB PO SCH (08:24)
[2023-03-01] MEDS: ENOXAPARIN INJ 40 MG/0.4 ML SYR SQ SCH (08:24)
[2023-03-01] MEDS: lisinopril 40 MG TAB PO SCH (08:24)
[2023-03-01] MEDS: buPROPion SR 100 MG TABCR PO SCH (08:25)
[2023-03-01] MEDS: METOPROLOL TARTRATE 100 MG TAB PO SCH (08:25)
[2023-03-01] MEDS: SERTRALINE HCL 50 MG TABLET PO SCH (08:25)
[2023-03-01] MEDS: GABAPENTIN 300 MG CAP PO SCH (08:25)
[2023-03-01] MEDS: MAGNESIUM OXIDE 400 MG TAB PO SCH (08:26)
[2023-03-01] MEDS ORDERED: THIAMINE HCL 100 MG TAB PO SCH (09:00)
[2023-03-01] MEDS ORDERED: MAGNESIUM SULFATE / D5W 1 GM/100 ML BAG IV ONE (09:00)
[2023-03-01] MEDS ORDERED: CHOLECALCIFEROL 5,000 UNITS 125 MCG TAB PO SCH (09:00)
--- NOTE | 2023-03-01 11:42 | Discharge Summary ---
Date of Service March 01, 2023 Admission HPI Per Admitting Provider Brianna Bryant is a 57 year old female who presents to the ER with abdominal pain, nausea and vomiting. She has known history of alcoholic pancreatitis. Epigastric pain for last 2 days. Associated nausea and vomiting. Severity 7-8 when she came in. Currently 03/28. No radiation. Last alcoholic drink 4 days ago. No hematemesis, bright red blood in stool, melena or change in bowels. Eaten very little in the last 2 days. Discharge Exam gen - obese, NAD, looks good today mouth - MMM neck - no JVD heart - RRR, s1 s2, no murmur lungs - CTA b/l abd - soft NT ND BS+; no HSM ext - no edema; pulses 2+ b/l psych - no signs of etoh withdrawal or DTs neuro - no tremors Discharge Data Allergies Allergy/AdvReac Type Severity Reaction Status Date / Time ampicillin Allergy Intermediate Hives Verified 06/27/22 10:19 cephalexin Allergy Intermediate Hives, Verified 06/27/22 10:19 itching clindamycin Allergy Intermediate Mucous Verified 06/27/22 10:19 membrane swelling, painful metronidazole Allergy Intermediate Blisters Verified 06/27/22 10:19 Penicillins Allergy Intermediate Hives Verified 06/27/22 10:19 adhesive AdvReac Intermediate Skin Verified 06/27/22 10:19 tearing/irritation Consultations 02/26/23 11:52 ED Decision to Admit Stat Ordered Studies 02/26/23 09:00 CT abd pelvis IV con only Stat Hospital Course (1) Acute alcoholic pancreatitis: clinically and biochemically improving lipase nearly normal today advance diet to full liquids, then low fat tomorrow AM can stop IV fluids later tonight fortunately no CT evidence of chronic pancreatitis alcohol abstinence moving forward will be bowser - she has had at least 3-4 episodes of alcoholic pancreatitis including this episode (2) Hypomagnesemia: Mag level yesterday wnl Continue her magnesium supplement (3) Hypertension: Uncontrolled but slowly improving Increased amlodipine to 10mg/day Continue metoprolol Continue lisinopril hold furosemide due to hyponatremia possibly resume tomorrow depending on Na level (4) Fracture of lumbar spine: CT a/p with incidentally detected subacute right transverse process fracture of L3 recent fall? other injury? Vitamin D level mildly low at 21 - will need replacement DEXA scan as outpatient (5) Chronic hyponatremia: Baseline Na level high 120s/low 130s Suspect secondary to alcohol use and tea and toast diet Lasix on hold has improved from 128-132 with isotonic fluids BMP am (6) Depression: Continue sertraline and wellbutrin but consider sertraline increase as she is only taking 25mg/day (7) Morbid obesity with BMI of 40.0-44.9, adult: BMI 41 (8) Alcohol abuse: counseling given today once again offered help and support cont thiamine high dose 500mg TID then PO thiamine thereafter Plan VTE Prophyalxis - Lovenox 40mg SQ daily anticipate d/c home tomorrow Discharge Plan Discharge Items Patient Disposition: Home - Self-Care Reason For Visit: ACUTE PANCREATITIS Discharge Diagnosis: 1. acute pancreatitis due to alcohol use - resolved 2. uncontrolled high blood pressure - improving 3. mild vitamin D insufficiency - vitamin D level was 21 (Normal >30) 4. right transverse process fracture of L3 (fracture of lumbar level 3) 5. hyponatremia (low sodium) Activity: Resume your previous activity Non-emergency contact: Primary Care Provider Call non-emergency contact if: you have any medication questions, your symptoms worsen and you have a fever Follow-up/Referrals: Jessica Aragon [Primary Care Provider] - (within 1 week ) Diet: Low Fat Addtl Attending Provider Instructions: Mrs Bryant, You were hospitalized for acute pancreatitis due to alcohol use. You improved nicely with IV fluids, pain medication, restriction of diet, and time. Your lipase (pancreas blood test) was initially high due to the pancreatitis, and has normalized prior to discharge. You are tolerating a low fat diet. In addition, we incidentally saw a transverse process fracture at lumbar level 3. Please see handout on spine anatomy to see where the transverse process lies. There is no treatment needed for this - it will heal on its own. It is uncertain when the fracture occurred, but likely sometime in the last few weeks. Typically trauma (fall, injury, etc) leads to this type of fracture. Having brittle bone (osteopenia or osteoporosis) makes you more susceptible to fractures of the spine. You can have your spine doctor at [facility] repeat x-rays down the line for this issue. Your vitamin D level is mildly low. I would recommend increased dosing of vitamin D supplementation to fix it. Your level was 21, with a goal of 30 or higher. During your stay you had uncontrolled high blood pressure while here. This improved with increasing your amlodipine blood pressure medication from 5mg/day to 10mg/day. Finally, you have mild, chronically low sodium levels. This may be related to your furosemide use, your alcohol use, or a combination of factors. Your discharge sodium level was 132. It has been running about 130-135 for several years. Recommendations - 1. Low fat diet x 1 week -- see handout. 2. INCREASE your amlodipine to 10mg once daily. You can take it all at once, or you can split the dose and take 1/2 tablet each morning and 1/2 tablet each evening. 3. INCREASE your vitamin D supplement to 2000 units once daily. Have your vitamin D level rechecked in a few months by your family doctor. 4. Please ask your family doctor for a "DEXA scan." This is a bone density scan to check for brittle bone (osteopenia, osteoporosis). 5. TAKE thiamine 200mg once daily x 2 weeks. 6. Have your family doctor recheck your SODIUM level at time of hospital follow-up. Also have your magnesium level checked. 7. Please talk to your spine doctor at [facility] about the transverse process fracture. Follow-up - see separate section Return to [facility] if - * you have recurrent abdominal pains * you have severe nausea and/or vomiting * you have difficulty breathing * any other concerns It was my pleasure to care for you at [facility]! -Dr Moses Pending Studies at Discharge: No Stand-Alone Forms: My [facility], Smoking Cessation Medications and DC Order Prescriptions: Continued risperidone 1 mg Tablet 1 mg PO QPM omeprazole 20 mg Tablet,Delayed Release (Dr/Ec) 20 mg PO DAILY magnesium 200 mg tablet 200 mg PO BID Qty: 60 0RF lisinopril [Zestril] 40 mg Tablet 40 mg PO QAM Qty: 30 0RF folic acid 1 mg Tablet 1 mg PO QAM Qty: 30 0RF metoprolol tartrate 100 mg tablet 100 mg PO BID furosemide 20 mg tablet 20 mg PO QAM gabapentin 300 mg capsule See Rx Instructions .ROUTE .COMPLEX Rx Instructions: 300 mg orally; TAKES 600 MG QAM, THEN 300 MG QPM. bupropion HCl 200 mg tablet sustained-release 12 hr 200 mg PO BID sertraline 25 mg tablet 25 mg PO QAM Changed thiamine HCl (vitamin B1) 100 mg tablet 200 mg PO DAILY Qty: 30 0RF amlodipine 10 mg tablet 10 mg PO DAILY Qty: 30 2RF cholecalciferol (vitamin D3) [Vitamin D3] 1,000 unit Capsule 2,000 unit PO QAM Qty: 60 0RF Rx Instructions: purchase [id number] Discharge Orders: Discharge Order (Routine); Ordered 03/01/23 Ordered By: Nino Wilkes/Other Patient Handouts: Understanding Pancreatitis, Alcoholism: Getting Help, Anatomy of a Normal Spine, ED Diet, Low Fat Admission Data Admit Date/Time: 02/26/23 11:50 Attending Provider: Nino Moses Admit Provider: Nino Peacock Primary Care Provider: Jessica Aragon Other Providers: Nino Peacock Coding Diagnoses Acute alcoholic pancreatitis K85.20 Hypomagnesemia E83.42 Hypertension I10 Hypertension type: essential hypertension Fracture of lumbar spine S32.009A Chronic hyponatremia E87.1 Depression F33.0 Depression Type: major depressive disorder Major depression recurrence: recurrent Active/Remission status: currently active Major depression episode severity: mild Morbid obesity with BMI of 40.0-44.9, adult E66.01; Z68.41 Alcohol abuse F10.10
== END 2023-03-01 13:39 | disposition home or self-care (01) | DRG 439 ==
LOC: ED 08:14 → SUATTDRO 11:50 → 3W 11:50